=== PATIENT | female | born 1935 | race Caucasian/White ===

== ENCOUNTER 2016-04-23 10:34 | Inpatient (IN) | payer OTHER ==
[~2016-04-23] VITALS: Ht 152.4 cm; Wt 50.6 kg
[2016-04-23] VITALS (7 sets, daily range): BP systolic 101–151; BP diastolic 55–72; PULSE 98–113; RESP 18–20; TEMP 98.9–100; O2SAT 94–99
[~2016-04-23 10:34] MED LIST: ALPR.25 PO; ALPR.5 PO; AMLO5TAB2 PO; AMLO5TAB22 PO; ASPI81TA82 PO; BACT2OIN TOP; BENA40TA PO; CIPR-9 PO; FOSA70TA PO; LEVO.05 PO; LOTE40TA PO; MIRT30TA PO; PANT40TA3 PO; REGL5TAB PO; REST30CA PO; SIME125 PO; TEMA15CA PO; TEMA30CA PO; TRAM50 PO; ZOLO50TA PO
--- NOTE | 2016-04-23 11:11 | PD ---
HPI Chief Complaint: Abdominal Pain Time Seen by Provider: 11:06 Travel History International Travel<30 days: No Contact w/Intl Traveler<30days: No Traveled to known affect area: No History of Present Illness HPI Patient is an 6-year-old female brought in by her daughter for evaluation of abdominal pain, diarrhea, nausea and vomiting. Patient is mainly Cym[place]- speaking, interpreting was performed by her daughter. Formal services were offered. Patient's had 2 weeks of intermittent abdominal pain, daughter states she was going to take her to her primary last week then patient stated she felt better. The pain returned they had appointment for Thursday however the pain was more significant today which prompted the emergency department visit. Patient reports vomiting twice already today and has had multiple loose watery stools. Patient states that her abdomen feels bloated. She reports the pain as a 7 out of 10. Unknown whether or not patient's had fever him a temperature has not been assessed at home. Patient has a history of hypertension, pacemaker placement, GERD, diverticulitis. Her primary care provider is Dr. Gaona. [facility] Past Medical History Asthma: No Autoimmune Disease: No Anxiety: Yes Depression: Yes Heart Rhythm Problems: Yes Cancer: No Cardiovascular Problems: Yes (Pacemaker) High Cholesterol: No Chemotherapy: No Chest Pain: No Congestive Heart Failure: No COPD: No Coronary Artery Disease: Yes Diabetes: No Diminished Hearing: No Endocrine: No Gastrointestinal Disorders: Yes (FREQUENT NAUSEA , GASTRITIS ) GERD: Yes Genitourinary: No Hiatal Hernia: No Hypertension: Yes Immune Disorder: No Implanted Vascular Access Dvce: Yes Musculoskeletal: No Neurologic: No Psychiatric: No Reproductive: No Respiratory: No Immunizations Current: No Radiation Therapy: No Sleep Apnea: No Thyroid Disease: Yes (Takes synthroid) Ulcer: No Menopausal: Yes Past Surgical History Abdominal Surgery: Yes Appendectomy: Yes Body Medical Devices: Pacemaker Cardiac Surgery: Yes (PACEMAKER 2008) Cholecystectomy: Yes (IN 1994) Endocrine Surgery: Yes (THYROIDECTOMY) Genitourinary Surgery: Yes (BLADDER SURGERY IN 2003) Pacemaker: Yes (05/25) Other Surgery: Yes (COLECTOMY) Social History Alcohol Use: No Tobacco Use: No Substance Use: No Allergies-Medications (Allergen,Severity, Reaction): Coded Allergies: No Known Allergies (Verified , 04/23/16) Reported Meds & Prescriptions Reported Meds & Active Scripts Active Xanax (Alprazolam) 0.5 Mg Tab 0.5 Mg PO BID PRN Temazepam 30 Mg Cap 30 Mg PO HS PRN Pantoprazole (Pantoprazole Sodium) 40 Mg Tab 40 Mg PO DAILY Benazepril (Benazepril HCl) 40 Mg Tab 40 Mg PO DAILY Amlodipine (Amlodipine Besylate) 5 Mg Tab 5 Mg PO DAILY Synthroid (Levothyroxine Sodium) 50 Mcg Tab 50 Mcg PO DAILY Reglan (Metoclopramide HCl) 5 Mg Tab 5 Mg PO TIDAC Reported Zoloft (Sertraline HCl) 50 Mg Tab 50 Mg PO DAILY Phenergan (Promethazine HCl) 25 Mg Tab 25 Mg PO Q4HR PRN Aspirin Adult Low Strength (Aspirin) 81 Mg Tabdr 81 Mg PO DAILY Review of Systems Except as stated in HPI: all other systems reviewed are Neg General / Constitutional: No: Fever, Chills HENT: No: Headaches Cardiovascular: No: Chest Pain or Discomfort Respiratory: No: Shortness of Breath Gastrointestinal: Positive: Nausea, Vomiting, Diarrhea, Abdominal Pain Genitourinary: No: Dysuria Musculoskeletal: No: Myalgias Neurologic: Positive: Weakness, No: Focal Abnormalities Physical Exam Narrative GENERAL: Well-developed, well-nourished, elderly female. Resting comfortably in no acute distress. SKIN: Warm and dry. HEAD: Atraumatic. Normocephalic. EYES: Pupils equal and round. No scleral icterus. No injection or drainage. ENT: No nasal bleeding or discharge. Mucous membranes pink and moist. NECK: Trachea midline. No JVD. CARDIOVASCULAR: Mildly tachycardic. No murmur appreciated. RESPIRATORY: No accessory muscle use. Clear to auscultation. Breath sounds equal bilaterally. GASTROINTESTINAL: Abdomen soft, moderately tender to palpation left and right lower quadrant however it is worse on the left, nondistended. Hepatic and splenic margins not palpable. Positive bowel sounds, positive guarding. MUSCULOSKELETAL: No obvious deformities. No clubbing. No cyanosis. No edema. NEUROLOGICAL: Awake and alert. No obvious cranial nerve deficits. Motor grossly within normal limits. Normal speech. PSYCHIATRIC: Appropriate mood and affect; insight and judgment normal. Data Data Last Documented VS Vital Signs Date Time Temp Pulse Resp B/P Pulse Ox O2 Delivery O2 Flow Rate FiO2 04/23/16 14:26 99.0 98 18 108/58 94 Room Air Orders Complete Blood Count With Diff (04/23/16 11:04) Comprehensive Metabolic Panel (04/23/16 11:04) Lipase (04/23/16 11:04) Lactic Acid (04/23/16 11:04) Urinalysis - C+S If Indicated (04/23/16 11:04) Abdomen, Kub Only (04/23/16 11:04) Ondansetron Odt (Zofran Odt) (04/23/16 11:15) Acetaminophen Supp (Tylenol Supp) (04/23/16 11:15) Influenzae A/B Antigen (04/23/16 11:11) Blood Culture (04/23/16 11:46) Ct Abd/Pel W Iv Contrast(Rout) (04/23/16 11:46) C Diff Toxin Pcr (04/23/16 11:46) Enteric Path (Stool) (04/23/16 11:46) Sodium Chlor 0.9% 1000 Ml Inj (Ns 1000 M (04/23/16 11:46) Acetaminophen (Tylenol) (04/23/16 12:00) Ondansetron Inj (Zofran Inj) (04/23/16 12:00) Morphine Inj (Morphine Inj) (04/23/16 12:00) Potassium Chloride (Kcl) (04/23/16 12:00) Iohexol 350 Inj (Omnipaque 350 Inj) (04/23/16 13:27) Metronidazole 500 Mg Inj (Flagyl 500 Mg (04/23/16 14:15) Ciprofloxacin 400 Mg Premix (Cipro 400 M (04/23/16 14:15) Isolation (04/23/16 14:09) Sodium Chlor 0.9% 1000 Ml Inj (Ns 1000 M (04/23/16 14:09) Equip, Isolation Cart (04/23/16 14:14) Isolation (04/23/16 14:14) Admit Order (Ed Use Only) (04/23/16 14:26) Labs Laboratory Tests Test 04/23/16 04/23/16 04/23/16 11:31 12:10 13:49 White Blood Count 21.1 TH/MM3 Red Blood Count 3.42 MIL/MM3 Hemoglobin 10.5 GM/DL Hematocrit 30.7 % Mean Corpuscular Volume 89.8 FL Mean Corpuscular Hemoglobin 30.7 PG Mean Corpuscular Hemoglobin 34.2 % Concent Red Cell Distribution Width 12.6 % Platelet Count 240 TH/MM3 Mean Platelet Volume 7.5 FL Neutrophils (%) (Auto) 89.9 % Lymphocytes (%) (Auto) 2.3 % Monocytes (%) (Auto) 7.7 % Eosinophils (%) (Auto) 0.0 % Basophils (%) (Auto) 0.1 % Neutrophils # (Auto) 19.0 TH/MM3 Lymphocytes # (Auto) 0.5 TH/MM3 Monocytes # (Auto) 1.6 TH/MM3 Eosinophils # (Auto) 0.0 TH/MM3 Basophils # (Auto) 0.0 TH/MM3 CBC Comment DIFF FINAL Differential Comment Sodium Level 135 MEQ/L Potassium Level 3.2 MEQ/L Chloride Level 99 MEQ/L Carbon Dioxide Level 24.6 MEQ/L Anion Gap 11 MEQ/L Blood Urea Nitrogen 8 MG/DL Creatinine 0.59 MG/DL Estimat Glomerular Filtration 97 ML/MIN Rate Random Glucose 173 MG/DL Lactic Acid Level 1.5 mmol/L Calcium Level 8.0 MG/DL Total Bilirubin 0.9 MG/DL Aspartate Amino Transf 25 U/L (AST/SGOT) Alanine Aminotransferase 26 U/L (ALT/SGPT) Alkaline Phosphatase 61 U/L Total Protein 5.9 GM/DL Albumin 2.6 GM/DL Lipase 50 U/L Stool C. difficile Toxin (PCR) POSITIVE Stl C. difficile Toxin PRESUMPTIVE Epiderm 027 NEGATIVE Urine Color YELLOW Urine Turbidity CLEAR Urine pH 6.5 Urine Specific [place] 1.025 Urine Protein 30 mg/dL Urine Glucose (UA) NEG mg/dL Urine Ketones NEG mg/dL Urine Occult Blood SMALL Urine Nitrite NEG Urine Bilirubin NEG Urine Urobilinogen LESS THAN 2.0 MG/DL Urine Leukocyte Esterase SMALL Urine RBC 9 /hpf Urine WBC 8 /hpf Urine Squamous Epithelial <1 /hpf Cells Urine Transitional Epithelial <1 /hpf Cells Microscopic Urinalysis Comment CULT NOT INDICATED MDM Medical Decision Making Medical Screen Exam Complete: Yes Emergency Medical Condition: Yes Interpretation(s) Vital Signs Date Time Temp Pulse Resp B/P Pulse Ox O2 Delivery O2 Flow Rate FiO2 04/23/16 10:35 100.0 108 20 139/66 97 Room Air Differential Diagnosis Diverticulitis versus colitis versus perforation versus gastroenteritis versus influenza versus other Narrative Course Patient is an 81-year-old female presenting to emergency for evaluation of 2 weeks of intermittent abdominal pain that is gotten worse over the last 2 days. Patient has a history of diverticulitis per daughter's report. Patient's had poor oral intake secondary to the nausea and vomiting. Labs and imaging ordered and pending, Zofran ordered. Daughter at bedside. Daughter is interpreting, formal services have been offered. Workup has been initiated in triage, care patient will be transferred to provide her with a medical bed is available. Maria Antonia Burrows Apr 23, 2016 11:11 Maria Antonia Burrows Apr 23, 2016 11:11
[2016-04-23] MEDS ORDERED: ONDANSETRON ODT 4 MG TAB PO ONE (11:15)
[2016-04-23] MEDS ORDERED: ACETAMINOPHEN 650 MG SUPP RECTAL ONE (11:15)
[2016-04-23 11:45] LABS: BASOPHIL % 0.1 % (0.0-2.0); HEMATOCRIT 30.7 % (35.0-46.0); HEMO FLAGS DIFF FINAL; LYMPH % 2.3 % (9.0-44.0); LYMPHOCYTE # 0.5 TH/MM3 (1.0-4.8); MEAN CELL VOLUME 89.8 FL (80.0-100.0); MEAN CORPUSCULAR HEMOGLOBIN 30.7 PG (27.0-34.0); MEAN CORPUSCULAR HGB CONC 34.2 % (32.0-36.0); MONO % 7.7 % (0.0-8.0); NEUT % 89.9 % (16.0-70.0); PLATELET COUNT 240 TH/MM3 (150-450); RED BLOOD COUNT 3.42 MIL/MM3 (4.00-5.30); RED CELL DISTRIBUTION WIDTH 12.6 % (11.6-17.2); WHITE BLOOD COUNT 21.1 TH/MM3 (4.0-11.0)
[2016-04-23] MEDS ORDERED: SODIUM CHLOR 0.9% 1000 ML INJ 1,000 ML IV SCH ×2 (11:46→14:09)
--- NOTE | 2016-04-23 11:53 | PD ---
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 All interpretation was through her daughter who speaks Maltese and [place] Citizen. 81-year -old female with history of hypertension, coronary artery disease, diverticulosis, hypothyroidism, chronic back pain presents for evaluation of abdominal pain, nausea and vomiting and diarrhea. Abdominal pain, diarrhea started 2 weeks ago. Symptoms seemed to have waxed and waned since then. Over the past 2 days that is worse. She reports nausea and vomiting which started today. 3 episodes of nonbloody emesis today, 6 episodes of mucousy nonbloody watery diarrhea. She has had abdominal pain which she describes as a squeezing pain in the left and right lower quadrant the abdomen. She has been complaining of chills over the past few days as well. Denies dysuria, increased urinary frequency, flank pain, chest pain or shortness of breath, cough or congestion, sore throat. The patient was last on an antibiotic on March 11, ciprofloxacin for 7 days, for possible urinary tract infection. No history of C. difficile. No other complaints. Regular physician is Dr. Gaona. [facility] Past Medical History Asthma: No Autoimmune Disease: No Anxiety: Yes Depression: Yes Heart Rhythm Problems: Yes Cancer: No Cardiovascular Problems: Yes (Pacemaker) High Cholesterol: No Chemotherapy: No Chest Pain: No Congestive Heart Failure: No COPD: No Coronary Artery Disease: Yes Diabetes: No Diminished Hearing: No Endocrine: No Gastrointestinal Disorders: Yes (FREQUENT NAUSEA , GASTRITIS ) GERD: Yes Genitourinary: No Hiatal Hernia: No Hypertension: Yes Immune Disorder: No Implanted Vascular Access Dvce: Yes Musculoskeletal: No Neurologic: No Psychiatric: No Reproductive: No Respiratory: No Immunizations Current: No Radiation Therapy: No Sleep Apnea: No Thyroid Disease: Yes (Takes synthroid) Ulcer: No Menopausal: Yes Past Surgical History Abdominal Surgery: Yes Appendectomy: Yes Body Medical Devices: Pacemaker Cardiac Surgery: Yes (PACEMAKER 2008) Cholecystectomy: Yes (IN 1994) Endocrine Surgery: Yes (THYROIDECTOMY) Genitourinary Surgery: Yes (BLADDER SURGERY IN 2003) Pacemaker: Yes (05/25) Other Surgery: Yes (COLECTOMY) Social History Alcohol Use: No Tobacco Use: No Substance Use: No Allergies-Medications (Allergen,Severity, Reaction): Coded Allergies: No Known Allergies (Verified , 04/23/16) Reported Meds & Prescriptions Reported Meds & Active Scripts Active Xanax (Alprazolam) 0.5 Mg Tab 0.5 Mg PO BID PRN Temazepam 30 Mg Cap 30 Mg PO HS PRN Pantoprazole (Pantoprazole Sodium) 40 Mg Tab 40 Mg PO DAILY Benazepril (Benazepril HCl) 40 Mg Tab 40 Mg PO DAILY Amlodipine (Amlodipine Besylate) 5 Mg Tab 5 Mg PO DAILY Synthroid (Levothyroxine Sodium) 50 Mcg Tab 50 Mcg PO DAILY Reglan (Metoclopramide HCl) 5 Mg Tab 5 Mg PO TIDAC Reported Zoloft (Sertraline HCl) 50 Mg Tab 50 Mg PO DAILY Phenergan (Promethazine HCl) 25 Mg Tab 25 Mg PO Q4HR PRN Aspirin Adult Low Strength (Aspirin) 81 Mg Tabdr 81 Mg PO DAILY Review of Systems Except as stated in HPI: all other systems reviewed are Neg Physical Exam Narrative GENERAL: Pleasant well-developed well-nourished elderly female in no acute distress answering questions appropriately. Tachycardic with temperature 100. SKIN: Warm and dry. HEAD: Atraumatic. Normocephalic. EYES: Pupils equal and round. No scleral icterus. No injection or drainage. ENT: No nasal bleeding or discharge. Mucous membranes pink and moist. NECK: Trachea midline. No JVD. CARDIOVASCULAR: Regular rate and rhythm. No murmur appreciated. RESPIRATORY: No accessory muscle use. Clear to auscultation. Breath sounds equal bilaterally. GASTROINTESTINAL: Abdomen soft, tender to palpation in the left and right lower quadrants, left greater than right. No guarding. MUSCULOSKELETAL: No obvious deformities. No lower extremity edema. NEUROLOGICAL: Awake and alert. No obvious cranial nerve deficits. Motor grossly within normal limits. Normal speech. PSYCHIATRIC: Appropriate mood and affect; insight and judgment normal. Data Data Last Documented VS Vital Signs Date Time Temp Pulse Resp B/P Pulse Ox O2 Delivery O2 Flow Rate FiO2 04/23/16 14:26 99.0 98 18 108/58 94 Room Air Orders Complete Blood Count With Diff (04/23/16 11:04) Comprehensive Metabolic Panel (04/23/16 11:04) Lipase (04/23/16 11:04) Lactic Acid (04/23/16 11:04) Urinalysis - C+S If Indicated (04/23/16 11:04) Abdomen, Kub Only (04/23/16 11:04) Ondansetron Odt (Zofran Odt) (04/23/16 11:15) Acetaminophen Supp (Tylenol Supp) (04/23/16 11:15) Influenzae A/B Antigen (04/23/16 11:11) Blood Culture (04/23/16 11:46) Ct Abd/Pel W Iv Contrast(Rout) (04/23/16 11:46) C Diff Toxin Pcr (04/23/16 11:46) Enteric Path (Stool) (04/23/16 11:46) Sodium Chlor 0.9% 1000 Ml Inj (Ns 1000 M (04/23/16 11:46) Acetaminophen (Tylenol) (04/23/16 12:00) Ondansetron Inj (Zofran Inj) (04/23/16 12:00) Morphine Inj (Morphine Inj) (04/23/16 12:00) Potassium Chloride (Kcl) (04/23/16 12:00) Iohexol 350 Inj (Omnipaque 350 Inj) (04/23/16 13:27) Metronidazole 500 Mg Inj (Flagyl 500 Mg (04/23/16 14:15) Ciprofloxacin 400 Mg Premix (Cipro 400 M (04/23/16 14:15) Isolation (04/23/16 14:09) Sodium Chlor 0.9% 1000 Ml Inj (Ns 1000 M (04/23/16 14:09) Equip, Isolation Cart (04/23/16 14:14) Isolation (04/23/16 14:14) Admit Order (Ed Use Only) (04/23/16 14:26) Labs Laboratory Tests Test 04/23/16 04/23/16 04/23/16 11:31 12:10 13:49 White Blood Count 21.1 TH/MM3 Red Blood Count 3.42 MIL/MM3 Hemoglobin 10.5 GM/DL Hematocrit 30.7 % Mean Corpuscular Volume 89.8 FL Mean Corpuscular Hemoglobin 30.7 PG Mean Corpuscular Hemoglobin 34.2 % Concent Red Cell Distribution Width 12.6 % Platelet Count 240 TH/MM3 Mean Platelet Volume 7.5 FL Neutrophils (%) (Auto) 89.9 % Lymphocytes (%) (Auto) 2.3 % Monocytes (%) (Auto) 7.7 % Eosinophils (%) (Auto) 0.0 % Basophils (%) (Auto) 0.1 % Neutrophils # (Auto) 19.0 TH/MM3 Lymphocytes # (Auto) 0.5 TH/MM3 Monocytes # (Auto) 1.6 TH/MM3 Eosinophils # (Auto) 0.0 TH/MM3 Basophils # (Auto) 0.0 TH/MM3 CBC Comment DIFF FINAL Differential Comment Sodium Level 135 MEQ/L Potassium Level 3.2 MEQ/L Chloride Level 99 MEQ/L Carbon Dioxide Level 24.6 MEQ/L Anion Gap 11 MEQ/L Blood Urea Nitrogen 8 MG/DL Creatinine 0.59 MG/DL Estimat Glomerular Filtration 97 ML/MIN Rate Random Glucose 173 MG/DL Lactic Acid Level 1.5 mmol/L Calcium Level 8.0 MG/DL Total Bilirubin 0.9 MG/DL Aspartate Amino Transf 25 U/L (AST/SGOT) Alanine Aminotransferase 26 U/L (ALT/SGPT) Alkaline Phosphatase 61 U/L Total Protein 5.9 GM/DL Albumin 2.6 GM/DL Lipase 50 U/L Stool C. difficile Toxin (PCR) POSITIVE Stl C. difficile Toxin PRESUMPTIVE Epiderm 027 NEGATIVE Urine Color YELLOW Urine Turbidity CLEAR Urine pH 6.5 Urine Specific [place] 1.025 Urine Protein 30 mg/dL Urine Glucose (UA) NEG mg/dL Urine Ketones NEG mg/dL Urine Occult Blood SMALL Urine Nitrite NEG Urine Bilirubin NEG Urine Urobilinogen LESS THAN 2.0 MG/DL Urine Leukocyte Esterase SMALL Urine RBC 9 /hpf Urine WBC 8 /hpf Urine Squamous Epithelial <1 /hpf Cells Urine Transitional Epithelial <1 /hpf Cells Microscopic Urinalysis Comment CULT NOT INDICATED MDM Medical Decision Making Medical Screen Exam Complete: Yes Emergency Medical Condition: Yes Medical Record Reviewed: Yes Interpretation(s) CBC WBC 21.1 with 89.9% neutrophils CMP potassium 3.2, sodium 135 Lactic acid within normal limits Lipase 50 Differential Diagnosis Diverticulitis, colitis, C. difficile, colitis, gastroenteritis, sepsis, perforation, pyelonephritis Narrative Course 81-year-old female waxing and waning abdominal pain and diarrhea for 2 weeks, worsening over the past 2 days with associated chills, nausea and vomiting today. On initial examination she is tachycardic with a heart rate of 108, temperature 100. On examination she has tenderness to palpation left right lower quadrant. History of diverticulitis in the past. We will check CT abdomen and pelvis, basic lab work, urinalysis. The patient will be given IV fluid bolus, Tylenol and Zofran. CT reveals colitis, suspicious for C. difficile according to the radiologist. Special contact precautions initiated. C. difficile PCR still pending. The patient is being started on IV Flagyl and Cipro pending culture and PCR results. She is being admitted for sepsis and colitis. Discussed with the patient and her daughter who are agreeable. She feels much better after the administration of morphine and Tylenol and Zofran. Discussed with Dr. Rodríguez who is agreeable with admission to Dr. Zapata C. difficile PCR came back positive so the Cipro has been canceled and will not be administered. Flagyl is being administered. Sepsis Criteria SIRS Criteria (2 or more): Heart rate over 90, WBC > 79986, < 4000 or > 10% bands Sepsis Criteria (SIRS+source): Infect source susp/known Diagnosis Primary Impression: Sepsis Qualified Code: A41.9 - Sepsis, due to unspecified organism Additional Impressions: Colitis C. difficile colitis Admitting Information Admitting Physician Requests: Admit Jalil Gan Apr 23, 2016 11:53
[2016-04-23 11:59] LABS: ANION GAP 11 MEQ/L (5-15); AST (GOT) 25 U/L (15-37); BICARBONATE 24.6 MEQ/L (21.0-32.0); BLOOD UREA NITROGEN 8 MG/DL (7-18); CHLORIDE 99 MEQ/L (98-107); GLOMERULAR FILTRATION RATE 97 ML/MIN (>89); POTASSIUM 3.2 MEQ/L (3.5-5.1); SODIUM (NA) 135 MEQ/L (136-145)
[2016-04-23] MEDS ORDERED: POTASSIUM CHLORIDE 20 MEQ CONTROLLED RELEASE TAB PO ONE (12:00)
[2016-04-23] MEDS ORDERED: MORPHINE SULFATE 4 MG/ML INJ IV PUSH ONE (12:00)
[2016-04-23] MEDS ORDERED: ONDANSETRON HCL 4 MG/2 ML VIAL IV PUSH ONE (12:00)
[2016-04-23] MEDS ORDERED: ACETAMINOPHEN 325 MG TAB PO ONE (12:00)
[2016-04-23 12:03] LABS: ALKALINE PHOSPHATASE 61 U/L (45-117); ALT (GPT) 26 U/L (10-53); TOTAL BILIRUBIN ADULT 0.9 MG/DL (0.2-1.0)
--- NOTE | 2016-04-23 12:08 | RADRPT ---
EXAM DATE/TIME: 04/23/2016 11:29 [facility] COMPARISON: No previous studies available for comparison. INDICATIONS : Abdomen pain and diarrhea. MEDICAL HISTORY : None. SURGICAL HISTORY : None. ENCOUNTER: Initial ACUITY: 2 weeks PAIN SCORE: 8/10 LOCATION: Left Abdomen. FINDINGS: No distention seen. Thumbprinting seen of much of the colon, especially sigmoid and of concern for po ssible colitis. No free air. CONCLUSION: Suspected sigmoid colitis. Nonobstructive pattern. No free air. Ramo Armas MD on April 23, 2016 at 12:05 Board Certified Radiologist. This report was verified electronically.
[2016-04-23] MEDS ORDERED: ASPI1TAB91 PO (12:44)
[2016-04-23] MEDS ORDERED: PROM25TA5 PO (12:44)
[2016-04-23] MEDS ORDERED: ZOLO50TA PO (12:44)
[2016-04-23] MEDS ORDERED: IOHEXOL 350 MG/ML 10 ML VIAL (for RAD DIAG) IV ONE (13:27)
[2016-04-23 14:01] LABS: C. DIFF EPI 027 PRESUMPTIVE NEGATIVE (NEGATIVE)
--- NOTE | 2016-04-23 14:04 | RADRPT ---
EXAM DATE/TIME: 04/23/2016 13:15 [facility] COMPARISON: CT ABDOMEN & PELVIS W CONTRAST, November 07, 2015, 3:54. INDICATIONS : Lower abdominal pain. Nausea, vomiting and diarrhea. IV CONTRAST: 75 cc Omnipaque 350 (iohexol) IV ORAL CONTRAST: No oral contrast ingested. RADIATION DOSE: 9.96 CTDIvol (mGy) MEDICAL HISTORY : Diverticulosis. Cardiovascular disease Hypertension. SURGICAL HISTORY : Appendectomy. Cholecystectomy.Pacemaker. ENCOUNTER: Initial ACUITY: 2 weeks PAIN SCALE: 8/10 LOCATION: Bilateral lower quadrant TECHNIQUE: Volumetric scanning of the abdomen and pelvis was performed. Using automated exposure control and ad justment of the mA and/or kV according to patient size, radiation dose was kept as low as reasonably achievable to obtain optimal diagnostic quality images. FINDINGS: LOWER LUNGS: There is a small left pleural effusion and small to moderate size pericardial effusion, increased in volume since the prior examination. Pacing wires are present within the right heart. LIVER: Homogeneous density without lesion. The gallbladder is absent. Common bile duct remains enlarged moreno uring up to 8 mm distally. This appearance is stable. SPLEEN: Normal size without lesion. PANCREAS: Within normal limits. KIDNEYS: Normal in size and shape. There is no mass, stone or hydronephrosis. ADRENAL GLANDS: Within normal limits. VASCULAR: There is no aortic aneurysm. There is moderate atherosclerotic disease. BOWEL/MESENTERY: The stomach and small bowel demonstrate no acute finding. The colon nearly diffusely demonstrate circ umferential wall thickening and pericolonic inflammatory change. There has been prior small bowel margarita christy in the right abdomen. Trace free fluid is present. There is no free air. ABDOMINAL WALL: Within normal limits. RETROPERITONEUM: There is no lymphadenopathy. BLADDER: No wall thickening or mass. REPRODUCTIVE: Within normal limits. INGUINAL: There is no lymphadenopathy or hernia. MUSCULOSKELETAL: There are degenerative changes of the spine. CONCLUSION: 1. The colon nearly diffusely demonstrates wall thickening and pericolonic inflammatory change charac teristic of a colitis. The appearance and distribution is suspicious for C. difficile colitis. 2. Small left pleural effusion and mild to moderate pericardial effusion. Ramo Roca MD on April 23, 2016 at 13:53 Board Certified Radiologist. This report was verified electronically.
[2016-04-23 14:09] LABS: BLOOD, URINE SMALL (NEG); GLUCOSE,URINE NEG (NEG); KETONE, URINE NEG (NEG); NITRITE,URINE NEG (NEG); PH, URINE 6.5 (5.0-8.5); SQUAMOUS EPITHELIAL CELL URINE <1 /hpf (0-5); TRANSITIONAL EPI CELLS, URINE <1 /hpf; URINE COLOR YELLOW (YELLW/STRAW)
[2016-04-23] MEDS ORDERED: metroNIDAZOLE 500 MG INJ 100 ML IV ONE (14:15)
[2016-04-23] MEDS ORDERED: CIPROFLOXACIN 400 MG PREMIX 200 ML IV ONE (14:15)
--- NOTE | 2016-04-23 14:17 | PD ---
Physical Exam Date Seen by Provider: Apr 23, 2016 Time Seen by Provider: 13:50 Narrative A 81 year old female with two-week history of abdominal pain and diarrhea. The patient was scheduled to see her primary care doctor on Thursday however the pain is gotten so worse. Patient does have a history of diverticulitis. Patient was seen with Silke Gan PA-C. Data Data Last Documented VS Vital Signs Date Time Temp Pulse Resp B/P Pulse Ox O2 Delivery O2 Flow Rate FiO2 04/23/16 10:35 100.0 108 20 139/66 97 Room Air Orders Complete Blood Count With Diff (04/23/16 11:04) Comprehensive Metabolic Panel (04/23/16 11:04) Lipase (04/23/16 11:04) Lactic Acid (04/23/16 11:04) Urinalysis - C+S If Indicated (04/23/16 11:04) Abdomen, Kub Only (04/23/16 11:04) Ondansetron Odt (Zofran Odt) (04/23/16 11:15) Acetaminophen Supp (Tylenol Supp) (04/23/16 11:15) Influenzae A/B Antigen (04/23/16 11:11) Blood Culture (04/23/16 11:46) Ct Abd/Pel W Iv Contrast(Rout) (04/23/16 11:46) C Diff Toxin Pcr (04/23/16 11:46) Enteric Path (Stool) (04/23/16 11:46) Sodium Chlor 0.9% 1000 Ml Inj (Ns 1000 M (04/23/16 11:46) Acetaminophen (Tylenol) (04/23/16 12:00) Ondansetron Inj (Zofran Inj) (04/23/16 12:00) Morphine Inj (Morphine Inj) (04/23/16 12:00) Potassium Chloride (Kcl) (04/23/16 12:00) Iohexol 350 Inj (Omnipaque 350 Inj) (04/23/16 13:27) Metronidazole 500 Mg Inj (Flagyl 500 Mg (04/23/16 14:15) Ciprofloxacin 400 Mg Premix (Cipro 400 M (04/23/16 14:15) Isolation 08,20 (04/23/16 14:09) Sodium Chlor 0.9% 1000 Ml Inj (Ns 1000 M (04/23/16 14:09) Labs Laboratory Tests Test 04/23/16 11:31 White Blood Count 21.1 TH/MM3 Red Blood Count 3.42 MIL/MM3 Hemoglobin 10.5 GM/DL Hematocrit 30.7 % Mean Corpuscular Volume 89.8 FL Mean Corpuscular Hemoglobin 30.7 PG Mean Corpuscular Hemoglobin 34.2 % Concent Red Cell Distribution Width 12.6 % Platelet Count 240 TH/MM3 Mean Platelet Volume 7.5 FL Neutrophils (%) (Auto) 89.9 % Lymphocytes (%) (Auto) 2.3 % Monocytes (%) (Auto) 7.7 % Eosinophils (%) (Auto) 0.0 % Basophils (%) (Auto) 0.1 % Neutrophils # (Auto) 19.0 TH/MM3 Lymphocytes # (Auto) 0.5 TH/MM3 Monocytes # (Auto) 1.6 TH/MM3 Eosinophils # (Auto) 0.0 TH/MM3 Basophils # (Auto) 0.0 TH/MM3 CBC Comment DIFF FINAL Differential Comment Sodium Level 135 MEQ/L Potassium Level 3.2 MEQ/L Chloride Level 99 MEQ/L Carbon Dioxide Level 24.6 MEQ/L Anion Gap 11 MEQ/L Blood Urea Nitrogen 8 MG/DL Creatinine 0.59 MG/DL Estimat Glomerular Filtration 97 ML/MIN Rate Random Glucose 173 MG/DL Lactic Acid Level 1.5 mmol/L Calcium Level 8.0 MG/DL Total Bilirubin 0.9 MG/DL Aspartate Amino Transf 25 U/L (AST/SGOT) Alanine Aminotransferase 26 U/L (ALT/SGPT) Alkaline Phosphatase 61 U/L Total Protein 5.9 GM/DL Albumin 2.6 GM/DL Lipase 50 U/L [facility] Medical Record Reviewed: Yes Supervised Visit with REMBERTO: Yes Differential Diagnosis Colitis versus diverticulitis versus mesenteric ischemia versus C. difficile Narrative Course 81-year-old female with a history of diverticulitis, presents with complaints of 2 week history of abdominal pain. Patient has diarrhea as well. She was treated with ciprofloxacin one month ago. The patient's white blood cell count is 21,000. CT scan shows evidence of diverticulitis. She's been started on ciprofloxacin and Flagyl. She'll be admitted to the hospital service. I, Dr. House, have reviewed the advance practice practitioner's documentation and am in agreement, met with the patient face to face, made the diagnosis, and the medical decision making was done by me. *My assessment and Findings: As above. Diagnosis Primary Impression: Sepsis Qualified Code: A41.9 - Sepsis, due to unspecified organism Additional Impression: Colitis Sky House MD Apr 23, 2016 14:17
[2016-04-23 14:19] LABS: COMMENT (UR) CULT NOT INDICATED; CULTURE IF INDICATED CULT NOT INDICATED
[2016-04-23 14:30] LABS: C. DIFF TOXIN PCR POSITIVE (NEGATIVE)
--- NOTE | 2016-04-23 14:31 | HHI.HP ---
[facility] Service Family Medicine Primary Care Physician Dr. Gaona Admission Diagnosis C. diff colitis Diagnoses: International Travel<30 Days: No Contact w/Intl Traveler<30days: No Known Affected Area: No History of Present Illness 81 year old female with a history of HTN, diverticulitis, hypothyroidism, and pacemaker placement presented to the ER for evaluation of abdominal pain, diarrhea, nausea and vomiting. She endorses bloating and crampy , lower abdominal pain for the past 4-5 days. Pain is worst in the left lower quadrant and she rates it 7/10. She began having diarrhea yesterday morning and since then she has had about seven episodes of foul-smelling, liquid diarrhea with occasional bloody-mucous streaks. She reports subjective fever at home which she treated with Tylenol. Today she had nausea and two episodes of nonbloody, nonbilious vomiting. She was last seen by her PCP, Dr. Gaona, in February and was treated with a seven day course of Cipro for a UTI. Review of Systems Constitutional: COMPLAINS OF: Fever, Chills, Change in appetite Eyes: DENIES: Blurred vision, Double Vision Ears, nose, mouth, throat: DENIES: Running Nose Respiratory: DENIES: Cough, Sputum production, Shortness of breath Cardiovascular: DENIES: Chest pain, Palpitations Gastrointestinal: COMPLAINS OF: Abdominal pain, Diarrhea, Nausea, Vomiting, DENIES: Black stools, Constipation Genitourinary: DENIES: Urgency, Hematuria, Dysuria Musculoskeletal: DENIES: Joint pain Integumentary: DENIES: Rash Neurologic: DENIES: Headache Psychiatric: DENIES: Confusion Past Family Social History Past Medical History Hypertension Coronary artery disease Hypothyroidism Diverticulitis 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 Pacemaker (cardiac conduction abnormality; history of syncope secondary to bradycardia) Back pain (followed by pain management) Past Surgical History Cholecystectomy Appendectomy Laparotomy Colectomy (bowel obstruction) Biventricular pacemaker placement Partial thyroidectomy Bladder mesh Reported Medications Xanax (Alprazolam) 0.5 Mg Tab 0.5 Mg PO BID PRN Temazepam 30 Mg Cap 30 Mg PO HS PRN Pantoprazole (Pantoprazole Sodium) 40 Mg Tab 40 Mg PO DAILY Benazepril (Benazepril HCl) 40 Mg Tab 40 Mg PO DAILY Amlodipine (Amlodipine Besylate) 5 Mg Tab 5 Mg PO DAILY Synthroid (Levothyroxine Sodium) 50 Mcg Tab 50 Mcg PO DAILY Reglan (Metoclopramide HCl) 5 Mg Tab 5 Mg PO TIDAC Zoloft (Sertraline HCl) 50 Mg Tab 50 Mg PO DAILY Phenergan (Promethazine HCl) 25 Mg Tab 25 Mg PO Q4HR PRN Aspirin Adult Low Strength (Aspirin) 81 Mg Tabdr 81 Mg PO DAILY Allergies: Coded Allergies: No Known Allergies (Verified , 04/23/16) Active Ordered Medications Acetaminophen (Tylenol) 650 mg ONCE ONCE PO Last administered on 04/23/16 12:23 ; Admin Dose 650 MG; Start 04/23/16 at 12:00; Stop 04/23/16 at 12:02; Status DC Acetaminophen (Tylenol) 650 mg Q4H PRN PO; Start 04/23/16 at 15:15 Acetaminophen 650 mg 650 mg ONCE ONCE RECTAL Last administered on 04/23/16 11: 16; Admin Dose 650 MG; Start 04/23/16 at 11:15; Stop 04/23/16 at 11:16; Status DC Ciprofloxacin/ Dextrose 200 ml @ 200 mls/hr ONCE ONCE IV Last administered on 04/23/16 14:21; Admin Dose 200 MLS/HR; Start 04/23/16 at 14:15; Stop 04/23/16 at 14:34; Status DC Heparin Sodium (Porcine) (Heparin Inj) 5,000 units Q12H SQ; Start 04/23/16 at 21: 00 Iohexol 75 ml 75 ml STK-MED ONCE IV Last administered on 04/23/16 13:27; Admin Dose 75 ML; Start 04/23/16 at 13:27; Stop 04/23/16 at 13:28; Status DC IV Flush (NS Flush) 2 ml BID FLUSH; Start 04/23/16 at 21:00 IV Flush (NS Flush) 2 ml UNSCH PRN FLUSH; Start 04/23/16 at 15:15 Metronidazole 100 ml @ 100 mls/hr ONCE ONCE IV Last administered on 04/23/16 14:21; Admin Dose 100 MLS/HR; Start 04/23/16 at 14:15; Stop 04/23/16 at 15:14; Status DC Metronidazole (Flagyl 500 Mg Inj) 100 ml @ 100 mls/hr Q8H IV; Start 04/23/16 at 22:30 Morphine Sulfate (Morphine Inj) 2 mg Q4HR PRN IV PUSH; Start 04/23/16 at 16:00 Morphine Sulfate (Morphine Inj) 3 mg ONCE ONCE IV PUSH Last administered on 04/23 12:22; Admin Dose 3 MG; Start 04/23/16 at 12:00; Stop 04/23/16 at 12:03; Status DC Naloxone HCl 0.4 mg 0.4 mg UNSCH PRN IV; Start 04/23/16 at 15:15 Ondansetron HCl (Zofran Odt) 4 mg ONCE ONCE PO Last administered on 04/23/16 11:16; Admin Dose 4 MG; Start 04/23/16 at 11:15; Stop 04/23/16 at 11:16; Status DC Ondansetron HCl (Zofran Inj) 4 mg ONCE ONCE IV PUSH Last administered on 12:22; Admin Dose 4 MG; Start 04/23/16 at 12:00; Stop 04/23/16 at 12:02; Status DC Ondansetron HCl (Zofran Inj) 4 mg Q6H PRN IVP; Start 04/23/16 at 15:15 Potassium Chloride (KCl) 40 meq ONCE ONCE PO Last administered on 04/23/16 12: 23; Admin Dose 40 MEQ; Start 04/23/16 at 12:00; Stop 04/23/16 at 12:03; Status DC Sodium Chloride 1,000 ml @ 1,000 mls/hr Q1H IV Last administered on 04/23/16 14 :22; Admin Dose 1,000 MLS/HR; Start 04/23/16 at 14:09; Stop 04/23/16 at 15:08; Status DC Sodium Chloride (NS 1000 ml Inj) 1,000 ml @ 100 mls/hr Q10H IV; Start 04/23/16 at 15:07 Sodium Chloride (NS 1000 ml Inj) 1,000 ml @ 1,000 mls/hr Q1H IV Last administered on 04/23/16 12:23; Admin Dose 1,000 MLS/HR; Start 04/23/16 at 11:46 ; Stop 04/23/16 at 12:45; Status DC Family History Mother: at "old age" Father: from pulmonary disease Social History Lives with daughter EtOH: glass of wine daily Tobacco: denies Illicit drugs: denies Physical Exam Vital Signs Vital Signs Date Time Temp Pulse Resp B/P Pulse Ox O2 Delivery O2 Flow Rate FiO2 04/23/16 10:35 100.0 108 20 139/66 97 Room Air Physical Exam GENERAL: Well-nourished, well-developed elderly female, appears younger than stated age, laying comfortably in bed in no apparent distress. SKIN: Warm and dry. Few upper extremity purpura. HEENT: Atraumatic. Normocephalic. No temporal or scalp tenderness. Pupils equal round and reactive. Extraocular motions intact. Right eye twitching. No scleral icterus. No injection or drainage. Nose without bleeding, purulent drainage or septal hematoma. Throat without erythema, tonsillar hypertrophy or exudate. Uvula midline. Airway patent. NECK: Trachea midline. Thyroidectomy scar. No JVD or lymphadenopathy. Supple, nontender, no meningeal signs. CARDIOVASCULAR: Regular rate and rhythm without murmurs, gallops, or rubs. 2+ pedal pulses. RESPIRATORY: Clear to auscultation. Breath sounds equal bilaterally. No wheezes , rales, or rhonchi. GASTROINTESTINAL: Laparotomy scar. Hyperactive bowel sounds. Abdomen is soft with mild diffuse tenderness to palpation but especially tender over LLQ. No guarding or rebound. MUSCULOSKELETAL: Extremities without clubbing, cyanosis, or edema. No joint tenderness, effusion, or edema noted. No calf tenderness. NEUROLOGICAL: Awake and alert. Normal speech. Laboratory Laboratory Tests Test 04/23/16 04/23/16 11:31 13:49 White Blood Count 21.1 Red Blood Count 3.42 Hemoglobin 10.5 Hematocrit 30.7 Mean Corpuscular Volume 89.8 Mean Corpuscular Hemoglobin 30.7 Mean Corpuscular Hemoglobin 34.2 Concent Red Cell Distribution Width 12.6 Platelet Count 240 Mean Platelet Volume 7.5 Neutrophils (%) (Auto) 89.9 Lymphocytes (%) (Auto) 2.3 Monocytes (%) (Auto) 7.7 Eosinophils (%) (Auto) 0.0 Basophils (%) (Auto) 0.1 Neutrophils # (Auto) 19.0 Lymphocytes # (Auto) 0.5 Monocytes # (Auto) 1.6 Eosinophils # (Auto) 0.0 Basophils # (Auto) 0.0 CBC Comment DIFF FINAL Differential Comment Sodium Level 135 Potassium Level 3.2 Chloride Level 99 Carbon Dioxide Level 24.6 Anion Gap 11 Blood Urea Nitrogen 8 Creatinine 0.59 Estimat Glomerular Filtration 97 Rate Random Glucose 173 Lactic Acid Level 1.5 Calcium Level 8.0 Total Bilirubin 0.9 Aspartate Amino Transf 25 (AST/SGOT) Alanine Aminotransferase 26 (ALT/SGPT) Alkaline Phosphatase 61 Total Protein 5.9 Albumin 2.6 Lipase 50 Urine Color YELLOW Urine Turbidity CLEAR Urine pH 6.5 Urine Specific [place] 1.025 Urine Protein 30 Urine Glucose (UA) NEG Urine Ketones NEG Urine Occult Blood SMALL Urine Nitrite NEG Urine Bilirubin NEG Urine Urobilinogen LESS THAN 2.0 Urine Leukocyte Esterase SMALL Urine RBC 9 Urine WBC 8 Urine Squamous Epithelial <1 Cells Urine Transitional Epithelial <1 Cells Microscopic Urinalysis Comment CULT NOT INDICATED Date/Time Procedure Status Source Growth 04/23/16 12:10 Aerobic Blood Culture Received Blood Peripheral Pending 04/23/16 12:10 Anaerobic Blood Culture Received Blood Peripheral Pending 04/23/16 12:10 Received Stool Stool Pending 04/23/16 11:25 Influenza Types A,B Antigen (ANNA) - Final Complete Nasal Washing NEGATIVE FOR FLU A AND B ANTIGEN.... Result Diagram: 04/23/16 1131 04/23/16 1131 Imaging Abdomen/Pelvis CT 04/23/16 1146 Signed Impressions: Service Date/Time: Saturday, April 23, 2016 13:15 - CONCLUSION: 1. The colon nearly diffusely demonstrates wall thickening and pericolonic inflammatory change characteristic of a colitis. The appearance and distribution is suspicious for C. difficile colitis. 2. Small left pleural effusion and mild to moderate pericardial effusion. Ramo Roca MD Abdomen X-Ray 04/23/16 1104 Signed Impressions: Service Date/Time: Saturday, April 23, 2016 11:29 - CONCLUSION: Suspected sigmoid colitis. Nonobstructive pattern. No free air. Ramo Armas MD Septic Shock Reassessment Heart: Regular rate and rhythm Lungs: Clear Skin: Warm Peripheral Pulses: Bounding Right Radial Bounding Left Radial Bounding Right Dorsalis Pedis Bounding Left Dorsalis Pedis Bounding Right Posterior Tibial Bounding Left Posterior Tibial Capillary Refill: Brisk Assessment and Plan Assessment and Plan 81 year old female is admitted for sepsis secondary to C. diff colitis. She was aggressively hydrated in the ER and will be treated with IV Flagyl 500 mg Q8H. Code Status FULL Problem List: (1) C. difficile colitis Status: Acute Plan: Patient presenting with abdominal pain and diarrhea with + C. diff PCR, likely secondary to recent use of Cipro about six weeks prior. Patient with low- grade fever of 100, white count elevated to 21.1 with left shift, and tachycardia. CT abdomen shows colonic wall thickening and pericolonic inflammatory changes. - Flagyl 500 mg IV Q8H - Avoid PPIs and Imodium with acute C. diff infection - IV hydration - Diet as tolerated - Zofran PRN - Morphine 2 mg IV Q4H PRN (2) Sepsis Status: Acute Plan: Patient presenting with leukocytosis, low-grade fever, tachycardia, and source of infection (C. diff). Lactic acid normal. - Received 2L NS bolus - Treat underlying infection as above - Monitor closely for hemodynamic instability - U/A with leukocyte esterase but asymptomatic. Follow urine culture - Follow blood cultures (3) Nutrition, metabolism, and development symptoms Status: Acute Plan: - Fluids: NS at 100 ml/hr - Electrolytes: K+ slightly low at 3.2. Replete with 40 meq KCl. Continue to monitor - Nutrition: Regular diet as tolerated - DVT prophylaxis: Heparin 5000 units Q8H. Monitor closely for bleeding Chronic medical problems not being acutely managed: - Hypothyroidism: Continue Synthroid - Hypertension: Continue home amlodipine and benazepril. Hold for hypotension - Anxiety: Continue Xanax BID PRN wdw Dr. Zapata Physician Certification 2 Midnight Certification Type: Admission for Inpatient Services Order for Inpatient Services The services are ordered in accordance with Medicare regulations or non- Medicare payer requirements, as applicable. In the case of services not specified as inpatient-only, they are appropriately provided as inpatient services in accordance with the 2-midnight benchmark. Estimated LOS (days): 3 3 days is the estimated time the patient will need to remain in the hospital, assuming treatment plan goals are met and no additional complications. Post-Hospital Plan: Not yet determined Problem Qualifiers (1) Sepsis: Qualified Code: A41.9 - Sepsis, due to unspecified organism Elisa Rodríguez MD Apr 23, 2016 14:31
[2016-04-23] MEDS: SODIUM CHLOR 0.9% 1000 ML INJ 1,000 ML IV SCH (15:07)
[2016-04-23] MEDS ORDERED: ONDANSETRON HCL 4 MG/2 ML VIAL IVP PRN (15:15)
[2016-04-23] MEDS ORDERED: SODIUM CHLORIDE 0.9% FLUSH 5 ML FLUSH FLUSH PRN (15:15)
[2016-04-23] MEDS ORDERED: NALOXONE HCL 0.4 MG/ML AMP IV PRN (15:15)
[2016-04-23] MEDS ORDERED: ALPRAZolam 0.5 MG TAB PO PRN (15:30)
[2016-04-23] MEDS: SODIUM CHLORIDE 0.9% FLUSH 5 ML FLUSH FLUSH SCH (21:00)
[2016-04-23] MEDS: HEPARIN SODIUM - SQ 10,000 UNITS/ML VIAL SQ SCH (21:27)
[2016-04-23] MEDS: metroNIDAZOLE 500 MG INJ 100 ML IV SCH (23:14)
[2016-04-23] MEDS: MORPHINE SULFATE 4 MG/ML INJ IV PUSH PRN (23:17)
[2016-04-24] VITALS (8 sets, daily range): BP systolic 97–155; BP diastolic 53–67; PULSE 85–106; RESP 16–20; TEMP 98–101; O2SAT 94–98
[2016-04-24] MEDS: LEVOTHYROXINE SODIUM 50 MCG TAB PO SCH (04:18)
[2016-04-24] MEDS: ACETAMINOPHEN 325 MG TAB PO PRN ×2 (04:18→13:27)
[2016-04-24] MEDS: SODIUM CHLOR 0.9% 1000 ML INJ 1,000 ML IV SCH ×3 (04:19→21:40)
[2016-04-24] MEDS: metroNIDAZOLE 500 MG INJ 100 ML IV SCH ×3 (06:05→21:43)
[2016-04-24] MEDS: MORPHINE SULFATE 4 MG/ML INJ IV PUSH PRN ×2 (09:01→19:06)
[2016-04-24 09:07] LABS: AUTOMATED NEUTROPHIL # 26.1 TH/MM3 (1.8-7.7); BASOPHIL % 0.1 % (0.0-2.0); EOSINOPHIL % 0.1 % (0.0-4.0); HEMATOCRIT 31.5 % (35.0-46.0); HEMO FLAGS DIFF FINAL; LYMPH % 4.1 % (9.0-44.0); LYMPHOCYTE # 1.2 TH/MM3 (1.0-4.8); MEAN CELL VOLUME 91.8 FL (80.0-100.0); MEAN CORPUSCULAR HEMOGLOBIN 30.2 PG (27.0-34.0); MEAN CORPUSCULAR HGB CONC 32.9 % (32.0-36.0); MONO % 5.5 % (0.0-8.0); NEUT % 90.2 % (16.0-70.0); PLATELET COUNT 259 TH/MM3 (150-450); RED BLOOD COUNT 3.43 MIL/MM3 (4.00-5.30); RED CELL DISTRIBUTION WIDTH 13.4 % (11.6-17.2); WHITE BLOOD COUNT 28.9 TH/MM3 (4.0-11.0)
[2016-04-24 09:16] LABS: ALKALINE PHOSPHATASE 72 U/L (45-117); ALT (GPT) 25 U/L (10-53); ANION GAP 9 MEQ/L (5-15); AST (GOT) 22 U/L (15-37); BICARBONATE 22.2 MEQ/L (21.0-32.0); BLOOD UREA NITROGEN 9 MG/DL (7-18); CHLORIDE 105 MEQ/L (98-107); GLOMERULAR FILTRATION RATE 80 ML/MIN (>89); POTASSIUM 3.3 MEQ/L (3.5-5.1); SODIUM (NA) 136 MEQ/L (136-145); TOTAL BILIRUBIN ADULT 0.9 MG/DL (0.2-1.0)
[2016-04-24] MEDS: amLODIPine BESYLATE 5 MG TAB PO SCH (09:50)
[2016-04-24] MEDS: LISINOPRIL 20 MG TAB PO SCH (09:50)
[2016-04-24] MEDS: SERTRALINE HCL 50 MG TAB PO SCH (09:50)
[2016-04-24] MEDS: SODIUM CHLORIDE 0.9% FLUSH 5 ML FLUSH FLUSH SCH ×2 (09:51→21:00)
[2016-04-24] MEDS: HEPARIN SODIUM - SQ 10,000 UNITS/ML VIAL SQ SCH ×2 (09:51→21:40)
[2016-04-24] MEDS: VANCOMYCIN 500 MG VIAL (FOR ORAL USE ONLY) PO SCH ×4 (10:00→21:38)
[2016-04-24] MEDS ORDERED: PROMETHAZINE HCL 25 MG TAB PO PRN (11:30)
--- NOTE | 2016-04-24 14:52 | HHI.HP ---
[facility] Service Family Medicine Primary Care Physician Beatriz Merchant MD Admission Diagnosis C. diff colitis Diagnoses: (1) C. difficile colitis Diagnosis: Principal (2) Sepsis Diagnosis: Principal (3) Nutrition, metabolism, and development symptoms Diagnosis: Principal International Travel<30 Days: No Contact w/Intl Traveler<30days: No Known Affected Area: No History of Present Illness Ms Thomas is an 81 year old female with a history of HTN, diverticulitis , hypothyroidism, and pacemaker placement who presented to the ER for evaluation of abdominal pain, diarrhea, nausea and vomiting. She endorsed bloating and crampy, lower abdominal pain for the past 4-5 days. Pain is worst in the left lower quadrant and she rates it 7/10. She began having diarrhea the morning before admission and since then she has had about seven episodes of foul -smelling, liquid diarrhea with occasional bloody-mucous streaks. She reports subjective fever at home which she treated with Tylenol. The day of admission she had nausea and two episodes of nonbloody, nonbilious vomiting. She was last seen by her PCP, Dr. Gaona, in February and was treated with a seven day course of Cipro for a UTI. She was seen with Dr Gaona and Marcos and Dr Gaona provided translation as she speaks almost exclusively Nepali. She was started on iv flagyl as she was nauseated and not taking good po. She still has abdominal pain and cramping and diarrhea overnight and was positive for C diff. Review of Systems ROS Limitations: Language Barrier Constitutional: COMPLAINS OF: Fatigue Gastrointestinal: COMPLAINS OF: Abdominal pain, Diarrhea, Nausea Other Constitutional: COMPLAINS OF: Fever, Chills, Change in appetite Eyes: DENIES: Blurred vision, Double Vision Ears, nose, mouth, throat: DENIES: Running Nose Respiratory: DENIES: Cough, Sputum production, Shortness of breath Cardiovascular: DENIES: Chest pain, Palpitations Gastrointestinal: COMPLAINS OF: Abdominal pain, Diarrhea, Nausea, Vomiting, DENIES: Black stools, Constipation Genitourinary: DENIES: Urgency, Hematuria, Dysuria Musculoskeletal: DENIES: Joint pain Integumentary: DENIES: Rash Neurologic: DENIES: Headache Psychiatric: DENIES: Confusion Past Family Social History Past Medical History Hypertension Coronary artery disease Hypothyroidism Diverticulitis 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 Pacemaker (cardiac conduction abnormality; history of syncope secondary to bradycardia) Back pain (followed by pain management) Past Surgical History Cholecystectomy Appendectomy Laparotomy Colectomy (bowel obstruction) Biventricular pacemaker placement Partial thyroidectomy Bladder mesh Allergies: Coded Allergies: No Known Allergies (Verified , 04/23/16) Family History Mother: at "old age" Father: from pulmonary disease Social History Lives with daughter EtOH: glass of wine daily Tobacco: denies Illicit drugs: denies Physical Exam Vital Signs Vital Signs Date Time Temp Pulse Resp B/P Pulse Ox O2 Delivery O2 Flow Rate FiO2 04/24/16 12:00 100.1 100 20 155/67 97 04/24/16 08:11 95 04/24/16 08:00 98.4 85 18 132/63 97 04/24/16 04:00 101.0 106 17 142/64 94 04/24/16 00:00 98.0 95 16 114/58 96 04/23/16 22:00 99.3 102 18 114/57 96 04/23/16 21:05 106 20 132/72 97 Room Air 04/23/16 18:52 113 18 107/55 99 Room Air 04/23/16 17:55 99.7 105 18 101/57 95 Room Air 04/23/16 16:00 98.9 99 18 151/70 95 Room Air Physical Exam GENERAL: Well-nourished, well-developed elderly female, appears younger than stated age, laying comfortably in bed in no apparent distress. speaking well and fluently withb Dr Gaona SKIN: Warm and dry. Few upper extremity purpura. HEENT: Atraumatic. Normocephalic. No temporal or scalp tenderness. Pupils equal round and reactive. Extraocular motions intact. Right eye twitching chronically. No scleral icterus. No injection or drainage. Nose without bleeding, purulent drainage or septal hematoma. Throat without erythema, tonsillar hypertrophy or exudate. Uvula midline. Airway patent. NECK: Trachea midline. Thyroidectomy scar. No JVD or lymphadenopathy. Supple, nontender, no meningeal signs. CARDIOVASCULAR: Regular rate and rhythm without murmurs, gallops, or rubs. 2+ pedal pulses. RESPIRATORY: Clear to auscultation. Breath sounds equal bilaterally. No wheezes , rales, or rhonchi. GASTROINTESTINAL: Laparotomy scar. Hyperactive bowel sounds. Abdomen is soft with mild diffuse tenderness to palpation but especially tender over LLQ. No guarding or rebound. MUSCULOSKELETAL: Extremities without clubbing, cyanosis, or edema. No joint tenderness, effusion, or edema noted. No calf tenderness. NEUROLOGICAL: Awake and alert. Normal speech. Laboratory Laboratory Tests Test 04/24/16 08:42 White Blood Count 28.9 Red Blood Count 3.43 Hemoglobin 10.4 Hematocrit 31.5 Mean Corpuscular Volume 91.8 Mean Corpuscular Hemoglobin 30.2 Mean Corpuscular Hemoglobin 32.9 Concent Red Cell Distribution Width 13.4 Platelet Count 259 Mean Platelet Volume 7.8 Neutrophils (%) (Auto) 90.2 Lymphocytes (%) (Auto) 4.1 Monocytes (%) (Auto) 5.5 Eosinophils (%) (Auto) 0.1 Basophils (%) (Auto) 0.1 Neutrophils # (Auto) 26.1 Lymphocytes # (Auto) 1.2 Monocytes # (Auto) 1.6 Eosinophils # (Auto) 0.0 Basophils # (Auto) 0.0 CBC Comment DIFF FINAL Differential Comment Sodium Level 136 Potassium Level 3.3 Chloride Level 105 Carbon Dioxide Level 22.2 Anion Gap 9 Blood Urea Nitrogen 9 Creatinine 0.70 Estimat Glomerular Filtration 80 Rate Random Glucose 104 Calcium Level 7.5 Total Bilirubin 0.9 Aspartate Amino Transf 22 (AST/SGOT) Alanine Aminotransferase 25 (ALT/SGPT) Alkaline Phosphatase 72 Total Protein 5.6 Albumin 2.4 Date/Time Procedure Status Source Growth 04/23/16 13:49 Urine Culture - Preliminary Resulted Urine Clean Catch NO GROWTH IN 24 HOURS. 04/23/16 12:10 Aerobic Blood Culture - Preliminary Resulted Blood Peripheral NO GROWTH IN 1 DAY 04/23/16 12:10 Anaerobic Blood Culture - Preliminary Resulted Blood Peripheral NO GROWTH IN 1 DAY 04/23/16 12:10 - Final Complete Stool Stool NO ENTERIC PATHOGENS DETECTED BY PCR... 04/23/16 11:25 Influenza Types A,B Antigen (ANNA) - Final Complete Nasal Washing NEGATIVE FOR FLU A AND B ANTIGEN.... Result Diagram: 04/24/16 0842 04/24/16 0842 Imaging Abdomen/Pelvis CT 04/23/16 1146 Signed Impressions: Service Date/Time: Saturday, April 23, 2016 13:15 - CONCLUSION: 1. The colon nearly diffusely demonstrates wall thickening and pericolonic inflammatory change characteristic of a colitis. The appearance and distribution is suspicious for C. difficile colitis. 2. Small left pleural effusion and mild to moderate pericardial effusion. Ramo Roca MD Abdomen X-Ray 04/23/16 1104 Signed Impressions: Service Date/Time: Saturday, April 23, 2016 11:29 - CONCLUSION: Suspected sigmoid colitis. Nonobstructive pattern. No free air. Ramo Armas MD Assessment and Plan Assessment and Plan 81 year old female is admitted for sepsis secondary to C. diff colitis. She was aggressively hydrated in the ER and will be treated with IV Flagyl 500 mg Q8H. If she tolerates po, can consider po vanco Problem List: (1) C. difficile colitis Status: Acute Plan: Patient presenting with abdominal pain and diarrhea with + C. diff PCR, likely secondary to recent use of Cipro about six weeks prior vs community acquired. Patient with low-grade fever of 100, white count elevated to 21.1 with left shift, and tachycardia. CT abdomen shows colonic wall thickening and pericolonic inflammatory changes. - Flagyl 500 mg IV Q8H - Avoid PPIs and Imodium with acute C. diff infection - IV hydration - Diet as tolerated - Zofran PRN - Morphine 2 mg IV Q4H PRN (2) Sepsis Status: Acute Plan: Patient presenting with leukocytosis, low-grade fever, tachycardia, and source of infection (C. diff). Lactic acid normal. The WBC can be very high with C diff compared to other infections. - Received 2L NS bolus - Treat underlying infection as above - Monitor closely for hemodynamic instability - U/A with leukocyte esterase but asymptomatic. Follow urine culture - Follow blood cultures (3) Nutrition, metabolism, and development symptoms Status: Acute Plan: - Fluids: NS at 100 ml/hr - Electrolytes: K+ slightly low at 3.2. Replete with 40 meq KCl. Continue to monitor - Nutrition: Regular diet as tolerated - DVT prophylaxis: Heparin 5000 units Q8H. Monitor closely for bleeding as she can have some bleeding from C diff colitis Chronic medical problems not being acutely managed: - Hypothyroidism: Continue Synthroid - Hypertension: Continue home amlodipine and benazepril. Hold for hypotension - Anxiety: Continue Xanax BID PRN Physician Certification 2 Midnight Certification Type: Admission for Inpatient Services Order for Inpatient Services The services are ordered in accordance with Medicare regulations or non- Medicare payer requirements, as applicable. In the case of services not specified as inpatient-only, they are appropriately provided as inpatient services in accordance with the 2-midnight benchmark. Estimated LOS (days): 3 3 days is the estimated time the patient will need to remain in the hospital, assuming treatment plan goals are met and no additional complications. Post-Hospital Plan: Not yet determined Problem Qualifiers (1) Sepsis: Qualified Code: A41.9 - Sepsis, due to unspecified organism Judi Zapata MD Apr 24, 2016 14:52
[2016-04-25] VITALS (8 sets, daily range): BP systolic 112–141; BP diastolic 55–68; PULSE 83–98; RESP 14–20; TEMP 98.6–99.2; O2SAT 93–98
[2016-04-25] MEDS: MORPHINE SULFATE 4 MG/ML INJ IV PUSH PRN ×2 (03:17→10:38)
[2016-04-25] MEDS: metroNIDAZOLE 500 MG INJ 100 ML IV SCH (05:25)
[2016-04-25] MEDS: LEVOTHYROXINE SODIUM 50 MCG TAB PO SCH (05:25)
[2016-04-25] MEDS: SODIUM CHLOR 0.9% 1000 ML INJ 1,000 ML IV SCH ×3 (05:25→23:17)
--- NOTE | 2016-04-25 07:59 | HHI.FPPN ---
Subjective Remarks Pt seen and examined this morning. Last elevated temperate was 100.8 yesterday around 4PM and has maintained at 99 since then. Reports her pain is increasing and now is mostly over the LUQ. Rates it as 8/10. She had about four episodes of diarrhea overnight that she states were large and copious and without blood. Her nausea is increasing and she feels like she has to vomit but she is only able to gag and spit-up a little. She is drinking water and trying crackers and Jello. She reports she is feeling worse than yesterday. (Elisa Rodríguez MD) Objective Vitals Vital Signs Date Time Temp Pulse Resp B/P Pulse Ox O2 Delivery O2 Flow Rate FiO2 04/25/16 04:23 18 04/25/16 04:00 99.1 83 18 116/55 94 04/25/16 02:56 84 04/25/16 00:00 99.2 96 18 112/56 93 04/24/16 20:03 96 21 04/24/16 20:00 99.4 93 18 111/67 98 04/24/16 16:00 100.8 91 18 97/53 95 04/24/16 12:00 100.1 100 20 155/67 97 04/24/16 08:11 95 04/24/16 08:00 98.4 85 18 132/63 97 I/O 04/24/16 04/24/16 04/24/16 04/25/16 04/25/16 04/25/16 07:00 15:00 23:00 07:00 15:00 23:00 Intake Total 360 ml 480 ml 240 ml 2780 ml Output Total 300 ml Balance 360 ml 180 ml 240 ml 2780 ml Intake Oral 360 ml 480 ml 240 ml 120 ml IV Total 2660 ml Output Urine Total 300 ml # Voids 2 2 2 1 # Bowel Movements 1 3 3 2 (Elisa Rodríguez MD) Result Diagram: 04/24/1642 04/24/16 0842 Objective Remarks GENERAL: Elderly female sitting up in bed holding harding in front of her due to nausea. SKIN: Warm and dry. HEENT: Pupils equal and round. No scleral icterus. MMM. CARDIOVASCULAR: RRR no m/r/g. 2+ pedal pulses. RESPIRATORY: CTAB w/o wheezes or crackles. GASTROINTESTINAL: Laparotomy scar. Hyperactive bowel sounds. Abdomen is slightly distended and bloated with LUQ TTP. No guarding or rebound. MUSCULOSKELETAL: Extremities without clubbing, cyanosis, or edema. No calf tenderness. NEUROLOGICAL: Awake and alert. (Elisa Rodríguez MD) A/P Assessment and Plan 81 year old female is admitted for sepsis secondary to C. diff colitis. She was aggressively hydrated in the ER and started on IV Flagyl 500 mg Q8H. Vancomycin was added yesterday given persistent elevated white count and worsening pain and diarrhea. Today she is feeling worse and complains of increasing abdominal pain and nausea. Abdominal XR ordered and GI consulted. Discharge Planning Pending clinical improvement (Elisa Rodríguez MD) Attending Attestation Patient seen and examined. Case reviewed and discussed with the resident team. Agree with plan of care as discussed with me and documented in the resident note. (Judi Zapata MD) Problem List: (1) C. difficile colitis Status: Acute Plan: Patient presenting with abdominal pain and diarrhea with + C. diff PCR, likely secondary to recent use of Cipro about six weeks prior vs. community acquired. On admission, patient septic with low-grade fever of 100, white count elevated to 21.1 with left shift, and tachycardia. CT abdomen showed colonic wall thickening and pericolonic inflammatory changes. - Flagyl 500 mg IV Q8H - Vancomycin 125 mg PO QID - Avoid PPIs and Imodium with acute C. diff infection - IV hydration - Diet as tolerated - Zofran and Promethazine PRN - Morphine 2 mg IV Q4H PRN - Repeat abdominal XR today given worsening symptoms and abdominal bloating to watch for complications such as toxic megacolon - GI consulted for further evaluation (2) Sepsis Status: Resolved Plan: Patient presenting with leukocytosis, low-grade fever, tachycardia, and source of infection (C. diff). Lactic acid normal. Significant leukocytosis persists which can often be seen with C. diff infections. - Received 2L NS bolus in the ER - Treat underlying infection as above - Monitor closely for hemodynamic instability - U/A with leukocyte esterase but asymptomatic. Urine culture with mixed adry - BC NGTD (3) Nutrition, metabolism, and development symptoms Status: Acute Plan: - Fluids: NS at 125 ml/hr - Electrolytes: Monitor and replete as needed. Giving 40 meq KCl today - Nutrition: Regular diet as tolerated - DVT prophylaxis: Heparin 5000 units Q8H Chronic medical problems not being acutely managed: - Hypothyroidism: Continue Synthroid - Hypertension: Continue home amlodipine and benazepril. Hold for hypotension - Anxiety: Continue Xanax BID PRN dw Dr. Zapata (Elisa Rodríguez MD) Problem Qualifiers (1) Sepsis: Qualified Code: A41.9 - Sepsis, due to unspecified organism Elisa Rodríguez MD Apr 25, 2016 07:59 Judi Zapata MD Apr 30, 2016 14:22
[2016-04-25] MEDS: amLODIPine BESYLATE 5 MG TAB PO SCH (09:00)
[2016-04-25] MEDS: LISINOPRIL 20 MG TAB PO SCH (09:00)
[2016-04-25] MEDS ORDERED: POTASSIUM CHLORIDE 20 MEQ CONTROLLED RELEASE TAB PO ONE (09:00)
[2016-04-25] MEDS: HEPARIN SODIUM - SQ 10,000 UNITS/ML VIAL SQ SCH ×2 (09:00→20:33)
[2016-04-25] MEDS: SODIUM CHLORIDE 0.9% FLUSH 5 ML FLUSH FLUSH SCH ×2 (09:00→20:34)
[2016-04-25] MEDS: SERTRALINE HCL 50 MG TAB PO SCH (09:00)
[2016-04-25] MEDS: VANCOMYCIN 500 MG VIAL (FOR ORAL USE ONLY) PO SCH ×6 (09:00→20:33)
--- NOTE | 2016-04-25 09:27 | RADRPT ---
EXAM DATE/TIME: 04/25/2016 08:45 [facility] COMPARISON: CT ABDOMEN & PELVIS W CONTRAST, April 23, 2016, 13:15. ABDOMEN KUB ONLY, April 23, 2016, 11:29. INDICATIONS : Abdomen pain. MEDICAL HISTORY : Diverticulosis. SURGICAL HISTORY : Appendectomy. Cholecystectomy. ENCOUNTER: Initial ACUITY: 2 days PAIN SCORE: Non-responsive. LOCATION: Bilateral abdomen FINDINGS: Region of jejunum in the left midabdomen have mild mucosal fold thickening. There also appears to be some wall thickening of the sigmoid colon. I don't see anything overly distended. No free air is demo nstrated. CONCLUSION: Persistent wall thickening of the left side of the colon. Some mucosal fold thickening appears to hav e developed at the jejunum as well. Ramo Armas MD on April 25, 2016 at 9:23 Board Certified Radiologist. This report was verified electronically.
--- NOTE | 2016-04-25 11:14 | PD.CONS ---
HPI History of Present Illness This is a 81 year old speaking female patient who was brought to the ER for evaluation of abdominal pain diarrhea. HPI was obtained with help of student ministry pastor. The patient reports her symptoms began suddenly last Thursday. She reports an average of 4 loose stools daily, non bloody, prior to this, she had constipation with small balls like. The pain is constant on the left side, 6 on the scale from 0-10, made better with laying down. She also had associated nausea, but no vomiting, however, she did have one episode of emesis today. She denies any fever or chills. She denies hematemesis, hematochezia or melena. She denies previous history of C-diff. She reports abx use a month ago, not sure of the name, but no other sick contacts and no travel, or suspicious food.She was evaluated last October for similar presentation at which time she was negative for C-diff and ct showed colitis, but got better on abx and was discharged home. She last had an EGD/Colonoscopy (02/28/15) this revealed revealed mild antral gastropathy noted, normal endoscopy otherwise, retroflexed views revealed no abnormalities, the colonic mucosa appeared normal in the terminal ileum and throughout the entire examined colon, multiple biopsies were performed, retroflexed views revealed no abnormalities, revealed no abnormalities of the rectum. Mild chronic gastritis, negative for Helicobacter pylori. On this admission, Abdomen/Pelvis CT 04/23/16 1. The colon nearly diffusely demonstrates wall thickening and pericolonic inflammatory change characteristic of a colitis. The appearance and distribution is suspicious for C. difficile colitis. 2. Small left pleural effusion and mild to moderate pericardial effusion. Abdomen X-Ray 04/25/16 Persistent wall thickening of the left side of the colon. Some mucosal fold thickening appears to have developed at the jejunum as well. Stools (+) for C-diff toxins. labs significant for anemia of 10.4, WBC of 28.9, k of 3.3. 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 Pacemaker (cardiac conduction abnormality; history of syncope secondary to bradycardia) Back pain (followed by pain management) Past Surgical History Cholecystectomy Appendectomy Laparotomy Colectomy (bowel obstruction) Biventricular pacemaker placement Partial thyroidectomy Bladder mesh (Cher Duff) Coded Allergies: No Known Allergies (Verified , 04/23/16) Medications Current Medications Medications (Trade) Dose Ordered Sig/Marquise Route Start Time Stop Time Status Last Admin (NS 1000 ml Inj) 1,000 ml @ 125 mls/hr Q8H IV 04/23/16 15:07 04/25/16 05:25 (NS Flush) 2 ml UNSCH PRN FLUSH 04/23/16 15:15 (NS Flush) 2 ml BID FLUSH 04/23/16 21:00 04/25/16 09:00 (Tylenol) 650 mg Q4H PRN PO 04/23/16 15:15 04/24/16 13:27 (Zofran Inj) 4 mg Q6H PRN IVP 04/23/16 15:15 04/24/16 13:27 (Heparin Inj) 5,000 units Q12H SQ 04/23/16 21:00 04/25/16 09:00 Naloxone HCl 0.4 mg 0.4 mg UNSCH PRN IV 04/23/16 15:15 (Flagyl 500 Mg Inj) 100 ml @ 100 mls/hr Q8H IV 04/23/16 22:00 04/25/16 05:25 (Morphine Inj) 2 mg Q4HR PRN IV PUSH 04/23/16 16:00 04/25/16 10:38 (Xanax) 0.5 mg Q12H PRN PO 04/23/16 15:30 (Norvasc) 5 mg DAILY PO 04/24/16 09:00 04/25/16 09:00 (Synthroid) 50 mcg DAILY@06 PO 04/24/16 06:00 04/25/16 05:25 (Zoloft) 50 mg DAILY PO 04/24/16 09:00 04/25/16 09:00 (Restoril) 30 mg HS PRN PO 04/23/16 15:30 (Prinivil) 40 mg DAILY PO 04/24/16 09:00 04/25/16 09:00 (VANCOMYCIN for oral use only) 125 mg QID PO 04/24/16 10:00 04/25/16 09:00 (Phenergan) 12.5 mg Q6H PRN PO 04/24/16 11:30 04/25/16 10:41 Family History Non contributory Social History EtOH: glass of wine daily Tobacco: denies Illicit drugs: denies (Cher Duff) Review of Systems Constitutional: DENIES: Fever, Chills Endocrine: DENIES: Polyuria Eyes: DENIES: Double Vision Ears, nose, mouth, throat: DENIES: Hoarseness Respiratory: DENIES: Shortness of breath Cardiovascular: DENIES: Lower Extremity Edema Gastrointestinal: COMPLAINS OF: Abdominal pain, Diarrhea, Nausea, Vomiting, DENIES: Black stools, Bloody stools, Constipation, Difficulty Swallowing, Anorexia, Odynophagia, Swelling of Abdomen, Heartburn, Hematemesis Genitourinary: DENIES: Hematuria Musculoskeletal: DENIES: Neck pain Integumentary: DENIES: Jaundice Hematologic/lymphatic: DENIES: Bruising Immunologic/allergic: DENIES: Eczema Neurologic: DENIES: Abnormal gait Psychiatric: DENIES: Anxiety (Cher Duff) GI Exam Vitals I&O Vital Signs Date Time Temp Pulse Resp B/P Pulse Ox O2 Delivery O2 Flow Rate FiO2 04/25/16 08:04 94 04/25/16 08:00 98.9 94 14 118/57 94 04/25/16 04:23 18 04/25/16 04:00 99.1 83 18 116/55 94 04/25/16 02:56 84 04/25/16 00:00 99.2 96 18 112/56 93 04/24/16 20:03 96 21 04/24/16 20:00 99.4 93 18 111/67 98 04/24/16 16:00 100.8 91 18 97/53 95 04/24/16 12:00 100.1 100 20 155/67 97 I/O 04/24/16 04/24/16 04/24/16 04/25/16 04/25/16 04/25/16 07:00 15:00 23:00 07:00 15:00 23:00 Intake Total 360 ml 480 ml 240 ml 2780 ml Output Total 300 ml Balance 360 ml 180 ml 240 ml 2780 ml Intake Oral 360 ml 480 ml 240 ml 120 ml IV Total 2660 ml Output Urine Total 300 ml # Voids 2 2 2 1 # Bowel Movements 1 3 3 2 Imaging Last Impressions Abdomen X-Ray 04/25/16 0000 Signed Impressions: Service Date/Time: Monday, April 25, 2016 08:45 - CONCLUSION: Persistent wall thickening of the left side of the colon. Some mucosal fold thickening appears to have developed at the jejunum as well. Ramo Armas MD Abdomen/Pelvis CT 04/23/16 1146 Signed Impressions: Service Date/Time: Saturday, April 23, 2016 13:15 - CONCLUSION: 1. The colon nearly diffusely demonstrates wall thickening and pericolonic inflammatory change characteristic of a colitis. The appearance and distribution is suspicious for C. difficile colitis. 2. Small left pleural effusion and mild to moderate pericardial effusion. Ramo Roca MD Laboratory Date/Time Procedure Status Source Growth 04/23/16 13:49 Urine Culture - Final Complete Urine Clean Catch <10,000 CFU/ML MIXED GRAM POSITIVE FL... 04/23/16 12:10 Aerobic Blood Culture - Preliminary Resulted Blood Peripheral NO GROWTH IN 1 DAY 04/23/16 12:10 Anaerobic Blood Culture - Preliminary Resulted Blood Peripheral NO GROWTH IN 1 DAY 04/23/16 12:10 - Final Complete Stool Stool NO ENTERIC PATHOGENS DETECTED BY PCR... 04/23/16 11:25 Influenza Types A,B Antigen (ANNA) - Final Complete Nasal Washing NEGATIVE FOR FLU A AND B ANTIGEN.... Physical Examination HEENT: ; normocephalic; atraumatic; no jaundice. Throat is clear. NECK: Neck is supple, no JVD, no lymphadenopathy. CHEST: Chest is clear to auscultation and percussion. CARDIAC: Regular rate and rhythm with no murmur gallop or rubs. ABDOMEN: Soft, nondistended, Tenderness to left side of abdomen upon palpation ; no hepatosplenomegaly; bowel sounds are present in all four quadrants. EXTREMITIES: No clubbing, cyanosis, or edema. SKIN: Normal; no rash; no jaundice. ICE DELIVERY DRIVER: No focal deficits; alert and oriented times three. (Cher Duff) Assessment and Plan Plan - Acute C-diff colitis with diarrhea and abdominal pain. Abdomen/Pelvis CT 1. The colon nearly diffusely demonstrates wall thickening and pericolonic inflammatory change characteristic of a colitis. The appearance and distribution is suspicious for C. difficile colitis. 2. Small left pleural effusion and mild to moderate pericardial effusion. Abdomen X-Ray 04/25/16 Persistent wall thickening of the left side of the colon. Some mucosal fold thickening appears to have developed at the jejunum as well. Stools (+) for C-diff toxins. labs significant for anemia of 10.4, WBC of 28.9, k of 3.3. EGD/Colonoscopy (02/28/15) this revealed revealed mild antral gastropathy noted, normal endoscopy otherwise, retroflexed views revealed no abnormalities, the colonic mucosa appeared normal in the terminal ileum and throughout the entire examined colon, multiple biopsies were performed, retroflexed views revealed no abnormalities, revealed no abnormalities of the rectum. Mild chronic gastritis, negative for Helicobacter pylori. She reports abx use a month ago, not sure of the name, but no other sick contacts and no travel, or suspicious food - Leukocytosis. WBC 28.9. Vanco/FLagyl. - Anemia- no signs of bleeding, most likely secondary to colitis - HTN, pacemaker per attending PLAN: - YING - Cont. IVF - Cont. Flagyl/vanco - CBC in am - Consider colonoscopy on Thursday if no improvement - Supportive care - Further recommendations to follow based on results of above - Pt seen and examined by Dr. Vizcarra and myself and this note is written on his behalf (Cher Duff) Physician Comments Seen and examined with DARLINE, C. diff colitis. Cipro dced. Dc flagyl, add dificid 200mg 1 po bid x 10 days . Continue vancomicin. Monitor labs.Will follow. Thank you (Ayaka Vizcarra MD) Cher Duff Apr 25, 2016 11:14 Ayaka Vizcarra MD Apr 25, 2016 19:48
[2016-04-25 12:13] LABS: AUTOMATED NEUTROPHIL # 28.6 TH/MM3 (1.8-7.7); BASOPHIL # 0.1 TH/MM3 (0-0.2); BASOPHIL % 0.2 % (0.0-2.0); EOSINOPHIL # 0.1 TH/MM3 (0-0.4); EOSINOPHIL % 0.2 % (0.0-4.0); HEMO FLAGS AUTO DIFF; LYMPHOCYTE # 0.6 TH/MM3 (1.0-4.8); MEAN CELL VOLUME 88.7 FL (80.0-100.0); MEAN CORPUSCULAR HEMOGLOBIN 29.7 PG (27.0-34.0); MEAN CORPUSCULAR HGB CONC 33.5 % (32.0-36.0); MONO % 5.8 % (0.0-8.0); NEUT % 91.8 % (16.0-70.0); PLATELET COUNT 292 TH/MM3 (150-450); RED BLOOD COUNT 3.27 MIL/MM3 (4.00-5.30); RED CELL DISTRIBUTION WIDTH 13.2 % (11.6-17.2); WHITE BLOOD COUNT 31.2 TH/MM3 (4.0-11.0)
[2016-04-25 12:18] LABS: BICARBONATE 19.2 MEQ/L (21.0-32.0); POTASSIUM 3.5 MEQ/L (3.5-5.1)
[2016-04-25 12:40] LABS: BANDS 27 % (0-6); NEUTROPHIL # MANUAL DIFF 29.3 TH/MM3 (1.8-7.7); POLYS (SEG NEUTROPHILS) 67 % (16-70); WBC DIFF SAMPLE 100
[2016-04-25 12:43] LABS: PLATELET ESTIMATE SMEAR NORMAL (NORMAL); PLATELET MORPHOLOGY NORMAL (NORMAL); SCAN/DIFF FINAL DIFF MANUAL
[2016-04-25 12:46] LABS: BURR CELLS 2+ (NORMAL)
[2016-04-25] MEDS: FIDAXOMICIN 200 MG TAB PO SCH (20:33)
[2016-04-25] MEDS: TEMAZEPAM 15 MG CAP PO PRN (20:33)
[2016-04-26] VITALS (7 sets, daily range): BP systolic 120–144; BP diastolic 61–74; PULSE 82–95; RESP 18–20; TEMP 98–98.7; O2SAT 94–97
[2016-04-26] MEDS: LEVOTHYROXINE SODIUM 50 MCG TAB PO SCH (05:30)
--- NOTE | 2016-04-26 06:10 | RADRPT ---
EXAM DATE/TIME: 04/26/2016 05:02 [place] COMPARISON: ABDOMEN KUB ONLY, April 23, 2016, 11:29. INDICATIONS : Distention. MEDICAL HISTORY : Diverticulosis. Cardiovascular disease. Hypertension. SURGICAL HISTORY : Appendectomy. Cholecystectomy. Pacemaker. ENCOUNTER: Subsequent ACUITY: 2 weeks PAIN SCORE: 8/10 LOCATION: Bilateral lower quadrant FINDINGS: There is gas seen diffusely throughout loops of small and large bowel. No dilated loops of small bow el. The visualized lower lungs are clear. Moderate degenerative changes in the lower lumbar spine. CONCLUSION: No disproportionately dilated loops of small or large bowel. Osito Thomas MD on April 26, 2016 at 6:07 Board Certified Radiologist. This report was verified electronically.
[2016-04-26 07:06] LABS: AUTOMATED NEUTROPHIL # 15.1 TH/MM3 (1.8-7.7); BASOPHIL # 0.1 TH/MM3 (0-0.2); BASOPHIL % 0.5 % (0.0-2.0); EOSINOPHIL # 0.2 TH/MM3 (0-0.4); EOSINOPHIL % 1.1 % (0.0-4.0); HEMATOCRIT 28.4 % (35.0-46.0); LYMPH % 6.5 % (9.0-44.0); LYMPHOCYTE # 1.2 TH/MM3 (1.0-4.8); MEAN CELL VOLUME 91.1 FL (80.0-100.0); MEAN CORPUSCULAR HEMOGLOBIN 30.1 PG (27.0-34.0); MONO % 7.6 % (0.0-8.0); NEUT % 84.3 % (16.0-70.0); PLATELET COUNT 277 TH/MM3 (150-450); RED BLOOD COUNT 3.12 MIL/MM3 (4.00-5.30); RED CELL DISTRIBUTION WIDTH 13.7 % (11.6-17.2); WHITE BLOOD COUNT 17.9 TH/MM3 (4.0-11.0)
[2016-04-26 07:11] LABS: HEMO FLAGS AUTO DIFF
[2016-04-26] MEDS: SODIUM CHLOR 0.9% 1000 ML INJ 1,000 ML IV SCH (07:17)
[2016-04-26 07:28] LABS: BICARBONATE 19.1 MEQ/L (21.0-32.0); POTASSIUM 3.7 MEQ/L (3.5-5.1)
[2016-04-26 07:42] LABS: CALCIUM-PROTEIN CORRECTED 8.7 MG/DL (8.5-10.1)
--- NOTE | 2016-04-26 08:00 | HHI.FPPN ---
Subjective Remarks Pt seen and examined this morning. Daugther present in the room. Overall a little better than yesterday. The patient's abdominal pain is improving but she still has some bloating and tenderness in her LUQ. She continues to be very nauseous with a few episodes of nonbloody, nonbilious emesis yesterday. Had 5 episodes of diarrhea overnight. She is tolerating clear fluids. Nursing concerned because of bilateral arm swelling; thinks IV fluids may be causing it. No fevers overnight. Patient denies chest pain or shortness of breath. Complains of heart burn. Takes pantoprazole at home. Also reports she takes Reglan at home which works much better for her nausea. She is scared to take morphine and would prefer something else for pain. (Elisa Rodríguez MD) Objective Vitals Vital Signs Date Time Temp Pulse Resp B/P Pulse Ox O2 Delivery O2 Flow Rate FiO2 04/26/16 04:00 98.1 82 20 120/63 97 04/26/16 01:37 87 04/26/16 00:18 98.7 87 20 131/61 94 04/25/16 20:00 98.8 93 20 133/65 97 04/25/16 16:00 98.6 98 14 141/68 98 04/25/16 12:00 98.8 90 16 136/64 97 04/25/16 08:04 94 I/O 04/25/16 04/25/16 04/25/16 04/26/16 04/26/16 04/26/16 07:00 15:00 23:00 07:00 15:00 23:00 Intake Total 2780 ml 720 ml 240 ml Balance 2780 ml 720 ml 240 ml Intake Oral 120 ml 720 ml 240 ml IV Total 2660 ml # Voids 1 2 1 1 # Bowel Movements 2 1 (Elisa Rodríguez MD) Result Diagram: 04/26/16 0619 04/26/16 0619 Imaging Abdomen X-Ray 04/25/16 0000 Signed Impressions: Service Date/Time: Monday, April 25, 2016 08:45 - CONCLUSION: Persistent wall thickening of the left side of the colon. Some mucosal fold thickening appears to have developed at the jejunum as well. Ramo Armas MD Abdomen/Pelvis CT 04/23/16 1146 Signed Impressions: Service Date/Time: Saturday, April 23, 2016 13:15 - CONCLUSION: 1. The colon nearly diffusely demonstrates wall thickening and pericolonic inflammatory change characteristic of a colitis. The appearance and distribution is suspicious for C. difficile colitis. 2. Small left pleural effusion and mild to moderate pericardial effusion. Raom Roca MD Abdomen X-Ray 04/23/16 1104 Signed Impressions: Service Date/Time: Saturday, April 23, 2016 11:29 - CONCLUSION: Suspected sigmoid colitis. Nonobstructive pattern. No free air. Ramo Armas MD Objective Remarks GENERAL: Elderly female sitting up in bed in [place]. SKIN: Warm and dry. HEENT: Pupils equal and round. No scleral icterus. MMM. CARDIOVASCULAR: RRR no m/r/g. 2+ pedal pulses. RESPIRATORY: CTAB w/o wheezes or crackles. GASTROINTESTINAL: Laparotomy scar. Hyperactive bowel sounds. Abdomen is slightly distended with LUQ TTP. No guarding or rebound. EXTREMITIES: UE swollen bilaterally, R>L (right with IV site and IV fluids running). Some weeping clear fluid in proximal right arm. No calf tenderness. NEUROLOGICAL: Awake and alert. (Elisa Rodríguez MD) A/P Assessment and Plan 81 year old female is admitted for sepsis secondary to C. diff colitis. She was aggressively hydrated in the ER and started on IV Flagyl 500 mg Q8H. Vancomycin was added given persistent elevated white count and worsening pain and diarrhea. Yesterday she felt worse with increasing abdominal pain, nausea, and bloating. XR showed thickened bowel braun without evidence of obstruction or distended loops of bowel. GI consulted and patient was started on Dificid yesterday. She appears to have improved a little today and her white count is coming down. Discharge Planning Pending clinical improvement. (Elisa Rodríguez MD) Attending Attestation Patient seen and examined. Case reviewed and discussed with the resident team. Agree with plan of care as discussed with me and documented in the resident note. (Judi Zapata MD) Problem List: (1) C. difficile colitis Status: Acute Plan: Patient presenting with abdominal pain and diarrhea with + C. diff PCR, likely secondary to recent use of Cipro about six weeks prior vs. community acquired. On admission, patient septic with low-grade fever of 100, white count elevated to 21.1 with left shift, and tachycardia. CT abdomen showed colonic wall thickening and pericolonic inflammatory changes. - White count up to 31.2 yesterday and down to 17.9 this morning - Patient afebrile overnight - Flagyl D/C'd - Vancomycin 125 mg PO QID - Abdominal XR with no signs of obstruction or significantly dilated loops of bowel - GI consulted yesterday; patient started on Dificid. If no significant improvement considering colonoscopy - Avoid PPIs and Imodium with acute C. diff infection - Encourage PO fluids - Reglan TIDAC - Toradol 30 mg IV Q6H PRN pain (2) Sepsis Status: Resolved Plan: Patient presenting with leukocytosis, low-grade fever, tachycardia, and source of infection (C. diff). Lactic acid normal. Significant leukocytosis persists which can often be seen with C. diff infections. - Received 2L NS bolus in the ER - Treat underlying infection as above - Monitor closely for hemodynamic instability - U/A with leukocyte esterase but asymptomatic. Urine culture with mixed adry - BC NGTD (3) Hypocalcemia Status: Acute Plan: Replete with calcium carbonate BID. (4) GERD (gastroesophageal reflux disease) Status: Acute Plan: Avoid PPIs with C. diff. Start Zantac BID. (5) Nutrition, metabolism, and development symptoms Status: Acute Plan: - Fluids: Hold IVF given bilateral UE swelling. Push PO fluids - Electrolytes: Monitor and replete as needed. Giving 40 meq KCl today - Nutrition: Regular diet as tolerated - DVT prophylaxis: Heparin 5000 units Q8H Chronic medical problems not being acutely managed: - Hypothyroidism: Continue Synthroid - Hypertension: Continue home amlodipine and benazepril. Hold for hypotension - Anxiety: Continue Xanax BID PRN dw Dr. Zapata (Elisa Rodríguez MD) Problem Qualifiers (1) Sepsis: Qualified Code: A41.9 - Sepsis, due to unspecified organism Elisa Rodríguez MD Apr 26, 2016 08:00 Judi Zapata MD Apr 30, 2016 14:22
[2016-04-26] MEDS: SERTRALINE HCL 50 MG TAB PO SCH (08:58)
[2016-04-26] MEDS: METOCLOPRAMIDE HCL 10 MG TAB PO SCH ×4 (08:58→21:25)
[2016-04-26] MEDS: FIDAXOMICIN 200 MG TAB PO SCH ×2 (08:58→21:25)
[2016-04-26] MEDS: amLODIPine BESYLATE 5 MG TAB PO SCH (08:58)
[2016-04-26] MEDS: VANCOMYCIN 500 MG VIAL (FOR ORAL USE ONLY) PO SCH ×4 (08:58→21:36)
[2016-04-26] MEDS: LISINOPRIL 20 MG TAB PO SCH (08:58)
[2016-04-26] MEDS: FAMOTIDINE 20 MG TAB PO SCH ×2 (08:58→21:25)
[2016-04-26] MEDS: HEPARIN SODIUM - SQ 10,000 UNITS/ML VIAL SQ SCH ×2 (08:59→21:36)
[2016-04-26] MEDS: SODIUM CHLORIDE 0.9% FLUSH 5 ML FLUSH FLUSH SCH ×2 (08:59→21:37)
[2016-04-26] MEDS ORDERED: KETOROLAC TROMETHAMINE 60 MG/2 ML (IM) VIAL IM PRN (09:00)
[2016-04-26 10:14] LABS: ACANTHOCYTES OCC (NORMAL); BANDS 21 % (0-6); BASOPHILS 1 % (0-2); BURR CELLS 1+ (NORMAL); NEUTROPHIL # MANUAL DIFF 15.2 TH/MM3 (1.8-7.7); PLATELET ESTIMATE SMEAR NORMAL (NORMAL); PLATELET MORPHOLOGY NORMAL (NORMAL); POLYS (SEG NEUTROPHILS) 64 % (16-70); SCAN/DIFF FINAL DIFF MANUAL; WBC DIFF SAMPLE 100
[2016-04-26] MEDS ORDERED: CALCIUM CARBONATE 500 MG CHEWABLE TAB CHEW ONE (10:15)
[2016-04-26] MEDS: CALCIUM CARBONATE 500 MG CHEWABLE TAB CHEW SCH (21:37)
[2016-04-26] MEDS: TEMAZEPAM 15 MG CAP PO PRN (21:43)
[2016-04-27] VITALS (7 sets, daily range): BP systolic 109–167; BP diastolic 71–86; PULSE 86–101; RESP 16–20; TEMP 97.8–98.3; O2SAT 94–97
[2016-04-27] MEDS: LEVOTHYROXINE SODIUM 50 MCG TAB PO SCH (05:42)
[2016-04-27] MEDS: METOCLOPRAMIDE HCL 10 MG TAB PO SCH ×4 (05:42→21:32)
--- NOTE | 2016-04-27 08:09 | HHI.FPPN ---
Subjective Remarks Pt seen and examined this morning. Reports her abdominal pain and nausea have resolved but her diarrhea seemed to have worsened. She states she had 12 episodes overnight, a few with a small amount of blood streaks. She reports that the diarrhea comes on very suddenly and sometimes she has difficulty making it to the bathroom. Yesterday she states she was able to eat better and has been drinking fluids. Denies fever or chills. Reports during this hospitalization there have been a few times that she has felt like she saw something in the corner of the room that wasn't there. States this doesn't happen at home. Denies any headaches. Ambulating around the room with assistance of her walker. Denies chest pain or shortness of breath. Reports heart burn is better with the Zantac. (Elisa Rodríguez MD) Objective Vitals Vital Signs Date Time Temp Pulse Resp B/P Pulse Ox O2 Delivery O2 Flow Rate FiO2 04/27/16 04:00 97.9 86 18 115/75 94 04/27/16 00:00 98.0 86 18 109/75 94 04/26/16 20:00 98.0 86 18 127/74 97 04/26/16 12:00 98.1 95 20 130/67 94 04/26/16 10:04 96 21 I/O 04/26/16 04/26/16 04/26/16 04/27/16 04/27/16 04/27/16 07:00 15:00 23:00 07:00 15:00 23:00 Intake Total 240 ml 480 ml 120 ml Balance 240 ml 480 ml 120 ml Intake Oral 240 ml 480 ml 120 ml # Voids 1 8 1 7 # Bowel Movements 8 2 3 (Elisa Rodríguez MD) Result Diagram: 04/26/1661804/26/16618 Objective Remarks GENERAL: Elderly female sitting up in bed in [facility]. SKIN: Warm and dry. HEENT: Pupils equal and round. No scleral icterus. MMM. CARDIOVASCULAR: RRR no m/r/g. 2+ pedal pulses. RESPIRATORY: CTAB w/o wheezes or crackles. GASTROINTESTINAL: Laparotomy scar. Hyperactive bowel sounds Soft, NT, ND. No guarding or rebound. EXTREMITIES: UE swelling improved. No calf tenderness. NEUROLOGICAL: Awake and alert. (Elisa Rodríguez MD) A/P Assessment and Plan 81 year old female is admitted on 04/23 for sepsis secondary to C. diff colitis. She was aggressively hydrated in the ER and started on IV Flagyl 500 mg Q8H. Vancomycin was added on 04/24 given persistent elevated white count and worsening pain and diarrhea. She did not improve and on 04/25 she had increasing abdominal pain, nausea, and bloating. XR showed thickened bowel braun without evidence of obstruction or distended loops of bowel. GI was consulted and patient was started on Dificid and Flagyl was stopped. She is slowly improving; today her abdominal pain and nausea have resolved but continues to have copious diarrhea. Will start lactobacillus and cholestyramine. Discharge Planning If patient continues to improve, anticipate D/C in 1-2 days (Elisa Rodríguez MD) Attending Attestation Patient seen and examined. Case reviewed and discussed with the resident team. Agree with plan of care as discussed with me and documented in the resident note. (Judi Zapata MD) Problem List: (1) C. difficile colitis Status: Acute Plan: Patient presenting with abdominal pain and diarrhea with + C. diff PCR, likely secondary to recent use of Cipro about six weeks prior vs. community acquired. On admission, patient septic with low-grade fever of 100, white count elevated to 21.1 with left shift, and tachycardia. CT abdomen showed colonic wall thickening and pericolonic inflammatory changes. - White count up to 31.2 during admission and has now normalized - Patient afebrile overnight - Continue Vancomycin QID and Dificid BID - Abdominal XR with no signs of obstruction or significantly dilated loops of bowel - GI consulted; appreciate assistance - Avoid PPIs and Imodium with acute C. diff infection - Encourage PO fluids - Reglan TIDAC - Toradol 30 mg IV Q6H PRN pain - Start lactobacillus BID - Start cholestyramine to help decrease diarrhea and bind C. diff toxin; since it needs to be dosed 2-3 hours from vancomycin and other medications, will schedule to be given at 6AM and midnight (2) Sepsis Status: Resolved Plan: Patient presented with leukocytosis, low-grade fever, tachycardia, and source of infection (C. diff). Lactic acid normal. - Received 2L NS bolus in the ER - Treat underlying infection as above - U/A with leukocyte esterase but asymptomatic. Urine culture with mixed adry - BC NGTD - Leukocytosis has resolved and patient has remained afebrile without hemodynamic instability (3) Hypocalcemia Status: Acute Plan: Replete with calcium carbonate BID. (4) GERD (gastroesophageal reflux disease) Status: Acute Plan: Avoid PPIs with C. diff. Zantac BID. (5) Nutrition, metabolism, and development symptoms Status: Acute Plan: - Fluids: Encourage PO fluids. Held IV fluids secondary to UE edema - Electrolytes: Monitor and replete as needed - Nutrition: Regular diet as tolerated - DVT prophylaxis: Heparin 5000 units Q8H Chronic medical problems not being acutely managed: - Hypothyroidism: Continue Synthroid - Hypertension: Continue home amlodipine and benazepril. Hold for hypotension - Anxiety: Continue Xanax BID PRN dw Dr. Zapata (Elisa Rodríguez MD) Problem Qualifiers (1) Sepsis: Qualified Code: A41.9 - Sepsis, due to unspecified organism Elisa Rodríguez MD Apr 27, 2016 08:09 Judi Zapata MD Apr 30, 2016 14:23
[2016-04-27 08:28] LABS: BASOPHIL # 0.1 TH/MM3 (0-0.2); BASOPHIL % 1.1 % (0.0-2.0); EOSINOPHIL # 0.2 TH/MM3 (0-0.4); EOSINOPHIL % 3.3 % (0.0-4.0); HEMATOCRIT 28.6 % (35.0-46.0); LYMPH % 13.2 % (9.0-44.0); LYMPHOCYTE # 0.9 TH/MM3 (1.0-4.8); MEAN CORPUSCULAR HEMOGLOBIN 30.7 PG (27.0-34.0); MEAN CORPUSCULAR HGB CONC 34.5 % (32.0-36.0); MONO % 13.2 % (0.0-8.0); NEUT % 69.2 % (16.0-70.0); PLATELET COUNT 350 TH/MM3 (150-450); RED BLOOD COUNT 3.22 MIL/MM3 (4.00-5.30); RED CELL DISTRIBUTION WIDTH 13.4 % (11.6-17.2); WHITE BLOOD COUNT 7.2 TH/MM3 (4.0-11.0)
[2016-04-27 08:29] LABS: HEMO FLAGS AUTO DIFF
[2016-04-27 08:42] LABS: BICARBONATE 20.6 MEQ/L (21.0-32.0); POTASSIUM 3.2 MEQ/L (3.5-5.1)
[2016-04-27] MEDS: LISINOPRIL 20 MG TAB PO SCH (08:50)
[2016-04-27] MEDS: HEPARIN SODIUM - SQ 10,000 UNITS/ML VIAL SQ SCH ×2 (08:51→21:28)
[2016-04-27] MEDS: CALCIUM CARBONATE 500 MG CHEWABLE TAB CHEW SCH ×2 (08:51→21:29)
[2016-04-27] MEDS: SODIUM CHLORIDE 0.9% FLUSH 5 ML FLUSH FLUSH SCH ×2 (08:51→21:33)
[2016-04-27] MEDS: SERTRALINE HCL 50 MG TAB PO SCH (08:51)
[2016-04-27] MEDS: amLODIPine BESYLATE 5 MG TAB PO SCH (08:51)
[2016-04-27] MEDS: FIDAXOMICIN 200 MG TAB PO SCH ×2 (08:51→21:28)
[2016-04-27] MEDS: FAMOTIDINE 20 MG TAB PO SCH ×2 (08:51→21:32)
[2016-04-27] MEDS: VANCOMYCIN 500 MG VIAL (FOR ORAL USE ONLY) PO SCH ×4 (08:51→21:29)
[2016-04-27 09:40] LABS: BANDS 10 % (0-6); BASOPHILS 1 % (0-2); EOSINOPHILS 4 % (0-4); POLYS (SEG NEUTROPHILS) 60 % (16-70); WBC DIFF SAMPLE 100
[2016-04-27 09:41] LABS: BURR CELLS 1+ (NORMAL); PLATELET ESTIMATE SMEAR NORMAL (NORMAL); PLATELET MORPHOLOGY NORMAL (NORMAL); SCAN/DIFF FINAL DIFF MANUAL
[2016-04-27] MEDS: LACTOBACILLUS ACIDOPHILUS TAB PO SCH ×2 (09:57→21:28)
--- NOTE | 2016-04-27 15:13 | HHI.FPPN ---
Addendum to progress note ADDENDUM Reason for addendum: Additonal documentation Additional information Off-service note Ms. Thomas is an 81 year old female admitted on 04/23 for C. diff colitis. On admission she met septic criteria by leukocytosis, fever, and tachycardia. She was aggressively hydrated in the ER and started on IV Flagyl 500 mg Q8H given that she had some nausea and vomiting as well. Vancomycin was added on 04/24 given persistent elevated white count and worsening pain and diarrhea. She did not improve and on 04/25 she had increasing abdominal pain, nausea, and bloating. XR showed thickened bowel braun without evidence of obstruction or distended loops of bowel. GI was consulted and patient was started on Dificid and Flagyl was stopped. She is slowly improving; today her abdominal pain and nausea have resolved but she continues to have copious diarrhea therefore lactobacillus and cholestyramine were started with the cholestyramine dosing spaced out enough so as not to interact/bind with her other medications especially her antibiotics. If she continues to improve she can likely be discharged in the next day or so. Elisa Rodríguez MD Apr 27, 2016 15:13
[2016-04-27] MEDS: TEMAZEPAM 15 MG CAP PO PRN (21:34)
[2016-04-28] VITALS (8 sets, daily range): BP systolic 129–161; BP diastolic 71–85; PULSE 82–114; RESP 18–20; TEMP 97.3–98.7; O2SAT 94–97
[2016-04-28] MEDS: CHOLESTYRAMINE 4 GM PACKET PO SCH ×3 (00:14→13:08)
[2016-04-28] MEDS: LEVOTHYROXINE SODIUM 50 MCG TAB PO SCH (05:50)
[2016-04-28] MEDS: METOCLOPRAMIDE HCL 10 MG TAB PO SCH ×4 (05:50→20:01)
[2016-04-28 07:24] LABS: AUTOMATED NEUTROPHIL # 3.7 TH/MM3 (1.8-7.7); BASOPHIL % 0.8 % (0.0-2.0); EOSINOPHIL # 0.3 TH/MM3 (0-0.4); EOSINOPHIL % 4.3 % (0.0-4.0); HEMATOCRIT 25.7 % (35.0-46.0); LYMPH % 15.6 % (9.0-44.0); LYMPHOCYTE # 0.9 TH/MM3 (1.0-4.8); MEAN CELL VOLUME 88.6 FL (80.0-100.0); MEAN CORPUSCULAR HEMOGLOBIN 30.6 PG (27.0-34.0); MEAN CORPUSCULAR HGB CONC 34.5 % (32.0-36.0); MONO % 17.1 % (0.0-8.0); NEUT % 62.2 % (16.0-70.0); PLATELET COUNT 366 TH/MM3 (150-450); RED BLOOD COUNT 2.89 MIL/MM3 (4.00-5.30); RED CELL DISTRIBUTION WIDTH 13.3 % (11.6-17.2); WHITE BLOOD COUNT 5.9 TH/MM3 (4.0-11.0)
[2016-04-28 07:31] LABS: HEMO FLAGS AUTO DIFF
[2016-04-28 07:49] LABS: BICARBONATE 24.2 MEQ/L (21.0-32.0)
[2016-04-28 07:52] LABS: POTASSIUM 2.8 MEQ/L (3.5-5.1)
[2016-04-28 08:18] LABS: BANDS 17 % (0-6); BASOPHILS 1 % (0-2); BURR CELLS 1+ (NORMAL); EOSINOPHILS 3 % (0-4); METAMYELOCYTES 1 % (0-1); NEUTROPHIL # MANUAL DIFF 3.9 TH/MM3 (1.8-7.7); PLATELET ESTIMATE SMEAR NORMAL (NORMAL); PLATELET MORPHOLOGY NORMAL (NORMAL); POLYS (SEG NEUTROPHILS) 48 % (16-70); SCAN/DIFF FINAL DIFF MANUAL; WBC DIFF SAMPLE 100
[2016-04-28 08:19] LABS: OVALOCYTES 1+ (NORMAL)
[2016-04-28] MEDS ORDERED: POTASSIUM CHLORIDE 20 MEQ CONTROLLED RELEASE TAB PO ONE (09:00)
[2016-04-28] MEDS: LISINOPRIL 20 MG TAB PO SCH (10:13)
[2016-04-28] MEDS: LACTOBACILLUS ACIDOPHILUS TAB PO SCH ×2 (10:13→20:01)
[2016-04-28] MEDS: FIDAXOMICIN 200 MG TAB PO SCH ×2 (10:13→20:01)
[2016-04-28] MEDS: CALCIUM CARBONATE 500 MG CHEWABLE TAB CHEW SCH ×2 (10:14→20:01)
[2016-04-28] MEDS: VANCOMYCIN 500 MG VIAL (FOR ORAL USE ONLY) PO SCH ×3 (10:14→20:02)
[2016-04-28] MEDS: SERTRALINE HCL 50 MG TAB PO SCH (10:14)
[2016-04-28] MEDS: HEPARIN SODIUM - SQ 10,000 UNITS/ML VIAL SQ SCH ×2 (10:14→20:02)
[2016-04-28] MEDS: amLODIPine BESYLATE 5 MG TAB PO SCH (10:14)
[2016-04-28] MEDS: FAMOTIDINE 20 MG TAB PO SCH ×2 (10:14→20:01)
[2016-04-28] MEDS: POTASSIUM CHLOR 20 MEQ PREMIX 100 ML IV SCH ×2 (10:15→11:45)
[2016-04-28] MEDS: SODIUM CHLORIDE 0.9% FLUSH 5 ML FLUSH FLUSH SCH ×2 (10:15→20:02)
[2016-04-28] MEDS: LIDOCAINE HCL 5% OINT 37 GM TUBE OTHER SCH ×2 (11:07→20:10)
[2016-04-28] MEDS ORDERED: Custom Consult Pharmacy 1 EA OTHER SCH (11:15)
--- NOTE | 2016-04-28 11:24 | HHI.FPPN ---
Subjective Remarks Patient seen this morning. Apparently had some confusion overnight and reports visual hallucination this morning. Per patient, has not experienced this in the past. She states she "thought it was daytime" last night. This morning she states she "thinks it looks like it is raining in her room". Denies any anxiety or agitation. Her vitals are essentially WNL. Kyleigh reports diarrhea is improving. She does have c/o hemorrhoid causing pain over the past day. Pain medicines don't seem to help with this. No blood in stool. (Dusty Gaona MD R3 ) Objective Vitals Vital Signs Date Time Temp Pulse Resp B/P Pulse Ox O2 Delivery O2 Flow Rate FiO2 04/28/16 08:00 98.7 91 18 129/71 94 04/28/16 04:00 98.3 96 18 149/77 96 04/28/16 00:00 98.2 114 20 152/85 95 04/27/16 20:00 98.0 101 20 156/71 94 04/27/16 17:31 98.2 96 18 167/86 96 04/27/16 13:35 98.3 99 18 136/74 97 I/O 04/27/16 04/27/16 04/27/16 04/28/16 04/28/16 04/28/16 07:00 15:00 23:00 07:00 15:00 23:00 # Voids 7 # Bowel Movements 3 (Dusty Gaona MD R3) Result Diagram: 04/28/16 0652 04/28/16 0652 Objective Remarks GENERAL: Elderly female sitting up in bed in [facility]. SKIN: Warm and dry. HEENT: Pupils equal and round. No scleral icterus. MMM. CARDIOVASCULAR: RRR no m/r/g. 2+ pedal pulses. RESPIRATORY: CTAB w/o wheezes or crackles. GASTROINTESTINAL: Laparotomy scar. Hyperactive bowel sounds Soft, NT, ND. No guarding or rebound. RECTAL: mildly enlarged external hemorrhoid at ~ 7-8 o'clock position. No bleeding. Does not appear thrombosed. EXTREMITIES: UE swelling improved. No calf tenderness. NEUROLOGICAL: Awake and alert. (Dusty Gaona MD R3) A/P Assessment and Plan 81 year old female is admitted on 04/23 for sepsis secondary to C. diff colitis. She was aggressively hydrated in the ER and started on IV Flagyl 500 mg Q8H. Vancomycin was added on 04/24 given persistent elevated white count and worsening pain and diarrhea. She did not improve and on 04/25 she had increasing abdominal pain, nausea, and bloating. XR showed thickened bowel braun without evidence of obstruction or distended loops of bowel. GI was consulted and patient was started on Dificid and Flagyl was stopped. She is slowly improving; today her abdominal pain and nausea have resolved but continues to have copious diarrhea. Lactobacillus and cholestyramine have now been added. Discharge Planning If patient continues to improve, anticipate D/C in 1-2 days (Dusty Gaona MD R3 ) Attending Attestation Patient seen and examined. Case reviewed and discussed with the resident team. Agree with plan of care as discussed with me and documented in the resident note. (Judi Zapata MD) Problem List: (1) C. difficile colitis Status: Acute Plan: Patient presenting with abdominal pain and diarrhea with + C. diff PCR, likely secondary to recent use of Cipro about six weeks prior vs. community acquired. On admission, patient septic with low-grade fever of 100, white count elevated to 21.1 with left shift, and tachycardia. CT abdomen showed colonic wall thickening and pericolonic inflammatory changes. - White count up to 31.2 during admission and has now normalized - Patient afebrile overnight - Continue Vancomycin QID and Dificid BID - Abdominal XR with no signs of obstruction or significantly dilated loops of bowel - GI consulted; appreciate assistance - Avoid PPIs and Imodium with acute C. diff infection - Encourage PO fluids - Reglan TIDAC - Toradol 30 mg IV Q6H PRN pain - Lactobacillus BID - Cholestyramine to help decrease diarrhea and bind C. diff toxin; since it needs to be dosed 2-3 hours from vancomycin and other medications. Yesterday was given with 6 AM meds. Will change schedule to BID at midnight and 12PM, as she does not have scheduled medications at this time. Will discuss with pharmacy. (2) Hypokalemia Status: Acute Plan: Potassium 2.9 this AM. Likely related to diarrhea. -replace with 40 MeQ IV and 40 PO. Check repeat BMP tomorrow AM. (3) Hemorrhoid Status: Acute Plan: Likely from straining. Causing moderate pain. -treat with 5% lidocaine ointment (4) Confusion Status: Acute Plan: Suspect delirium related to hospitalization. -h/o hypothyroidism, check TSH -check Mg/Phos -cath UA if fever or if confusion persists -fall precautions -keep lights on during day, dim at night. TV off at night. Move to bed close to nursing station, if possible. -will discuss with daughter today (5) Hypocalcemia Status: Acute Plan: Low total calcium, but corrected level is WNL. Replete with calcium carbonate BID. (6) GERD (gastroesophageal reflux disease) Status: Acute Plan: Avoid PPIs with C. diff. Zantac BID. (7) Nutrition, metabolism, and development symptoms Status: Acute Plan: - Fluids: Encourage PO fluids. Held IV fluids secondary to UE edema - Electrolytes: Monitor and replete as needed - Nutrition: Regular diet as tolerated - DVT prophylaxis: Heparin 5000 units Q8H Chronic medical problems not being acutely managed: - Hypothyroidism: Continue Synthroid - Hypertension: Continue home amlodipine and benazepril. Hold for hypotension - Anxiety: Continue Xanax BID PRN (Dusty Gaona MD R3) Dusty Gaona MD R3 Apr 28, 2016 11:24 Judi Zapata MD Apr 30, 2016 14:23
[2016-04-28 12:21] LABS: MAGNESIUM 1.5 MG/DL (1.5-2.5)
--- NOTE | 2016-04-28 17:27 | HHI.GIFU ---
Subjective Remarks Feeling better, no abdominal pain, 2 stools today loose (YoelJessika) Objective Vitals I&O Vital Signs Date Time Temp Pulse Resp B/P Pulse Ox O2 Delivery O2 Flow Rate FiO2 04/28/16 16:00 97.3 99 18 149/81 97 04/28/16 14:35 94 04/28/16 12:00 97.8 87 18 161/80 95 04/28/16 08:00 98.7 91 18 129/71 94 04/28/16 04:00 98.3 96 18 149/77 96 04/28/16 00:00 98.2 114 20 152/85 95 04/27/16 20:00 98.0 101 20 156/71 94 04/27/16 17:31 98.2 96 18 167/86 96 I/O 04/27/16 04/27/16 04/27/16 04/28/16 04/28/16 04/28/16 07:00 15:00 23:00 07:00 15:00 23:00 Intake Total 720 ml Balance 720 ml Intake Oral 720 ml # Voids 7 3 # Bowel Movements 3 1 Laboratory Laboratory Tests Test 04/28/16 06:52 White Blood Count 5.9 Red Blood Count 2.89 Hemoglobin 8.9 Hematocrit 25.7 Mean Corpuscular Volume 88.6 Mean Corpuscular Hemoglobin 30.6 Mean Corpuscular Hemoglobin 34.5 Concent Red Cell Distribution Width 13.3 Platelet Count 366 Mean Platelet Volume 6.9 Neutrophils (%) (Auto) 62.2 Lymphocytes (%) (Auto) 15.6 Monocytes (%) (Auto) 17.1 Eosinophils (%) (Auto) 4.3 Basophils (%) (Auto) 0.8 Neutrophils # (Auto) 3.7 Lymphocytes # (Auto) 0.9 Monocytes # (Auto) 1.0 Eosinophils # (Auto) 0.3 Basophils # (Auto) 0.0 CBC Comment AUTO DIFF Differential Total Cells 100 Counted Neutrophils % (Manual) 48 Band Neutrophils % 17 Lymphocytes % 15 Monocytes % 15 Eosinophils % 3 Basophils % 1 Neutrophils # (Manual) 3.9 Metamyelocytes 1 Differential Comment FINAL DIFF MANUAL Platelet Estimate NORMAL Platelet Morphology Comment NORMAL Ovalocytes 1+ Lissa Cells 1+ Sodium Level 137 Potassium Level 2.8 Chloride Level 104 Carbon Dioxide Level 24.2 Anion Gap 9 Blood Urea Nitrogen 4 Creatinine 0.48 Estimat Glomerular Filtration 124 Rate Random Glucose 95 Calcium Level 7.4 Protein Corrected Calcium 9.0 Phosphorus Level 2.5 Magnesium Level 1.5 Total Protein 4.4 Free Thyroxine 1.19 Thyroid Stimulating Hormone 11.200 [facility] Imaging Last Impressions Abdomen X-Ray 04/26/16 0600 Signed Impressions: Service Date/Time: Tuesday, April 26, 2016 05:02 - CONCLUSION: No disproportionately dilated loops of small or large bowel. Osito Thomas MD Abdomen/Pelvis CT 04/23/16 1146 Signed Impressions: Service Date/Time: Saturday, April 23, 2016 13:15 - CONCLUSION: 1. The colon nearly diffusely demonstrates wall thickening and pericolonic inflammatory change characteristic of a colitis. The appearance and distribution is suspicious for C. difficile colitis. 2. Small left pleural effusion and mild to moderate pericardial effusion. Ramo Roca MD Physical Exam HEENT: Pupils round and reactive to light; normocephalic; atraumatic; no jaundice. Throat is clear. NECK: Neck is supple, no JVD, no lymphadenopathy. CHEST: Chest is clear to auscultation and percussion. CARDIAC: Regular rate and rhythm with no murmur gallop or rubs. ABDOMEN: Soft, nondistended, nontender; no hepatosplenomegaly; bowel sounds are present in all four quadrants. EXTREMITIES: No clubbing, cyanosis, or edema. SKIN: Normal; no rash; no jaundice. FUNCTIONAL ANALYST: No focal deficits; alert and oriented times three. (Jessika Diallo ASSOCIATE DIRECTOR QA) Assessment and Plan Plan - Acute C-diff colitis with diarrhea and abdominal pain. Abdomen/Pelvis CT 1. The colon nearly diffusely demonstrates wall thickening and pericolonic inflammatory change characteristic of a colitis. The appearance and distribution is suspicious for C. difficile colitis. 2. Small left pleural effusion and mild to moderate pericardial effusion. Abdomen X-Ray 04/25/16 Persistent wall thickening of the left side of the colon. Some mucosal fold thickening appears to have developed at the jejunum as well. Stools (+) for C-diff toxins. labs significant for anemia of 10.4, WBC of 28.9, k of 3.3. EGD/Colonoscopy (02/28/15) this revealed revealed mild antral gastropathy noted, normal endoscopy otherwise, retroflexed views revealed no abnormalities, the colonic mucosa appeared normal in the terminal ileum and throughout the entire examined colon, multiple biopsies were performed, retroflexed views revealed no abnormalities, revealed no abnormalities of the rectum. Mild chronic gastritis, negative for Helicobacter pylori. She reports abx use a month ago, not sure of the name, but no other sick contacts and no travel, or suspicious food - Leukocytosis. WBC 5.9. Vanco/FLagyl. - Anemia- no signs of bleeding, most likely secondary to colitis - HTN, pacemaker per attending PLAN: - YING - Cont. IVF - Cont. Flagyl/vanco - CBC in am - Supportive care - Further recommendations to follow based on results of above - Pt seen and examined by Dr. Vizcarra and myself and this note is written on his behalf (Jessika Diallo) Physician Comments Seen and examined with DARLINE, feeling better over all. On treatmnet for C. Diff. Will sign off, reconsult as needed. GI fu upon dc. Thank you (Ayaka Vizcarra MD ) Jessika Diallo Apr 28, 2016 17:27 Ayaka Vizcarra MD Apr 28, 2016 18:57
[2016-04-28] MEDS: TEMAZEPAM 15 MG CAP PO PRN (20:01)
[2016-04-29] VITALS (8 sets, daily range): BP systolic 132–156; BP diastolic 74–85; PULSE 76–103; RESP 16–18; TEMP 97.9–99.3; O2SAT 95–99
[2016-04-29] MEDS: CHOLESTYRAMINE 4 GM PACKET PO SCH ×2 (00:27→11:18)
[2016-04-29] MEDS: VANCOMYCIN 500 MG VIAL (FOR ORAL USE ONLY) PO SCH ×4 (03:39→21:12)
[2016-04-29] MEDS: LEVOTHYROXINE SODIUM 75 MCG TAB PO SCH (05:16)
[2016-04-29] MEDS: METOCLOPRAMIDE HCL 10 MG TAB PO SCH ×4 (05:20→21:12)
[2016-04-29 08:04] LABS: AUTOMATED NEUTROPHIL # 3.9 TH/MM3 (1.8-7.7); BASOPHIL % 0.7 % (0.0-2.0); EOSINOPHIL # 0.2 TH/MM3 (0-0.4); EOSINOPHIL % 3.8 % (0.0-4.0); HEMATOCRIT 28.7 % (35.0-46.0); HEMO FLAGS DIFF FINAL; LYMPH % 15.8 % (9.0-44.0); MEAN CELL VOLUME 88.7 FL (80.0-100.0); MEAN CORPUSCULAR HEMOGLOBIN 30.8 PG (27.0-34.0); MEAN CORPUSCULAR HGB CONC 34.8 % (32.0-36.0); MONO % 15.4 % (0.0-8.0); NEUT % 64.3 % (16.0-70.0); PLATELET COUNT 426 TH/MM3 (150-450); RED BLOOD COUNT 3.24 MIL/MM3 (4.00-5.30); RED CELL DISTRIBUTION WIDTH 13.6 % (11.6-17.2); WHITE BLOOD COUNT 6.1 TH/MM3 (4.0-11.0)
[2016-04-29 08:21] LABS: BICARBONATE 23.9 MEQ/L (21.0-32.0); POTASSIUM 3.2 MEQ/L (3.5-5.1)
[2016-04-29] MEDS: LACTOBACILLUS ACIDOPHILUS TAB PO SCH ×2 (08:27→21:12)
[2016-04-29] MEDS: FIDAXOMICIN 200 MG TAB PO SCH ×2 (08:27→21:12)
[2016-04-29] MEDS: amLODIPine BESYLATE 5 MG TAB PO SCH (08:27)
[2016-04-29] MEDS: SERTRALINE HCL 50 MG TAB PO SCH (08:27)
[2016-04-29] MEDS: FAMOTIDINE 20 MG TAB PO SCH ×2 (08:27→21:12)
[2016-04-29] MEDS: HEPARIN SODIUM - SQ 10,000 UNITS/ML VIAL SQ SCH ×2 (08:28→21:12)
[2016-04-29] MEDS: CALCIUM CARBONATE 500 MG CHEWABLE TAB CHEW SCH ×2 (08:28→21:12)
[2016-04-29] MEDS: LIDOCAINE HCL 5% OINT 37 GM TUBE OTHER SCH ×2 (08:28→21:18)
[2016-04-29] MEDS: LISINOPRIL 20 MG TAB PO SCH (08:28)
[2016-04-29] MEDS: SODIUM CHLORIDE 0.9% FLUSH 5 ML FLUSH FLUSH SCH ×2 (08:28→21:13)
--- NOTE | 2016-04-29 09:41 | HHI.FPPN ---
Subjective Remarks Patient seen this morning. No acute events overnight. SBP up to the 150s this morning. Other vitals WNL. She c/o small amount of bright red blood with stools. Hemorrhoid is painful, but improved with lidocaine. Has small amount of abdominal cramping, which is well controlled with toradol. Her appetite is poor. Tolerates PO fluids. No other complaints. Per nursing, diarrhea mildly improved. 4 BMs overnight. Stool still liquid. Patient denies F/C or N/V. ( Dusty Gaona MD R3) Objective Vitals Vital Signs Date Time Temp Pulse Resp B/P Pulse Ox O2 Delivery O2 Flow Rate FiO2 04/29/16 08:00 98.1 92 18 156/78 96 04/29/16 04:00 98.3 80 18 146/76 96 04/29/16 00:29 16 04/29/16 00:00 98.2 76 18 132/74 96 04/28/16 20:00 98.7 82 18 134/76 95 04/28/16 18:04 97 21 04/28/16 16:00 97.3 99 18 149/81 97 04/28/16 14:35 94 04/28/16 12:00 97.8 87 18 161/80 95 I/O 04/28/16 04/28/16 04/28/16 04/29/16 04/29/16 04/29/16 07:00 15:00 23:00 07:00 15:00 23:00 Intake Total 720 ml 240 ml 240 ml Balance 720 ml 240 ml 240 ml Intake Oral 720 ml 240 ml 240 ml # Voids 3 1 2 # Bowel Movements 1 1 1 (Dusty Gaona MD R3) Result Diagram: 04/29/1641 04/29/1641 Objective Remarks GENERAL: Elderly female sitting up in bed in [facility]. SKIN: Warm and dry. HEENT: Pupils equal and round. No scleral icterus. MMM. CARDIOVASCULAR: RRR no m/r/g. 2+ pedal pulses. RESPIRATORY: CTAB w/o wheezes or crackles. GASTROINTESTINAL: Laparotomy scar. Hyperactive bowel sounds Soft, NT, ND. No guarding or rebound. RECTAL: mildly enlarged external hemorrhoid at ~ 7-8 o'clock position. Small amount of bright, red blood present. Does not appear thrombosed. EXTREMITIES: UE swelling improved. No calf tenderness. NEUROLOGICAL: Awake and alert. (Dusty Gaona MD R3) A/P Assessment and Plan 81 year old female is admitted on 04/23 for sepsis secondary to C. diff colitis. She was aggressively hydrated in the ER and started on IV Flagyl 500 mg Q8H. Vancomycin was added on 04/24 given persistent elevated white count and worsening pain and diarrhea. She did not improve and on 04/25 she had increasing abdominal pain, nausea, and bloating. XR showed thickened bowel braun without evidence of obstruction or distended loops of bowel. GI was consulted and patient was started on Dificid and Flagyl was stopped. Cholestyramine has been added and diarrhea is slowly improving. Discharge Planning Plan for DC to SNF in next 1-2 days. Appreciate assistance from CM. Will discuss with Dr. Zapata (Dusty Gaona MD R3) Attending Attestation Patient seen and examined. Case reviewed and discussed with the resident team. Agree with plan of care as discussed with me and documented in the resident note. (Judi Zapata MD) Problem List: (1) C. difficile colitis Status: Acute Plan: Patient presenting with abdominal pain and diarrhea with + C. diff PCR, likely secondary to recent use of Cipro about six weeks prior vs. community acquired. On admission, patient septic with low-grade fever of 100, white count elevated to 21.1 with left shift, and tachycardia. CT abdomen showed colonic wall thickening and pericolonic inflammatory changes. - White count up to 31.2 during admission and has now normalized - Patient afebrile overnight - Continue Vancomycin QID and Dificid BID - Abdominal XR with no signs of obstruction or significantly dilated loops of bowel - GI has now signed off. Appreciate their assistance. - Avoid PPIs and Imodium with acute C. diff infection - Encourage PO fluids - Reglan TIDAC - Toradol 30 mg IV Q6H PRN pain - Lactobacillus BID - Cholestyramine changed to BID 00, 12 by pharmacy. Appreciate their assistance. (2) Hypokalemia Status: Acute Plan: Improving. Up to 3.2 today compared to 2.8 yesterday. -40 MeQ PO KCL today. Re-check level in the morning. (3) Hemorrhoid Status: Acute Plan: Likely from straining. Now with small amount of bleeding -cont 5% lidocaine ointment -add preparation H (4) Confusion Status: Acute Plan: Resolved. Suspect delirium related to hospitalization. -TSH elevated to 11. Levothyroxine increase, as below. -Mg/Phos WNL -cath UA if fever or if confusion persists -fall precautions -keep lights on during day, dim at night. TV off at night. Move to bed close to nursing station, if possible. -will discuss with daughter today (5) Hypocalcemia Status: Acute Plan: Low total calcium, but corrected level is WNL. Replete with calcium carbonate BID. (6) GERD (gastroesophageal reflux disease) Status: Acute Plan: Avoid PPIs with C. diff. Zantac BID. (7) Hypothyroidism Status: Chronic Plan: TSH elevated to 11 with normal t4. -increase levothyroxine from 50 mcg to 75 mcg daily (8) Nutrition, metabolism, and development symptoms Status: Acute Plan: - Fluids: Encourage PO fluids. Held IV fluids secondary to UE edema - Electrolytes: Monitor and replete as needed - Nutrition: Regular diet as tolerated - DVT prophylaxis: Heparin 5000 units Q8H Chronic medical problems not being acutely managed: - Hypothyroidism: Continue Synthroid - Hypertension: Continue home amlodipine and benazepril. Hold for hypotension - Anxiety: Continue Xanax BID PRN (Dusty Gaona MD R3) Dusty Gaona MD R3 Apr 29, 2016 09:41 Judi Zapata MD Apr 30, 2016 14:23
[2016-04-29] MEDS ORDERED: POTASSIUM CHLORIDE 20 MEQ CONTROLLED RELEASE TAB PO ONE (10:00)
[2016-04-29] MEDS: PETROLEUM/SHARK LIVER OIL 60 GM TUBE TOPICAL SCH ×2 (11:18→21:12)
[2016-04-29] MEDS: TEMAZEPAM 15 MG CAP PO PRN (21:11)
[2016-04-30] MEDS: CHOLESTYRAMINE 4 GM PACKET PO SCH ×2 (00:33→11:49)
[2016-04-30] MEDS: VANCOMYCIN 500 MG VIAL (FOR ORAL USE ONLY) PO SCH ×3 (03:23→15:06)
[2016-04-30 05:13] VITALS: BP 151/78; PULSE 90; RESP 16; TEMP 99; O2SAT 92
[2016-04-30] MEDS: LEVOTHYROXINE SODIUM 75 MCG TAB PO SCH (05:22)
[2016-04-30] MEDS: METOCLOPRAMIDE HCL 10 MG TAB PO SCH ×3 (05:22→15:06)
[2016-04-30 07:06] LABS: AUTOMATED NEUTROPHIL # 5.6 TH/MM3 (1.8-7.7); BASOPHIL # 0.1 TH/MM3 (0-0.2); BASOPHIL % 0.8 % (0.0-2.0); EOSINOPHIL # 0.2 TH/MM3 (0-0.4); EOSINOPHIL % 2.7 % (0.0-4.0); HEMATOCRIT 28.9 % (35.0-46.0); HEMO FLAGS DIFF FINAL; LYMPH % 12.7 % (9.0-44.0); MEAN CELL VOLUME 89.8 FL (80.0-100.0); MEAN CORPUSCULAR HEMOGLOBIN 30.9 PG (27.0-34.0); MEAN CORPUSCULAR HGB CONC 34.4 % (32.0-36.0); MONO % 12.6 % (0.0-8.0); NEUT % 71.2 % (16.0-70.0); PLATELET COUNT 396 TH/MM3 (150-450); RED BLOOD COUNT 3.22 MIL/MM3 (4.00-5.30); RED CELL DISTRIBUTION WIDTH 13.4 % (11.6-17.2); WHITE BLOOD COUNT 7.8 TH/MM3 (4.0-11.0)
[2016-04-30 07:39] LABS: POTASSIUM 3.5 MEQ/L (3.5-5.1)
[2016-04-30 08:00] VITALS: BP 126/93; PULSE 98; RESP 20; TEMP 98.9; O2SAT 94
[2016-04-30] MEDS: CALCIUM CARBONATE 500 MG CHEWABLE TAB CHEW SCH (08:35)
[2016-04-30] MEDS: FAMOTIDINE 20 MG TAB PO SCH (08:35)
[2016-04-30] MEDS: amLODIPine BESYLATE 5 MG TAB PO SCH (08:35)
[2016-04-30] MEDS: LISINOPRIL 20 MG TAB PO SCH (08:35)
[2016-04-30] MEDS: LACTOBACILLUS ACIDOPHILUS TAB PO SCH (08:35)
[2016-04-30] MEDS: FIDAXOMICIN 200 MG TAB PO SCH (08:35)
[2016-04-30] MEDS: SERTRALINE HCL 50 MG TAB PO SCH (08:35)
[2016-04-30] MEDS: HEPARIN SODIUM - SQ 10,000 UNITS/ML VIAL SQ SCH (08:36)
[2016-04-30] MEDS: SODIUM CHLORIDE 0.9% FLUSH 5 ML FLUSH FLUSH SCH (08:36)
[2016-04-30] MEDS: LIDOCAINE HCL 5% OINT 37 GM TUBE OTHER SCH (08:36)
[2016-04-30] MEDS: PETROLEUM/SHARK LIVER OIL 60 GM TUBE TOPICAL SCH (08:36)
--- NOTE | 2016-04-30 10:20 | HHI.FPPN ---
Subjective Remarks Patient seen this morning. No acute events overnight. Vitals essentially WNL. Patient reports stool has more form now. Does have some blood in stool. No pain from hemorrhoid. Confusion resolved. She feels ready to return home. (Dusty Gaona MD R3) Objective Vitals Vital Signs Date Time Temp Pulse Resp B/P Pulse Ox O2 Delivery O2 Flow Rate FiO2 04/30/16 05:13 99.0 90 16 151/78 92 04/29/16 23:54 98.6 91 16 137/74 95 04/29/16 21:05 99.3 103 16 149/85 95 04/29/16 18:21 99 21 04/29/16 16:00 98.1 98 16 150/76 99 04/29/16 12:00 97.9 95 18 147/76 96 I/O 04/29/16 04/29/16 04/29/16 04/30/16 04/30/16 04/30/16 07:00 15:00 23:00 07:00 15:00 23:00 Intake Total 240 ml 240 ml 240 ml 0 ml Balance 240 ml 240 ml 240 ml 0 ml Intake Oral 240 ml 240 ml 240 ml 0 ml # Voids 2 6 4 2 # Bowel Movements 1 6 4 2 (Dusty Gaona MD R3) Result Diagram: 04/30/16 0600 04/30/16 0600 Objective Remarks GENERAL: Elderly female sitting up in bed in [facility]. SKIN: Warm and dry. HEENT: Pupils equal and round. No scleral icterus. MMM. CARDIOVASCULAR: RRR no m/r/g. 2+ pedal pulses. RESPIRATORY: CTAB w/o wheezes or crackles. GASTROINTESTINAL: Laparotomy scar. Hyperactive bowel sounds Soft, NT, ND. No guarding or rebound. RECTAL: mildly enlarged external hemorrhoid at ~ 7-8 o'clock position. Small amount of bright, red blood present. Does not appear thrombosed. EXTREMITIES: UE swelling improved. No calf tenderness. NEUROLOGICAL: Awake and alert. (Dusty Gaona MD R3) A/P Assessment and Plan 81 year old female is admitted on 04/23 for sepsis secondary to C. diff colitis. She was aggressively hydrated in the ER and started on IV Flagyl 500 mg Q8H. Vancomycin was added on 04/24 given persistent elevated white count and worsening pain and diarrhea. She did not improve and on 04/25 she had increasing abdominal pain, nausea, and bloating. XR showed thickened bowel braun without evidence of obstruction or distended loops of bowel. GI was consulted and patient was started on Dificid and Flagyl was stopped. Cholestyramine has been added and diarrhea is slowly improving. Discharge Planning Plan for DC home today. Seen and discussed with Dr. Zapata. (Dusty Gaona MD R3) Attending Attestation Patient seen and examined. Case reviewed and discussed with the resident team. Agree with plan of care as discussed with me and documented in the resident note. agree with she can have some blood in stool from colitis. Her H/H has not dropped. She wants to go home and not undergo procedures now like colonoscopy. ( Judi Zapata MD) Problem List: (1) C. difficile colitis Status: Acute Plan: Patient presenting with abdominal pain and diarrhea with + C. diff PCR, likely secondary to recent use of Cipro about six weeks prior vs. community acquired. On admission, patient septic with low-grade fever of 100, white count elevated to 21.1 with left shift, and tachycardia. CT abdomen showed colonic wall thickening and pericolonic inflammatory changes. - White count up to 31.2 during admission and has now normalized - Patient afebrile overnight - Continue Vancomycin QID (04/24-) and Dificid (04/25-) BID. Plan to DC on PO Vancomycin QID x8 days (14 day course). Will speak with pharmacy regarding script for PO IV solution at discharge given cost concerns with vancomycin pills. - Abdominal XR with no signs of obstruction or significantly dilated loops of bowel - GI has now signed off. Appreciate their assistance. - Avoid PPIs and Imodium with acute C. diff infection - Encourage PO fluids - Reglan TIDAC - Toradol 30 mg IV Q6H PRN pain - Lactobacillus BID - Cholestyramine changed to BID 00, 12 by pharmacy. Appreciate their assistance. (2) Hypokalemia Status: Acute Plan: Resolved. Likely related to diarrhea. (3) Hemorrhoid Status: Acute Plan: Likely from straining. Now with small amount of bleeding -cont 5% lidocaine ointment and preparation H (4) Confusion Status: Acute Plan: Resolved. Suspect delirium related to hospitalization. -TSH elevated to 11. Levothyroxine increase, as below. -Mg/Phos WNL -cath UA if fever or if confusion persists -fall precautions -keep lights on during day, dim at night. TV off at night. Move to bed close to nursing station, if possible. -will discuss with daughter today (5) Hypocalcemia Status: Acute Plan: Low total calcium, but corrected level is WNL. Replete with calcium carbonate BID. (6) GERD (gastroesophageal reflux disease) Status: Acute Plan: Avoid PPIs with C. diff. Zantac BID. (7) Hypothyroidism Status: Chronic Plan: TSH elevated to 11 with normal t4. -increase levothyroxine from 50 mcg to 75 mcg daily (8) Nutrition, metabolism, and development symptoms Status: Acute Plan: - Fluids: Encourage PO fluids. Held IV fluids secondary to UE edema - Electrolytes: Monitor and replete as needed - Nutrition: Regular diet as tolerated - DVT prophylaxis: DC heparin as patient ambulatory Chronic medical problems not being acutely managed: - Hypothyroidism: Continue Synthroid - Hypertension: Continue home amlodipine and benazepril. Hold for hypotension - Anxiety: Continue Xanax BID PRN (Dusty Gaona MD R3) Dusty Gaona MD R3 Apr 30, 2016 10:20 Judi Zapata MD Apr 30, 2016 14:25
[2016-04-30] MEDS ORDERED: VANC500I3 PO (10:22)
[2016-04-30] MEDS ORDERED: LACT PO (10:22)
[2016-04-30] MEDS ORDERED: PREPOIN TOPICAL (10:22)
[2016-04-30] MEDS ORDERED: CALC500C16 CHEW (10:22)
[2016-04-30] MEDS ORDERED: LIDO5%T OTHER (10:23)
[2016-04-30] MEDS ORDERED: CHOL4POW4 PO (10:23)
--- NOTE | 2016-04-30 10:23 | HHI.DCPOC ---
Discharge Care Plan Diagnosis: (1) C. difficile colitis Goals to Promote Your Health * To prevent worsening of your condition and complications * To maintain your health at the optimal level Directions to Meet Your Goals Take your medications as prescribed Follow your dietary instruction Follow activity as directed Keep your appointments as scheduled Take your immunizations and boosters as scheduled If your symptoms worsen call your PCP, if no PCP go to Urgent Care Center or Emergency Room Smoking is Dangerous to Your Health. Avoid second hand smoke Call the 24-hour hour crisis hotline for domestic abuse at Dusty Gaona MD R3 Apr 30, 2016 10:23
--- NOTE | 2016-04-30 10:26 | HHI.FF ---
Face to Face Verification Diagnosis: (1) C. difficile colitis (2) Weakness generalized Physical Therapy Order: Evaluate and Treat, Improve ambulation, Strength and gait training Home Health Nursing Order: Medical education Signs/symptoms of disease process Nursing assessment with vital signs I have seen patient Kyleigh Thomas on 04/30/16. My clinical findings support the need for the requested home health care services because: Ltd mobility - disease progression Limited ability to care for self High risk of falls I certify that my clinical findings support that this patient is homebound because: Impaired cognitive ability/safety Unsteady gait/balance Dusty Gaona MD R3 Apr 30, 2016 10:26
[2016-04-30] MEDS ORDERED: Custom Consult Pharmacy 1 EA OTHER SCH (11:45)
[2016-04-30 12:00] VITALS: BP 127/75; PULSE 99; RESP 20; TEMP 98.2; O2SAT 95
[2016-04-30] MEDS ORDERED: VANC125C3 PO (13:00)
--- NOTE | 2016-04-30 14:00 | HHI.FF ---
Face to Face Verification Diagnosis: (1) C. difficile colitis (2) Weakness generalized Home Health Nursing Order: Medical education Signs/symptoms of disease process Nursing assessment with vital signs I have seen patient Kyleigh Thomas on 04/30/16. My clinical findings support the need for the requested home health care services because: Ltd mobility - disease progression Deconditioned w/ increased weakness Limited ability to care for self High risk of falls I certify that my clinical findings support that this patient is homebound because: Impaired cognitive ability/safety Unsteady gait/balance Please encourage ambulation, provide gait training Dusty Gaona MD R3 Apr 30, 2016 14:00
[2016-04-30 14:10] VITALS: O2SAT 95
[2016-04-30 16:00] VITALS: BP 161/84; PULSE 98; RESP 20; TEMP 98.3; O2SAT 95
[2016-05-02] MEDS ORDERED: LEVO.075 PO (08:55)
[2016-05-07] MEDS ORDERED: REGL5TAB PO (15:00)
[2016-05-09] MEDS ORDERED: VANC125C3 PO (14:41)
[2016-05-09] MEDS ORDERED: ZANTTAB9 PO (14:43)
[2016-05-11] MEDS ORDERED: PROM25TA5 PO (13:14)
[2016-05-20] MEDS ORDERED: TEMA30CA PO (13:36)
--- NOTE | 2016-05-21 11:28 | HHI.DS ---
Discharge Summary Admission Date Apr 23, 2016 at 14:27 Admitting Diagnosis C. diff colitis (1) C. difficile colitis Diagnosis: Principal Plan: Patient presenting with abdominal pain and diarrhea with + C. diff PCR, likely secondary to recent use of Cipro about six weeks prior vs. community acquired. On admission, patient septic with low-grade fever of 100, white count elevated to 21.1 with left shift, and tachycardia. CT abdomen showed colonic wall thickening and pericolonic inflammatory changes. - White count up to 31.2 during admission and has now normalized - Patient afebrile overnight - Continue Vancomycin QID (04/24-) and Dificid (04/25-) BID. Plan to DC on PO Vancomycin QID x8 days (14 day course). Will speak with pharmacy regarding script for PO IV solution at discharge given cost concerns with vancomycin pills. - Abdominal XR with no signs of obstruction or significantly dilated loops of bowel - GI has now signed off. Appreciate their assistance. - Avoid PPIs and Imodium with acute C. diff infection - Encourage PO fluids - Reglan TIDAC - Toradol 30 mg IV Q6H PRN pain - Lactobacillus BID - Cholestyramine changed to BID 00, 12 by pharmacy. Appreciate their assistance. (2) Hypokalemia Diagnosis: Secondary Plan: Resolved. Likely related to diarrhea. (3) Hemorrhoid Diagnosis: Secondary Plan: Likely from straining. Now with small amount of bleeding -cont 5% lidocaine ointment and preparation H (4) Confusion Diagnosis: Secondary Plan: Resolved. Suspect delirium related to hospitalization. -TSH elevated to 11. Levothyroxine increase, as below. -Mg/Phos WNL -cath UA if fever or if confusion persists -fall precautions -keep lights on during day, dim at night. TV off at night. Move to bed close to nursing station, if possible. -will discuss with daughter today (5) Hypocalcemia Diagnosis: Secondary Plan: Low total calcium, but corrected level is WNL. Replete with calcium carbonate BID. (6) GERD (gastroesophageal reflux disease) Diagnosis: Secondary Plan: Avoid PPIs with C. diff. Zantac BID. (7) Hypothyroidism Diagnosis: Secondary Plan: TSH elevated to 11 with normal t4. -increase levothyroxine from 50 mcg to 75 mcg daily (8) Nutrition, metabolism, and development symptoms Diagnosis: Secondary Plan: - Fluids: Encourage PO fluids. Held IV fluids secondary to UE edema - Electrolytes: Monitor and replete as needed - Nutrition: Regular diet as tolerated - DVT prophylaxis: DC heparin as patient ambulatory Chronic medical problems not being acutely managed: - Hypothyroidism: Continue Synthroid - Hypertension: Continue home amlodipine and benazepril. Hold for hypotension - Anxiety: Continue Xanax BID PRN [facility] (Dr. Quinonez) Brief History Ms Thomas is an 81 year old female with a history of HTN, diverticulitis , hypothyroidism, and pacemaker placement who presented to the ER for evaluation of abdominal pain, diarrhea, nausea and vomiting. She endorsed bloating and crampy, lower abdominal pain for the past 4-5 days. Pain is worst in the left lower quadrant and she rates it 7/10. She began having diarrhea the morning before admission and since then she has had about seven episodes of foul -smelling, liquid diarrhea with occasional bloody-mucous streaks. She reports subjective fever at home which she treated with Tylenol. The day of admission she had nausea and two episodes of nonbloody, nonbilious vomiting. She was last seen by her PCP, Dr. Gaona, in February and was treated with a seven day course of Cipro for a UTI. She was seen with Dr Gaona and Marcos and Dr Gaona provided translation as she speaks almost exclusively Serbian. She was started on iv flagyl as she was nauseated and not taking good po. She still has abdominal pain and cramping and diarrhea overnight and was positive for C diff. PE at Discharge GENERAL: Elderly female sitting up in bed in [facility]. SKIN: Warm and dry. HEENT: Pupils equal and round. No scleral icterus. MMM. CARDIOVASCULAR: RRR no m/r/g. 2+ pedal pulses. RESPIRATORY: CTAB w/o wheezes or crackles. GASTROINTESTINAL: Laparotomy scar. Hyperactive bowel sounds Soft, NT, ND. No guarding or rebound. RECTAL: mildly enlarged external hemorrhoid at ~ 7-8 o'clock position. Small amount of bright, red blood present. Does not appear thrombosed. EXTREMITIES: UE swelling improved. No calf tenderness. NEUROLOGICAL: Awake and alert. Hospital Course 81-year-old female admitted on 04/23/2016 with complaint of confusion. Tested positive for C. difficile on PCR and met sepsis criteria based on leukocytosis, low-grade fever, and tachycardia with suspected source of infection (C. difficile). She was started on IV metronidazole and given IV fluid hydration. Abdominal x-ray on admission showed no evidence of megacolon or free air. She continued to have significant diarrhea on IV metronidazole and by mouth vancomycin was added. Gastroenterology was consulted. They added Dificid to her regimen and stopped metronidazole. Despite above therapy, patient continued to have significant diarrhea. She was started on Questran. Diarrhea improved with this therapy. Patient's strength and altered mental status improved throughout her course. She was able to be discharged home on 04/30 with 7 days of vancomycin (2 week course). Unable to get authorization from insurance for Dificid. She will need to follow up with gastroenterology in the next week. Pt Condition on Discharge: Good Discharge Disposition: Disch w/ Home Health Serv Discharge Instructions DIET: Follow Instructions for: As Tolerated, No Restrictions Activities you can perform: Weight Bearing as Natalie Dusty Gaona MD R3 May 21, 2016 11:28
[2016-06-16] MEDS ORDERED: MIRT30TA PO (13:30)
[2016-07-10] MEDS ORDERED: ESTR0.62 VAGINAL (09:59)
[2016-07-10] MEDS ORDERED: RANI150C PO (10:03)
[2016-07-10] MEDS ORDERED: ALPR.5 PO (10:04)
[2016-08-12] MEDS ORDERED: ZOLO50TA PO (13:19)
[2016-08-12] MEDS ORDERED: TEMA30CA PO (15:07)
[2016-08-13] MEDS ORDERED: PROM25TA10 PO (14:10)
[2016-08-15] MEDS ORDERED: RANI150C PO (09:09)
== END 2016-04-30 18:41 | disposition home health service (06) | DRG 872 ==
LOC: NETRI 10:34 → NEDA 14:27 → NEDH 19:28 → N04B 21:45
PROVIDERS: ADMIT Family Medicine; ATTEND Family Medicine
DX: A41.4 Sepsis due to anaerobes (principal); J90 Pleural effusion, not elsewhere classified; A04.7 Enterocolitis due to Clostridium difficile; F05 Delirium due to known physiological condition; I31.3 Pericardial effusion (noninflammatory); E83.51 Hypocalcemia; E03.9 Hypothyroidism, unspecified; I10 Essential (primary) hypertension; I25.10 Atherosclerotic heart disease of native coronary artery without angina pectoris; K21.9 Gastro-esophageal reflux disease without esophagitis; D64.9 Anemia, unspecified; E87.6 Hypokalemia; K64.9 Unspecified hemorrhoids; R60.0 Localized edema; F32.9 Major depressive disorder, single episode, unspecified; F41.9 Anxiety disorder, unspecified; Z90.49 Acquired absence of other specified parts of digestive tract; Z95.0 Presence of cardiac pacemaker
CPT/HCPCS: 74000; 74020; 74177; 76937; 80048; 80053; 81001; 83605; 83690; 83735; 84100; 84155; 84439; 84443; 85007; 85025; 85027; 87040; 87086; 87493; 87506; 87804; 96374; 96375; J0744; J1644; J1885; J2270; J2405; J3480; J7030; Q0169; Q9967

== ENCOUNTER 2016-05-30 14:36 | Inpatient (IN) | payer OTHER ==
[~2016-05-30] VITALS: Ht 154.9 cm; Wt 54.8 kg
[~2016-05-30 14:36] MED LIST changes: -ALPR.25 PO; -AMLO5TAB22 PO; +ASPI1TAB91 PO; -ASPI81TA82 PO; -BACT2OIN TOP; +CALC500C16 CHEW; +CHOL4POW4 PO; -CIPR-9 PO; -FOSA70TA PO; +IOHEXOL 350 MG/ML 10 ML VIAL (for RAD DIAG) IV ONE; +LACT PO; -LEVO.05 PO; +LEVO.075 PO; +LIDO5%T OTHER; -LOTE40TA PO; -MIRT30TA PO; +PREPOIN TOPICAL; +PROM25TA5 PO; -REST30CA PO; -SIME125 PO; -TEMA15CA PO; -TRAM50 PO; +VANC125C3 PO; +ZANTTAB9 PO
[2016-05-30] MEDS ORDERED: SODIUM CHLOR 0.9% 1000 ML INJ 1,000 ML IV ONE ×2 (17:08→20:15)
[2016-05-30] MEDS ORDERED: ACETAMINOPHEN 325 MG TAB PO ONE (17:15)
[2016-05-30] MEDS ORDERED: SODIUM CHLORIDE 0.9% FLUSH 10 ML FLUSH IVF PRN (17:15)
[2016-05-30] MEDS ORDERED: ONDANSETRON HCL 4 MG/2 ML VIAL IVP ONE (17:15)
[2016-05-30] MEDS ORDERED: metroNIDAZOLE 500 MG INJ 100 ML IV ONE (17:15)
--- NOTE | 2016-05-30 17:42 | PD ---
HPI Chief Complaint: abdominal pain Time Seen by Provider: 16:59 Travel History International Travel<30 days: No Contact w/Intl Traveler<30days: No Traveled to known affect area: No History of Present Illness HPI The patient is a 81-year-old female who presents to the emergency department via EMS for abdominal pain. The patient notes a 2-3 day history of left lower quadrant abdominal pain associated with diarrhea. The patient does have a history of enteritis approximately one month prior with admission. The patient states abdominal pain is located left lower quadrant, associated with discomfort , crampy abdominal pain, and foul-smelling diarrhea. She denies any current nausea, vomiting, chest pain, or shortness of breath. She is unsure if she has been running a fever. The patient is a somewhat limited historian, but follows commands without difficulty. PFSH Past Medical History Asthma: No Autoimmune Disease: No Anxiety: Yes Depression: Yes Heart Rhythm Problems: Yes Cancer: No Cardiovascular Problems: Yes (Pacemaker) High Cholesterol: No Chemotherapy: No Chest Pain: No Congestive Heart Failure: No COPD: No Coronary Artery Disease: Yes Diabetes: No Diminished Hearing: No Endocrine: No Gastrointestinal Disorders: Yes (FREQUENT NAUSEA , GASTRITIS ) GERD: Yes Genitourinary: No Hiatal Hernia: No Hypertension: Yes Immune Disorder: No Implanted Vascular Access Dvce: Yes Musculoskeletal: No Neurologic: No Psychiatric: No Reproductive: No Respiratory: No Immunizations Current: No Radiation Therapy: No Sleep Apnea: No Thyroid Disease: Yes (Takes synthroid) Ulcer: No Menopausal: Yes Past Surgical History Abdominal Surgery: Yes Appendectomy: Yes Body Medical Devices: Pacemaker Cardiac Surgery: Yes (PACEMAKER 2008) Cholecystectomy: Yes (IN 1994) Endocrine Surgery: Yes (THYROIDECTOMY) Genitourinary Surgery: Yes (BLADDER SURGERY IN 2003) Pacemaker: Yes (05/25) Other Surgery: Yes (COLECTOMY) Social History Alcohol Use: No Tobacco Use: No Substance Use: No Allergies-Medications (Allergen,Severity, Reaction): Coded Allergies: No Known Allergies (Verified , 05/30/16) Reported Meds & Prescriptions Reported Meds & Active Scripts Active Temazepam 30 Mg Cap 30 Mg PO HS PRN Phenergan (Promethazine HCl) 25 Mg Tab 25 Mg PO Q4HR PRN Zantac 75 (Ranitidine HCl) 75 Mg Tab 75 Mg PO DAILY PRN Take 30 to 60 minutes before eating food or drinking beverages that cause heartburn. Vancomycin (Vancomycin HCl) 125 Mg Cap 125 Mg PO QID Reglan (Metoclopramide HCl) 5 Mg Tab 5 Mg PO TIDAC Synthroid (Levothyroxine Sodium) 75 Mcg Tab 75 Mcg PO DAILY Vancomycin (Vancomycin HCl) 125 Mg Cap 125 Mg PO QID Lidocaine Topical (Lidocaine HCl) 5 % Oint 1 Applic OTHER BID Cholestyramine 4 Gm/Pkt Powd 4 Gm PO BID@00,12 7 Days Preparation H Topical (Phenylephrine-Mineral Oil-Petrolatum Topical) 0.25-3-14- 71.9 % Oint 1 Applic TOPICAL BID Acidophilus/l-Sporogenes (Lactobacillus Acidophilus) 1 Tab Tab 1 Tab PO Q12HR Calcium Carbonate (Antacid) 500 Mg Chew 500 Mg CHEW Q12HR Xanax (Alprazolam) 0.5 Mg Tab 0.5 Mg PO BID PRN Pantoprazole (Pantoprazole Sodium) 40 Mg Tab 40 Mg PO DAILY Benazepril (Benazepril HCl) 40 Mg Tab 40 Mg PO DAILY Amlodipine (Amlodipine Besylate) 5 Mg Tab 5 Mg PO DAILY Reported Zoloft (Sertraline HCl) 50 Mg Tab 50 Mg PO DAILY Aspirin Adult Low Strength (Aspirin) 81 Mg Tabdr 81 Mg PO DAILY Review of Systems Except as stated in HPI: all other systems reviewed are Neg General / Constitutional: No: Fever HENT: No: Lightheadedness Cardiovascular: No: Chest Pain or Discomfort Respiratory: No: Shortness of Breath Gastrointestinal: Positive: Diarrhea, Abdominal Pain, No: Nausea, Vomiting Genitourinary: No: Dysuria Musculoskeletal: Positive: Weakness Neurologic: No: Dizziness Physical Exam Narrative GENERAL: Awake, alert, pleasant 81-year-old female who appears her stated age and is in no acute respiratory distress. SKIN: Focused skin assessment warm/dry. HEAD: Atraumatic. Normocephalic. EYES: No injection or drainage. ENT: No nasal bleeding or discharge. Mucous membranes pink and moist. NECK: Trachea midline. No JVD. CARDIOVASCULAR: Regular rate and rhythm. No murmur appreciated. RESPIRATORY: No accessory muscle use. Clear to auscultation. Breath sounds equal bilaterally. GASTROINTESTINAL: Abdomen soft, tender palpation left lower quadrant. Foul- smelling mucus type diarrhea noted within the abdominal brief. MUSCULOSKELETAL: No obvious deformities. No clubbing. No cyanosis. No edema. NEUROLOGICAL: Awake and alert. No obvious cranial nerve deficits. Motor grossly within normal limits. Normal speech. PSYCHIATRIC: Appropriate mood and affect; insight and judgment normal. Data Data Last Documented VS Vital Signs Date Time Temp Pulse Resp B/P Pulse Ox O2 Delivery O2 Flow Rate FiO2 05/30/16 17:45 102.4 103 18 163/86 98 Room Air Orders Complete Blood Count With Diff (05/30/16 17:08) Comprehensive Metabolic Panel (05/30/16 17:08) Urinalysis - C+S If Indicated (05/30/16 17:08) Lipase (05/30/16 17:08) Ct Abd/Pel W/O Iv Contrast (05/30/16 ) Iv Access Insert/Monitor (05/30/16 17:08) Ecg Monitoring (05/30/16 17:08) Oximetry (05/30/16 17:08) Ondansetron Inj (Zofran Inj) (05/30/16 17:15) Metronidazole 500 Mg Inj (Flagyl 500 Mg (05/30/16 17:15) Sodium Chlor 0.9% 1000 Ml Inj (Ns 1000 M (05/30/16 17:08) Sodium Chloride 0.9% Flush (Ns Flush) (05/30/16 17:15) Blood Culture (05/30/16 17:08) C Diff Toxin Pcr (05/30/16 17:08) Chest, Single Ap (05/30/16 17:08) Lactic Acid (05/30/16 17:08) Acetaminophen (Tylenol) (05/30/16 17:15) Electrocardiogram (05/30/16 ) Potassium Chlor 20 Meq Premix (Kcl 20 Me (05/30/16 18:30) Potassium Chloride (Kcl) (05/30/16 18:30) Labs Laboratory Tests Test 05/30/16 17:35 White Blood Count 19.2 TH/MM3 Red Blood Count 3.90 MIL/MM3 Hemoglobin 12.0 GM/DL Hematocrit 34.9 % Mean Corpuscular Volume 89.4 FL Mean Corpuscular Hemoglobin 30.9 PG Mean Corpuscular Hemoglobin 34.5 % Concent Red Cell Distribution Width 14.2 % Platelet Count 199 TH/MM3 Mean Platelet Volume 8.1 FL Neutrophils (%) (Auto) 80.8 % Lymphocytes (%) (Auto) 7.3 % Monocytes (%) (Auto) 11.7 % Eosinophils (%) (Auto) 0.0 % Basophils (%) (Auto) 0.2 % Neutrophils # (Auto) 15.6 TH/MM3 Lymphocytes # (Auto) 1.4 TH/MM3 Monocytes # (Auto) 2.2 TH/MM3 Eosinophils # (Auto) 0.0 TH/MM3 Basophils # (Auto) 0.0 TH/MM3 CBC Comment AUTO DIFF Differential Total Cells 100 Counted Neutrophils % (Manual) 80 % Band Neutrophils % 6 % Lymphocytes % 4 % Monocytes % 10 % Neutrophils # (Manual) 16.5 TH/MM3 Differential Comment AUTO DIFF CONFIRMED Platelet Estimate NORMAL Platelet Morphology Comment NORMAL Red Cell Morphology Comment NORMAL Sodium Level 136 MEQ/L Potassium Level 2.7 MEQ/L Chloride Level 107 MEQ/L Carbon Dioxide Level 17.5 MEQ/L Anion Gap 12 MEQ/L Blood Urea Nitrogen 6 MG/DL Creatinine 0.38 MG/DL Estimat Glomerular Filtration 162 ML/MIN Rate Random Glucose 98 MG/DL Lactic Acid Level 1.2 mmol/L Calcium Level 6.3 MG/DL Protein Corrected Calcium 7.5 MG/DL Total Bilirubin 1.1 MG/DL Aspartate Amino Transf 18 U/L (AST/SGOT) Alanine Aminotransferase 18 U/L (ALT/SGPT) Alkaline Phosphatase 56 U/L Total Protein 4.6 GM/DL Albumin 2.1 GM/DL Lipase 32 U/L [facility] Medical Decision Making Medical Screen Exam Complete: Yes Emergency Medical Condition: Yes Medical Record Reviewed: Yes Interpretation(s) EKG reveals sinus tachycardia with a heart rate of 108. Right ventricular hypertrophy. Nonspecific ST changes. Laboratory Tests Test 05/30/16 17:35 White Blood Count 19.2 TH/MM3 Red Blood Count 3.90 MIL/MM3 Hemoglobin 12.0 GM/DL Hematocrit 34.9 % Mean Corpuscular Volume 89.4 FL Mean Corpuscular Hemoglobin 30.9 PG Mean Corpuscular Hemoglobin 34.5 % Concent Red Cell Distribution Width 14.2 % Platelet Count 199 TH/MM3 Mean Platelet Volume 8.1 FL Neutrophils (%) (Auto) 80.8 % Lymphocytes (%) (Auto) 7.3 % Monocytes (%) (Auto) 11.7 % Eosinophils (%) (Auto) 0.0 % Basophils (%) (Auto) 0.2 % Neutrophils # (Auto) 15.6 TH/MM3 Lymphocytes # (Auto) 1.4 TH/MM3 Monocytes # (Auto) 2.2 TH/MM3 Eosinophils # (Auto) 0.0 TH/MM3 Basophils # (Auto) 0.0 TH/MM3 CBC Comment AUTO DIFF Differential Total Cells 100 Counted Neutrophils % (Manual) 80 % Band Neutrophils % 6 % Lymphocytes % 4 % Monocytes % 10 % Neutrophils # (Manual) 16.5 TH/MM3 Differential Comment AUTO DIFF CONFIRMED Platelet Estimate NORMAL Platelet Morphology Comment NORMAL Red Cell Morphology Comment NORMAL Sodium Level 136 MEQ/L Potassium Level 2.7 MEQ/L Chloride Level 107 MEQ/L Carbon Dioxide Level 17.5 MEQ/L Anion Gap 12 MEQ/L Blood Urea Nitrogen 6 MG/DL Creatinine 0.38 MG/DL Estimat Glomerular Filtration 162 ML/MIN Rate Random Glucose 98 MG/DL Lactic Acid Level 1.2 mmol/L Calcium Level 6.3 MG/DL Protein Corrected Calcium 7.5 MG/DL Total Bilirubin 1.1 MG/DL Aspartate Amino Transf 18 U/L (AST/SGOT) Alanine Aminotransferase 18 U/L (ALT/SGPT) Alkaline Phosphatase 56 U/L Total Protein 4.6 GM/DL Albumin 2.1 GM/DL Lipase 32 U/L CT the abdomen and pelvis reveals a small pericardial effusion. Distal colitis. There appears to be mild to moderate concentric wall thickening involving much of the distal colon from about the splenic flexure down into the rectosigmoid area. There is slight paracolic induration present. The appearance of the most consistent with colitis. Differential Diagnosis Differential diagnosis includes colitis, enteritis, diverticulitis, diverticular abscess, clostridium difficile, infectious diarrhea, dehydration, sepsis, UTI, pyelonephritis. Narrative Course IV was established, labs are drawn and sent, and the patient was placed on cardiac telemetry monitoring and continuous pulse oximetry monitoring. EKG was ordered and interpreted. Lactic acid blood culture were sent to lab. C. difficile was ordered from diarrhea that was obtained from the patient's adult briefs. CT of the abdomen and pelvis was ordered to evaluate for colitis. The patient's white count was elevated at 19.2, patient has a recent history of C. difficile, therefore, the patient was administered Flagyl 500 mg intravenously. Patient's potassium was low at 2.7, was replaced intravenously and oral. The patient most likely has colitis secondary to C. difficile once again, will require admission for IV hydration and electrolyte replacement. Patient will also need treatment with Flagyl and/or oral vancomycin. The patient's primary physician is Dr. Gaona through the resident program, therefore, the residents were paged for admission at 6:[address] is positive for colitis, presumed C. difficile as patient recently had C. difficile and stool has foul smell. Patient will be admitted. Sepsis Criteria SIRS Criteria (2 or more): Heart rate over 90, WBC > 48729, < 4000 or > 10% bands Sepsis Criteria (SIRS+source): Infect source susp/known Criteria Outcome: Meets sepsis criteria Physician Communication Physician Communication The residents were paged for admission. I discussed the patient with Dr. Bourne who agrees with admission to Dr. Zacarias. Diagnosis Primary Impression: C. difficile colitis Admitting Information Admitting Physician Requests: Admit Condition: Stable Cale Quintana MD May 30, 2016 17:42
[2016-05-30 17:45] VITALS: BP 163/86; PULSE 103; RESP 18; TEMP 102.4; O2SAT 98
[2016-05-30 17:45] LABS: AUTOMATED NEUTROPHIL # 15.6 TH/MM3 (1.8-7.7); BASOPHIL % 0.2 % (0.0-2.0); HEMATOCRIT 34.9 % (35.0-46.0); LYMPH % 7.3 % (9.0-44.0); LYMPHOCYTE # 1.4 TH/MM3 (1.0-4.8); MEAN CELL VOLUME 89.4 FL (80.0-100.0); MEAN CORPUSCULAR HEMOGLOBIN 30.9 PG (27.0-34.0); MEAN CORPUSCULAR HGB CONC 34.5 % (32.0-36.0); MONO % 11.7 % (0.0-8.0); NEUT % 80.8 % (16.0-70.0); PLATELET COUNT 199 TH/MM3 (150-450); RED CELL DISTRIBUTION WIDTH 14.2 % (11.6-17.2); WHITE BLOOD COUNT 19.2 TH/MM3 (4.0-11.0)
[2016-05-30 17:51] LABS: HEMO FLAGS AUTO DIFF
[2016-05-30 18:20] LABS: BICARBONATE 17.5 MEQ/L (21.0-32.0); CALCIUM-PROTEIN CORRECTED 7.5 MG/DL (8.5-10.1); TOTAL BILIRUBIN ADULT 1.1 MG/DL (0.2-1.0)
[2016-05-30 18:23] LABS: POTASSIUM 2.7 MEQ/L (3.5-5.1)
[2016-05-30 18:24] LABS: BANDS 6 % (0-6); NEUTROPHIL # MANUAL DIFF 16.5 TH/MM3 (1.8-7.7); POLYS (SEG NEUTROPHILS) 80 % (16-70); WBC DIFF SAMPLE 100
[2016-05-30 18:25] LABS: PLATELET ESTIMATE SMEAR NORMAL (NORMAL); PLATELET MORPHOLOGY NORMAL (NORMAL); SCAN/DIFF AUTO DIFF CONFIRMED
[2016-05-30] MEDS ORDERED: POTASSIUM CHLORIDE 20 MEQ CONTROLLED RELEASE TAB PO ONE (18:30)
--- NOTE | 2016-05-30 18:45 | RADRPT ---
EXAM DATE/TIME: 05/30/2016 17:40 [facility] COMPARISON: No previous studies available for comparison. INDICATIONS : Abdominal pain. ORAL CONTRAST: No oral contrast ingested. RADIATION DOSE: 9.96 CTDIvol (mGy) MEDICAL HISTORY : Hypertension. Diverticulitis. SURGICAL HISTORY : Appendectomy. Cholecystectomy.Bladder sx, pacemaker. ENCOUNTER: Initial ACUITY: 1 day PAIN SCALE: 5/10 LOCATION: Bilateral lower quadrant TECHNIQUE: Volumetric scanning of the abdomen and pelvis was performed. Using automated exposure control and ad justment of the mA and/or kV according to patient size, radiation dose was kept as low as reasonably achievable to obtain optimal diagnostic quality images. FINDINGS: LOWER LUNGS: The visualized lower lungs are clear. Small pericardial effusion is present LIVER: Homogeneous density without lesion. There is no dilation of the biliary tree. No calcified gallston es. SPLEEN: Normal size without lesion. PANCREAS: Within normal limits. KIDNEYS: Normal in size and shape. There is no mass, stone, or hydronephrosis. ADRENAL GLANDS: Within normal limits. VASCULAR: There is no aortic aneurysm. BOWEL/MESENTERY: There appears to be mild-moderate concentric wall thickening involving much of the distal colon from about the splenic flexure down into the rectosigmoid. There is slight paracolic induration present. T he appearance would be most consistent with colitis. There is no evidence of small bowel dilatation. The proximal colon is relatively more normal in appearance. ABDOMINAL WALL: Within normal limits. RETROPERITONEUM: There is no lymphadenopathy. BLADDER: No wall thickening or mass. REPRODUCTIVE: Within normal limits. INGUINAL: There is no lymphadenopathy or hernia. MUSCULOSKELETAL: Within normal limits for patient age. CONCLUSION: Pericardial effusion Distal colitis. Ramo Zhang MD on May 30, 2016 at 18:39 Board Certified Radiologist. This report was verified electronically.
[2016-05-30] MEDS: POTASSIUM CHLOR 20 MEQ PREMIX 100 ML IV SCH ×2 (18:52→23:10)
[2016-05-30 18:55] LABS: C. DIFF EPI 027 PRESUMPTIVE NEGATIVE (NEGATIVE)
[2016-05-30 19:16] LABS: C. DIFF TOXIN PCR POSITIVE (NEGATIVE)
--- NOTE | 2016-05-30 19:16 | RADRPT ---
EXAM DATE/TIME: 05/30/2016 18:04 [facility] COMPARISON: CHEST SINGLE AP, February 27, 2015, 9:08. INDICATIONS : Fever. MEDICAL HISTORY : Hypertension. Gastroesophageal reflux disease. SURGICAL HISTORY : Pacemaker. ENCOUNTER: Initial ACUITY: 1 day PAIN SCORE: 0/10 LOCATION: Bilateral chest FINDINGS: Pacemaker device is noted with control pack over the left chest. There is slight parenchymal opacity at the left lung base which may be scarring or atelectasis. No significant effusion. Cardiac contours are grossly stable with mild cardiac enlargement. CONCLUSION: Mild left base parenchymal opacity Ramo Zhang MD on May 30, 2016 at 19:14 Board Certified Radiologist. This report was verified electronically.
[2016-05-30] MEDS ORDERED: KETOROLAC TROMETHAMINE 60 MG/2 ML (IM) VIAL IM PRN (19:30)
[2016-05-30] MEDS ORDERED: SODIUM CHLORIDE 0.9% FLUSH 10 ML FLUSH IV FLUSH PRN (19:30)
[2016-05-30] MEDS ORDERED: NALOXONE HCL 0.4 MG/ML AMP IV PRN (19:30)
[2016-05-30] MEDS ORDERED: METOCLOPRAMIDE HCL 10 MG/2 ML VIAL IV PUSH PRN (19:30)
[2016-05-30] MEDS ORDERED: PROMETHAZINE HCL 25 MG TAB PO PRN (19:45)
[2016-05-30] MEDS ORDERED: RANITIDINE 75 MG PO PRN (19:45)
--- NOTE | 2016-05-30 19:59 | HHI.HP ---
HPI Service Family Medicine Primary Care Physician Dusty Gaona MD Admission Diagnosis C. difficile colitis, sepsis, hypokalemia Diagnoses: International Travel<30 Days: No Contact w/Intl Traveler<30days: No Known Affected Area: No History of Present Illness 81 year old female with PMH of HTN, CAD, cardiac conduction abnormality with pacemaker, hypothyroidism, and diverticulitis presenting with a 2 day history of diarrhea associated with LLQ abdominal pain and subjective fever. She has a history of C. diff colitis in the past Review of Systems Constitutional: COMPLAINS OF: Fatigue, Fever Endocrine: DENIES: Polyuria Eyes: DENIES: Eye pain, Vision loss Respiratory: COMPLAINS OF: Shortness of breath (Intermittent), DENIES: Cough, Wheezing Cardiovascular: DENIES: Chest pain, Dyspnea on Exertion Gastrointestinal: COMPLAINS OF: Abdominal pain, Diarrhea, DENIES: Black stools , Bloody stools, Constipation, Nausea, Vomiting Genitourinary: DENIES: Abnormal vaginal bleeding, Dysuria, Vaginal discharge Musculoskeletal: COMPLAINS OF: Muscle aches Integumentary: DENIES: Rash Hematologic/lymphatic: DENIES: Bruising Immunologic/allergic: DENIES: Eczema Neurologic: COMPLAINS OF: Headache Psychiatric: DENIES: Confusion, Depression Past Family Social History Past Medical History 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 Bahena pain management in [place] Past Surgical History ?Appendectomy? - Patient does not recall having it removed Cholecystectomy Biventricular pacemaker placement 2009 Partial thyroidectomy? 2013 Bladder mesh 2003 Colon resection 2010 for obstruction. Mass removed noncancerous. Reported Medications Reported Meds & Active Scripts Active Temazepam 30 Mg Cap 30 Mg PO HS PRN Phenergan (Promethazine HCl) 25 Mg Tab 25 Mg PO Q4HR PRN Zantac 75 (Ranitidine HCl) 75 Mg Tab 75 Mg PO DAILY PRN Take 30 to 60 minutes before eating food or drinking beverages that cause heartburn. Vancomycin (Vancomycin HCl) 125 Mg Cap 125 Mg PO QID Reglan (Metoclopramide HCl) 5 Mg Tab 5 Mg PO TIDAC Synthroid (Levothyroxine Sodium) 75 Mcg Tab 75 Mcg PO DAILY Vancomycin (Vancomycin HCl) 125 Mg Cap 125 Mg PO QID Lidocaine Topical (Lidocaine HCl) 5 % Oint 1 Applic OTHER BID Cholestyramine 4 Gm/Pkt Powd 4 Gm PO BID@00,12 7 Days Preparation H Topical (Phenylephrine-Mineral Oil-Petrolatum Topical) 0.25-3-14- 71.9 % Oint 1 Applic TOPICAL BID Acidophilus/l-Sporogenes (Lactobacillus Acidophilus) 1 Tab Tab 1 Tab PO Q12HR Calcium Carbonate (Antacid) 500 Mg Chew 500 Mg CHEW Q12HR Xanax (Alprazolam) 0.5 Mg Tab 0.5 Mg PO BID PRN Pantoprazole (Pantoprazole Sodium) 40 Mg Tab 40 Mg PO DAILY Benazepril (Benazepril HCl) 40 Mg Tab 40 Mg PO DAILY Amlodipine (Amlodipine Besylate) 5 Mg Tab 5 Mg PO DAILY Reported Zoloft (Sertraline HCl) 50 Mg Tab 50 Mg PO DAILY Aspirin Adult Low Strength (Aspirin) 81 Mg Tabdr 81 Mg PO DAILY Allergies: Coded Allergies: No Known Allergies (Verified , 05/30/16) Family History Father: of pulmonary disease Mother: of old age at 92 Brother healthy and living Social History Patient denies any tobacco or illicit drugs Alcohol: One glass of wine 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 HEAD: NC/AT EYES: PERRL. EOMI. No scleral icterus. No conjunctival injection/drainage. Facial twitching around right eyelid (patient's baseline). ENT: MMM. OP without erythema or exudate NECK: No JVD or lymphadenopathy. Thyroid not enlarged, no palpable nodules. CARDIOVASCULAR: NRRR, normal S1/S2, soft blowing I/ systolic ejection murmur heard best RUSB. Does not radiate to carotids. 2+ DP pulses bilaterally. RESPIRATORY: CTAB. No crackles or wheezes. GASTROINTESTINAL: Abdomen soft, nondistended. Tender to palpation of LLQ. No hepato-splenomegaly, or palpable masses. No guarding or rebound. MUSCULOSKELETAL: Extremities without clubbing, cyanosis, or edema. No calf tenderness. NEUROLOGICAL: Awake and alert. Cranial nerves II through XII intact. Motor and sensory grossly within normal limits. Normal speech. Laboratory Laboratory Tests Test 05/30/16 05/30/16 17:25 17:35 Stool C. difficile Toxin (PCR) POSITIVE Stl C. difficile Toxin PRESUMPTIVE Epiderm 027 NEGATIVE White Blood Count 19.2 Red Blood Count 3.90 Hemoglobin 12.0 Hematocrit 34.9 Mean Corpuscular Volume 89.4 Mean Corpuscular Hemoglobin 30.9 Mean Corpuscular Hemoglobin 34.5 Concent Red Cell Distribution Width 14.2 Platelet Count 199 Mean Platelet Volume 8.1 Neutrophils (%) (Auto) 80.8 Lymphocytes (%) (Auto) 7.3 Monocytes (%) (Auto) 11.7 Eosinophils (%) (Auto) 0.0 Basophils (%) (Auto) 0.2 Neutrophils # (Auto) 15.6 Lymphocytes # (Auto) 1.4 Monocytes # (Auto) 2.2 Eosinophils # (Auto) 0.0 Basophils # (Auto) 0.0 CBC Comment AUTO DIFF Differential Total Cells 100 Counted Neutrophils % (Manual) 80 Band Neutrophils % 6 Lymphocytes % 4 Monocytes % 10 Neutrophils # (Manual) 16.5 Differential Comment AUTO DIFF CONFIRMED Platelet Estimate NORMAL Platelet Morphology Comment NORMAL Red Cell Morphology Comment NORMAL Sodium Level 136 Potassium Level 2.7 Chloride Level 107 Carbon Dioxide Level 17.5 Anion Gap 12 Blood Urea Nitrogen 6 Creatinine 0.38 Estimat Glomerular Filtration 162 Rate Random Glucose 98 Lactic Acid Level 1.2 Calcium Level 6.3 Protein Corrected Calcium 7.5 Total Bilirubin 1.1 Aspartate Amino Transf 18 (AST/SGOT) Alanine Aminotransferase 18 (ALT/SGPT) Alkaline Phosphatase 56 Total Protein 4.6 Albumin 2.1 Lipase 32 Date/Time Procedure Status Source Growth 05/30/16 17:35 Aerobic Blood Culture Received Blood Peripheral Pending 05/30/16 17:35 Anaerobic Blood Culture Received Blood Peripheral Pending Result Diagram: 05/30/16 1735 05/30/16 1735 Imaging Last Impressions Chest X-Ray 05/30/16 1708 Signed Impressions: Service Date/Time: Monday, May 30, 2016 18:04 - CONCLUSION: Mild left base parenchymal opacity Ramo Zhang MD Abdomen/Pelvis CT 05/30/16 0000 Signed Impressions: Service Date/Time: Andrea, May 30, 2016 17:40 - CONCLUSION: Pericardial effusion Distal colitis. Ramo Zhang MD Septic Shock Reassessment Heart: Regular rate and rhythm, Murmur Lungs: Clear Skin: Warm Peripheral Pulses: Bounding Right Dorsalis Pedis Bounding Left Dorsalis Pedis Capillary Refill: Brisk Assessment and Plan Assessment and Plan 81 year old female with PMH of HTN, CAD, cardiac conduction abnormality with pacemaker, hypothyroidism, and diverticulitis presenting with: Problem List: (1) Sepsis Status: Acute Plan: Fever 102, leukocytosis to 19.2, tachycardia to 102 with GI source from C diff. meeting criteria for sepsis. Lactic acid normal Renal and liver function normal CT abdomen/pelvis showing distal colitis and pericardial effusion CXR showing questionable left parenchymal opacity - Admit to inpatient - Treat C diff as below - Urine and blood Cx, expand antibiotic coverage based on results - S/p 1 L bolus in ED; give additional 1 L NS bolus (no history of CHF or renal disease) - NS @ 90 cc/hr - VS q4h - Telemetry (medical illness w/ cardiac history) (2) C. difficile colitis Status: Acute Plan: Abdominal pain + diarrhea + fever. Stool positive for C diff. Patient previously treated with vancomycin. CT abdomen/pelvis showing distal colitis and pericardial effusion - Given repeat infection, will consult ID for recommendations - Start treatment with vancomycin 125 mg PO q6h - Continue metronidazole 500 mg IV Q8H - Fluids as above - Continue home Reglan schedule, Phenergan PRN for N/V - Lactobacillus probiotic daily - Toradol 30 mg IV Q6H PRN pain (3) Generalized weakness Status: Acute Plan: Likely due to diarrhea, no focal deficits appreciated by history or exam. - Consult PT eval & treat - Continue to follow clinically - Treat infection, electrolyte abnormalities as documented (4) Hypokalemia Status: Acute Plan: Potassium on admission 2.7. No EKG changes appreciated. - Check Mg level - S/p IV and PO potassium given in ER (total 60 mEq) - Repeat potassium level in AM (5) Pericardial effusion Status: Acute Plan: Found incidentally on CT abdomen/pelvis. No evidence of tamponade. Likely inflammatory in nature. Patient not having chest pain. - Limited echocardiogram for further evaluation of hemodynamic significance (6) Hypothyroidism Status: Chronic Plan: Stable symptoms - Continue home Synthroid - Check TSH in AM (7) Hypertension Status: Chronic Plan: BP slightly elevated to 163/86 on admission - Substitute home FRANCISCA for lisinopril (on hospital formulary) dosed equivalently - Continue home Norvasc (8) Coronary artery disease Status: Chronic Plan: Symptoms stable - Continue daily aspirin (9) History of permanent cardiac pacemaker placement Status: Chronic Plan: Telemetry as above, can discontinue if stable > 24 h (10) Anxiety Status: Chronic Plan: Stable symptoms, somewhat anxious at the moment due to illness - continue home Xanax PRN - Restoril PRN sleep (11) FEN/PPX Status: Acute Plan: Fluids: NS @ 90 cc/hr Elecs: See above Nutrition: Regular basic + Ensure DVT: Lovenox 40 mg SQ daily Pain: See above N/V: See above dw Dr. Green Physician Certification 2 Midnight Certification Type: Admission for Inpatient Services Order for Inpatient Services The services are ordered in accordance with Medicare regulations or non- Medicare payer requirements, as applicable. In the case of services not specified as inpatient-only, they are appropriately provided as inpatient services in accordance with the 2-midnight benchmark. Estimated LOS (days): 2 days is the estimated time the patient will need to remain in the hospital, assuming treatment plan goals are met and no additional complications. Post-Hospital Plan: Home Problem Qualifiers (1) Hypothyroidism: Qualified Code: E03.9 - Hypothyroidism, unspecified type (2) Hypertension: Qualified Code: I10 - Essential hypertension (3) Coronary artery disease: Qualified Code: I25.10 - Coronary artery disease involving [place] coronary artery of [place] heart without angina pectoris Mitch Bourne MD R1 May 30, 2016 7:59 pm
[2016-05-30] MEDS ORDERED: FAMOTIDINE 20 MG TAB PO PRN (20:00)
[2016-05-30 20:08] VITALS: O2SAT 97
[2016-05-30] MEDS: SODIUM CHLOR 0.9% 1000 ML INJ 1,000 ML IV SCH (20:46)
[2016-05-30 20:50] VITALS: BP 119/57; PULSE 98; RESP 19; O2SAT 98
[2016-05-30] MEDS: PETROLEUM/SHARK LIVER OIL 60 GM TUBE TOPICAL SCH (21:00)
[2016-05-30] MEDS ORDERED: MINERAL OIL TOPICAL SCH (21:00)
[2016-05-30] MEDS ORDERED: PHENYLEPHRINE TOPICAL SCH (21:00)
[2016-05-30] MEDS ORDERED: PETROLATUM TOPICAL SCH (21:00)
[2016-05-30] MEDS ORDERED: [UNRECOGNIZED DRUG - OTHER] TOPICAL SCH (21:00)
[2016-05-30] MEDS: LIDOCAINE HCL 5% OINT 37 GM TUBE OTHER SCH (21:00)
[2016-05-30 21:40] VITALS: BP 110/55; PULSE 95; RESP 20; TEMP 98.7; O2SAT 98
[2016-05-30 21:41] LABS: BLOOD, URINE MOD (NEG); COMMENT (UR) CULTURE INDICATED; CULTURE IF INDICATED CULTURE INDICATED; GLUCOSE,URINE NEG (NEG); HYALINE CAST, URINE 1 /lpf (RARE); KETONE, URINE 10 mg/dL (NEG); MUCUS URINE FEW /lpf (OCC); NITRITE,URINE NEG (NEG); SQUAMOUS EPITHELIAL CELL URINE <1 /hpf (0-5); URINE COLOR YELLOW (YELLW/STRAW)
[2016-05-30] MEDS: ENOXAPARIN SODIUM 40 MG/0.4 ML SYRINGE SQ SCH (23:10)
[2016-05-30] MEDS: CALCIUM CARBONATE 500 MG CHEWABLE TAB CHEW SCH (23:12)
[2016-05-30] MEDS: SODIUM CHLORIDE 0.9% FLUSH 10 ML FLUSH IV FLUSH SCH (23:12)
[2016-05-30] MEDS: LACTOBACILLUS ACIDOPHILUS TAB PO SCH (23:13)
[2016-05-30] MEDS: MAGNESIUM SULFATE 1 GM PREMIX 100 ML IV SCH ×2 (23:13→23:49)
[2016-05-30] MEDS: VANCOMYCIN 500 MG VIAL (FOR ORAL USE ONLY) PO SCH (23:14)
[2016-05-30] MEDS: CHOLESTYRAMINE 4 GM PACKET PO SCH (23:50)
[2016-05-30 23:57] LABS: BICARBONATE 17.5 MEQ/L (21.0-32.0); POTASSIUM 4.1 MEQ/L (3.5-5.1)
[2016-05-31] VITALS (7 sets, daily range): BP systolic 102–121; BP diastolic 57–61; PULSE 93–115; RESP 16–22; TEMP 97.5–99.6; O2SAT 96–98
[2016-05-31 00:30] LABS: CALCIUM-PROTEIN CORRECTED 8.2 MG/DL (8.5-10.1)
[2016-05-31] MEDS: metroNIDAZOLE 500 MG INJ 100 ML IV SCH ×3 (02:34→17:54)
[2016-05-31] MEDS: LEVOTHYROXINE SODIUM 75 MCG TAB PO SCH (05:59)
[2016-05-31] MEDS: SODIUM CHLOR 0.9% 1000 ML INJ 1,000 ML IV SCH ×2 (06:00→17:39)
--- NOTE | 2016-05-31 06:24 | HHI.FPPN ---
Subjective Remarks Kyleigh Thomas is an 81yo lady with medical history significant for diverticulitis and C diff colitis as recently as 04/23/16 for which was admitted for similar presentation is admitted to the hospital after a 2 day history of diarrhea. + LLQ abdominal pain, weakness, and subjective fever. No bloody stools, no black stools. For further details, please see resident H&P. Overnight, she has had two bowel movements. This morning, she reports nausea. Abdominal pain is a little worse than yesterday. No vomiting. Diarrhea is developing more consistency. ROS: + nausea, + abd pain, + decreased appetite. No vomiting. No SOB, no Chest pain, no palpitations. All other systems reviewed are negative. PMH/PSxH/SocHx/FamHx: Per resident H&P. Significant for: C Diff colitis 04/23/16, HTN, CAD, hypothyroidism, diverticulitis. Biventricular Pacemaker placement for cardiac conduction abnormality, cholecystectomy, colon resection, partial thyroidectomy, bladder mesh. Possible appendectomy. Fam hx of lung disease. No tobacco or recreational drugs. One glass of wine daily. Objective Vitals Vital Signs Date Time Temp Pulse Resp B/P Pulse Ox O2 Delivery O2 Flow Rate FiO2 05/31/16 04:00 97.5 101 20 102/59 98 05/31/16 02:15 18 05/31/16 00:00 98.7 99 22 119/58 96 05/30/16 23:00 Room Air 05/30/16 21:40 98.7 95 20 110/55 98 05/30/16 20:50 98 19 119/57 98 Room Air 05/30/16 20:19 19 05/30/16 20:08 97 21 05/30/16 17:45 102.4 103 18 163/86 98 Room Air I/O 05/30/16 05/30/16 05/30/16 05/31/16 05/31/16 05/31/16 07:00 15:00 23:00 07:00 15:00 23:00 Intake Total 120 ml Balance 120 ml Intake Oral 120 ml # Voids 0 # Bowel Movements 2 Result Diagram: 05/30/16 6432 05/30/16 2932 Objective Remarks GENERAL: in NAD, no resp distress, nontoxic. Lying comfortably in bed. HEENT: NCAT, EOMI, no scleral icterus, no conjunctival injection. MMM. NECK: Supple, no meningeal signs CV: RRR, S1 S2. No murmur. No friction rub. CHEST/PULM: CTAB, no crackles, no wheezes ABD/GI: +BS, soft, nondistended. Mild tenderness throughout. No rebound but tender to percussion. + abd pain with movement/rotation of legs (although no obvious psoas sign) EXT: 2+ DP pulses. no calf tenderness. No significant edema NEURO: Awake, alert. Normal muscle tone. Grossly nonfocal SKIN: No rashes, no jaundice. PSYCH: Mood and affect are appropriate. Speech fluent. Does not appear to respond to internal stimuli. A/P Assessment and Plan 81 year old female with PMH of HTN, CAD, cardiac conduction abnormality with pacemaker, hypothyroidism, and diverticulitis presenting with: Attending Attestation Patient seen, examined, and discussed with resident team. I agree with assessment and management as documented, discussed with, and reviewed by me. The patient has been seen and examined. The chart and all resident notes have been reviewed. I agree that inpatient care is appropriate and that a two midnight stay is expected for the reasons documented in the resident history and physical. I have discussed this with the resident and certify the resident s order for inpatient admission. Problem List: (1) Sepsis Status: Acute Plan: On Presentation: Fever 102, leukocytosis to 19.2, tachycardia to 102 with GI source from C diff. meeting criteria for sepsis. Lactic acid normal Renal and liver function normal CT abdomen/pelvis 05/30/16: distal colitis and pericardial effusion CXR: questionable left base parenchymal opacity; although this was not seen on CT abd/pelvis - Treat C diff as below - Urine and blood Cx, expand antibiotic coverage based on results - S/p 2 L bolus (no history of CHF or renal disease) in ER - NS @ 90 cc/hr after bolus (2) C. difficile colitis Status: Acute Plan: Abdominal pain + diarrhea + fever. Stool positive for C diff. Patient previously treated with vancomycin. CT abdomen/pelvis showing distal colitis and pericardial effusion - Given repeat infection, will consult ID for recommendations - Continue treatment with vancomycin 125 mg PO q6h - Continue metronidazole 500 mg IV Q8H - Fluids as above - Continue home Phenergan PRN for N/V. Stop Reglan due to potential for worsening diarrhea. - Lactobacillus probiotic daily - Toradol 30 mg IV Q6H PRN pain (3) Generalized weakness Status: Acute Plan: Likely due to diarrhea, no focal deficits appreciated by history or exam. - Consult PT eval & treat - Continue to follow clinically - Treat infection and electrolyte abnormalities as documented (4) Hypokalemia Status: Resolved Plan: Potassium on admission 2.7. No EKG changes appreciated. Secondary to diarrhea. - Magnesium level is low (see hypomagnesemia) - S/p IV and PO potassium given in ER (total 60 mEq) (5) Pericardial effusion Status: Acute Plan: Found incidentally on CT abdomen/pelvis. No evidence of tamponade. Likely inflammatory in nature. Patient not having chest pain/is asymptomatic. - Limited echocardiogram for further evaluation of hemodynamic significance (6) Hypothyroidism Status: Chronic Plan: Stable symptoms; asymptomatic. - Continue home Synthroid - Check TSH in AM. (7) Hypertension Status: Chronic Plan: BP slightly elevated to 163/86 on admission Now under better control. Continue to monitor. - Substitute home FRANCISCA for lisinopril (on hospital formulary) dosed equivalently - Continue home Norvasc (8) Coronary artery disease Status: Chronic Plan: Symptoms stable / asymptomatic - Continue daily aspirin (9) History of permanent cardiac pacemaker placement Status: Chronic Plan: Telemetry ordered as above, can discontinue if stable > 24 h. (10) Anxiety Status: Chronic Plan: Stable symptoms; appears calm this morning - continue home Xanax PRN - Restoril PRN sleep (11) Hyponatremia Status: Acute Plan: Secondary to dehydration/diarrhea most likely. Currently receiving NS at 90mL/hr. BMP pending this AM - will follow (12) Hypomagnesemia Status: Acute Plan: 1.2 this AM. IV replacement ordered. Check Mg in AM (13) Hypocalcemia Status: Acute Plan: Likely secondary to diarrhea. Monitor. Problem Qualifiers (1) Hypothyroidism: Qualified Code: E03.9 - Hypothyroidism, unspecified type (2) Hypertension: Qualified Code: I10 - Essential hypertension (3) Coronary artery disease: Qualified Code: I25.10 - Coronary artery disease involving [place] coronary artery of [place] heart without angina pectoris Laura Zacarias MD May 31, 2016 06:24 (6) Hypothyroidism Status: Chronic Plan: Stable symptoms - Continue home Synthroid - Check TSH in AM (7) Hypertension Status: Chronic Plan: BP slightly elevated to 163/86 on admission - Substitute home FRANCISCA for lisinopril (on hospital formulary) dosed equivalently - Continue home Norvasc (8) Coronary artery disease Status: Chronic Plan: Symptoms stable - Continue daily aspirin (9) History of permanent cardiac pacemaker placement Status: Chronic Plan: Telemetry as above, can discontinue if stable > 24 h (10) Anxiety Status: Chronic Plan: Stable symptoms, somewhat anxious at the moment due to illness - continue home Xanax PRN - Restoril PRN sleep (11) FEN/PPX Status: Acute Plan: Fluids: NS @ 90 cc/hr Elecs: See above Nutrition: Regular basic + Ensure DVT: Lovenox 40 mg SQ daily Pain: See above N/V: See above dw Dr. Green Problem Qualifiers (1) Hypothyroidism: Qualified Code: E03.9 - Hypothyroidism, unspecified type (2) Hypertension: Qualified Code: I10 - Essential hypertension (3) Coronary artery disease: Qualified Code: I25.10 - Coronary artery disease involving [place] coronary artery of [place] heart without angina pectoris Laura Zacarias MD May 31, 2016 06:24
[2016-05-31] MEDS: SODIUM CHLORIDE 0.9% FLUSH 10 ML FLUSH IV FLUSH SCH ×2 (09:00→21:19)
[2016-05-31] MEDS ORDERED: NON-FORMULARY DRUG (Benazepril 40 MG) PO SCH (09:00)
[2016-05-31] MEDS: PETROLEUM/SHARK LIVER OIL 60 GM TUBE TOPICAL SCH ×2 (09:00→21:00)
[2016-05-31] MEDS: ASPIRIN EC 81 MG TABEC PO SCH (10:01)
[2016-05-31] MEDS: amLODIPine BESYLATE 5 MG TAB PO SCH (10:01)
[2016-05-31] MEDS: CALCIUM CARBONATE 500 MG CHEWABLE TAB CHEW SCH ×2 (10:01→21:18)
[2016-05-31] MEDS: LISINOPRIL 20 MG TAB PO SCH (10:01)
[2016-05-31] MEDS: LACTOBACILLUS ACIDOPHILUS TAB PO SCH ×2 (10:01→21:18)
[2016-05-31] MEDS: VANCOMYCIN 500 MG VIAL (FOR ORAL USE ONLY) PO SCH ×4 (10:02→21:19)
[2016-05-31] MEDS: SERTRALINE HCL 50 MG TAB PO SCH (10:02)
--- NOTE | 2016-05-31 10:41 | ECHLIM ---
Study Study Date:05/31/2016 STUDY CONCLUSIONS SUMMARY - Left ventricle: The cavity size was normal. Wall thickness was normal. Systolic function was normal. The estimated ejection fraction was in the range of 55% to 60%. Wall motion was normal; there were no regional wall motion abnormalities. Doppler parameters are consistent with abnormal left ventricular relaxation (grade 1 diastolic dysfunction). - Aortic valve: Valve area: 2.28cm^2(VTI). Valve area: 2.07cm^2 (Vmax). - Right ventricle: The cavity size was mildly dilated. Wall thickness was normal. - Tricuspid valve: Mild regurgitation. - Pericardium, extracardiac: A moderate, partially loculated pericardial effusion was identified circumferential to the heart. The fluid exhibited a fibrinous appearance. There was no evidence of hemodynamic compromise. If LV function is below 40, please consider prescribing an ACEI or ARB or document rationale for non-use. PROCEDURE DATA STUDY STATUS: Elective. Procedure: Transthoracic echocardiography. Image quality was good. Scanning was performed from the parasternal, apical, and subcostal acoustic windows. Study completion: The patient tolerated the procedure well. Transthoracic echocardiography. M-mode, complete 2D, complete spectral Doppler, and color Doppler. Weight: Weight: 109.8lb. Patient status: Inpatient. CARDIAC ANATOMY LEFT VENTRICLE: The cavity size was normal. Wall thickness was normal. Systolic function was normal. The estimated ejection fraction was in the range of 55% to 60%. Wall motion was normal; there were no regional wall motion abnormalities. Doppler parameters are consistent with abnormal left ventricular relaxation (grade 1 diastolic dysfunction). AORTIC VALVE: Trileaflet; normal thickness leaflets. Doppler: Transvalvular velocity was within the normal range. There was no stenosis. No regurgitation. Valve area: 2.28cm^2(VTI). Valve area: 2.07cm^2 (Vmax). Mean gradient: 3mm Hg (S). AORTA: Aortic root: The aortic root was normal in size. MITRAL VALVE: Structurally normal valve. Doppler: Transvalvular velocity was within the normal range. There was no evidence for stenosis. Trace to mild regurgitation. LEFT ATRIUM: The atrium was normal in size. RIGHT VENTRICLE: The cavity size was mildly dilated. Wall thickness was normal. PULMONIC VALVE: Doppler: Transvalvular velocity was within the normal range. There was no evidence for stenosis. No regurgitation. TRICUSPID VALVE: Structurally normal valve. Doppler: Transvalvular velocity was within the normal range. Mild regurgitation. PULMONARY ARTERY: The main pulmonary artery was normal-sized. Systolic pressure was within the normal range. RIGHT ATRIUM: The atrium was normal in size. PERICARDIUM: A moderate, partially loculated pericardial effusion was identified circumferential to the heart. The fluid exhibited a fibrinous appearance. There was no evidence of hemodynamic compromise. SYSTEMIC VEINS: Inferior vena cava: The vessel was normal in size. Patient weight: 109.8lb _Ejection fraction:_ 65-75% _Fractional shortening:_ 32% up to 5Kg 5-11.5Kg 11.6-22.9Kg 23-45Kg 45-57Kg Aortic Root 7-13 <17 13-22 17-27 17-27 LA diam 6-13 <23 24-38 33-47 37-40 RVID 10-17 7-15 7-15 7-18 8-17 LVIDd 12-22 <32 24-38 33-47 37-40 LVPW 2-4 3-6 5-7 6-8 7-8 IVS 2-4 3-6 5-7 6-8 7-8 BASIC MEASUREMENTS ADULT NORMAL Left ventricle LV internal dimension, ED, chordal level, 44.3 mm 43-52 PLAX LV internal dimension, ES, chordal level, 32.4 mm 23-38 PLAX Fractional shortening, chordal level, PLAX *27 % >29 LV posterior wall thickness, ED 8.8 mm IVS/LVPW ratio, ED 1 <1.3 Ventricular septum Septal thickness, ED 8.83 mm Aortic valve Leaflet separation 20 mm 15-26 Aorta Root diameter, ED 28 mm Left atrium Anterior-posterior dimension 21 mm BASIC MEASUREMENTS ADULT NORMAL Aortic valve Leaflet separation 20 mm 15-26 DOPPLER MEASUREMENTS ADULT NORMAL Main pulmonary artery Pressure, S 21 mm Hg =30 Aortic valve Peak velocity, S 130 cm/s Mean velocity, S 83.3 cm/s VTI, S 20.2 cm Mean gradient, S 3 mm Hg Valve area, VTI 2.28 cm^2 Valve area, Vmax 2.07 cm^2 Mitral valve Peak E-wave velocity 62.5 cm/s Peak A-wave velocity 98.2 cm/s Deceleration time *120 ms 150-230 Peak E/A ratio 0.6 Tricuspid valve Regurgitant peak velocity 213 cm/s Peak RV-RA gradient, S 18 mm Hg Maximal regurgitant velocity 213 cm/s Systemic veins Estimated CVP 5 mm Hg Right ventricle RV pressure, S 23 mm Hg <30 Pulmonic valve Peak velocity, S 71.8 cm/s LEGEND: Mean values are shown as u=mean value. Asterisk (*) montague values outside specified normal range. Prepared and signed by Janes Santos [id number]
[2016-05-31 11:00] LABS: BASOPHIL % 0.1 % (0.0-2.0); MEAN CELL VOLUME 90.9 FL (80.0-100.0); MEAN CORPUSCULAR HEMOGLOBIN 30.7 PG (27.0-34.0); MEAN CORPUSCULAR HGB CONC 33.8 % (32.0-36.0); MONO % 10.9 % (0.0-8.0); PLATELET COUNT 193 TH/MM3 (150-450); RED BLOOD COUNT 3.52 MIL/MM3 (4.00-5.30); RED CELL DISTRIBUTION WIDTH 14.2 % (11.6-17.2); WHITE BLOOD COUNT 20.2 TH/MM3 (4.0-11.0)
[2016-05-31 11:02] LABS: HEMO FLAGS AUTO DIFF
--- NOTE | 2016-05-31 11:14 | RADRPT ---
EXAM DATE/TIME: 05/31/2016 10:47 [facility] COMPARISON: ABDOMEN KUB ONLY, April 26, 2016, 5:02. INDICATIONS : Abdominal pain. MEDICAL HISTORY : Diverticulosis. SURGICAL HISTORY : Appendectomy. Cholecystectomy. ENCOUNTER: Subsequent ACUITY: 3 weeks PAIN SCORE: 4/10 LOCATION: Abdomen FINDINGS: The bowel gas is nonspecific. There are no signs of obstruction or free air for technique. No defini te calcified stones are identified for technique. There is lumbar scoliosis convexity towards the rig ht with superimposed degenerative change involving the lower lumbosacral spine. CONCLUSION: Nonspecific abdomen. Jose Rowe MD on May 31, 2016 at 11:10 Board Certified Radiologist. This report was verified electronically.
[2016-05-31 11:39] LABS: ALKALINE PHOSPHATASE 67 U/L (45-117); ALT (GPT) 22 U/L (10-53); ANION GAP 12 MEQ/L (5-15); AST (GOT) 16 U/L (15-37); BICARBONATE 17.9 MEQ/L (21.0-32.0); BLOOD UREA NITROGEN 10 MG/DL (7-18); CHLORIDE 102 MEQ/L (98-107); GLOMERULAR FILTRATION RATE 83 ML/MIN (>89); POTASSIUM 3.6 MEQ/L (3.5-5.1); SODIUM (NA) 132 MEQ/L (136-145); TOTAL BILIRUBIN ADULT 1.5 MG/DL (0.2-1.0)
[2016-05-31 11:47] LABS: BANDS 23 % (0-6); NEUTROPHIL # MANUAL DIFF 17.6 TH/MM3 (1.8-7.7); POLYS (SEG NEUTROPHILS) 64 % (16-70); WBC DIFF SAMPLE 100
[2016-05-31 11:48] LABS: CRENATED RBCS 1+ (NORMAL); PLATELET ESTIMATE SMEAR NORMAL (NORMAL); PLATELET MORPHOLOGY ENLARGED (NORMAL); SCAN/DIFF FINAL DIFF MANUAL
[2016-05-31] MEDS: CHOLESTYRAMINE 4 GM PACKET PO SCH (14:34)
[2016-05-31] MEDS ORDERED: ACETAMINOPHEN/HYDROcodone 325 MG/5 MG TAB PO PRN (15:45)
[2016-05-31] MEDS ORDERED: ACETAMINOPHEN 325 MG TAB PO PRN (15:45)
--- NOTE | 2016-05-31 16:04 | EKG ---
Date Performed: 05/30/2016 Time Performed: 18:36:09 PTAGE: 81 years EKG: SINUS TACHYCARDIA LEFT AXIS DEVIATION THERE ARE INTERMITTENT ELECTRICAL SPIKES THAT ARE IN THE QRS. THIS COULD BE A PACEMAKER FIRING AT THE SAME TIME THE NORMAL QRS, CAUSING THESE SPIKES. T HERE IS CERTAINLY NO PACER CONDUCTION HERE. CLINICAL CORRELATION RECOMMENDED. Compared to previous tr acing, these spikes are new, otherwise no significant change. ABNORMAL ECG PREVIOUS TRACING : 03/06/2015 11.22 DOCTOR: Dallas Rankin Interpretating Date/Time 05/31/2016 16:03:29
--- NOTE | 2016-05-31 16:04 | MB ---
cc: ANCA MEYER MD DATE OF CONSULTATION 05/31/[address] Bourne REASON FOR CONSULTATION Recurrent C-difficile colitis. HISTORY OF PRESENT ILLNESS This is an 81-year-old female who presented to the emergency department for evaluation of abdominal pain. The patient was taken to the emergency department because of a history of 2-3 days of left lower quadrant abdominal pain associated with diarrhea. She is reported to have been treated with antibiotics for urinary tract infection recently. She was evaluated in the emergency department and white count was elevated at 19.2 and she also had elevated temperature of 102.4 and pulse of 103. CT scan of the abdomen was performed and it showed [id number] concentric wall thickening involving much of the distal colon from around the splenic flexure down to the rectosigmoid. This appearance was felt to be most consistent with colitis. The patient has a history of C-difficile colitis in the past. She is awake but I am unable to get any information from her and she does not speak Mongolian. Her family members are not available at this time. She indicates that she has pain in her abdomen. Information is obtained from the medical record. Blood cultures have no growth in 1 day. The patient ate a little bit of toast today but is not really eating much. She is having frequent bouts of loose stools per her nurse. She has no cough, shortness of breath, nausea, vomiting or dysuria. PAST MEDICAL HISTORY Hypertension, coronary artery disease, hypothyroidism, diverticulitis, pacemaker placement for cardiac conduction abnormality, back pain, facial nerve spasms, cholecystectomy, partial thyroidectomy, bladder mesh 2003, colon resection 2010 for obstruction. ALLERGIES NO KNOWN DRUG ALLERGIES. MEDICATIONS 1. Metronidazole IV. 2. Vancomycin 125 milligrams p.o. q.i.d. 3. Synthroid. 4. Prinivil. 5. Zoloft. 6. Ecotrin. 7. Norvasc. 8. Toradol. 9. Restoril. 10. Xanax. 11. Calcium carbonate. 12. Lactinex. SOCIAL HISTORY The patient lives with her and family. No tobacco or alcohol or illicit drugs. FAMILY HISTORY Noncontributory. REVIEW OF SYSTEMS Review of systems unable to obtain because of language barrier. PHYSICAL EXAMINATION GENERAL: This is a slender female who is in no acute distress. She is awake and alert. VITAL SIGNS: Temperature 99 degrees, BP 115/57, respirations 18, heart rate 109. HEENT: Head is atraumatic. Extraocular movements grossly intact, no icterus. Oropharynx moist mucosa without lesions. NECK: Supple. No adenopathy. LUNGS: Clear breath sounds. HEART: Regular rate and rhythm. ABDOMEN: Bowel sounds present, soft, tenderness on palpation at the left lower quadrant. RECTAL: Not performed. EXTREMITIES: No clubbing or cyanosis or edema. SKIN: No rash. NEURO: Unable to fully assess site. PSYCH: The patient is calm and cooperative. LABORATORY DATA WBC 20.2, platelets 193, hemoglobin 18.8, differential 23% bands, 64% neutrophils, creatinine 0.68, BUN 10, sodium 132. LFTs normal. Stool C-difficile toxin positive. IMPRESSION 1. C-difficile colitis. 2. Sepsis on admission. 3. Leukocytosis secondary to C-difficile and sepsis. 4. Left base infiltrate noted on chest x-ray but the patient is without evidence suggesting pneumonia. RECOMMENDATIONS 1. Continue intravenous Flagyl. 2. Continue oral vancomycin. 3. Monitor response to treatment. 4. Monitor the stool output and white blood cell count. Thank you for this consultation. Further recommendations will be given on followup. Anca Meyer MD FD/EULOGIO /3:26 PM /3:41 PM MTDD
--- NOTE | 2016-05-31 18:03 | MB ---
cc: LILA SAMUELS M.D. DATE OF CONSULTATION: 05/31/2016. REASON FOR CONSULTATION: C. difficile colitis. HISTORY OF PRESENT ILLNESS: The patient is an 81-year-old female who presented on 05/30 to the emergency room with a two to three day history of left lower quadrant pain associated with diarrhea. The patient has a history of enteritis one month prior to admission. PAST MEDICAL HISTORY: Past medical history significant for: 1. Coronary artery disease. 2. Hypertension. 3. Hypothyroidism. 4. Pacemaker placement with conduction defect. 5. Coronary artery disease. PAST SURGICAL HISTORY: 1. Abdominal surgery with a question of either colon or small bowel removed. I had previously seen the patient back in October of last year and asked that the family get her operative notes from her previous surgeries so that we could tell whether small bowel or colon was removed. They are not sure, but think it is colon. 2. She has had an appendectomy in the past apparently. 3. Pacemaker placement in 2008. 4. Cholecystectomy in 1994. 5. Thyroidectomy in the past. 6. Bladder surgery in 2003. 7. The question of colon surgery. SOCIAL HISTORY: She does not use alcohol, tobacco or other substances. ALLERGIES: SHE HAS NO KNOWN ALLERGIES. MEDICATIONS: The medication list is extensive and includes: 1. Temazepam 30 milligrams p.o. at bedtime PRN. 2. Phenergan as needed. 3. Zantac 75 milligrams p.o. daily as needed. 4. Vancomycin 125 milligram capsule four times a day. 5. Reglan 5 milligrams p.o. three times a day after meals. 6. Synthroid 75 micrograms p.o. daily. 7. Cholestyramine 4 gram packet p.o. twice a day. 8. Preparation H as needed. 9. Acidophilus sporogenes. 10.Lactobacillus one tablet q.12 h. 11. Calcium carbonate 500 milligrams two q. 12 hours. 12. Xanax 0.5 milligrams p.o. twice a day PRN. 13. Pantoprazole 40 milligrams p.o. daily. 14. Amlodipine 5 milligrams p.o. daily. 15. Benazepril 40 milligrams p.o. daily. 16. Zoloft 50 milligrams p.o. daily. 17. Aspirin 81 milligrams p.o. daily. REVIEW OF SYSTEMS: All other reviewed systems are negative. Specifically, no history of fever, no lightheadedness. CARDIOVASCULAR: No chest pain or discomfort. RESPIRATORY: No shortness of breath. GI: Positive for diarrhea and abdominal pain. No nausea or vomiting. : No dysuria. MUSCULOSKELETAL: Positive for weakness. NEUROLOGIC: Negative for dizziness or diplopia. PHYSICAL EXAMINATION: GENERAL: The physical exam reveals a slightly obese female who is lying quietly in bed. VITAL SIGNS: Blood pressure 115/57, pulse 109, respirations 18, temperature 99.0, 98% saturation on room air. HEAD, EYES, EARS, NOSE, THROAT: The sclerae are nonicteric. CHEST: Clear to auscultation. CARDIAC: Mild tachycardia without murmurs. ABDOMEN: Soft with mild tenderness to palpation in the left lower quadrant without guarding or rebound. There is a well-healed supraumbilical scar without hernia. This extends down to the umbilicus. Pulses are present. NEUROLOGIC: Exam is nonfocal. The patient states that she has " ". LABORATORY DATA: Laboratory values demonstrate WBCs of 20.2 up from 19.2 yesterday. She does have a significant left shift with 23 bands versus 6 yesterday, 64 segs versus 80 yesterday. IMAGING STUDIES: CT scan was obtained yesterday and demonstrates mild to moderate concentric wall thickening involving much of the distal colon from the splenic flexure down to the rectosigmoid. There is no bowel dilatation. Proximal colon is normal in appearance. There is an incidental pericardial effusion as well. I have spoken with the referring doctor, Dr. Clay Bourne, and this is not felt to be an acute issue and is not causing any tamponade. Dr. Mariscal has seen the patient as well and recommends continuation of IV Flagyl and oral Vancomycin and monitor her response to treatment. As discussed with the resident, I feel that the patient still has most or all of her colon in and we still need to determine if she has had a partial colectomy. Completion colectomy would be difficult for her to manage at best. Would also consider vancomycin irrigation as this may help some. We will follow with you. There is no indication for surgery at this time. Once again, I am going to get family to get the operative note from her previous abdominal surgery as this would be helpful to determine what was previously removed. Thank you for this consult. MD ANJEL Mahan/DARRIAN /5:34 PM /5:44 PM
[2016-05-31] MEDS: ALPRAZolam 0.5 MG TAB PO PRN (19:46)
[2016-05-31] MEDS: ENOXAPARIN SODIUM 40 MG/0.4 ML SYRINGE SQ SCH (21:19)
[2016-06-01] VITALS: BP 113/56; PULSE 94; RESP 16; TEMP 98.2; O2SAT 98
[2016-06-01] MEDS: metroNIDAZOLE 500 MG INJ 100 ML IV SCH ×3 (01:31→16:52)
[2016-06-01 04:00] VITALS: BP 111/56; PULSE 85; RESP 16; TEMP 98.4; O2SAT 97
[2016-06-01] MEDS: SODIUM CHLOR 0.9% 1000 ML INJ 1,000 ML IV SCH ×2 (04:46→15:53)
[2016-06-01] MEDS: LEVOTHYROXINE SODIUM 75 MCG TAB PO SCH (05:23)
[2016-06-01 07:10] LABS: AUTOMATED NEUTROPHIL # 10.2 TH/MM3 (1.8-7.7); BASOPHIL % 0.4 % (0.0-2.0); EOSINOPHIL % 0.2 % (0.0-4.0); HEMATOCRIT 27.4 % (35.0-46.0); LYMPH % 7.9 % (9.0-44.0); MEAN CELL VOLUME 90.1 FL (80.0-100.0); MEAN CORPUSCULAR HEMOGLOBIN 31.2 PG (27.0-34.0); MEAN CORPUSCULAR HGB CONC 34.6 % (32.0-36.0); NEUT % 81.5 % (16.0-70.0); PLATELET COUNT 193 TH/MM3 (150-450); RED BLOOD COUNT 3.04 MIL/MM3 (4.00-5.30); RED CELL DISTRIBUTION WIDTH 14.8 % (11.6-17.2); WHITE BLOOD COUNT 12.5 TH/MM3 (4.0-11.0)
[2016-06-01 07:17] LABS: HEMO FLAGS AUTO DIFF
[2016-06-01 07:28] LABS: MAGNESIUM 2.3 MG/DL (1.5-2.5); POTASSIUM 4.1 MEQ/L (3.5-5.1)
[2016-06-01 08:01] VITALS: BP 112/56; PULSE 83; RESP 18; TEMP 98.7; O2SAT 98
[2016-06-01] MEDS: PETROLEUM/SHARK LIVER OIL 60 GM TUBE TOPICAL SCH ×2 (09:00→20:26)
[2016-06-01] MEDS ORDERED: POTASSIUM PHOSPHATE MONOBASIC 500 MG TAB PO SCH (09:00)
[2016-06-01] MEDS: SODIUM CHLORIDE 0.9% FLUSH 10 ML FLUSH IV FLUSH SCH ×2 (09:00→20:26)
[2016-06-01 09:42] LABS: BANDS 47 % (0-6); METAMYELOCYTES 1 % (0-1); NEUTROPHIL # MANUAL DIFF 10.6 TH/MM3 (1.8-7.7); POLYS (SEG NEUTROPHILS) 37 % (16-70); WBC DIFF SAMPLE 100
[2016-06-01 09:43] LABS: BURR CELLS 1+ (NORMAL); PLATELET ESTIMATE SMEAR NORMAL (NORMAL); PLATELET MORPHOLOGY NORMAL (NORMAL); SCAN/DIFF FINAL DIFF MANUAL
[2016-06-01 09:44] LABS: ACANTHOCYTES OCC (NORMAL)
[2016-06-01] MEDS: ONDANSETRON HCL 4 MG/2 ML VIAL IV PUSH PRN ×2 (10:30→19:00)
--- NOTE | 2016-06-01 10:36 | HHI.FPPN ---
Subjective Remarks Used [employer] interpreting software for Maori speaking patient. Per the nurse, the patient had 9 bowel movements since yesterday. Per the patient, she's had 3 bowel movements. She continues to have 7/10 diffuse crampy abdominal pain. Stools are still liquidy and have a foul odor. She feels very weak and is not able to stand up. At home she uses a walker to get around. Weakness has been present for the past 3 days. She had one episode of vomiting yesterday. No chest pain or shortness of breath. No calf tenderness. Overall, she feels only slightly better than at admission. Objective Vitals Vital Signs Date Time Temp Pulse Resp B/P Pulse Ox O2 Delivery O2 Flow Rate FiO2 06/01/16 08:01 98.7 83 18 112/56 98 06/01/16 04:00 98.4 85 16 111/56 97 06/01/16 00:00 98.2 94 16 113/56 98 05/31/16 20:00 Room Air 05/31/16 20:00 98.3 93 18 104/58 98 05/31/16 17:40 99.6 115 18 121/57 96 05/31/16 12:00 99.0 109 18 115/57 98 I/O 05/31/16 05/31/16 05/31/16 06/01/16 06/01/16 06/01/16 07:00 15:00 23:00 07:00 15:00 23:00 Intake Total 120 ml 300 ml 2498 ml Output Total 5 ml Balance 120 ml 300 ml 2493 ml Intake Oral 120 ml 300 ml 60 ml IV Total 2438 ml Output Stool Total 5 ml # Voids 0 2 1 2 # Bowel Movements 2 5 1 3 Result Diagram: 06/01/16 0615 06/01/16 0615 Imaging Last 72 hours Impressions Abdomen X-Ray 05/31/16 0000 Signed Impressions: Service Date/Time: Tuesday, May 31, 2016 10:47 - CONCLUSION: Nonspecific abdomen. Jose Rowe MD Chest X-Ray 05/30/16 1708 Signed Impressions: Service Date/Time: Monday, May 30, 2016 18:04 - CONCLUSION: Mild left base parenchymal opacity Ramo Zhang MD Abdomen/Pelvis CT 05/30/16 0000 Signed Impressions: Service Date/Time: Monday, May 30, 2016 17:40 - CONCLUSION: Pericardial effusion Distal colitis. Ramo Zhang MD Objective Remarks GENERAL: in NAD, no resp distress, nontoxic. Sitting up in bed. Skin: Redness in the sacral area without any skin breakdown, stool present. HEENT: NCAT, EOMI, no scleral icterus, no conjunctival injection. MMM. NECK: Supple, no meningeal signs CV: RRR, S1 S2. No murmur. No friction rub. CHEST/PULM: CTAB, no crackles, no wheezes ABD/GI: Bowel sounds present, diffuse tenderness to palpation, no guarding or rebound tenderness. EXT: 2+ DP pulses. no calf tenderness. No significant edema NEURO: Awake, alert. Normal muscle tone. Grossly nonfocal SKIN: No rashes, no jaundice. PSYCH: Mood and affect are appropriate. Speech fluent. Does not appear to respond to internal stimuli. A/P Assessment and Plan 81 year old female with PMH of HTN, CAD, cardiac conduction abnormality with pacemaker, hypothyroidism, and diverticulitis presenting with c.diff colitis, severe diarrhea, dehydration, and general weakness. Discharge Planning Pending electrolyte stability, fluid resuscitation, reasonable resolution of diarrheal symptoms Problem List: (1) C. difficile colitis Status: Acute Plan: Abdominal pain + diarrhea + fever. Stool positive for C diff. Patient previously treated with vancomycin and Fidoxomicin. CT abdomen/pelvis showing distal colitis and pericardial effusion - Given repeat infection, will consult ID for recommendations - Continue treatment with vancomycin 125 mg PO q6h - Continue metronidazole 500 mg IV Q8H - Continue IV fluids for dehydration, replace electrolytes PRN - Continue home Phenergan PRN for N/V. - Lactobacillus probiotic daily - Toradol 30 mg IV Q6H PRN pain (2) Generalized weakness Status: Acute Plan: Likely due to dehydration and significant hypophosphatemia. - Consult PT eval & treat - Replace phosphate (3) Pericardial effusion Status: Acute Plan: Found incidentally on CT abdomen/pelvis. No evidence of tamponade. Likely inflammatory in nature. Patient not having chest pain/is asymptomatic. Per ECHO fluid is circumferential to the heart, partially loculated, and fibrinous. - Monitor, follow up outpatient. (4) Hypothyroidism Status: Chronic Plan: Stable symptoms; asymptomatic. TSH normal - Continue home Synthroid (5) Hypertension Status: Chronic Plan: BP slightly elevated to 163/86 on admission Now under better control. Continue to monitor. - Substitute home FRANCISCA for lisinopril (on hospital formulary) dosed equivalently - Continue home Norvasc (6) Coronary artery disease Status: Chronic Plan: Symptoms stable / asymptomatic - Continue daily aspirin (7) History of permanent cardiac pacemaker placement Status: Chronic Plan: Telemetry ordered as above, can discontinue if stable > 24 h. (8) Anxiety Status: Chronic Plan: Stable symptoms; appears calm this morning - continue home Xanax PRN - Restoril PRN sleep (9) No contraindication to deep vein thrombosis (DVT) prophylaxis Status: Acute Plan: Lovenox 40 qday SCD's (10) Nutrition, metabolism, and development symptoms Status: Acute Plan: - NS at 90 mls/hr - Hypophosphatemic, will replace - Regular diet Problem Qualifiers (1) Hypothyroidism: Qualified Code: E03.9 - Hypothyroidism, unspecified type (2) Hypertension: Qualified Code: I10 - Essential hypertension (3) Coronary artery disease: Qualified Code: I25.10 - Coronary artery disease involving [place] coronary artery of [place] heart without angina pectoris Jarocho Green MD R2 Jun 01, 2016 10:36 Plan: Likely secondary to diarrhea. Monitor. Problem Qualifiers (1) Hypothyroidism: Qualified Code: E03.9 - Hypothyroidism, unspecified type (2) Hypertension: Qualified Code: I10 - Essential hypertension (3) Coronary artery disease: Qualified Code: I25.10 - Coronary artery disease involving [place] coronary artery of [place] heart without angina pectoris Jarocho Green MD R2 Jun 01, 2016 10:36
[2016-06-01] MEDS: amLODIPine BESYLATE 5 MG TAB PO SCH (11:00)
[2016-06-01] MEDS: LISINOPRIL 20 MG TAB PO SCH (11:00)
[2016-06-01] MEDS: SERTRALINE HCL 50 MG TAB PO SCH (11:01)
[2016-06-01] MEDS: ASPIRIN EC 81 MG TABEC PO SCH (11:01)
[2016-06-01] MEDS: CALCIUM CARBONATE 500 MG CHEWABLE TAB CHEW SCH ×2 (11:02→20:25)
[2016-06-01] MEDS: LACTOBACILLUS ACIDOPHILUS TAB PO SCH ×2 (11:02→20:25)
[2016-06-01] MEDS: VANCOMYCIN 500 MG VIAL (FOR ORAL USE ONLY) PO SCH ×4 (11:03→20:26)
[2016-06-01 12:00] VITALS: BP 102/56; PULSE 78; RESP 18; TEMP 98; O2SAT 97
[2016-06-01] MEDS: CHOLESTYRAMINE 4 GM PACKET PO SCH ×3 (12:00→23:45)
[2016-06-01] MEDS ORDERED: SODIUM PHOSPHATE INJ 15 MMOL in SODIUM CHLORIDE 0.9% INJ 150 ML IV ONE (13:00)
--- NOTE | 2016-06-01 14:13 | HHI.PR ---
Subjective Subjective Notes DAILY PROGRESS NOTE FOR SURGICAL ATTENDING, DR. COLT COYLE Patient speaks Cymra[place] and some broken [place] Major complaint is medication making her nauseous . I believe it is Flagyl Her pain is much improved Objective Vitals/I&O Vital Signs Date Time Temp Pulse Resp B/P Pulse Ox O2 Delivery O2 Flow Rate FiO2 06/01/16 08:01 98.7 83 18 112/56 98 05/31/16 20:00 Room Air 05/30/16 20:08 21 Labs Laboratory Tests Test 06/01/16 06:15 White Blood Count 12.5 Red Blood Count 3.04 Hemoglobin 9.5 Hematocrit 27.4 Mean Corpuscular Volume 90.1 Mean Corpuscular Hemoglobin 31.2 Mean Corpuscular Hemoglobin 34.6 Concent Red Cell Distribution Width 14.8 Platelet Count 193 Mean Platelet Volume 8.6 Neutrophils (%) (Auto) 81.5 Lymphocytes (%) (Auto) 7.9 Monocytes (%) (Auto) 10.0 Eosinophils (%) (Auto) 0.2 Basophils (%) (Auto) 0.4 Neutrophils # (Auto) 10.2 Lymphocytes # (Auto) 1.0 Monocytes # (Auto) 1.2 Eosinophils # (Auto) 0.0 Basophils # (Auto) 0.0 CBC Comment AUTO DIFF Differential Total Cells 100 Counted Neutrophils % (Manual) 37 Band Neutrophils % 47 Lymphocytes % 9 Monocytes % 6 Neutrophils # (Manual) 10.6 Metamyelocytes 1 Differential Comment FINAL DIFF MANUAL Platelet Estimate NORMAL Platelet Morphology Comment NORMAL [place] Cells 1+ Acanthocytes OCC Sodium Level 132 Potassium Level 4.1 Chloride Level 104 Carbon Dioxide Level 21.0 Anion Gap 7 Blood Urea Nitrogen 12 Creatinine 0.59 Estimat Glomerular Filtration 97 Rate Random Glucose 105 Calcium Level 7.8 Phosphorus Level 1.4 Magnesium Level 2.3 Date/Time Procedure Status Source Growth 05/30/16 20:45 Urine Culture - Final Complete Urine Clean Catch NO GROWTH IN 48 HOURS. 05/30/16 17:35 Aerobic Blood Culture - Preliminary Resulted Blood Peripheral NO GROWTH IN 2 DAYS 05/30/16 17:35 Anaerobic Blood Culture - Preliminary Resulted Blood Peripheral NO GROWTH IN 2 DAYS Radiology Last Impressions Abdomen X-Ray 05/31/16 0000 Signed Impressions: Service Date/Time: Tuesday, May 31, 2016 10:47 - CONCLUSION: Nonspecific abdomen. Jose Rowe MD Chest X-Ray 05/30/16 1708 Signed Impressions: Service Date/Time: Monday, May 30, 2016 18:04 - CONCLUSION: Mild left base parenchymal opacity Ramo Zhang MD Abdomen/Pelvis CT 05/30/16 0000 Signed Impressions: Service Date/Time: Monday, May 30, 2016 17:40 - CONCLUSION: Pericardial effusion Distal colitis. Ramo Zhang MD Abdomen: Other (mild soreness left lower quadrant), BS normal A/P Problem List: (1) Diarrhea (2) Colitis, acute (3) Colitis (4) Colitis (5) C. difficile colitis (6) History of permanent cardiac pacemaker placement Assessment and Plan 81-year-old female with long-standing colitis Improved on antibiotic therapy Continue maximal medical therapy Dr. Livingston to return tomorrow Attending Statement NOTE FOR SURGICAL ATTENDING, DR. COLT COYLE I agree with above assessment and plan. I attest that I had a [id number] encounter with the patient on the same day, and personally performed and documented my assessment and findings in the medical record. The following services were provided during this hospital visit: Chart data review, vital sign assessments/reviewing monitor data Review of consultations notes if present. Medication orders/review and/or management Ordering and/or reviewing lab tests Ordering and/or interpreting/reviewing x-rays and/or diagnostic studies Care of the patient and discussion of the patient with the care team Documentation time To help prompt me to consider important information that might be impacting today's encounter and assessment, information from prior notes written by myself or my colleagues may have been "brought forward/copy and pasted" into today's note. Colt Coyle MD Jun 01, 2016 14:13
--- NOTE | 2016-06-01 14:56 | PD.CONS ---
HPI History of Present Illness This is a 81 year old speaking female patient with past medical history of C-diff, diverticulitis s/p partial colectomy who was presented to the ER for evaluation of abdominal pain diarrhea nausea, vomiting. HPI was obtained with help of interpretations services. Patient has hx of similar episodes in April of this year and was (+) for C-diff at that time, she was given Flagyl and Vanco. She said she has been on vanco since she left the hospital and her bowels have been soft. Prior to first episode of C-dff, she suffered from chronic constipation. She is bad historian, not sure when the stools became liquid again, but the pain was worse and that prompted the patient to seek medical attention. The pain is constant on the left side, 6 on the scale from 0-10, made better with laying down. The diarrhea is severe, constant, if she moves, it comes out. She also had associated nausea, and vomiting, but better after given Zofran. She reports fever, denies chills. She denies hematemesis, hematochezia or melena. She denies sick contacts and no travel, or suspicious food. She last had an EGD/Colonoscopy (02/28/15) this revealed revealed mild antral gastropathy noted, normal endoscopy otherwise, retroflexed views revealed no abnormalities, the colonic mucosa appeared normal in the terminal ileum and throughout the entire examined colon, multiple biopsies were performed, retroflexed views revealed no abnormalities, revealed no abnormalities of the rectum. Mild chronic gastritis, negative for Helicobacter pylori. On this admission, Abdomen/Pelvis CT (05/30/16)---> Pericardial effusion Distal colitis. Stools (+) for C-diff toxins. labs significant WBC of 19.2, k of 2.7 on arrival. GS, ID on the case, currently on Vanco and Flagyl. 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 Pacemaker (cardiac conduction abnormality; history of syncope secondary to bradycardia) Back pain (followed by pain management) Past Surgical History Cholecystectomy Appendectomy Laparotomy Colectomy (bowel obstruction) Biventricular pacemaker placement Partial thyroidectomy Bladder mesh Coded Allergies: No Known Allergies (Verified , 05/30/16) Medications Current Medications Medications (Trade) Dose Ordered Sig/Marquise Route Start Time Stop Time Status Last Admin Vancomycin HCl 125 mg 125 mg QID PO 4/14/17 21:00 06/13/16 23:00 06/01/16 11:03 (NS 1000 ml Inj) 1,000 ml @ 90 mls/hr Q11H7M IV 05/30/16 19:25 06/01/16 04:46 (NS Flush) 2 ml UNSCH PRN IV FLUSH 05/30/16 19:30 (NS Flush) 2 ml BID IV FLUSH 05/30/16 21:00 06/01/16 09:00 (Lovenox Inj) 40 mg Q24H SQ 05/30/16 20:00 05/31/16 21:19 (Narcan Inj) 0.4 mg UNSCH PRN IV 05/30/16 19:30 (Lactinex) 1 tab Q12HR PO 05/30/16 21:00 06/01/16 11:02 (Tums Chew) 500 mg Q12HR CHEW 05/30/16 21:00 06/01/16 11:02 (Xanax) 0.5 mg BID PRN PO 05/30/16 19:45 05/31/16 19:46 (Norvasc) 5 mg DAILY PO 05/31/16 09:00 06/01/16 11:00 (Ecotrin Ec) 81 mg DAILY PO 05/31/16 09:00 06/01/16 11:01 (Questran 4 Gm Pkt) 4 gm BID@00,12 PO 05/31/16 00:00 06/01/16 00:00 (Synthroid) 75 mcg DAILY@06 PO 05/31/16 06:00 06/01/16 05:23 (Xylocaine 5% Oint) 1 applic BID OTHER 05/30/16 21:00 (Phenergan) 25 mg Q4HR PRN PO 05/30/16 19:45 05/31/16 19:46 (Zoloft) 50 mg DAILY PO 05/31/16 09:00 06/01/16 11:01 (Restoril) 30 mg HS PRN PO 05/30/16 19:45 (Preparation H Oint) 1 applic BID TOPICAL 05/30/16 21:00 05/31/16 21:00 (Pepcid) 10 mg DAILY PRN PO 05/30/16 20:00 Lisinopril 40 mg 40 mg DAILY PO 05/31/16 09:00 06/01/16 11:00 (Flagyl 500 Mg Inj) 100 ml @ 100 mls/hr Q8H IV 05/31/16 02:30 06/01/16 10:30 (Dwight 5-325 Mg) 1 tab Q6H PRN PO 05/31/16 15:45 (Tylenol) 650 mg Q4H PRN PO 05/31/16 15:45 (Zofran Inj) 4 mg Q6HR PRN IV PUSH 05/31/16 19:30 06/01/16 10:30 Potassium Phosphate 500 mg 500 mg Q12HR PO 06/01/16 09:00 06/01/16 09:00 (Sodium Phosphate Inj/NS Inj) 155 ml @ 38.75 mls/ hr ONCE ONCE IV 06/01/16 13:00 06/01/16 16:59 Family History Non contributory Social History EtOH: glass of wine daily Tobacco: denies Illicit drugs: denies Review of Systems Constitutional: COMPLAINS OF: Fatigue, Fever, DENIES: Chills Endocrine: DENIES: Polyuria Eyes: DENIES: Double Vision Ears, nose, mouth, throat: DENIES: Hoarseness Respiratory: DENIES: Shortness of breath Cardiovascular: DENIES: Lower Extremity Edema Gastrointestinal: COMPLAINS OF: Abdominal pain, Diarrhea, Nausea, Vomiting, DENIES: Black stools, Bloody stools, Constipation, Difficulty Swallowing, Anorexia, Odynophagia, Swelling of Abdomen, Heartburn, Hematemesis Genitourinary: DENIES: Hematuria Musculoskeletal: COMPLAINS OF: Back pain Integumentary: DENIES: Jaundice Hematologic/lymphatic: DENIES: Bruising Immunologic/allergic: DENIES: Eczema Neurologic: DENIES: Abnormal gait Psychiatric: DENIES: Anxiety GI Exam Vitals I&O Vital Signs Date Time Temp Pulse Resp B/P Pulse Ox O2 Delivery O2 Flow Rate FiO2 06/01/16 12:00 98.0 78 18 102/56 97 06/01/16 08:01 98.7 83 18 112/56 98 06/01/16 04:00 98.4 85 16 111/56 97 06/01/16 00:00 98.2 94 16 113/56 98 05/31/16 20:00 Room Air 05/31/16 20:00 98.3 93 18 104/58 98 4/15/17 17:40 99.6 115 18 121/57 96 I/O 05/31/16 05/31/16 05/31/16 06/01/16 06/01/16 06/01/16 07:00 15:00 23:00 07:00 15:00 23:00 Intake Total 120 ml 300 ml 2498 ml Output Total 5 ml Balance 120 ml 300 ml 2493 ml Intake Oral 120 ml 300 ml 60 ml IV Total 2438 ml Output Stool Total 5 ml # Voids 0 2 1 2 # Bowel Movements 2 5 1 3 Imaging Last Impressions Abdomen X-Ray 05/31/16 0000 Signed Impressions: Service Date/Time: Tuesday, May 31, 2016 10:47 - CONCLUSION: Nonspecific abdomen. Jose Rowe MD Chest X-Ray 05/30/16 1708 Signed Impressions: Service Date/Time: Monday, May 30, 2016 18:04 - CONCLUSION: Mild left base parenchymal opacity Ramo Zhang MD Abdomen/Pelvis CT 05/30/16 0000 Signed Impressions: Service Date/Time: Monday, May 30, 2016 17:40 - CONCLUSION: Pericardial effusion Distal colitis. Ramo Zhang MD Laboratory Test 06/01/16 06:15 White Blood Count 12.5 TH/MM3 Red Blood Count 3.04 MIL/MM3 Hemoglobin 9.5 GM/DL Hematocrit 27.4 % Mean Corpuscular Volume 90.1 FL Mean Corpuscular Hemoglobin 31.2 PG Mean Corpuscular Hemoglobin 34.6 % Concent Red Cell Distribution Width 14.8 % Platelet Count 193 TH/MM3 Mean Platelet Volume 8.6 FL Neutrophils (%) (Auto) 81.5 % Lymphocytes (%) (Auto) 7.9 % Monocytes (%) (Auto) 10.0 % Eosinophils (%) (Auto) 0.2 % Basophils (%) (Auto) 0.4 % Neutrophils # (Auto) 10.2 TH/MM3 Lymphocytes # (Auto) 1.0 TH/MM3 Monocytes # (Auto) 1.2 TH/MM3 Eosinophils # (Auto) 0.0 TH/MM3 Basophils # (Auto) 0.0 TH/MM3 CBC Comment AUTO DIFF Differential Total Cells 100 Counted Neutrophils % (Manual) 37 % Band Neutrophils % 47 % Lymphocytes % 9 % Monocytes % 6 % Neutrophils # (Manual) 10.6 TH/MM3 Metamyelocytes 1 % Differential Comment FINAL DIFF MANUAL Platelet Estimate NORMAL Platelet Morphology Comment NORMAL Lissa Cells 1+ Acanthocytes OCC Sodium Level 132 MEQ/L Potassium Level 4.1 MEQ/L Chloride Level 104 MEQ/L Carbon Dioxide Level 21.0 MEQ/L Anion Gap 7 MEQ/L Blood Urea Nitrogen 12 MG/DL Creatinine 0.59 MG/DL Estimat Glomerular Filtration 97 ML/MIN Rate Random Glucose 105 MG/DL Calcium Level 7.8 MG/DL Phosphorus Level 1.4 MG/DL Magnesium Level 2.3 MG/DL Date/Time Procedure Status Source Growth 05/30/16 20:45 Urine Culture - Final Complete Urine Clean Catch NO GROWTH IN 48 HOURS. 05/30/16 17:35 Aerobic Blood Culture - Preliminary Resulted Blood Peripheral NO GROWTH IN 2 DAYS 05/30/16 17:35 Anaerobic Blood Culture - Preliminary Resulted Blood Peripheral NO GROWTH IN 2 DAYS Physical Examination HEENT: Pupils round and reactive to light; normocephalic; atraumatic; no jaundice. Throat is clear. NECK: Neck is supple, no JVD, no lymphadenopathy. CHEST: Chest is clear to auscultation and percussion. CARDIAC: Regular rate and rhythm with no murmur gallop or rubs. ABDOMEN: Soft, nondistended, nontender; no hepatosplenomegaly; bowel sounds are present in all four quadrants. EXTREMITIES: No clubbing, cyanosis, or edema. SKIN: Normal; no rash; no jaundice. 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 Assessment and Plan Plan - Recurrent/refractory to tx, this is second episode of C-diff colitis with diarrhea and abdominal pain, N/V- This is a 81 year old speaking female patient with past medical history of C-diff, diverticulitis s/p partial colectomy who was presented to the ER for evaluation of abdominal pain diarrhea nausea, vomiting. HPI was obtained with help of interpretations services. Patient has hx of similar episodes in April of this year and was (+) for C-diff at that time, she was given Flagyl and Vanco. She said she has been on vano since she left the hospital and her bowels have been soft. Prior to first episode of C-dff, she suffered from chronic constipation. She is bad historian, not sure when the stools became liquid again, but the pain was worse. The pain is constant on the left side, 6 on the scale from 0-10, made better with laying down. The diarrhea is severe, constant, if she moves, it comes out. She also had associated nausea, and vomiting, but better after given Zofran. She reports fever, denies chills. She denies hematemesis, hematochezia or melena. She denies sick contacts and no travel, or suspicious food. She last had an EGD/Colonoscopy (02/28/15) this revealed revealed mild antral gastropathy noted, normal endoscopy otherwise, retroflexed views revealed no abnormalities, the colonic mucosa appeared normal in the terminal ileum and throughout the entire examined colon, multiple biopsies were performed , retroflexed views revealed no abnormalities, revealed no abnormalities of the rectum. Mild chronic gastritis, negative for Helicobacter pylori. On this admission, Abdomen/Pelvis CT (05/30/16)---> Pericardial effusion Distal colitis. Stools (+) for C-diff toxins. labs significant WBC of 19.2, k of 2.7 on arrival. GS, ID on the case, currently on Vanco and Flagyl. - Leukocytosis. Improving. Vanco/FLagyl. - Anemia- no signs of bleeding, most likely secondary to colitis - HTN, pacemaker per attending PLAN: - YING - Cont. IVF - Cont. Flagyl/vanco - CBC in am - Consider fecal transplant, vanco enema - Consider flex/sig or colonoscopy - ID, GS on the case - Supportive care - Further recommendations to follow based on results of above - Pt seen and examined by Dr. Acosta and myself and this note is written on his behalf Cher Duff Jun 01, 2016 14:56
[2016-06-01 16:00] VITALS: BP 119/65; PULSE 81; RESP 18; TEMP 98; O2SAT 96
[2016-06-01] MEDS: ALPRAZolam 0.5 MG TAB PO PRN (19:00)
[2016-06-01 20:00] VITALS: BP 111/58; PULSE 78; RESP 16; TEMP 97.5; O2SAT 98
[2016-06-01] MEDS: ENOXAPARIN SODIUM 40 MG/0.4 ML SYRINGE SQ SCH (20:25)
[2016-06-01] MEDS: LIDOCAINE HCL 5% OINT 37 GM TUBE OTHER SCH (20:27)
[2016-06-01] MEDS: TEMAZEPAM 15 MG CAP PO PRN (23:50)
[2016-06-02] VITALS (8 sets, daily range): BP systolic 104–154; BP diastolic 57–74; PULSE 70–88; RESP 16–20; TEMP 97.9–98.3; O2SAT 93–97
[2016-06-02] MEDS: metroNIDAZOLE 500 MG INJ 100 ML IV SCH ×3 (03:02→18:01)
[2016-06-02] MEDS: SODIUM CHLOR 0.9% 1000 ML INJ 1,000 ML IV SCH ×2 (03:05→14:33)
[2016-06-02] MEDS: LEVOTHYROXINE SODIUM 75 MCG TAB PO SCH (06:03)
[2016-06-02 07:28] LABS: HEMATOCRIT 28.6 % (35.0-46.0); MEAN CELL VOLUME 91.2 FL (80.0-100.0); MEAN CORPUSCULAR HEMOGLOBIN 31.2 PG (27.0-34.0); MEAN CORPUSCULAR HGB CONC 34.2 % (32.0-36.0); PLATELET COUNT 253 TH/MM3 (150-450); RED BLOOD COUNT 3.13 MIL/MM3 (4.00-5.30); RED CELL DISTRIBUTION WIDTH 14.8 % (11.6-17.2); REVIEW FLAG FINAL; WHITE BLOOD COUNT 9.1 TH/MM3 (4.0-11.0)
[2016-06-02 08:00] LABS: BICARBONATE 14.5 MEQ/L (21.0-32.0); POTASSIUM 4.4 MEQ/L (3.5-5.1)
[2016-06-02 08:18] LABS: CALCIUM-PROTEIN CORRECTED 8.7 MG/DL (8.5-10.1)
[2016-06-02] MEDS: SODIUM CHLORIDE 0.9% FLUSH 10 ML FLUSH IV FLUSH SCH ×2 (09:00→20:39)
[2016-06-02] MEDS: LISINOPRIL 20 MG TAB PO SCH (09:06)
[2016-06-02] MEDS: CALCIUM CARBONATE 500 MG CHEWABLE TAB CHEW SCH ×2 (09:06→20:38)
[2016-06-02] MEDS: amLODIPine BESYLATE 5 MG TAB PO SCH (09:06)
[2016-06-02] MEDS: LACTOBACILLUS ACIDOPHILUS TAB PO SCH ×2 (09:06→20:37)
[2016-06-02] MEDS: SERTRALINE HCL 50 MG TAB PO SCH (09:06)
[2016-06-02] MEDS: ASPIRIN EC 81 MG TABEC PO SCH (09:06)
[2016-06-02] MEDS: VANCOMYCIN 500 MG VIAL (FOR ORAL USE ONLY) PO SCH ×4 (09:06→20:38)
[2016-06-02] MEDS: LIDOCAINE HCL 5% OINT 37 GM TUBE OTHER SCH ×2 (09:07→20:38)
[2016-06-02] MEDS: PETROLEUM/SHARK LIVER OIL 60 GM TUBE TOPICAL SCH ×2 (09:08→20:39)
[2016-06-02] MEDS: CHOLESTYRAMINE 4 GM PACKET PO SCH ×2 (11:04→23:05)
[2016-06-02] MEDS: ONDANSETRON HCL 4 MG/2 ML VIAL IV PUSH PRN ×3 (11:05→23:05)
--- NOTE | 2016-06-02 11:30 | HHI.FPPN ---
Subjective Remarks No acute events overnight. Feels overall better, abdominal pain decreased (none at rest, with eating it's present LLQ). Slight nausea with eating as well. No other concerns. No CP/SOB. Diarrhea improved (more formed, 2 BM in last 24 hours , decresed from 9 per day). (Mitch Bourne MD R1) Objective Vitals Vital Signs Date Time Temp Pulse Resp B/P Pulse Ox O2 Delivery O2 Flow Rate FiO2 06/02/16 08:30 Room Air 06/02/16 08:00 70 06/02/16 08:00 98.0 73 16 115/58 97 06/02/16 04:31 77 06/02/16 04:00 98.3 79 16 127/62 95 06/02/16 00:00 98.1 77 20 104/57 96 06/01/16 20:25 Room Air 06/01/16 20:00 97.5 78 16 111/58 98 06/01/16 16:00 98.0 81 18 119/65 96 06/01/16 12:00 98.0 78 18 102/56 97 I/O 06/01/16 06/01/16 06/01/16 06/02/16 06/02/16 06/02/16 07:00 15:00 23:00 07:00 15:00 23:00 Intake Total 960 ml 1121 ml Balance 960 ml 1121 ml Intake Oral 240 ml 1121 ml IV Total 720 ml # Voids 2 1 1 # Bowel Movements 3 1 1 (Mitch Bourne MD R1) Result Diagram: 06/02/16 0533 06/02/16 0533 Objective Remarks GENERAL: in NAD, no resp distress, nontoxic. Sitting up in bed. Skin: Redness in the sacral area without any skin breakdown, stool present. CV: RRR, S1 S2. No murmur. No friction rub. CHEST/PULM: CTAB, no crackles, no wheezes ABD/GI: Bowel sounds present, mild tenderness to palpation LLQ, no guarding or rebound tenderness. EXT: 2+ DP pulses. no calf tenderness. No significant edema NEURO: Awake, alert. Normal muscle tone. Grossly nonfocal (Mitch Bourne MD R1) A/P Assessment and Plan 81 year old female with PMH of HTN, CAD, cardiac conduction abnormality with pacemaker, hypothyroidism, and diverticulitis presenting with c.diff colitis, severe diarrhea, dehydration, and general weakness. Discharge Planning Pending electrolyte stability, fluid resuscitation, reasonable resolution of diarrheal symptoms (Mitch Bourne MD R1) Attending Attestation Patient seen and examined, discussed with Dr Bourne. I agree with assessment and management as documented and discussed with me. Pt reports that diarrhea is becoming more firm / increased consistency. No abdominal pain. +nausea today but no vomiting. Communication is done by me in Sen[place]e. Appreciate ID, GI (Laura Zacarias MD) Problem List: (1) C. difficile colitis Status: Acute Plan: Abdominal pain + diarrhea + fever. Stool positive for C diff. Patient previously treated with vancomycin and Fidoxomicin. CT abdomen/pelvis showing distal colitis and pericardial effusion WBC decreasing with antibiotic treatment - ID consulted, appreciate recommendations - Continue treatment with vancomycin 125 mg PO q6h - Continue metronidazole 500 mg IV Q8H - Final recs regarding course of treatment to follow - Surgery consulted, appreciate input - Non-surgical management at this point, avoid NSAIDS (lower risk of GIB) - GI consulted, appreciate input - Continue current management of infection per ID - Continue IV fluids for dehydration, replace electrolytes PRN - Continue home Phenergan PRN for N/V - Lactobacillus probiotic daily - Pain control with Tylenol, [place] 5-325 as needed (2) Generalized weakness Status: Acute Plan: Likely due to dehydration and significant hypophosphatemia. - PT recs pending (3) Pericardial effusion Status: Acute Plan: Found incidentally on CT abdomen/pelvis. No evidence of tamponade. Likely inflammatory in nature. Patient not having chest pain/is asymptomatic. Echo showing moderate partially loculated effusion circumferentially around heart, no evidence of hemodynamic compromise - Monitor, follow up outpatient - Repeat Echo if symptoms develop (4) Hypothyroidism Status: Chronic Plan: Stable symptoms; asymptomatic. TSH normal - Continue home Synthroid (5) Hypertension Status: Chronic Plan: BP slightly elevated to 163/86 on admission Now under better control. Continue to monitor. - Substitute home FRANCISCA for lisinopril (on hospital formulary) dosed equivalently - Continue home Norvasc (6) Coronary artery disease Status: Chronic Plan: Symptoms stable / asymptomatic - Continue daily aspirin (7) History of permanent cardiac pacemaker placement Status: Chronic Plan: Telemetry ordered as above, can discontinue if stable > 24 h. (8) Anxiety Status: Chronic Plan: Stable symptoms; appears calm this morning - continue home Xanax PRN - Restoril PRN sleep (9) No contraindication to deep vein thrombosis (DVT) prophylaxis Status: Acute Plan: Lovenox 40 qday SCD's (10) Nutrition, metabolism, and development symptoms Status: Acute Plan: - NS at 90 mls/hr - Hypophosphatemic, will replace - Diet heart healthy, 20 gm fat restrict, BRAT precautions to ease GI symptoms dw Dr. Zacarias (Mitch Bourne MD R1) Problem Qualifiers (1) Hypothyroidism: Qualified Code: E03.9 - Hypothyroidism, unspecified type (2) Hypertension: Qualified Code: I10 - Essential hypertension (3) Coronary artery disease: Qualified Code: I25.10 - Coronary artery disease involving mcgrath coronary artery of mcgrath heart without angina pectoris Mitch Bourne MD R1 Jun 02, 2016 11:30 Laura Zacarias MD Jun 02, 2016 14:28
[2016-06-02] MEDS ORDERED: POTASSIUM PHOSPHATE MONOBASIC 500 MG TAB PO ONE (11:45)
--- NOTE | 2016-06-02 13:39 | HHI.GIFU ---
Subjective Remarks Resting in bed in no distress. Croatian speaking. Tolerating diet. Denies pain. Diarrhea improving. Objective Vitals I&O Vital Signs Date Time Temp Pulse Resp B/P Pulse Ox O2 Delivery O2 Flow Rate FiO2 06/02/16 12:00 97.9 83 16 104/66 94 06/02/16 08:30 Room Air 06/02/16 08:00 70 06/02/16 08:00 98.0 73 16 115/58 97 06/02/16 04:31 77 06/02/16 04:00 98.3 79 16 127/62 95 06/02/16 00:00 98.1 77 20 104/57 96 06/01/16 20:25 Room Air 06/01/16 20:00 97.5 78 16 111/58 98 06/01/16 16:00 98.0 81 18 119/65 96 I/O 06/01/16 06/01/16 06/01/16 06/02/16 06/02/16 06/02/16 07:00 15:00 23:00 07:00 15:00 23:00 Intake Total 960 ml 1121 ml Balance 960 ml 1121 ml Intake Oral 240 ml 1121 ml IV Total 720 ml # Voids 2 1 1 # Bowel Movements 3 1 1 Laboratory Laboratory Tests Test 06/01/16 06/02/16 16:05 05:33 Potassium Level 4.3 4.4 Phosphorus Level 2.5 1.3 White Blood Count 9.1 Red Blood Count 3.13 Hemoglobin 9.8 Hematocrit 28.6 Mean Corpuscular Volume 91.2 Mean Corpuscular Hemoglobin 31.2 Mean Corpuscular Hemoglobin 34.2 Concent Red Cell Distribution Width 14.8 Platelet Count 253 Mean Platelet Volume 9.2 Sodium Level 129 Chloride Level 107 Carbon Dioxide Level 14.5 Anion Gap 8 Blood Urea Nitrogen 11 Creatinine 0.44 Estimat Glomerular Filtration 137 Rate Random Glucose 73 Calcium Level 7.3 Protein Corrected Calcium 8.7 Magnesium Level 2.0 Total Protein 4.6 Date/Time Procedure Status Source Growth 05/30/16 20:45 Urine Culture - Final Complete Urine Clean Catch NO GROWTH IN 48 HOURS. 05/30/16 17:35 Aerobic Blood Culture - Preliminary Resulted Blood Peripheral NO GROWTH IN 3 DAYS 05/30/16 17:35 Anaerobic Blood Culture - Preliminary Resulted Blood Peripheral NO GROWTH IN 3 DAYS Imaging Last Impressions Abdomen X-Ray 05/31/16 0000 Signed Impressions: Service Date/Time: Tuesday, May 31, 2016 10:47 - CONCLUSION: Nonspecific abdomen. K. Ty Rowe MD Chest X-Ray 05/30/16 1708 Signed Impressions: Service Date/Time: Monday, May 30, 2016 18:04 - CONCLUSION: Mild left base parenchymal opacity Ramo Zhang MD Abdomen/Pelvis CT 05/30/16 0000 Signed Impressions: Service Date/Time: Monday, May 30, 2016 17:40 - CONCLUSION: Pericardial effusion Distal colitis. Ramo Zhang MD Physical Exam HEENT: Normocephalic; atraumatic; no jaundice. Throat is clear. NECK: Neck is supple, no JVD, no lymphadenopathy. CHEST: CTA. CARDIAC: RRR. ABDOMEN: Soft, nondistended, nontender; no hepatosplenomegaly; bowel sounds are present in all four quadrants. EXTREMITIES: No clubbing, cyanosis, or edema. SKIN: Normal; no rash; no jaundice. 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 Hospitalized in April of this year and was (+) for C-diff at that time, she was given Flagyl and Vanco. She said she has been on vanco since she left the hospital and her bowels have been soft. Prior to first episode of C- dff, she suffered from chronic constipation. She is bad historian, not sure when the stools became liquid again, but the pain was worse. Abdomen/Pelvis CT (05/30/16)---> Pericardial effusion Distal colitis. She last had an EGD/Colonoscopy (02/28/15) this revealed revealed mild antral gastropathy noted, normal endoscopy otherwise, retroflexed views revealed no abnormalities, the colonic mucosa appeared normal in the terminal ileum and throughout the entire examined colon, multiple biopsies were performed, retroflexed views revealed no abnormalities, revealed no abnormalities of the rectum. Mild chronic gastritis, negative for Helicobacter pylori. On Vanco/Flagyl, Cholestyramine, Lactinex. ID/GS following. According to EMR, 2 Bowel movements today- unable to get the consistency from the patient. - Leukocytosis, secondary to above. Improving, 9.1. Vanco/FLagyl. ID following. - Anemia. Stable, no active bleeding, 9.8/28.6. - HTN, per attending PLAN: - YING - Cont. Flagyl/vanco per ID recommendations - Cholestyramine - Lactinex - ID, GS on the case - Supportive care - Further recommendations to follow based on results of above - Pt seen and examined by Dr. Espinal and myself and this note is written on her behalf Judie Curtis Jun 02, 2016 13:39
--- NOTE | 2016-06-02 15:11 | HHI.IDPN ---
Note Infectious Disease Note Patient had 4 BM this am. Noted to be having pain in the abdomen after she eats. Denies pain currently. Afebrile. Looks comfortable. Presented to the emergency department for evaluation of abdominal pain. PAST MEDICAL HISTORY Hypertension, coronary artery disease, hypothyroidism, diverticulitis, pacemaker placement for cardiac conduction abnormality, back pain, facial nerve spasms, cholecystectomy, partial thyroidectomy, bladder mesh 2003, colon resection 2010 for obstruction. ALLERGIES NO KNOWN DRUG ALLERGIES. MEDICATIONS 1. Metronidazole IV. 2. Vancomycin 125 milligrams p.o. q.i.d. Lactinex. SOCIAL HISTORY The patient lives with her and family. No tobacco or alcohol or illicit drugs. OBJECTIVE: Vital Signs Date Time Temp Pulse Resp B/P Pulse Ox O2 Delivery O2 Flow Rate FiO2 06/02/16 12:00 97.9 83 16 104/66 94 06/02/16 08:30 Room Air 06/02/16 08:00 70 06/02/16 08:00 98.0 73 16 115/58 97 06/02/16 04:31 77 06/02/16 04:00 98.3 79 16 127/62 95 06/02/16 00:00 98.1 77 20 104/57 96 06/01/16 20:25 Room Air 06/01/16 20:00 97.5 78 16 111/58 98 06/01/16 16:00 98.0 81 18 119/65 96 06/01/16 06/01/16 06/02/16 15:00 23:00 07:00 Intake Total 960 ml 1121 ml Balance 960 ml 1121 ml Intake Oral 240 ml 1121 ml IV Total 720 ml # Voids 1 1 # Bowel Movements 1 1 Laboratory Tests Test 06/01/16 06/02/16 06:15 05:33 White Blood Count 12.5 TH/MM3 9.1 TH/MM3 Red Blood Count 3.04 MIL/MM3 3.13 MIL/MM3 Hemoglobin 9.5 GM/DL 9.8 GM/DL Hematocrit 27.4 % 28.6 % Mean Corpuscular Volume 90.1 FL 91.2 FL Mean Corpuscular Hemoglobin 31.2 PG 31.2 PG Mean Corpuscular Hemoglobin 34.6 % 34.2 % Concent Red Cell Distribution Width 14.8 % 14.8 % Platelet Count 193 TH/MM3 253 TH/MM3 Mean Platelet Volume 8.6 FL 9.2 FL Neutrophils (%) (Auto) 81.5 % Lymphocytes (%) (Auto) 7.9 % Monocytes (%) (Auto) 10.0 % Eosinophils (%) (Auto) 0.2 % Basophils (%) (Auto) 0.4 % Neutrophils # (Auto) 10.2 TH/MM3 Lymphocytes # (Auto) 1.0 TH/MM3 Monocytes # (Auto) 1.2 TH/MM3 Eosinophils # (Auto) 0.0 TH/MM3 Basophils # (Auto) 0.0 TH/MM3 CBC Comment AUTO DIFF Differential Total Cells 100 Counted Neutrophils % (Manual) 37 % Band Neutrophils % 47 % Lymphocytes % 9 % Monocytes % 6 % Neutrophils # (Manual) 10.6 TH/MM3 Metamyelocytes 1 % Differential Comment FINAL DIFF MANUAL Platelet Estimate NORMAL Platelet Morphology Comment NORMAL [place] Cells 1+ Acanthocytes OCC Laboratory Tests Test 06/01/16 06/01/16 06/02/16 06:15 16:05 05:33 Sodium Level 132 MEQ/L 129 MEQ/L Potassium Level 4.1 MEQ/L 4.3 MEQ/L 4.4 MEQ/L Chloride Level 104 MEQ/L 107 MEQ/L Carbon Dioxide Level 21.0 MEQ/L 14.5 MEQ/L Anion Gap 7 MEQ/L 8 MEQ/L Blood Urea Nitrogen 12 MG/DL 11 MG/DL Creatinine 0.59 MG/DL 0.44 MG/DL Estimat Glomerular Filtration 97 ML/MIN 137 ML/MIN Rate Random Glucose 105 MG/DL 73 MG/DL Calcium Level 7.8 MG/DL 7.3 MG/DL Phosphorus Level 1.4 MG/DL 2.5 MG/DL 1.3 MG/DL Magnesium Level 2.3 MG/DL 2.0 MG/DL Protein Corrected Calcium 8.7 MG/DL Total Protein 4.6 GM/DL Microbiology Date/Time Procedure Status Source Growth 05/30/16 17:25 Aerobic Blood Culture - Preliminary Resulted Blood Peripheral NO GROWTH IN 3 DAYS 05/30/16 17:25 Anaerobic Blood Culture - Preliminary Resulted Blood Peripheral NO GROWTH IN 3 DAYS 05/30/16 17:35 Aerobic Blood Culture - Preliminary Resulted Blood Peripheral NO GROWTH IN 3 DAYS 05/30/16 17:35 Anaerobic Blood Culture - Preliminary Resulted Blood Peripheral NO GROWTH IN 3 DAYS 05/30/16 20:45 Urine Culture - Final Complete Urine Clean Catch NO GROWTH IN 48 HOURS. PHYSICAL EXAMINATION GENERAL: No acute distress. She is awake and alert. HEENT: No icterus. Oropharynx moist mucosa without lesions. NECK: Supple. No adenopathy. LUNGS: Clear breath sounds. HEART: Regular rate and rhythm. ABDOMEN: Bowel sounds present, soft. No tenderness appreciated. EXTREMITIES: No clubbing or cyanosis or edema. SKIN: No rash. NEURO: Unable to fully assess site. PSYCH: The patient is calm and cooperative. IMPRESSION 1. C-difficile colitis. 2. Sepsis on admission. 3. Leukocytosis secondary to C-difficile and sepsis. 4. Left base infiltrate noted on chest x-ray but the patient is without evidence suggesting pneumonia. RECOMMENDATIONS 1. Continue intravenous Flagyl. 2. Continue oral vancomycin. 3. Monitor response to treatment. 4. Monitor the stool output. Once stool is formed and frequency is decreased the IV Flagyl can be stopped and continue PO vancomycin x 2 weeks more. Joo Mariscal MD Jun 02, 2016 15:11
--- NOTE | 2016-06-02 16:02 | HHI.PR ---
Subjective Subjective Notes Resting in bed Primarily [place] speaking but does report no pain Objective Vitals/I&O Vital Signs Date Time Temp Pulse Resp B/P Pulse Ox O2 Delivery O2 Flow Rate FiO2 06/02/16 12:00 97.9 83 16 104/66 94 06/02/16 08:30 Room Air 05/30/16 20:08 21 Labs Laboratory Tests Test 06/01/16 06/02/16 16:05 05:33 Potassium Level 4.3 4.4 Phosphorus Level 2.5 1.3 White Blood Count 9.1 Red Blood Count 3.13 Hemoglobin 9.8 Hematocrit 28.6 Mean Corpuscular Volume 91.2 Mean Corpuscular Hemoglobin 31.2 Mean Corpuscular Hemoglobin 34.2 Concent Red Cell Distribution Width 14.8 Platelet Count 253 Mean Platelet Volume 9.2 Sodium Level 129 Chloride Level 107 Carbon Dioxide Level 14.5 Anion Gap 8 Blood Urea Nitrogen 11 Creatinine 0.44 Estimat Glomerular Filtration 137 Rate Random Glucose 73 Calcium Level 7.3 Protein Corrected Calcium 8.7 Magnesium Level 2.0 Total Protein 4.6 Date/Time Procedure Status Source Growth 05/30/16 20:45 Urine Culture - Final Complete Urine Clean Catch NO GROWTH IN 48 HOURS. 05/30/16 17:35 Aerobic Blood Culture - Preliminary Resulted Blood Peripheral NO GROWTH IN 3 DAYS 05/30/16 17:35 Anaerobic Blood Culture - Preliminary Resulted Blood Peripheral NO GROWTH IN 3 DAYS Radiology Last Impressions Abdomen X-Ray 05/31/16 0000 Signed Impressions: Service Date/Time: Tuesday, May 31, 2016 10:47 - CONCLUSION: Nonspecific abdomen. KWanda Rowe MD Chest X-Ray 05/30/16 1708 Signed Impressions: Service Date/Time: Monday, May 30, 2016 18:04 - CONCLUSION: Mild left base parenchymal opacity Ramo Zhang MD Abdomen/Pelvis CT 05/30/16 0000 Signed Impressions: Service Date/Time: Monday, May 30, 2016 17:40 - CONCLUSION: Pericardial effusion Distal colitis. Ramo Zhang MD Cardiovascular: Regular Lungs: Clear Abdomen: Non-distended, Other (midly tender in LLQ with palpation ) Extremities: No edema A/P Problem List: (1) Diarrhea (2) Colitis, acute (3) Colitis (4) Colitis (5) C. difficile colitis (6) History of permanent cardiac pacemaker placement Assessment and Plan 81 year old female with recurrent severe colitis -Continue Vanco/Flagyl -Diet as tolerated -Continue to monitor WBC; today 9.1 -OOB and mobilize -Obtain operative reports from daughter -Continue non operative treatment at this time Attending Note - Dr. Livingston States minimal pain Abdomen benign The exam, history, and the medical decision-making described in the above note were completed with the assistance of the mid-level provider. I reviewed and agree with the findings presented. I attest that I had a [id number] encounter with the patient on the same day, and personally performed and documented my assessment and findings in the medical record. Joanne Donnelly Jun 02, 2016 16:02 Jarocho Livingston MD Jun 11, 2016 11:57
[2016-06-02] MEDS: VANCOMYCIN INJ 500 MG in SODIUM CHLORIDE 0.9% IRR BTL 250 ML IRRIGATION SCH ×2 (18:32→23:05)
[2016-06-02] MEDS: ENOXAPARIN SODIUM 40 MG/0.4 ML SYRINGE SQ SCH (20:37)
[2016-06-02] MEDS: ALPRAZolam 0.5 MG TAB PO PRN (20:37)
[2016-06-02] MEDS: TEMAZEPAM 15 MG CAP PO PRN (23:05)
[2016-06-03] VITALS (8 sets, daily range): BP systolic 120–147; BP diastolic 71–84; PULSE 64–88; RESP 18; TEMP 97.5–98.4; O2SAT 94–97
[2016-06-03] MEDS: SODIUM CHLOR 0.9% 1000 ML INJ 1,000 ML IV SCH ×3 (03:46→23:20)
[2016-06-03] MEDS: metroNIDAZOLE 500 MG INJ 100 ML IV SCH ×3 (03:47→18:26)
[2016-06-03] MEDS: VANCOMYCIN INJ 500 MG in SODIUM CHLORIDE 0.9% IRR BTL 250 ML IRRIGATION SCH ×4 (06:03→23:20)
[2016-06-03] MEDS: LEVOTHYROXINE SODIUM 75 MCG TAB PO SCH (06:03)
[2016-06-03 08:24] LABS: HEMATOCRIT 32.9 % (35.0-46.0); MEAN CELL VOLUME 90.1 FL (80.0-100.0); MEAN CORPUSCULAR HEMOGLOBIN 29.9 PG (27.0-34.0); MEAN CORPUSCULAR HGB CONC 33.2 % (32.0-36.0); PLATELET COUNT 273 TH/MM3 (150-450); RED BLOOD COUNT 3.66 MIL/MM3 (4.00-5.30); RED CELL DISTRIBUTION WIDTH 14.9 % (11.6-17.2); REVIEW FLAG FINAL; WHITE BLOOD COUNT 6.9 TH/MM3 (4.0-11.0)
[2016-06-03 08:55] LABS: BICARBONATE 19.5 MEQ/L (21.0-32.0); MAGNESIUM 1.7 MG/DL (1.5-2.5); POTASSIUM 3.2 MEQ/L (3.5-5.1)
[2016-06-03 09:12] LABS: CALCIUM-PROTEIN CORRECTED 8.8 MG/DL (8.5-10.1)
[2016-06-03] MEDS: CALCIUM CARBONATE 500 MG CHEWABLE TAB CHEW SCH ×2 (09:15→19:58)
[2016-06-03] MEDS: VANCOMYCIN 500 MG VIAL (FOR ORAL USE ONLY) PO SCH ×4 (09:16→19:58)
[2016-06-03] MEDS: amLODIPine BESYLATE 5 MG TAB PO SCH (09:16)
[2016-06-03] MEDS: SODIUM CHLORIDE 0.9% FLUSH 10 ML FLUSH IV FLUSH SCH ×2 (09:17→20:06)
[2016-06-03] MEDS: LACTOBACILLUS ACIDOPHILUS TAB PO SCH ×2 (09:17→19:58)
[2016-06-03] MEDS: SERTRALINE HCL 50 MG TAB PO SCH (09:17)
[2016-06-03] MEDS: LISINOPRIL 20 MG TAB PO SCH (09:17)
[2016-06-03] MEDS: ASPIRIN EC 81 MG TABEC PO SCH (09:17)
[2016-06-03] MEDS: LIDOCAINE HCL 5% OINT 37 GM TUBE OTHER SCH ×2 (09:18→20:03)
[2016-06-03] MEDS: PETROLEUM/SHARK LIVER OIL 60 GM TUBE TOPICAL SCH ×2 (09:19→20:03)
[2016-06-03] MEDS ORDERED: POTASSIUM CHLORIDE 20 MEQ CONTROLLED RELEASE TAB PO ONE (10:00)
[2016-06-03] MEDS ORDERED: POTASSIUM PHOSPHATE MONOBASIC 500 MG TAB PO ONE (10:00)
--- NOTE | 2016-06-03 10:49 | HHI.PR ---
Subjective Subjective Notes Resting in bed Able to drink small amount of Ensure and some portions of meals Objective Vitals/I&O Vital Signs Date Time Temp Pulse Resp B/P Pulse Ox O2 Delivery O2 Flow Rate FiO2 06/03/16 10:14 97 21 06/03/16 08:00 97.8 79 18 125/83 06/02/16 20:38 Room Air Labs Laboratory Tests Test 06/03/16 06:40 White Blood Count 6.9 Red Blood Count 3.66 Hemoglobin 10.9 Hematocrit 32.9 Mean Corpuscular Volume 90.1 Mean Corpuscular Hemoglobin 29.9 Mean Corpuscular Hemoglobin 33.2 Concent Red Cell Distribution Width 14.9 Platelet Count 273 Mean Platelet Volume 7.9 Sodium Level 135 Potassium Level 3.2 Chloride Level 105 Carbon Dioxide Level 19.5 Anion Gap 11 Blood Urea Nitrogen 4 Creatinine 0.36 Estimat Glomerular Filtration 172 Rate Random Glucose 89 Calcium Level 7.4 Protein Corrected Calcium 8.8 Phosphorus Level 1.5 Magnesium Level 1.7 Total Protein 4.6 Date/Time Procedure Status Source Growth 05/30/16 20:45 Urine Culture - Final Complete Urine Clean Catch NO GROWTH IN 48 HOURS. 05/30/16 17:35 Aerobic Blood Culture - Preliminary Resulted Blood Peripheral NO GROWTH IN 3 DAYS 05/30/16 17:35 Anaerobic Blood Culture - Preliminary Resulted Blood Peripheral NO GROWTH IN 3 DAYS Radiology Last Impressions Abdomen X-Ray 05/31/16 0000 Signed Impressions: Service Date/Time: Tuesday, May 31, 2016 10:47 - CONCLUSION: Nonspecific abdomen. K. Ty Rowe MD Chest X-Ray 05/30/16 1708 Signed Impressions: Service Date/Time: Monday, May 30, 2016 18:04 - CONCLUSION: Mild left base parenchymal opacity Ramo Zhang MD Abdomen/Pelvis CT 05/30/16 0000 Signed Impressions: Service Date/Time: Monday, May 30, 2016 17:40 - CONCLUSION: Pericardial effusion Distal colitis. Ramo Zhang MD Cardiovascular: Regular Lungs: Clear Abdomen: Non-distended, Other (slight LLQ pain with palpation ---imrpoved from yesterdays exam ) Extremities: No edema A/P Problem List: (1) Diarrhea (2) Colitis, acute (3) Colitis (4) Colitis (5) C. difficile colitis (6) History of permanent cardiac pacemaker placement Assessment and Plan 81 year old female with recurrent severe colitis -Continue Vanco/Flagyl---add SC Vanco enemas -Diet as tolerated + Ensure -Continue to monitor WBC; today 6.9 -OOB and mobilize -Obtain operative reports from daughter -Continue non operative treatment at this time Attending Note - Dr. Livingston Abdomen is benign Stable The exam, history, and the medical decision-making described in the above note were completed with the assistance of the mid-level provider. I reviewed and agree with the findings presented. I attest that I had a [id number] encounter with the patient on the same day, and personally performed and documented my assessment and findings in the medical record. Joanne Donnelly Jun 03, 2016 10:49 Jarocho Livingston MD Jun 11, 2016 11:58
[2016-06-03] MEDS: CHOLESTYRAMINE 4 GM PACKET PO SCH ×2 (11:46→23:21)
--- NOTE | 2016-06-03 14:56 | HHI.FPPN ---
Subjective Remarks Four bowel movements over last day, more solid than before. Abdominal pain improved, only painful when she eats. Nausea after eating, no vomiting. No fevers, no chills. Overall feeling improved. (Jarocho Green MD R2) Objective Vitals Vital Signs Date Time Temp Pulse Resp B/P Pulse Ox O2 Delivery O2 Flow Rate FiO2 06/03/16 12:00 98.0 70 18 120/81 97 06/03/16 10:14 97 21 06/03/16 08:00 97.8 79 18 125/83 97 06/03/16 04:00 97.5 85 18 141/81 96 06/03/16 00:00 98.4 84 18 147/71 94 06/02/16 21:14 21 06/02/16 20:38 Room Air 06/02/16 20:28 78 06/02/16 20:00 98.2 88 18 154/74 93 06/02/16 16:00 98.2 85 16 128/73 96 I/O 06/02/16 06/02/16 06/02/16 06/03/16 06/03/16 06/03/16 07:00 15:00 23:00 07:00 15:00 23:00 Intake Total 1121 ml 766 ml 1440 ml 820 ml Output Total 600 ml Balance 1121 ml 766 ml 1440 ml 220 ml Intake Oral 1121 ml 720 ml 200 ml IV Total 766 ml 720 ml 620 ml Output Urine Total 600 ml # Voids 1 1 # Bowel Movements 1 3 0 1 (Jarocho Green MD R2) Result Diagram: 06/03/16 0640 06/03/16 0640 Objective Remarks GENERAL: in NAD, no resp distress. Sitting up in bed. Skin: Redness in the sacral area without any skin breakdown CV: RRR, S1 S2. No murmur. No friction rub. CHEST/PULM: CTAB, no crackles, no wheezes ABD/GI: Bowel sounds present, mildly tender to palpation, improved from prior EXT: 2+ DP pulses. no calf tenderness. No significant edema NEURO: Awake, alert. Normal muscle tone. Grossly nonfocal (Jarocho Green MD R2 ) A/P Assessment and Plan 81 year old female with PMH of HTN, CAD, cardiac conduction abnormality with pacemaker, hypothyroidism, and diverticulitis presenting with c.diff colitis, severe diarrhea, dehydration, and general weakness. Discharge Planning Pending electrolyte stability, fluid resuscitation, reasonable resolution of diarrheal symptoms, will requite rehab with PT at discharge. (Jarocho Green MD R2) Attending Attestation Patient seen and examined. Case reviewed and discussed with the resident team. Agree with plan of care as discussed with me and documented in the resident note. (Judi Zapata MD) Problem List: (1) C. difficile colitis Status: Acute Plan: Abdominal pain + diarrhea + fever. Stool positive for C diff. Patient previously treated with vancomycin and Fidoxomicin. CT abdomen/pelvis showing distal colitis and pericardial effusion WBC decreasing with antibiotic treatment, now normal. No fevers since admission. - ID consulted, appreciate recommendations - Continue treatment with vancomycin 125 mg PO q6h - Continue metronidazole 500 mg IV Q8H, can stop when stools more formed and less frequent - Surgery consulted, appreciate input - Non-surgical management at this point, avoid NSAIDS (lower risk of GIB) - GI consulted, appreciate input - Continue current management of infection per ID - Continue IV fluids for dehydration, replace electrolytes PRN - Continue home Phenergan PRN for N/V - Lactobacillus probiotic daily - Pain control with Tylenol, [place] 5-325 as needed (2) Generalized weakness Status: Acute Plan: Likely due to dehydration and significant hypophosphatemia. - PT recs: PT at rehab - Replace electrolytes as needed (3) Pericardial effusion Status: Acute Plan: Found incidentally on CT abdomen/pelvis. No evidence of tamponade. Likely inflammatory in nature. Patient not having chest pain/is asymptomatic. Echo showing moderate partially loculated effusion circumferentially around heart, no evidence of hemodynamic compromise - Monitor, follow up outpatient - Repeat Echo if symptoms develop (4) Hypothyroidism Status: Chronic Plan: Stable symptoms; asymptomatic. TSH normal - Continue home Synthroid (5) Hypertension Status: Chronic Plan: BP slightly elevated to 163/86 on admission Now under better control. Continue to monitor. - Substitute home FRANCISCA for lisinopril (on hospital formulary) dosed equivalently - Continue home Norvasc (6) Coronary artery disease Status: Chronic Plan: Symptoms stable / asymptomatic - Continue daily aspirin (7) Anxiety Status: Chronic Plan: Stable symptoms; appears calm this morning - continue home Xanax PRN - Restoril PRN sleep (8) No contraindication to deep vein thrombosis (DVT) prophylaxis Status: Acute Plan: Lovenox 40 qday SCD's (9) Nutrition, metabolism, and development symptoms Status: Acute Plan: - NS at 90 mls/hr - Hypophosphatemic, will replace - Hyponatremic, hypokalemic, replace - Diet heart healthy, 20 gm fat restrict, BRAT precautions to ease GI symptoms dw Dr. Zapata (Jarocho Green MD R2) Problem Qualifiers (1) Hypothyroidism: Qualified Code: E03.9 - Hypothyroidism, unspecified type (2) Hypertension: Qualified Code: I10 - Essential hypertension (3) Coronary artery disease: Qualified Code: I25.10 - Coronary artery disease involving [place] coronary artery of [place] heart without angina pectoris Jarocho Green MD R2 Jun 03, 2016 14:56 Judi Zapata MD Jun 06, 2016 12:51
[2016-06-03] MEDS: ONDANSETRON HCL 4 MG/2 ML VIAL IV PUSH PRN (18:27)
[2016-06-03] MEDS: ENOXAPARIN SODIUM 40 MG/0.4 ML SYRINGE SQ SCH (19:59)
[2016-06-03] MEDS: TEMAZEPAM 15 MG CAP PO PRN (23:31)
[2016-06-04] VITALS (10 sets, daily range): BP systolic 119–165; BP diastolic 65–89; PULSE 78–102; RESP 16–20; TEMP 97.7–98; O2SAT 94–97
[2016-06-04] MEDS: metroNIDAZOLE 500 MG INJ 100 ML IV SCH ×3 (02:41→18:30)
[2016-06-04] MEDS: LEVOTHYROXINE SODIUM 75 MCG TAB PO SCH (06:06)
[2016-06-04] MEDS: VANCOMYCIN INJ 500 MG in SODIUM CHLORIDE 0.9% IRR BTL 250 ML IRRIGATION SCH ×2 (06:07→11:47)
[2016-06-04 07:41] LABS: BICARBONATE 18.3 MEQ/L (21.0-32.0); MAGNESIUM 1.6 MG/DL (1.5-2.5); POTASSIUM 4.3 MEQ/L (3.5-5.1)
[2016-06-04 08:03] LABS: CALCIUM-PROTEIN CORRECTED 8.7 MG/DL (8.5-10.1)
[2016-06-04] MEDS: LIDOCAINE HCL 5% OINT 37 GM TUBE OTHER SCH ×2 (09:00→21:00)
[2016-06-04] MEDS: SODIUM CHLORIDE 0.9% FLUSH 10 ML FLUSH IV FLUSH SCH ×2 (09:00→21:00)
[2016-06-04 09:06] LABS: HEMATOCRIT 34.9 % (35.0-46.0); MEAN CELL VOLUME 89.6 FL (80.0-100.0); MEAN CORPUSCULAR HEMOGLOBIN 30.4 PG (27.0-34.0); MEAN CORPUSCULAR HGB CONC 33.9 % (32.0-36.0); PLATELET COUNT 351 TH/MM3 (150-450); REVIEW FLAG FINAL; WHITE BLOOD COUNT 8.1 TH/MM3 (4.0-11.0)
[2016-06-04] MEDS: amLODIPine BESYLATE 5 MG TAB PO SCH (09:09)
[2016-06-04] MEDS: ASPIRIN EC 81 MG TABEC PO SCH (09:09)
[2016-06-04] MEDS: VANCOMYCIN 500 MG VIAL (FOR ORAL USE ONLY) PO SCH ×4 (09:09→21:47)
[2016-06-04] MEDS: LACTOBACILLUS ACIDOPHILUS TAB PO SCH ×2 (09:09→21:48)
[2016-06-04] MEDS: SERTRALINE HCL 50 MG TAB PO SCH (09:09)
[2016-06-04] MEDS: CALCIUM CARBONATE 500 MG CHEWABLE TAB CHEW SCH ×2 (09:09→21:48)
[2016-06-04] MEDS: LISINOPRIL 20 MG TAB PO SCH (09:09)
[2016-06-04] MEDS: PETROLEUM/SHARK LIVER OIL 60 GM TUBE TOPICAL SCH ×2 (09:10→21:00)
[2016-06-04] MEDS: SODIUM CHLOR 0.9% 1000 ML INJ 1,000 ML IV SCH ×2 (09:11→21:42)
[2016-06-04] MEDS: CHOLESTYRAMINE 4 GM PACKET PO SCH ×2 (13:39→23:46)
--- NOTE | 2016-06-04 13:50 | HHI.FPPN ---
Subjective Remarks No acute events. Had 4 to 5 bowel movements in last 24 hours per patient report. Bowel movements becoming somewhat more formed. Does not have a big appetite but is craving soup and mashed potatoes. Did not eat her breakfast this morning which was part of a BRAT diet. Changed her diet to regular to give her more options. Working with PT for strength conditioning. (Jarocho Green MD R2) Objective Vitals Vital Signs Date Time Temp Pulse Resp B/P Pulse Ox O2 Delivery O2 Flow Rate FiO2 06/04/16 10:24 96 Nasal Cannula 21 06/04/16 09:00 78 06/04/16 08:00 97.8 86 18 143/80 96 06/04/16 05:00 97.9 87 18 165/89 97 06/04/16 02:19 90 06/04/16 01:00 98.0 80 16 148/76 96 06/03/16 21:32 21 06/03/16 21:00 97.9 85 18 146/84 96 06/03/16 20:00 Room Air 06/03/16 16:00 98.0 88 18 141/75 97 I/O 06/03/16 06/03/16 06/03/16 06/04/16 06/04/16 06/04/16 07:00 15:00 23:00 07:00 15:00 23:00 Intake Total 820 ml 360 ml 240 ml Output Total 600 ml Balance 220 ml 360 ml 240 ml Intake Oral 200 ml 360 ml 240 ml IV Total 620 ml Output Urine Total 600 ml # Voids 2 # Bowel Movements 1 1 1 (Jarocho Green MD R2) Result Diagram: 06/04/16 0827 06/04/16 0500 Objective Remarks GENERAL: in NAD. Sitting up in bed. Skin: Redness in the sacral area without any skin breakdown CV: RRR, S1 S2. No murmur. No friction rub. CHEST/PULM: CTAB, no crackles, no wheezes ABD/GI: Bowel sounds present, mildly tender to palpation EXT: 2+ DP pulses. no calf tenderness. No significant edema NEURO: Awake, alert. Normal muscle tone. Grossly nonfocal (Jarocho Green MD R2 ) A/P Assessment and Plan 81 year old female with PMH of HTN, CAD, cardiac conduction abnormality with pacemaker, hypothyroidism, and diverticulitis presenting with c.diff colitis, severe diarrhea, dehydration, and general weakness. Discharge Planning Pending electrolyte stability, fluid resuscitation, reasonable resolution of diarrheal symptoms, will require rehab with PT at discharge. (Jarocho Green MD R2) Attending Attestation Patient seen and examined. Case reviewed and discussed with the resident team. Agree with plan of care as discussed with me and documented in the resident note. (Judi Zapata MD) Problem List: (1) C. difficile colitis Status: Acute Plan: Abdominal pain + diarrhea + fever. Stool positive for C diff. At least second time she has had c.diff colitis. CT abdomen/pelvis showing distal colitis and pericardial effusion WBC returned to normal, currently afebrile - ID consulted, appreciate recommendations - Continue treatment with vancomycin 125 mg PO q6h - Continue metronidazole 500 mg IV Q8H, can stop when stools more formed and less frequent - Received a few treatments of vancomycin per rectum, discontinued today as she is doing better, stools becoming more formed. - Surgery consulted, appreciate input - Non-surgical management at this point, avoid NSAIDS (lower risk of GIB) - GI consulted, appreciate input - Continue current management of infection per ID - Continue IV fluids for dehydration, replace electrolytes PRN - Continue home Phenergan PRN for N/V - Lactobacillus probiotic daily - Pain control with Tylenol, [place] 5-325 as needed (2) Generalized weakness Status: Acute Plan: Likely due to dehydration and significant hypophosphatemia. - PT recs: PT at rehab - Replace electrolytes as needed (3) Pericardial effusion Status: Acute Plan: Found incidentally on CT abdomen/pelvis. No evidence of tamponade. Likely inflammatory in nature. Patient not having chest pain/is asymptomatic. Echo showing moderate partially loculated effusion circumferentially around heart, no evidence of hemodynamic compromise - Monitor, follow up outpatient - Repeat Echo if symptoms develop (4) Hypothyroidism Status: Chronic Plan: Stable symptoms; asymptomatic. TSH normal - Continue home Synthroid (5) Hypertension Status: Chronic Plan: - Substitute home FRANCISCA for lisinopril (on hospital formulary) dosed equivalently - Continue home Norvasc (6) Coronary artery disease Status: Chronic Plan: Symptoms stable / asymptomatic - Continue daily aspirin (7) Anxiety Status: Chronic Plan: Stable symptoms; appears calm this morning - continue home Xanax PRN - Restoril PRN sleep (8) No contraindication to deep vein thrombosis (DVT) prophylaxis Status: Acute Plan: Lovenox 40 qday SCD's (9) Nutrition, metabolism, and development symptoms Status: Acute Plan: - NS at 90 mls/hr - Hypophosphatemic, will replace - Hypomagnesemia, will replace - Hyponatremic, getting saline in fluids - Switched to regular diet dw Dr. Zapata (Jarocho Green MD R2) Problem Qualifiers (1) Hypothyroidism: Qualified Code: E03.9 - Hypothyroidism, unspecified type (2) Hypertension: Qualified Code: I10 - Essential hypertension (3) Coronary artery disease: Qualified Code: I25.10 - Coronary artery disease involving [place] coronary artery of [place] heart without angina pectoris Jarocho Green MD R2 Jun 04, 2016 13:50 Judi Zapata MD Jun 06, 2016 12:51
[2016-06-04] MEDS ORDERED: MAGNESIUM SULFATE 1 GM PREMIX 100 ML IV ONE (14:00)
[2016-06-04] MEDS ORDERED: SODIUM PHOSPHATE INJ 15 MMOL in SODIUM CHLORIDE 0.9% INJ 150 ML IV ONE (15:00)
[2016-06-04] MEDS ORDERED: CHOL4POW4 PO (15:38)
[2016-06-04] MEDS ORDERED: VANC125C3 PO (15:41)
--- NOTE | 2016-06-04 15:42 | HHI.DCPOC ---
Discharge Care Plan Diagnosis: (1) C. difficile colitis (2) History of permanent cardiac pacemaker placement (3) Hypothyroidism (4) Weakness generalized Goals to Promote Your Health * To prevent worsening of your condition and complications * To maintain your health at the optimal level Directions to Meet Your Goals Take your medications as prescribed Follow your dietary instruction Follow activity as directed Keep your appointments as scheduled Take your immunizations and boosters as scheduled If your symptoms worsen call your PCP, if no PCP go to Urgent Care Center or Emergency Room Smoking is Dangerous to Your Health. Avoid second hand smoke Call the 24-hour hour crisis hotline for domestic abuse at Mitch Bourne MD R1 Jun 04, 2016 15:42
[2016-06-04] MEDS: ONDANSETRON HCL 4 MG/2 ML VIAL IV PUSH PRN (17:58)
[2016-06-04] MEDS: ENOXAPARIN SODIUM 40 MG/0.4 ML SYRINGE SQ SCH (21:48)
--- NOTE | 2016-06-04 22:46 | HHI.PR ---
Subjective Subjective Notes States no more abdominal pain; now just "nausea" Objective Vitals/I&O Vital Signs Date Time Temp Pulse Resp B/P Pulse Ox O2 Delivery O2 Flow Rate FiO2 06/04/16 20:00 98.0 92 20 144/71 95 06/04/16 17:41 21 06/04/16 10:24 Nasal Cannula Labs Laboratory Tests Test 06/04/16 06/04/16 05:00 08:27 Sodium Level 135 Potassium Level 4.3 Chloride Level 107 Carbon Dioxide Level 18.3 Anion Gap 10 Blood Urea Nitrogen 1 Creatinine 0.24 Estimat Glomerular Filtration 275 Rate Random Glucose 83 Calcium Level 7.1 Protein Corrected Calcium 8.7 Phosphorus Level 1.7 Magnesium Level 1.6 Total Protein 4.2 White Blood Count 8.1 Red Blood Count 3.90 Hemoglobin 11.8 Hematocrit 34.9 Mean Corpuscular Volume 89.6 Mean Corpuscular Hemoglobin 30.4 Mean Corpuscular Hemoglobin 33.9 Concent Red Cell Distribution Width 15.0 Platelet Count 351 Mean Platelet Volume 7.4 Radiology Last Impressions Abdomen X-Ray 05/31/16 0000 Signed Impressions: Service Date/Time: Tuesday, May 31, 2016 10:47 - CONCLUSION: Nonspecific abdomen. Jose Rowe MD Chest X-Ray 05/30/16 1708 Signed Impressions: Service Date/Time: Monday, May 30, 2016 18:04 - CONCLUSION: Mild left base parenchymal opacity Ramo Zhang MD Abdomen/Pelvis CT 05/30/16 0000 Signed Impressions: Service Date/Time: Monday, May 30, 2016 17:40 - CONCLUSION: Pericardial effusion Distal colitis. Ramo Zhang MD Lungs: Clear Abdomen: Non-distended, Non-tender A/P Problem List: (1) Diarrhea (2) Colitis, acute (3) Colitis (4) Colitis (5) C. difficile colitis (6) History of permanent cardiac pacemaker placement Assessment and Plan Problem List: (1) Diarrhea (2) Colitis, acute (3) Colitis (4) Colitis (5) C. difficile colitis (6) History of permanent cardiac pacemaker placement Assessment and Plan 81 year old female with recurrent severe colitis, improving -Continue Vanco/Flagyl -Diet as tolerated + Ensure -OOB and mobilize -Obtain operative reports from daughter -Continue non operative treatment at this time -Will sign off; no surgery needed. Jarocho Livingston MD Jun 04, 2016 22:46
[2016-06-04] MEDS: TEMAZEPAM 15 MG CAP PO PRN (23:46)
[2016-06-05] VITALS (9 sets, daily range): BP systolic 122–153; BP diastolic 69–88; PULSE 83–100; RESP 16–20; TEMP 98–98.3; O2SAT 94–97
[2016-06-05] MEDS: metroNIDAZOLE 500 MG INJ 100 ML IV SCH ×3 (02:44→17:43)
[2016-06-05] MEDS: LEVOTHYROXINE SODIUM 75 MCG TAB PO SCH (04:58)
[2016-06-05] MEDS: ONDANSETRON HCL 4 MG/2 ML VIAL IV PUSH PRN (07:45)
[2016-06-05 08:02] LABS: HEMATOCRIT 35.7 % (35.0-46.0); MEAN CELL VOLUME 89.2 FL (80.0-100.0); MEAN CORPUSCULAR HEMOGLOBIN 30.2 PG (27.0-34.0); MEAN CORPUSCULAR HGB CONC 33.8 % (32.0-36.0); PLATELET COUNT 392 TH/MM3 (150-450); RED CELL DISTRIBUTION WIDTH 14.8 % (11.6-17.2); REVIEW FLAG FINAL; WHITE BLOOD COUNT 9.9 TH/MM3 (4.0-11.0)
[2016-06-05 08:31] LABS: BICARBONATE 22.7 MEQ/L (21.0-32.0); MAGNESIUM 1.8 MG/DL (1.5-2.5); POTASSIUM 3.1 MEQ/L (3.5-5.1)
[2016-06-05] MEDS: LISINOPRIL 20 MG TAB PO SCH (08:44)
[2016-06-05] MEDS: SERTRALINE HCL 50 MG TAB PO SCH (08:44)
[2016-06-05] MEDS: amLODIPine BESYLATE 5 MG TAB PO SCH (08:44)
[2016-06-05] MEDS: CALCIUM CARBONATE 500 MG CHEWABLE TAB CHEW SCH ×2 (08:44→21:04)
[2016-06-05] MEDS: ASPIRIN EC 81 MG TABEC PO SCH (08:45)
[2016-06-05] MEDS: LACTOBACILLUS ACIDOPHILUS TAB PO SCH ×2 (08:45→21:04)
[2016-06-05] MEDS: VANCOMYCIN 500 MG VIAL (FOR ORAL USE ONLY) PO SCH ×4 (08:46→21:02)
[2016-06-05] MEDS: SODIUM CHLORIDE 0.9% FLUSH 10 ML FLUSH IV FLUSH SCH ×2 (09:00→21:00)
[2016-06-05] MEDS: PETROLEUM/SHARK LIVER OIL 60 GM TUBE TOPICAL SCH ×2 (09:58→21:00)
[2016-06-05] MEDS: LIDOCAINE HCL 5% OINT 37 GM TUBE OTHER SCH ×2 (09:58→21:00)
[2016-06-05] MEDS: CHOLESTYRAMINE 4 GM PACKET PO SCH ×2 (11:50→23:47)
--- NOTE | 2016-06-05 12:57 | HHI.GIFU ---
Subjective Remarks Pt sitting in bed eating lunch. She said she had one BM this morning and it was diarrhea. She says she is nauseous and vomited once this morning. No blood in stool or vomit. Per CORPORATE AUDITOR she did have 1 BM today and 3 last night. ( Nell Subramanian) Objective Vitals I&O Vital Signs Date Time Temp Pulse Resp B/P Pulse Ox O2 Delivery O2 Flow Rate FiO2 06/05/16 12:09 98.3 96 18 151/84 97 06/05/16 08:19 98.0 89 18 147/84 96 06/05/16 08:00 100 06/05/16 08:00 Room Air 06/05/16 06:35 95 06/05/16 04:00 98.0 96 20 153/88 95 06/05/16 00:00 98.1 83 16 122/69 94 06/04/16 21:45 Room Air 06/04/16 20:00 98.0 92 20 144/71 95 06/04/16 17:41 96 21 06/04/16 16:00 97.7 102 18 149/78 97 I/O 06/04/16 06/04/16 06/04/16 06/05/16 06/05/16 06/05/16 07:00 15:00 23:00 07:00 15:00 23:00 Intake Total 600 ml 0 ml 100 ml Balance 600 ml 0 ml 100 ml Intake Oral 600 ml 0 ml 100 ml # Voids 2 0 2 # Bowel Movements 1 2 1 2 Laboratory Laboratory Tests Test 06/05/16 07:18 White Blood Count 9.9 Red Blood Count 4.00 Hemoglobin 12.1 Hematocrit 35.7 Mean Corpuscular Volume 89.2 Mean Corpuscular Hemoglobin 30.2 Mean Corpuscular Hemoglobin 33.8 Concent Red Cell Distribution Width 14.8 Platelet Count 392 Mean Platelet Volume 7.2 Sodium Level 133 Potassium Level 3.1 Chloride Level 102 Carbon Dioxide Level 22.7 Anion Gap 8 Blood Urea Nitrogen 1 Creatinine 0.33 Estimat Glomerular Filtration 190 Rate Random Glucose 111 Calcium Level 7.5 Phosphorus Level 1.9 Magnesium Level 1.8 Imaging Last Impressions Abdomen X-Ray 05/31/16 0000 Signed Impressions: Service Date/Time: Tuesday, May 31, 2016 10:47 - CONCLUSION: Nonspecific abdomen. KWanda Rowe MD Chest X-Ray 05/30/16 1708 Signed Impressions: Service Date/Time: Monday, May 30, 2016 18:04 - CONCLUSION: Mild left base parenchymal opacity Ramo Zhang MD Abdomen/Pelvis CT 05/30/16 0000 Signed Impressions: Service Date/Time: Monday, May 30, 2016 17:40 - CONCLUSION: Pericardial effusion Distal colitis. Ramo Zhang MD Physical Exam HEENT: Normocephalic; atraumatic; no jaundice. NECK: Neck is supple, no JVD, no lymphadenopathy. CHEST: CTA. CARDIAC: RRR. ABDOMEN: Soft, nondistended, nontender; no hepatosplenomegaly; bowel sounds are present in all four quadrants. EXTREMITIES: No clubbing, cyanosis, or edema. SKIN: Normal; no rash; no jaundice. FURNACE INSTALLER: No focal deficits; alert and oriented times three. 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 Hospitalized in April of this year and was (+) for C-diff at that time, she was given Flagyl and Vanco. She said she has been on vanco since she left the hospital and her bowels have been soft. Prior to first episode of C- dff, she suffered from chronic constipation. She is bad historian, not sure when the stools became liquid again, but the pain was worse. Abdomen/Pelvis CT (05/30/16)---> Pericardial effusion Distal colitis. She last had an EGD/Colonoscopy (02/28/15) this revealed revealed mild antral gastropathy noted, normal endoscopy otherwise, retroflexed views revealed no abnormalities, the colonic mucosa appeared normal in the terminal ileum and throughout the entire examined colon, multiple biopsies were performed, retroflexed views revealed no abnormalities, revealed no abnormalities of the rectum. Mild chronic gastritis, negative for Helicobacter pylori. On Vanco/Flagyl, Cholestyramine, Lactinex. ID/GS following. According to EMR, 2 Bowel movements today- unable to get the consistency from the patient. - Leukocytosis, secondary to above. Improving, 9.9. Vanco/FLagyl. ID following. - Anemia. improving. no active bleeding, 12.1/35.7. - HTN, per attending PLAN: - YING - Cont. Flagyl/vanco per ID recommendations - Cholestyramine - Lactinex - ID, GS on the case - Supportive care - Further recommendations to follow based on results of above - Pt seen and examined by Dr. Espinal and myself and this note is written on her behalf (Nell Subramanian) Physician Comments seen, examined agree with above nausea-we will try Reglan 5 mg iv q 8 hrs abdominal x-ray in am if not better (Tram Espinal MD) Nell Subramanian Jun 05, 2016 12:57 Tram Espinal MD Jun 05, 2016 17:32
[2016-06-05] MEDS: ONDANSETRON HCL 4 MG/2 ML VIAL IV PUSH SCH ×2 (13:05→21:03)
[2016-06-05] MEDS ORDERED: ONDANSETRON HCL 4 MG/2 ML VIAL IV PUSH SCH (14:00)
--- NOTE | 2016-06-05 14:36 | HHI.FPPN ---
Subjective Remarks No acute events. Patient had two episodes of vomiting overnight, and currently feels nauseous. She reports stools are much more formed and less frequent. Abdominal pain is virtually gone. No chest pain or shortness of breath. Overall she feels better. She wants to get out of bed and into a chair and work with PT more to gain her strength. (Jarocho Green MD R2) Objective Vitals Vital Signs Date Time Temp Pulse Resp B/P Pulse Ox O2 Delivery O2 Flow Rate FiO2 06/05/16 12:09 98.3 96 18 151/84 97 06/05/16 08:19 98.0 89 18 147/84 96 06/05/16 08:00 100 06/05/16 08:00 Room Air 06/05/16 06:35 95 06/05/16 04:00 98.0 96 20 153/88 95 06/05/16 00:00 98.1 83 16 122/69 94 06/04/16 21:45 Room Air 06/04/16 20:00 98.0 92 20 144/71 95 06/04/16 17:41 96 21 06/04/16 16:00 97.7 102 18 149/78 97 I/O 06/04/16 06/04/16 06/04/16 06/05/16 06/05/16 06/05/16 07:00 15:00 23:00 07:00 15:00 23:00 Intake Total 600 ml 0 ml 100 ml Balance 600 ml 0 ml 100 ml Intake Oral 600 ml 0 ml 100 ml # Voids 2 0 2 # Bowel Movements 1 2 1 2 (Jarocho Green MD R2) Result Diagram: 06/05/1618 06/05/1618 Objective Remarks GENERAL: in NAD. Sitting up in bed. Skin: Redness in the sacral area without any skin breakdown CV: RRR, S1 S2. No murmur. No friction rub. CHEST/PULM: CTAB, no crackles, no wheezes ABD/GI: Bowel sounds present, nontender to palpation EXT: 2+ DP pulses. no calf tenderness. No significant edema NEURO: Awake, alert. Normal muscle tone. Grossly nonfocal (Jarocho Green MD R2 ) A/P Assessment and Plan 81 year old female with PMH of HTN, CAD, cardiac conduction abnormality with pacemaker, hypothyroidism, and diverticulitis presenting with c.diff colitis, severe diarrhea, dehydration, and general weakness. Discharge Planning Pending electrolyte stability, fluid resuscitation, reasonable resolution of diarrheal symptoms, will require rehab with PT at discharge. (Jarocho Green MD R2) Attending Attestation Patient seen and examined. Case reviewed and discussed with the resident team. Agree with plan of care as discussed with me and documented in the resident note. (Judi Zapata MD) Problem List: (1) C. difficile colitis Status: Acute Plan: Abdominal pain + diarrhea + fever. Stool positive for C diff. At least second time she has had c.diff colitis. CT abdomen/pelvis showing distal colitis and pericardial effusion WBC returned to normal, currently afebrile - ID consulted, appreciate recommendations - Continue treatment with vancomycin 125 mg PO q6h - Continue metronidazole 500 mg IV Q8H - Received a few treatments of vancomycin per rectum, discontinued as she is doing better, stools becoming more formed. - Will benefit from a tapering vancomycin dose. - Surgery consulted, appreciate input - Non-surgical management at this point, avoid NSAIDS (lower risk of GIB) - GI consulted, appreciate input - Continue current management of infection per ID - Continue IV fluids for dehydration, replace electrolytes PRN - Lactobacillus probiotic daily - Pain control with Tylenol, [place] 5-325 as needed (2) Generalized weakness Status: Acute Plan: Likely due to dehydration and significant hypophosphatemia. - PT recs: PT at rehab - OOB and into chair today - Replace electrolytes as needed (3) Pericardial effusion Status: Acute Plan: Found incidentally on CT abdomen/pelvis. No evidence of tamponade. Likely inflammatory in nature. Patient not having chest pain/is asymptomatic. Echo showing moderate partially loculated effusion circumferentially around heart, no evidence of hemodynamic compromise - Monitor, follow up outpatient - Repeat Echo if symptoms develop (4) Hypothyroidism Status: Chronic Plan: Stable symptoms; asymptomatic. TSH normal - Continue home Synthroid (5) Hypertension Status: Chronic Plan: - Substitute home FRANCISCA for lisinopril (on hospital formulary) dosed equivalently - Continue home Norvasc (6) Coronary artery disease Status: Chronic Plan: Symptoms stable / asymptomatic - Continue daily aspirin (7) Anxiety Status: Chronic Plan: Stable symptoms; appears calm this morning - continue home Xanax PRN - Restoril PRN sleep (8) No contraindication to deep vein thrombosis (DVT) prophylaxis Status: Acute Plan: Lovenox 40 qday SCD's (9) Nutrition, metabolism, and development symptoms Status: Acute Plan: - NS at 90 mls/hr - Hypophosphatemic, will replace - Hyponatremic, getting saline in fluids - Switched to regular diet dw Dr. Zapata (Jarocho Green MD R2) Problem Qualifiers (1) Hypothyroidism: Qualified Code: E03.9 - Hypothyroidism, unspecified type (2) Hypertension: Qualified Code: I10 - Essential hypertension (3) Coronary artery disease: Qualified Code: I25.10 - Coronary artery disease involving [place] coronary artery of [place] heart without angina pectoris Jarocho Green MD R2 Jun 05, 2016 14:36 Judi Zapata MD Jun 06, 2016 12:52
[2016-06-05] MEDS ORDERED: POTASSIUM PHOSPHATE INJ 15 MMOL in SODIUM CHLORIDE 0.9% INJ 150 ML IV ONE (14:45)
[2016-06-05] MEDS ORDERED: POTASSIUM CHLORIDE 10 MEQ CAP PO ONE (15:15)
[2016-06-05] MEDS ORDERED: SODIUM PHOSPHATE INJ 15 MMOL in SODIUM CHLORIDE 0.9% INJ 150 ML IV ONE (16:00)
[2016-06-05] MEDS: TEMAZEPAM 15 MG CAP PO PRN (21:03)
[2016-06-05] MEDS: ENOXAPARIN SODIUM 40 MG/0.4 ML SYRINGE SQ SCH (21:03)
[2016-06-05] MEDS: METOCLOPRAMIDE HCL 10 MG/2 ML VIAL IM SCH (21:03)
[2016-06-06] VITALS (8 sets, daily range): BP systolic 116–143; BP diastolic 69–83; PULSE 81–102; RESP 16; TEMP 97.9–98.2; O2SAT 93–98
[2016-06-06] MEDS: metroNIDAZOLE 500 MG INJ 100 ML IV SCH ×3 (02:49→18:30)
[2016-06-06] MEDS: METOCLOPRAMIDE HCL 10 MG/2 ML VIAL IM SCH (05:36)
[2016-06-06] MEDS: ONDANSETRON HCL 4 MG/2 ML VIAL IV PUSH SCH ×3 (05:36→22:55)
[2016-06-06] MEDS: LEVOTHYROXINE SODIUM 75 MCG TAB PO SCH (05:36)
[2016-06-06] MEDS ORDERED: POTASSIUM PHOSPHATE MONOBASIC 500 MG TAB PO ONE (07:00)
[2016-06-06] MEDS ORDERED: POTASSIUM CHLORIDE 20 MEQ CONTROLLED RELEASE TAB PO ONE (07:00)
[2016-06-06 07:20] LABS: HEMATOCRIT 31.6 % (35.0-46.0); MEAN CELL VOLUME 88.7 FL (80.0-100.0); MEAN CORPUSCULAR HEMOGLOBIN 29.6 PG (27.0-34.0); MEAN CORPUSCULAR HGB CONC 33.4 % (32.0-36.0); PLATELET COUNT 405 TH/MM3 (150-450); RED BLOOD COUNT 3.56 MIL/MM3 (4.00-5.30); RED CELL DISTRIBUTION WIDTH 14.9 % (11.6-17.2); REVIEW FLAG FINAL; WHITE BLOOD COUNT 7.4 TH/MM3 (4.0-11.0)
[2016-06-06 07:48] LABS: ALT (GPT) 14 U/L (10-53); ANION GAP 6 MEQ/L (5-15); AST (GOT) 16 U/L (15-37); BICARBONATE 24.9 MEQ/L (21.0-32.0); BLOOD UREA NITROGEN 2 MG/DL (7-18); CHLORIDE 104 MEQ/L (98-107); GLOMERULAR FILTRATION RATE 178 ML/MIN (>89); MAGNESIUM 1.7 MG/DL (1.5-2.5); POTASSIUM 3.4 MEQ/L (3.5-5.1); SODIUM (NA) 135 MEQ/L (136-145)
[2016-06-06 07:50] LABS: ALKALINE PHOSPHATASE 53 U/L (45-117); TOTAL BILIRUBIN ADULT 0.3 MG/DL (0.2-1.0)
[2016-06-06] MEDS: SERTRALINE HCL 50 MG TAB PO SCH (08:00)
[2016-06-06] MEDS: LACTOBACILLUS ACIDOPHILUS TAB PO SCH ×2 (08:01→22:56)
[2016-06-06] MEDS: amLODIPine BESYLATE 5 MG TAB PO SCH (08:01)
[2016-06-06] MEDS: ASPIRIN EC 81 MG TABEC PO SCH (08:01)
[2016-06-06] MEDS: CALCIUM CARBONATE 500 MG CHEWABLE TAB CHEW SCH ×2 (08:02→22:54)
[2016-06-06] MEDS: LISINOPRIL 20 MG TAB PO SCH (08:02)
[2016-06-06] MEDS: SODIUM CHLORIDE 0.9% FLUSH 10 ML FLUSH IV FLUSH SCH ×2 (08:02→22:54)
[2016-06-06] MEDS: VANCOMYCIN 500 MG VIAL (FOR ORAL USE ONLY) PO SCH ×4 (08:02→22:53)
[2016-06-06] MEDS: PETROLEUM/SHARK LIVER OIL 60 GM TUBE TOPICAL SCH ×2 (08:18→22:55)
[2016-06-06] MEDS: LIDOCAINE HCL 5% OINT 37 GM TUBE OTHER SCH ×2 (09:00→21:00)
--- NOTE | 2016-06-06 12:02 | HHI.FPPN ---
Subjective Remarks Ms Thomas is still nauseated to the point where she cannot eat or drink. Her diarrhea is nearly gone and she has formed stools but she still needs iv fluids and is now on zofran and reglan. She denies abdominal pain and stated she was up with PT and walked around her room but was very weak overall. She will be scheduled for rehab once she can tolerate po. She reports being depressed about her long and continued illness. Objective Vitals Vital Signs Date Time Temp Pulse Resp B/P Pulse Ox O2 Delivery O2 Flow Rate FiO2 06/06/16 08:39 95 06/06/16 04:00 98.2 84 16 136/70 93 06/06/16 01:44 81 06/06/16 00:00 98.0 92 16 143/69 95 06/05/16 21:43 97 21 06/05/16 21:15 Room Air 06/05/16 20:00 98.3 96 18 143/69 97 06/05/16 16:02 98.0 97 18 133/85 97 06/05/16 12:09 98.3 96 18 151/84 97 I/O 06/05/16 06/05/16 06/05/16 06/06/16 06/06/16 06/06/16 07:00 15:00 23:00 07:00 15:00 23:00 Intake Total 100 ml 720 ml 120 ml 120 ml Balance 100 ml 720 ml 120 ml 120 ml Intake Oral 100 ml 720 ml 120 ml 120 ml # Voids 2 2 3 3 # Bowel Movements 2 3 3 3 Result Diagram: 06/06/16 0650 06/06/16 0650 Objective Remarks GENERAL: in NAD. Sitting up in bed. Skin: Redness in the sacral area without any skin breakdown seen yesterday CV: RRR, S1 S2. No murmur. No friction rub. CHEST/PULM: CTAB, no crackles, no wheezes ABD/GI: Bowel sounds present, nontender to palpation EXT: 2+ DP pulses. no calf tenderness. No significant edema NEURO: Awake, alert. Normal muscle tone. Grossly nonfocal Vascular Central Line Catheter: No A/P Assessment and Plan 81 year old female with PMH of HTN, CAD, cardiac conduction abnormality with pacemaker, hypothyroidism, and diverticulitis presenting with c.diff colitis, severe diarrhea, dehydration, and general weakness. Discharge Planning Pending electrolyte stability, fluid resuscitation, reasonable resolution of diarrheal symptoms, will require rehab with PT at discharge. She is still here now because of the nausea and inability to take po. Problem List: (1) C. difficile colitis Status: Acute Plan: Abdominal pain + diarrhea + fever. Stool positive for C diff. At least second time she has had c.diff colitis. CT abdomen/pelvis showing distal colitis and pericardial effusion WBC returned to normal, currently afebrile - ID consulted, appreciate recommendations - Continue treatment with vancomycin 125 mg PO q6h - Continue metronidazole 500 mg IV Q8H - Received a few treatments of vancomycin per rectum, discontinued as she is doing better, stools becoming more formed. - Will benefit from a tapering vancomycin dose. - Surgery consulted, appreciate input - Non-surgical management at this point, avoid NSAIDS (lower risk of GIB) - GI consulted, appreciate input - Continue current management of infection per ID - Continue IV fluids for dehydration, replace electrolytes PRN - Lactobacillus probiotic daily - Pain control with Tylenol, [place] 5-325 as needed (2) Generalized weakness Status: Acute Plan: Likely due to dehydration and significant hypophosphatemia as well as her lying in bed too long- will have her up to chair and walk with PT - PT recs: PT at rehab - OOB and into chair today - Replace electrolytes as needed (3) Pericardial effusion Status: Acute Plan: Found incidentally on CT abdomen/pelvis. No evidence of tamponade. Likely inflammatory in nature. Patient not having chest pain/is asymptomatic. Echo showing moderate partially loculated effusion circumferentially around heart, no evidence of hemodynamic compromise - Monitor, follow up outpatient - Repeat Echo if symptoms develop (4) Hypothyroidism Status: Chronic Plan: Stable symptoms; asymptomatic. TSH normal - Continue home Synthroid (5) Hypertension Status: Chronic Plan: - Substitute home FRANCISCA for lisinopril (on hospital formulary) dosed equivalently - Continue home Norvasc (6) Coronary artery disease Status: Chronic Plan: Symptoms stable / asymptomatic - Continue daily aspirin (7) Anxiety Status: Chronic Plan: Stable symptoms; appears calm this morning. she is depressed because of long and continuing illness can consider starting other meds - continue home Xanax PRN - Restoril PRN sleep (8) No contraindication to deep vein thrombosis (DVT) prophylaxis Status: Acute Plan: Lovenox 40 qday SCD's (9) Nutrition, metabolism, and development symptoms Status: Acute Plan: - NS at 90 mls/hr - Hypophosphatemic, will replace - Hyponatremic, getting saline in fluids - Switched to regular diet Problem Qualifiers (1) Hypothyroidism: Qualified Code: E03.9 - Hypothyroidism, unspecified type (2) Hypertension: Qualified Code: I10 - Essential hypertension (3) Coronary artery disease: Qualified Code: I25.10 - Coronary artery disease involving [place] coronary artery of [place] heart without angina pectoris Judi Zapata MD Jun 06, 2016 12:02
[2016-06-06] MEDS ORDERED: REGL5TAB PO (12:25)
[2016-06-06] MEDS: METOCLOPRAMIDE HCL 10 MG/2 ML VIAL IV SCH ×2 (13:24→22:55)
--- NOTE | 2016-06-06 15:37 | HHI.GIFU ---
Subjective Remarks Resting in bed. Still with nausea- has emesis bag at bedside, empty. Taking some shakes. Mild abdominal tenderness. + BM. (Judie Curtis) Objective Vitals I&O Vital Signs Date Time Temp Pulse Resp B/P Pulse Ox O2 Delivery O2 Flow Rate FiO2 06/06/16 12:00 Room Air 06/06/16 12:00 97.9 88 16 116/70 96 06/06/16 08:39 95 06/06/16 08:00 Room Air 06/06/16 04:00 98.2 84 16 136/70 93 06/06/16 01:44 81 06/06/16 00:00 98.0 92 16 143/69 95 06/05/16 21:43 97 21 06/05/16 21:15 Room Air 06/05/16 20:00 98.3 96 18 143/69 97 06/05/16 16:02 98.0 97 18 133/85 97 I/O 06/05/16 06/05/16 06/05/16 06/06/16 06/06/16 06/06/16 07:00 15:00 23:00 07:00 15:00 23:00 Intake Total 100 ml 720 ml 120 ml 120 ml Balance 100 ml 720 ml 120 ml 120 ml Intake Oral 100 ml 720 ml 120 ml 120 ml # Voids 2 2 3 3 # Bowel Movements 2 3 3 3 Laboratory Laboratory Tests Test 06/06/16 06:50 White Blood Count 7.4 Red Blood Count 3.56 Hemoglobin 10.5 Hematocrit 31.6 Mean Corpuscular Volume 88.7 Mean Corpuscular Hemoglobin 29.6 Mean Corpuscular Hemoglobin 33.4 Concent Red Cell Distribution Width 14.9 Platelet Count 405 Mean Platelet Volume 6.6 Sodium Level 135 Potassium Level 3.4 Chloride Level 104 Carbon Dioxide Level 24.9 Anion Gap 6 Blood Urea Nitrogen 2 Creatinine 0.35 Estimat Glomerular Filtration 178 Rate Random Glucose 99 Calcium Level 7.7 Phosphorus Level 1.9 Magnesium Level 1.7 Total Bilirubin 0.3 Aspartate Amino Transf 16 (AST/SGOT) Alanine Aminotransferase 14 (ALT/SGPT) Alkaline Phosphatase 53 Total Protein 4.4 Albumin 2.0 Imaging Last Impressions Abdomen X-Ray 05/31/16 0000 Signed Impressions: Service Date/Time: Tuesday, May 31, 2016 10:47 - CONCLUSION: Nonspecific abdomen. K. Ty Rowe MD Chest X-Ray 05/30/16 1708 Signed Impressions: Service Date/Time: Monday, May 30, 2016 18:04 - CONCLUSION: Mild left base parenchymal opacity Ramo Zhang MD Abdomen/Pelvis CT 05/30/16 0000 Signed Impressions: Service Date/Time: Monday, May 30, 2016 17:40 - CONCLUSION: Pericardial effusion Distal colitis. Ramo Zhang MD Physical Exam HEENT: Normocephalic; atraumatic CHEST: CTA. CARDIAC: RRR. ABDOMEN: Soft, nondistended, mild tenderness; no hepatosplenomegaly; bowel sounds are present in all four quadrants. EXTREMITIES: No clubbing, cyanosis, or edema. SKIN: Normal; no rash; no jaundice. TEXTILE BAG SEWER: No focal deficits; alert and oriented times three. 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 Hospitalized in April of this year and was (+) for C-diff at that time, she was given Flagyl and Vanco. She said she has been on vanco since she left the hospital and her bowels have been soft. Prior to first episode of C-dff, she suffered from chronic constipation. She is bad historian, not sure when the stools became liquid again, but the pain was worse. Abdomen/Pelvis CT (05/30/16)---> Pericardial effusion Distal colitis. She last had an EGD/Colonoscopy (02/28/15) this revealed revealed mild antral gastropathy noted, normal endoscopy otherwise, retroflexed views revealed no abnormalities, the colonic mucosa appeared normal in the terminal ileum and throughout the entire examined colon, multiple biopsies were performed, retroflexed views revealed no abnormalities, revealed no abnormalities of the rectum. Mild chronic gastritis, negative for Helicobacter pylori. On Oral Vanco/, Cholestyramine, Lactinex. ID/GS following. 3 BMs per shift. - Nausea. No improvement with Reglan. Will d/c cholestyramine in case this is contributing. Change pepcid to protonix. - Leukocytosis, secondary to above. Improving, 7.4. Oral vanco. ID following. - Anemia. improving. no active bleeding, 10.5/31.6 - HTN, per attending PLAN: - YING - Cont. Reglan - Change pepcid to protonix - Cont. oral vanco per ID recommendations - D/C Cholestyramine - Lactinex - Send stool for rpt. CDiff - ID on the case - S/P GS evaluation, now signed off - Supportive care - Further recommendations to follow based on results of above - Pt seen and examined by Dr. Espinal and myself and this note is written on her behalf (Judie Curtis) Physician Comments seen, examined agree with above (Tram Espinal MD) Judie Curtis Jun 06, 2016 15:37 Tram Espinal MD Jun 06, 2016 16:58
[2016-06-06] MEDS: PANTOPRAZOLE SODIUM 40 MG VIAL IV PUSH SCH (16:00)
[2016-06-06] MEDS ORDERED: ALPRAZolam 0.5 MG TAB PO PRN (17:00)
[2016-06-06] MEDS: TEMAZEPAM 15 MG CAP PO PRN (22:53)
[2016-06-06] MEDS: ENOXAPARIN SODIUM 40 MG/0.4 ML SYRINGE SQ SCH (22:53)
[2016-06-07] VITALS: BP 105/58; PULSE 83; RESP 16; TEMP 97.9; O2SAT 96
[2016-06-07] MEDS: metroNIDAZOLE 500 MG INJ 100 ML IV SCH ×2 (03:12→12:05)
[2016-06-07] MEDS: PANTOPRAZOLE SODIUM 40 MG VIAL IV PUSH SCH (03:13)
[2016-06-07 04:00] VITALS: BP 139/77; PULSE 16; RESP 16; TEMP 98.2; O2SAT 95
[2016-06-07] MEDS: LEVOTHYROXINE SODIUM 75 MCG TAB PO SCH (05:32)
[2016-06-07] MEDS: ONDANSETRON HCL 4 MG/2 ML VIAL IV PUSH SCH ×2 (05:32→13:54)
[2016-06-07] MEDS: METOCLOPRAMIDE HCL 10 MG/2 ML VIAL IV SCH ×2 (05:32→13:55)
[2016-06-07 07:27] LABS: HEMATOCRIT 34.2 % (35.0-46.0); REVIEW FLAG FINAL
[2016-06-07 08:00] VITALS: BP 135/81; PULSE 98; RESP 20; TEMP 98.1; O2SAT 96
[2016-06-07 08:05] LABS: C. DIFF EPI 027 PRESUMPTIVE NEGATIVE (NEGATIVE); C. DIFF TOXIN PCR NEGATIVE (NEGATIVE)
[2016-06-07 08:10] LABS: BICARBONATE 23.9 MEQ/L (21.0-32.0); MAGNESIUM 1.7 MG/DL (1.5-2.5); POTASSIUM 3.6 MEQ/L (3.5-5.1)
[2016-06-07] MEDS: LIDOCAINE HCL 5% OINT 37 GM TUBE OTHER SCH (09:00)
[2016-06-07] MEDS: PETROLEUM/SHARK LIVER OIL 60 GM TUBE TOPICAL SCH (09:00)
[2016-06-07] MEDS ORDERED: ONDA4TAB7 SL (09:14)
--- NOTE | 2016-06-07 09:27 | HHI.FPPN ---
Subjective Remarks Yesterday PM had difficulty voiding urine with bladder scan showing 1600 mL, but before straight cath was placed she had large urine output. Has not peed yet today but feels the urge to do so. 11 recorded BM last 24 h, per patient she 's had only 3. Patient and RN all note BMs more formed and solid. Her appetite and nausea have improved today and she has started eating small amounts of solid foods without issue but still not completely resolved. No vomiting. No abdominal pain, no fevers. No CP/SOB. Still feels globally weak. (Mitch Bourne MD R1) Objective Vitals Vital Signs Date Time Temp Pulse Resp B/P Pulse Ox O2 Delivery O2 Flow Rate FiO2 06/07/16 04:00 98.2 16 16 139/77 95 06/07/16 00:43 Room Air 06/07/16 00:00 97.9 83 16 105/58 96 06/06/16 20:00 97.9 91 16 136/69 94 06/06/16 16:00 97.9 102 16 139/83 98 06/06/16 12:00 Room Air 06/06/16 12:00 97.9 88 16 116/70 96 I/O 06/06/16 06/06/16 06/06/16 06/07/16 06/07/16 06/07/16 07:00 15:00 23:00 07:00 15:00 23:00 Intake Total 120 ml 240 ml 0 ml 0 ml Output Total 300 ml Balance 120 ml 240 ml 0 ml -300 ml Intake Oral 120 ml 240 ml 0 ml 0 ml Output Urine Total 300 ml # Voids 3 6 1 # Bowel Movements 3 8 2 1 (Mitch Bourne MD R1) Result Diagram: 06/07/16 0649 06/07/16 0649 Imaging Last Impressions Abdomen X-Ray 05/31/16 0000 Signed Impressions: Service Date/Time: Tuesday, May 31, 2016 10:47 - CONCLUSION: Nonspecific abdomen. KWanda Rowe MD Chest X-Ray 05/30/16 1708 Signed Impressions: Service Date/Time: Monday, May 30, 2016 18:04 - CONCLUSION: Mild left base parenchymal opacity Ramo Zhang MD Abdomen/Pelvis CT 05/30/16 0000 Signed Impressions: Service Date/Time: Monday, May 30, 2016 17:40 - CONCLUSION: Pericardial effusion Distal colitis. Ramo hZang MD Objective Remarks GENERAL: in NAD. Sitting up in bed. Skin: Redness in the sacral area without any skin breakdown CV: NRRR, S1 S2. No murmur. No friction rub. CHEST/PULM: CTAB, no crackles, no wheezes ABD/GI: Bowel sounds present, nontender to palpation EXT: 2+ DP pulses. no calf tenderness. No significant edema NEURO: Awake, alert. Normal muscle tone. Grossly nonfocal (Mitch Bourne MD R1) A/P Assessment and Plan 81 year old female with PMH of HTN, CAD, cardiac conduction abnormality with pacemaker, hypothyroidism, and diverticulitis presenting with c.diff colitis, severe diarrhea, dehydration, and general weakness. Discharge Planning Pending electrolyte stability, fluid resuscitation, reasonable resolution of diarrheal symptoms, will require rehab with PT at discharge. She is still here now because of the nausea and inability to take po. (Mitch Bourne MD R1) Attending Attestation Patient seen and examined. Case reviewed and discussed with the resident team. Agree with plan of care as discussed with me and documented in the resident note. per her daughter who was present in the room, Ms Thomas had surgery on her bladder many years ago. This was done in [facility] so no records are available. No obvious bladder prolapse seen at [facility]. Advised her daughter that Ms Thomas should see a Urologist or Urogyn Dr as she has a complex history and now has urinary retention which may be anatomical in part with her past history ( Judi Zapata MD) Problem List: (1) C. difficile colitis Status: Acute Plan: Abdominal pain + diarrhea + fever. Stool positive for C diff. At least second time she has had c.diff colitis. CT abdomen/pelvis showing distal colitis and pericardial effusion WBC returned to normal, currently afebrile - ID consulted, appreciate recommendations - Continue treatment with vancomycin 125 mg PO q6h - Metronidazole to be discontinued once stools more formed (i.e., today) - Received a few treatments of vancomycin per rectum, discontinued as she is doing better, stools becoming more formed. - Vancomycin PO dosed as above x 2 weeks on discharge - Surgery consulted, appreciate input - Non-surgical management at this point, avoid NSAIDS (lower risk of GIB) - GI consulted, appreciate input - Continue current management of infection per ID - Repeat stool for C diff negative 06/06 - Discontinued cholestyramine, which may have been contributing to her nausea - Lactobacillus probiotic daily - Pain control with Tylenol, [place] 5-325 as needed (2) Generalized weakness Status: Acute Plan: Likely due to dehydration and significant hypophosphatemia as well as her lying in bed too long- will have her up to chair and walk with PT - PT recs: PT at rehab - OOB and into chair today - Replace electrolytes as needed (3) Pericardial effusion Status: Acute Plan: Found incidentally on CT abdomen/pelvis. No evidence of tamponade. Likely inflammatory in nature. Patient not having chest pain/is asymptomatic. Echo showing moderate partially loculated effusion circumferentially around heart, no evidence of hemodynamic compromise - Monitor, follow up outpatient (4) Hypothyroidism Status: Chronic Plan: Stable symptoms; asymptomatic. TSH normal - Continue home Synthroid (5) Hypertension Status: Chronic Plan: - Substitute home FRANCISCA for lisinopril (on hospital formulary) dosed equivalently - Continue home Norvasc (6) Coronary artery disease Status: Chronic Plan: Symptoms stable / asymptomatic - Continue daily aspirin (7) Anxiety Status: Chronic Plan: Stable symptoms; appears calm this morning. she is depressed because of long and continuing illness can consider starting other meds - continue home Xanax PRN - Restoril PRN sleep (8) No contraindication to deep vein thrombosis (DVT) prophylaxis Status: Acute Plan: Lovenox 40 qday SCD's (9) Nutrition, metabolism, and development symptoms Status: Acute Plan: - Oral hydration - Mild hypophosphatemia - Mild hyponatremia, stable off IVF - Regular diet (Mitch Bourne MD R1) Problem Qualifiers (1) Hypothyroidism: Qualified Code: E03.9 - Hypothyroidism, unspecified type (2) Hypertension: Qualified Code: I10 - Essential hypertension (3) Coronary artery disease: Qualified Code: I25.10 - Coronary artery disease involving [place] coronary artery of [place] heart without angina pectoris Mitch Bourne MD R1 Jun 07, 2016 09:27 Judi Zapata MD Jun 10, 2016 11:23
[2016-06-07] MEDS: LACTOBACILLUS ACIDOPHILUS TAB PO SCH (10:15)
[2016-06-07] MEDS: SERTRALINE HCL 50 MG TAB PO SCH (10:15)
[2016-06-07] MEDS: VANCOMYCIN 500 MG VIAL (FOR ORAL USE ONLY) PO SCH ×2 (10:15→13:52)
[2016-06-07] MEDS: SODIUM CHLORIDE 0.9% FLUSH 10 ML FLUSH IV FLUSH SCH (10:15)
[2016-06-07] MEDS: amLODIPine BESYLATE 5 MG TAB PO SCH (10:15)
[2016-06-07] MEDS: CALCIUM CARBONATE 500 MG CHEWABLE TAB CHEW SCH (10:15)
[2016-06-07] MEDS: ASPIRIN EC 81 MG TABEC PO SCH (10:15)
[2016-06-07] MEDS: LISINOPRIL 20 MG TAB PO SCH (10:15)
--- NOTE | 2016-06-07 11:54 | HHI.GIFU ---
Subjective Remarks Stratus librarian helper used. Pt states she is feeling much better. There are 11 BM 's documented in the EMR, but she states that she only had 3 solid bm's yesterday and 2 solid bm's today. She reports that her nausea is much improved and that she was able to eat yesterday. She is hoping that she can be discharged to the rehab center today because she feels that she is getting weaker and would like more aggressive physical therapy. Objective Vitals I&O Vital Signs Date Time Temp Pulse Resp B/P Pulse Ox O2 Delivery O2 Flow Rate FiO2 06/07/16 08:00 98.1 98 20 135/81 96 06/07/16 04:00 98.2 16 16 139/77 95 06/07/16 00:43 Room Air 06/07/16 00:00 97.9 83 16 105/58 96 06/06/16 20:00 97.9 91 16 136/69 94 06/06/16 16:00 97.9 102 16 139/83 98 06/06/16 12:00 Room Air 06/06/16 12:00 97.9 88 16 116/70 96 I/O 06/06/16 06/06/16 06/06/16 06/07/16 06/07/16 06/07/16 07:00 15:00 23:00 07:00 15:00 23:00 Intake Total 120 ml 240 ml 0 ml 0 ml Output Total 300 ml Balance 120 ml 240 ml 0 ml -300 ml Intake Oral 120 ml 240 ml 0 ml 0 ml Output Urine Total 300 ml # Voids 3 6 1 # Bowel Movements 3 8 2 1 Laboratory Laboratory Tests Test 06/07/16 06/07/16 05:30 06:49 Stool C. difficile Toxin (PCR) NEGATIVE Stl C. difficile Toxin PRESUMPTIVE Epiderm 027 NEGATIVE Hemoglobin 11.4 Hematocrit 34.2 Sodium Level 133 Potassium Level 3.6 Chloride Level 101 Carbon Dioxide Level 23.9 Anion Gap 8 Blood Urea Nitrogen 3 Creatinine 0.32 Estimat Glomerular Filtration 197 Rate Random Glucose 112 Calcium Level 7.5 Phosphorus Level 1.9 Magnesium Level 1.7 Imaging Last Impressions Abdomen X-Ray 05/31/16 0000 Signed Impressions: Service Date/Time: Tuesday, May 31, 2016 10:47 - CONCLUSION: Nonspecific abdomen. K. Ty Rowe MD Chest X-Ray 05/30/16 1708 Signed Impressions: Service Date/Time: Monday, May 30, 2016 18:04 - CONCLUSION: Mild left base parenchymal opacity Ramo Zhang MD Abdomen/Pelvis CT 05/30/16 0000 Signed Impressions: Service Date/Time: Monday, May 30, 2016 17:40 - CONCLUSION: Pericardial effusion Distal colitis. Ramo Zhang MD Physical Exam HEENT: Normocephalic; atraumatic CHEST: CTA. CARDIAC: RRR. ABDOMEN: Soft, nondistended, mild tenderness; no hepatosplenomegaly; bowel sounds are present in all four quadrants. EXTREMITIES: No clubbing, cyanosis, or edema. SKIN: Normal; no rash; no jaundice. THEATRE DIRECTOR: No focal deficits; alert and oriented times three. 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 Hospitalized in April of this year and was (+) for C-diff at that time, she was given Flagyl and Vanco. She said she has been on vanco since she left the hospital and her bowels have been soft. Prior to first episode of C-dff, she suffered from chronic constipation. She is bad historian, not sure when the stools became liquid again, but the pain was worse. Abdomen/Pelvis CT (05/30/16)---> Pericardial effusion Distal colitis. She last had an EGD/Colonoscopy (02/28/15) this revealed revealed mild antral gastropathy noted, normal endoscopy otherwise, retroflexed views revealed no abnormalities, the colonic mucosa appeared normal in the terminal ileum and throughout the entire examined colon, multiple biopsies were performed, retroflexed views revealed no abnormalities, revealed no abnormalities of the rectum. Mild chronic gastritis, negative for Helicobacter pylori. On Oral Vanco, Lactinex. 3 formed bowel movements yesterday, 2 formed bowel movements per patient and nurse today. No pain. Would like to go to rehab today. Rpt. CDiff negative. - Nausea. IMPROVED. Able to tolerate diet. - Leukocytosis, secondary to above. Improving, 7.4. Oral vanco. ID following. - Anemia. improving. no active bleeding - HTN, per attending PLAN: - YING - Cont. Oral vanco per ID recommendations - Cont. PPI - Okay to d/c to rehab from GI standpoint - FU ANASTASIYA in 2 weeks - Change pepcid to protonix - Pt seen and examined by Dr. Espinal and myself and this note is written on her behalf Judie Curtis Jun 07, 2016 11:54
[2016-06-07 12:00] VITALS: BP 131/70; PULSE 101; RESP 20; TEMP 98.2; O2SAT 96
[2016-06-07 16:00] VITALS: BP 133/68; PULSE 96; RESP 20; TEMP 98.2; O2SAT 98
--- NOTE | 2016-06-07 19:16 | HHI.DS ---
Discharge Summary Admission Date May 30, 2016 at 18:53 Discharge Date: Jun 07, 2016 Admitting Diagnosis C. difficile colitis, sepsis, hypokalemia (1) C. difficile colitis Diagnosis: Principal Plan: Abdominal pain + diarrhea + fever. Stool positive for C diff. At least second time she has had c.diff colitis. CT abdomen/pelvis showing distal colitis and pericardial effusion WBC returned to normal, currently afebrile - ID consulted, appreciate recommendations - Continue treatment with vancomycin 125 mg PO q6h - Metronidazole to be discontinued once stools more formed (i.e., today) - Received a few treatments of vancomycin per rectum, discontinued as she is doing better, stools becoming more formed. - Vancomycin PO dosed as above x 2 weeks on discharge - Surgery consulted, appreciate input - Non-surgical management at this point, avoid NSAIDS (lower risk of GIB) - GI consulted, appreciate input - Continue current management of infection per ID - Repeat stool for C diff negative 06/06 - Discontinued cholestyramine, which may have been contributing to her nausea - Lactobacillus probiotic daily - Pain control with Tylenol, [place] 5-325 as needed (2) Generalized weakness Diagnosis: Principal Plan: Likely due to dehydration and significant hypophosphatemia as well as her lying in bed too long- will have her up to chair and walk with PT - PT recs: PT at rehab - OOB and into chair today - Replace electrolytes as needed (3) Pericardial effusion Diagnosis: Principal Plan: Found incidentally on CT abdomen/pelvis. No evidence of tamponade. Likely inflammatory in nature. Patient not having chest pain/is asymptomatic. Echo showing moderate partially loculated effusion circumferentially around heart, no evidence of hemodynamic compromise - Monitor, follow up outpatient (4) Hypothyroidism Diagnosis: Secondary Plan: Stable symptoms; asymptomatic. TSH normal - Continue home Synthroid (5) Hypertension Diagnosis: Secondary Plan: - Substitute home FRANCISCA for lisinopril (on hospital formulary) dosed equivalently - Continue home Norvasc (6) Coronary artery disease Diagnosis: Secondary Plan: Symptoms stable / asymptomatic - Continue daily aspirin (7) Anxiety Diagnosis: Secondary Plan: Stable symptoms; appears calm this morning. she is depressed because of long and continuing illness can consider starting other meds - continue home Xanax PRN - Restoril PRN sleep (8) No contraindication to deep vein thrombosis (DVT) prophylaxis Diagnosis: Secondary Plan: Lovenox 40 qday SCD's (9) Nutrition, metabolism, and development symptoms Diagnosis: Secondary Plan: - Oral hydration - Mild hypophosphatemia - Mild hyponatremia, stable off IVF - Regular diet Brief History 81 year old female with PMH of HTN, CAD, cardiac conduction abnormality with pacemaker, hypothyroidism, and diverticulitis presenting with a 2 day history of diarrhea associated with LLQ abdominal pain and subjective fever. She has a history of C. diff colitis in the past CBC/BMP: 06/07/16 0649 06/07/16 0649 Significant Findings Laboratory Tests Test 06/05/16 06/06/16 06/07/16 07:18 06:50 06:49 Sodium Level 133 MEQ/L 135 MEQ/L 133 MEQ/L (136-145) (136-145) (136-145) Potassium Level 3.1 MEQ/L 3.4 MEQ/L (3.5-5.1) (3.5-5.1) Blood Urea Nitrogen 1 MG/DL (7-18) 2 MG/DL (7-18) 3 MG/DL (7-18) Creatinine 0.33 MG/DL 0.35 MG/DL 0.32 MG/DL (0.50-1.00) (0.50-1.00) (0.50-1.00) Random Glucose 111 MG/DL 112 MG/DL (74-106) (74-106) Calcium Level 7.5 MG/DL 7.7 MG/DL 7.5 MG/DL (8.5-10.1) (8.5-10.1) (8.5-10.1) Phosphorus Level 1.9 MG/DL 1.9 MG/DL 1.9 MG/DL (2.5-4.9) (2.5-4.9) (2.5-4.9) Red Blood Count 3.56 MIL/MM3 (4.00-5.30) Hemoglobin 10.5 GM/DL 11.4 GM/DL (11.6-15.3) (11.6-15.3) Hematocrit 31.6 % 34.2 % (35.0-46.0) (35.0-46.0) Mean Platelet Volume 6.6 FL (7.0-11.0) Total Protein 4.4 GM/DL (6.4-8.2) Albumin 2.0 GM/DL (3.4-5.0) PE at Discharge GENERAL: in NAD. Sitting up in bed. Skin: Redness in the sacral area without any skin breakdown CV: NRRR, S1 S2. No murmur. No friction rub. CHEST/PULM: CTAB, no crackles, no wheezes ABD/GI: Bowel sounds present, nontender to palpation EXT: 2+ DP pulses. no calf tenderness. No significant edema NEURO: Awake, alert. Normal muscle tone. Grossly nonfocal Hospital Course 81 year old female reported to the ED with a first recurrence of c. difficile colitis. She had LLQ pain and significant amounts of foul smelling diarrhea. CT scan of the abdomen was negative for an acute abdomen. Surgery was consulted and recommended conservative management. Gastroenterology was consulted. She was treated with oral vancomycin and IV metronidazole. She was also given a few doses of per rectum vancomycin. She was given probiotics and cholestyramine. She had significant improvement in diarrheal symptoms. Repeat c.diff toxin test was negative. Dehydration resolved with IV fluids. She had nausea and vomiting the last few days of admission. Cholestyramine was held at that time with improvement in symptoms. By the time of discharge she is tolerating a diet, staying well hydrated, and has more formed and less frequent stools. She is discharged with a two week course of oral vancomycin and will follow with her PCP and gastroenterology. She will be discharged to a SNF for deconditioning and generalized weakness. Pt Condition on Discharge: Stable Discharge Disposition: Discharge to SNF Discharge Instructions DIET: Follow Instructions for: As Tolerated, No Restrictions Activities you can perform: Regular-No Restrictions Follow up Referrals: Gastroenterology - 2 Weeks with Tram Espinal MD PCP Follow-up - 2 Weeks with Dusty Gaona MD R3 New Medications: Ondansetron Odt (Ondansetron Odt) 4 Mg Tab 4 MG SL Q8HR PRN Nausea/Vomiting #21 Ref 0 TAB Vancomycin (Vancomycin) 125 Mg Cap 125 MG PO QID Infection #56 Ref 0 CAP Continued Medications: Alprazolam (Xanax) 0.5 Mg Tab 0.5 MG PO BID PRN ANXIETY #60 Ref 0 TAB Amlodipine (Amlodipine) 5 Mg Tab 5 MG PO DAILY Blood Pressure Management #30 Ref [address] (Aspirin Adult Low Strength) 81 Mg Tabdr 81 MG PO DAILY TAB Benazepril (Benazepril) 40 Mg Tab 40 MG PO DAILY Blood Pressure Management #30 Ref 5 TAB Calcium Carbonate (Antacid) (Calcium Carbonate (Antacid)) 500 Mg Chew 500 MG CHEW Q12HR #60 EA Lactobacillus Acidophilus (Acidophilus/l-Sporogenes) 1 Tab Tab 1 TAB PO Q12HR #60 TAB Levothyroxine (Synthroid) 75 Mcg Tab 75 MCG PO DAILY Thyroid #30 Ref 5 TAB Lidocaine Topical (Lidocaine Topical) 5 % Oint 1 APPLIC OTHER BID #1 TUBE Metoclopramide (Reglan) 5 Mg Tab 5 MG PO TIDAC #90 Ref 0 TAB Pantoprazole (Pantoprazole) 40 Mg Tab 40 MG PO DAILY Reflux #30 Ref 3 TAB Phenylephrine-Mineral Oil-Petrolatum Topical (Preparation H Topical) 0.25-3-14- 71.9 % Oint 1 APPLIC TOPICAL BID #1 TUBE Promethazine (Phenergan) 25 Mg Tab 25 MG PO Q4HR PRN NAUSEA OR VOMITING #30 Ref 0 TAB Ranitidine (Zantac 75) 75 Mg Tab 75 MG PO DAILY Take 30 to 60 minutes before eating food or drinking beverages that cause heartburn. PRN HEARTBURN #30 Ref 0 TAB Sertraline (Zoloft) 50 Mg Tab 50 MG PO DAILY #30 Ref 0 TAB Temazepam (Temazepam) 30 Mg Cap 30 MG PO HS PRN INSOMNIA #30 Ref 0 CAP Discontinued Medications: Cholestyramine (Cholestyramine) 4 Gm/Pkt Powd 4 GM PO BID@00,12 Days 7 Vancomycin (Vancomycin) 125 Mg Cap 125 MG PO QID Infection #32 Ref 0 CAP Vancomycin (Vancomycin) 125 Mg Cap 125 MG PO QID Infection #21 Ref 0 CAP Jarocho Green MD R2 Jun 07, 2016 19:16
[2016-06-16] MEDS ORDERED: MIRT30TA PO (13:30)
[2016-07-10] MEDS ORDERED: ESTR0.62 VAGINAL (09:59)
[2016-07-10] MEDS ORDERED: RANI150C PO (10:03)
[2016-07-10] MEDS ORDERED: ALPR.5 PO (10:04)
[2016-08-12] MEDS ORDERED: ZOLO50TA PO (13:19)
[2016-08-12] MEDS ORDERED: TEMA30CA PO (15:07)
[2016-08-13] MEDS ORDERED: PROM25TA10 PO (14:10)
[2016-08-15] MEDS ORDERED: RANI150C PO (09:09)
== END 2016-06-07 18:00 | DRG 872 ==
LOC: NEPE 14:36 → NEDA 18:53 → N04B 21:30
PROVIDERS: ADMIT Family Medicine; ATTEND Family Medicine
DX: A41.9 Sepsis, unspecified organism (principal); A04.7 Enterocolitis due to Clostridium difficile; I31.3 Pericardial effusion (noninflammatory); E87.1 Hypo-osmolality and hyponatremia; E83.42 Hypomagnesemia; E86.0 Dehydration; E83.39 Other disorders of phosphorus metabolism; E83.51 Hypocalcemia; E87.6 Hypokalemia; I10 Essential (primary) hypertension; I25.10 Atherosclerotic heart disease of native coronary artery without angina pectoris; F41.9 Anxiety disorder, unspecified; K21.9 Gastro-esophageal reflux disease without esophagitis; F32.9 Major depressive disorder, single episode, unspecified; E89.0 Postprocedural hypothyroidism; I45.9 Conduction disorder, unspecified; M54.9 Dorsalgia, unspecified; R91.8 Other nonspecific abnormal finding of lung field; D64.9 Anemia, unspecified; Z90.49 Acquired absence of other specified parts of digestive tract; Z95.0 Presence of cardiac pacemaker; Z86.19 Personal history of other infectious and parasitic diseases
CPT/HCPCS: 71010; 74020; 74176; 76937; 80048; 80053; 81001; 83605; 83690; 83735; 84100; 84132; 84155; 84443; 85007; 85014; 85018; 85025; 85027; 87040; 87086; 87493; 93005; 93308; 96365; 96375; C9113; J1650; J1885; J2405; J2765; J3370; J3475; J3480; J7030; Q0169; Q9967

== ENCOUNTER 2017-03-29 23:29 | Inpatient (IN) | payer OTHER ==
[~2017-03-29] VITALS: Ht 152.4 cm; Wt 50.0 kg
[~2017-03-29 23:29] MED LIST changes: -ALPR.5 PO; +ALPR1TAB3 PO; -ASPI1TAB91 PO; +ASPI81TA16 PO; -CHOL4POW4 PO; +ESTR0.62 VAGINAL; -IOHEXOL 350 MG/ML 10 ML VIAL (for RAD DIAG) IV ONE; -PANT40TA3 PO; +PROM25TA10 PO; -PROM25TA5 PO; +RANI150C PO; -VANC125C3 PO; -ZANTTAB9 PO
[2017-03-29 23:30] VITALS: BP 153/83; PULSE 83; RESP 18; TEMP 98.8; O2SAT 93
[2017-03-30] VITALS (7 sets, daily range): BP systolic 130–189; BP diastolic 70–91; PULSE 71–91; RESP 17–18; TEMP 97.8–99.5; O2SAT 92–95
--- NOTE | 2017-03-30 00:09 | PD ---
HPI Chief Complaint: Fall Time Seen by Provider: 00:08 Travel History International Travel<30 days: No Contact w/Intl Traveler<30days: No Traveled to known affect area: No History of Present Illness HPI 82-year-old female came to the emergency room brought by EMS after a fall and left hip pain. Patient was unable to get up and ambulate. She was given 10 mg of morphine en route by EMS. Patient is awake and alert. She does not speak any Egyptian and speaks Dominican only. History was obtained via interpretation. Vital signs are stable. Patient points to her left hip and left groin area when asked for the pain. She is unable to move her left leg. PFSH Past Medical History Narrative Medical List of her past medical, surgical, social and family history is reviewed from the nursing note. Asthma: No Autoimmune Disease: No Anxiety: Yes Depression: Yes Heart Rhythm Problems: Yes Cancer: No Cardiovascular Problems: Yes (Pacemaker) High Cholesterol: No Chemotherapy: No Chest Pain: No Congestive Heart Failure: No COPD: No Coronary Artery Disease: Yes Diabetes: No Diminished Hearing: Yes (BILATERAL) Endocrine: No Gastrointestinal Disorders: Yes (Colon, diverticulitis) GERD: Yes Genitourinary: No Hiatal Hernia: Yes Hypertension: Yes Immune Disorder: No Implanted Vascular Access Dvce: Yes Musculoskeletal: No Neurologic: No Psychiatric: No Reproductive: No Respiratory: No Immunizations Current: No Radiation Therapy: No Sleep Apnea: No Thyroid Disease: Yes (Takes synthroid) Ulcer: No Tetanus Vaccination: > 5 Years Influenza Vaccination: No Menopausal: Yes Past Surgical History Abdominal Surgery: Yes Appendectomy: Yes Body Medical Devices: Pacemaker Cardiac Surgery: Yes (PACEMAKER 2008) Cholecystectomy: Yes (IN 1994) Endocrine Surgery: Yes (THYROIDECTOMY) Genitourinary Surgery: Yes (BLADDER SURGERY IN 2003) Pacemaker: Yes (05/25) Other Surgery: Yes (Colon, Gallblader, Apenx, ) Social History Alcohol Use: No Tobacco Use: No Substance Use: No Allergies-Medications (Allergen,Severity, Reaction): Coded Allergies: No Known Allergies (Verified Allergy, Unknown, 03/30/17) Comments No known drug allergies. Reported Meds & Prescriptions Reported Meds & Active Scripts Active Temazepam 30 Mg Cap 30 Mg PO HS PRN Amlodipine (Amlodipine Besylate) 5 Mg Tab 5 Mg PO DAILY Zoloft (Sertraline HCl) 50 Mg Tab 50 Mg PO DAILY Synthroid (Levothyroxine Sodium) 75 Mcg Tab 75 Mcg PO DAILY Alprazolam 1 Mg Tab 1 Mg PO BID PRN Reglan (Metoclopramide HCl) 5 Mg Tab 5 Mg PO TIDAC PRN Benazepril (Benazepril HCl) 40 Mg Tab 40 Mg PO DAILY Premarin Vaginal (Estrogens, Conjugated Vaginal) 0.625 Mg/Gm Cream 1 Gm VAGINAL WEEKLY Ranitidine (Ranitidine HCl) 150 Mg Cap 150 Mg PO DAILY Phenergan (Promethazine HCl) 25 Mg Tablet 25 Mg PO Q6H PRN Lidocaine Topical (Lidocaine HCl) 5 % Oint 1 Applic OTHER BID Preparation H Topical (Phenylephrine-Mineral Oil-Petrolatum Topical) 0.25-3-14- 71.9 % Oint 1 Applic TOPICAL BID Acidophilus/l-Sporogenes (Lactobacillus Acidophilus) 1 Tab Tab 1 Tab PO Q12HR Calcium Carbonate (Antacid) 500 Mg Chew 500 Mg CHEW Q12HR Reported Aspirin Adult Low Strength (Aspirin) 81 Mg Tabdr 81 Mg PO DAILY Narrative Medication List of her home medications reviewed from the nursing note. Review of Systems Except as stated in HPI: all other systems reviewed are Neg Musculoskeletal: Positive: Pain Physical Exam Narrative GENERAL: Awake, alert, moderate distress, elderly SKIN: Focused skin assessment warm/dry. HEAD: Atraumatic. Normocephalic. EYES: Pupils equal and round. No scleral icterus. No injection or drainage. ENT: No nasal bleeding or discharge. Mucous membranes pink and moist. NECK: Trachea midline. No JVD. CARDIOVASCULAR: Regular rate and rhythm. No murmur appreciated. RESPIRATORY: No accessory muscle use. Clear to auscultation. Breath sounds equal bilaterally. GASTROINTESTINAL: Abdomen soft, non-tender, nondistended. Hepatic and splenic margins not palpable. MUSCULOSKELETAL: No obvious deformities. No clubbing. No cyanosis. No edema. NEUROLOGICAL: Awake and alert. No obvious cranial nerve deficits. Motor grossly within normal limits. Normal speech. PSYCHIATRIC: Appropriate mood and affect; insight and judgment normal. Data Data Last Documented VS Vital Signs Date Time Temp Pulse Resp B/P (MAP) Pulse Ox O2 Delivery O2 Flow Rate FiO2 03/29/17 23:30 98.8 83 18 153/83 (106) 93 Orders Orders Complete Blood Count With Diff (03/30/17 00:14) Basic Metabolic Panel (Bmp) (03/30/17 00:14) Prothrombin Time / Inr (Pt) (03/30/17 00:14) Electrocardiogram (03/30/17 ) Hip, Uni(4+Vws) W Ap Pelvis (03/30/17 ) Elbow, Complete (4 Vws) (03/30/17 ) Shoulder, Complete (>2vws) (03/30/17 ) Ct Hip W/O Contrast (03/30/17 ) Acetamin-Hydrocod 325-5 Mg (Peetz 5-325 (03/30/17 01:30) Vital Signs (Adult) Q4H (03/30/17 02:30) Activity Oob With Assistance (03/30/17 02:30) Diet Regular Basic (03/30/17 Breakfast) Sodium Chloride 0.9% Flush (Ns Flush) (03/30/17 02:30) Sodium Chloride 0.9% Flush (Ns Flush) (03/30/17 09:00) Ondansetron Inj (Zofran Inj) (03/30/17 02:30) Comprehensive Metabolic Panel (03/31/17 06:00) Complete Blood Count With Diff (03/31/17 06:00) Pt Request For Service (03/30/17 02:30) Case Management Consult (03/30/17 02:30) Acetaminophen (Tylenol) (03/30/17 02:30) Acetamin-Hydrocod 325-5 Mg (Peetz 5-325 (03/30/17 02:30) Morphine Inj (Morphine Inj) (03/30/17 02:30) Docusate Sodium-Senna (Gi-Colace) (03/30/17 09:00) Magnesium Hydroxide Liq (Milk Of Magnesi (03/30/17 02:30) Sennosides (Senokot) (03/30/17 02:30) Bisacodyl Supp (Dulcolax Supp) (03/30/17 02:30) Lactulose Liq (Lactulose Liq) (03/30/17 02:30) Enoxaparin Inj (Lovenox Inj) (03/30/17 09:00) Alprazolam (Xanax) (03/30/17 02:30) Aspirin Ec (Ecotrin Ec) (03/30/17 09:00) Sertraline (Zoloft) (03/30/17 09:00) Temazepam (Restoril) (03/30/17 02:30) Admit Order (Ed Use Only) (03/30/17 02:33) Labs Laboratory Tests Test 03/30/17 00:49 White Blood Count 10.9 TH/MM3 Red Blood Count 3.98 MIL/MM3 Hemoglobin 13.3 GM/DL Hematocrit 37.4 % Mean Corpuscular Volume 94.0 FL Mean Corpuscular Hemoglobin 33.5 PG Mean Corpuscular Hemoglobin Concent 35.6 % Red Cell Distribution Width 12.2 % Platelet Count 173 TH/MM3 Mean Platelet Volume 8.1 FL Neutrophils (%) (Auto) 82.4 % Lymphocytes (%) (Auto) 9.5 % Monocytes (%) (Auto) 7.4 % Eosinophils (%) (Auto) 0.5 % Basophils (%) (Auto) 0.2 % Neutrophils # (Auto) 9.0 TH/MM3 Lymphocytes # (Auto) 1.0 TH/MM3 Monocytes # (Auto) 0.8 TH/MM3 Eosinophils # (Auto) 0.1 TH/MM3 Basophils # (Auto) 0.0 TH/MM3 CBC Comment DIFF FINAL Differential Comment Prothrombin Time 10.8 SEC Prothromb Time International Ratio 1.1 RATIO Blood Urea Nitrogen 15 MG/DL Creatinine 0.52 MG/DL Random Glucose 109 MG/DL Calcium Level 8.4 MG/DL Sodium Level 138 MEQ/L Potassium Level 3.4 MEQ/L Chloride Level 102 MEQ/L Carbon Dioxide Level 28.8 MEQ/L Anion Gap 7 MEQ/L Estimat Glomerular Filtration Rate 112 ML/MIN [facility] Medical Decision Making Medical Screen Exam Complete: Yes Emergency Medical Condition: Yes Medical Record Reviewed: Yes Interpretation(s) Twelve-lead EKG was reviewed by me. Normal sinus rhythm, left axis deviation, questionable old inferior AL, poor R-wave progression, nonspecific ST-T wave changes. Heart rate of 81 bpm. Differential Diagnosis Hip fracture, pelvic fracture Narrative Course 2:42 AM x-ray of the hip and pelvis was negative. But given her pain I ordered a CT scan of her pelvis and hip and the CT scan of the pelvis shows superior pubic rami fracture. Patient will be admitted for pain control. Procedures EKG Prior to Arrival: No Diagnosis Primary Impression: Fall Qualified Codes: W19.XXXA - Unspecified fall, initial encounter Additional Impression: Pubic ramus fracture Qualified Codes: S32.592A - Other specified fracture of left pubis, initial encounter for closed fracture Admitting Information Admitting Physician Requests: Observation Scripts Hydrocodone/Acetaminophen (Hydrocodone-Acetamin 5-325 mg) 5 Mg-325 Mg Tablet 1 TAB PO Q4H Y for PAIN SCALE 3 TO 5, #10 TAB Prov: Ruy Valdez MD 04/01/17 Temazepam (Restoril) 15 Mg Cap 30 MG PO HS Y for INSOMNIA, #10 CAP Prov: Ruy Valdez MD 04/01/17 Alprazolam (Xanax) 1 Mg Tab 1 MG PO BID Y for ANXIETY, #10 TAB Prov: Ruy Valdez MD 04/01/17 Walker with Front Wheels (Walker with Front Wheels) 1 Mis Mis EA .XX DIRECTED for amb-pelvic fx, #1 0 Refills 50% weightbearing left LE Prov: Ashley Chambers MD 03/31/17 Kathy Gutierres MD Mar 30, 2017 00:09
--- NOTE | 2017-03-30 00:54 | RADRPT ---
EXAM DATE/TIME: 03/30/2017 00:26 [facility] COMPARISON: No previous studies available for comparison. INDICATIONS : Left shoulder pain from a fall. MEDICAL HISTORY : Diverticulosis. SURGICAL HISTORY : Appendectomy. Cholecystectomy. ENCOUNTER: Initial ACUITY: 1 day PAIN SCORE: 0/10 LOCATION: Left shoulder FINDINGS: Multiple view examination of the left shoulder demonstrates no evidence of fracture or dislocation. The glenohumeral and acromioclavicular joints are maintained. There is normal range of motion betwee n internal and external rotation. Bony mineralization is normal. CONCLUSION: No acute disease. Jose Francisco Oakes MD on March 30, 2017 at 0:51 Board Certified Radiologist. This report was verified electronically.
--- NOTE | 2017-03-30 00:54 | RADRPT ---
EXAM DATE/TIME: 03/30/2017 00:30 [facility] COMPARISON: No previous studies available for comparison. INDICATIONS : Left hip pain from a fall. MEDICAL HISTORY : Diverticulosis. SURGICAL HISTORY : Appendectomy. Cholecystectomy. ENCOUNTER: Initial ACUITY: 1 day PAIN SCORE: 8/10 LOCATION: Left hip FINDINGS: Examination of the left hip was performed with AP pelvis. The primary and secondary trabecular patte rn of the femoral neck is intact. The hip joint is of normal width without significant sclerosis or bony hypertrophy. The acetabulum is grossly intact. CONCLUSION: No acute disease. Jose Francisco Oakes MD on March 30, 2017 at 0:52 Board Certified Radiologist. This report was verified electronically.
--- NOTE | 2017-03-30 00:54 | RADRPT ---
EXAM DATE/TIME: 03/30/2017 00:30 [facility] COMPARISON: No previous studies available for comparison. INDICATIONS : Left elbow pain from a fall. MEDICAL HISTORY : Diverticulosis. SURGICAL HISTORY : Appendectomy. Cholecystectomy. ENCOUNTER: Initial ACUITY: 1 day PAIN SCORE: 0/10 LOCATION: Left elbow FINDINGS: Multiple view examination of the left elbow demonstrates no soft tissue swelling, joint effusion, or fracture. The osseous structures are in normal alignment. Bony mineralization is normal. CONCLUSION: No acute disease. Jose Francisco Oakes MD on March 30, 2017 at 0:52 Board Certified Radiologist. This report was verified electronically.
[2017-03-30 01:26] LABS: BASOPHIL % 0.2 % (0.0-2.0); EOSINOPHIL # 0.1 TH/MM3 (0-0.4); EOSINOPHIL % 0.5 % (0.0-4.0); HEMATOCRIT 37.4 % (35.0-46.0); HEMOGLOBIN 13.3 GM/DL (11.6-15.3); LYMPH % 9.5 % (9.0-44.0); MEAN CORPUSCULAR HEMOGLOBIN 33.5 PG (27.0-34.0); MEAN CORPUSCULAR HGB CONC 35.6 % (32.0-36.0); MEAN PLATELET VOLUME 8.1 FL (7.0-11.0); MONO % 7.4 % (0.0-8.0); MONOCYTE # 0.8 TH/MM3 (0-0.9); NEUT % 82.4 % (16.0-70.0); PLATELET COUNT 173 TH/MM3 (150-450); RED BLOOD COUNT 3.98 MIL/MM3 (4.00-5.30); RED CELL DISTRIBUTION WIDTH 12.2 % (11.6-17.2); WHITE BLOOD COUNT 10.9 TH/MM3 (4.0-11.0)
[2017-03-30] MEDS ORDERED: ACETAMINOPHEN/HYDROcodone 325 MG/5 MG TAB PO ONE (01:30)
[2017-03-30 01:35] LABS: BICARBONATE 28.8 MEQ/L (21.0-32.0); CALCIUM 8.4 MG/DL (8.5-10.1); CREATININE 0.52 MG/DL (0.50-1.00)
[2017-03-30 01:37] LABS: INTERNATIONAL NORMALIZED RATIO 1.1 RATIO; PROTHROMBIN TIME - PATIENT 10.8 SEC (9.8-11.6)
--- NOTE | 2017-03-30 01:51 | RADRPT ---
EXAM DATE/TIME: 03/30/2017 01:36 [facility] COMPARISON: HIP LEFT (MIN 4VWS) W AP PELVIS, March 30, 2017, 0:30. INDICATIONS : Trauma, fall. Left hip pain. RADIATION DOSE: 10.44 CTDIvol (mGy) MEDICAL HISTORY : None SURGICAL HISTORY : None. ENCOUNTER: Initial ACUITY: 1 day PAIN SCALE: 6/10 LOCATION: Left pelvis TECHNIQUE: Volumetric scanning of the hip was performed. Using automated exposure control and adjustment of the mA and/or kV according to patient size, radiation dose was kept as low as reasonably achievable to o btain optimal diagnostic quality images. DICOM format image data is available electronically for rev iew and comparison. FINDINGS: BONES: There is a slightly displaced fracture of the left inferior pubic ramus. JOINTS: No evidence of joint narrowing or effusion. SOFT TISSUES: Muscles, tendons and neurovascular structures are grossly unremarkable. No evidence of mass, organize d fluid collection, or foreign body. CONCLUSION: Left inferior pubic ramus fracture. Jose Francisco Oakes MD on March 30, 2017 at 1:48 Board Certified Radiologist. This report was verified electronically.
[2017-03-30] MEDS ORDERED: LACTULOSE SYRUP 20 GM/30 ML CUP PO PRN (02:30)
[2017-03-30] MEDS ORDERED: MORPHINE SULFATE 2 MG/ML INJ IV PUSH PRN (02:30)
[2017-03-30] MEDS ORDERED: MAGNESIUM HYDROXIDE SUSP 30 ML CUP PO PRN (02:30)
[2017-03-30] MEDS ORDERED: ACETAMINOPHEN 325 MG TAB PO PRN (02:30)
[2017-03-30] MEDS ORDERED: SODIUM CHLORIDE 0.9% FLUSH 10 ML FLUSH IV FLUSH PRN (02:30)
[2017-03-30] MEDS ORDERED: BISACODYL 10 MG SUPP RECTAL PRN (02:30)
[2017-03-30] MEDS ORDERED: ALPRAZolam 1 MG TAB PO PRN (02:30)
[2017-03-30] MEDS ORDERED: SENNOSIDES 8.6 MG TAB PO PRN (02:30)
[2017-03-30] MEDS ORDERED: ONDANSETRON HCL 4 MG/2 ML VIAL IVP PRN (02:30)
--- NOTE | 2017-03-30 04:18 | HHI.HP ---
[facility] No Primary Care Physician Admission Diagnosis pelvic fracture, fall, pain Diagnoses: (1) Fall Diagnosis: Principal (2) Pelvic fracture Diagnosis: Principal (3) Intractable pain Diagnosis: Principal Travel History International Travel<30 Days: No Contact w/Intl Traveler <30 Da: No Traveled to Known Affected Are: No History of Present Illness This is an 82-year-old female with a PMH of Anxiety, Depression, HTN and CAD was brought to the ER by EMS secondary to complaints of hip pain after fall. Patient was apparently putting on a pair of shorts when she got tangled and fell onto her left hip. c/o immediate pain, sharp, constant, severe, 10/10, worse w/ movement. On arrival, BP 153/83, HR 83, O2 sat 93% on RA, Afebrile. Recent unremarkable. Chemistry essentially unremarkable. INR 1.1. Elbow x- ray negative. Hip X-ray negative. CT LE left inferior pubic ramus fracture. Shoulder X-ray negative. Pt unable to ambulate at this time due to injury. Review of Systems Except as stated in HPI: all other systems reviewed are Neg ROS: 14 point review of systems otherwise negative. Past Family Social History Past Medical History PMH: Anxiety, Depression, HTN and CAD Past Surgical History PAST SURGICAL HISTORY: Appendectomy, Pacemaker, Cholecystectomy, Thyroidectomy , Bladder Surgery Allergies: Coded Allergies: No Known Allergies (Verified Allergy, Unknown, 03/30/17) Family History PAST FAMILY HISTORY: Reviewed. No h/o DM or CAD Social History PAST SOCIAL HISTORY: Negative for alcohol, tobacco or drugs. Physical Exam Vital Signs Vital Signs Date Time Temp Pulse Resp B/P (MAP) Pulse Ox O2 Delivery O2 Flow Rate FiO2 03/30/17 03:58 89 18 130/87 (101) 93 03/30/17 03:58 18 100 03/29/17 23:30 98.8 83 18 153/83 (106) 93 Physical Exam PE: GENERAL: Very pleasant elderly female in no acute distress. HEENT: PERRLA, EOMI. No scleral icterus or conjunctival pallor. No lid lag or facial droop. CARDIOVASCULAR: Regular rate and rhythm. No obvious murmurs to auscultation. No chest tenderness to palpation. RESPIRATORY: No obvious rhonchi or wheezing. Clear to auscultation. Breath sounds equal bilaterally. GASTROINTESTINAL: Abdomen soft, non-tender, nondistended. BS normal. MUSCULOSKELETAL: Extremities without clubbing, cyanosis, or edema. No obvious deformities. Decreased ROM of LLE due to pain. Pulses intact. NEUROLOGICAL: Awake, alert and oriented x4. No focal neurologic deficits. Moving both upper and lower extremities spontaneously. Laboratory Laboratory Tests Test 03/30/17 00:49 White Blood Count 10.9 Red Blood Count 3.98 Hemoglobin 13.3 Hematocrit 37.4 Mean Corpuscular Volume 94.0 Mean Corpuscular Hemoglobin 33.5 Mean Corpuscular Hemoglobin Concent 35.6 Red Cell Distribution Width 12.2 Platelet Count 173 Mean Platelet Volume 8.1 Neutrophils (%) (Auto) 82.4 Lymphocytes (%) (Auto) 9.5 Monocytes (%) (Auto) 7.4 Eosinophils (%) (Auto) 0.5 Basophils (%) (Auto) 0.2 Neutrophils # (Auto) 9.0 Lymphocytes # (Auto) 1.0 Monocytes # (Auto) 0.8 Eosinophils # (Auto) 0.1 Basophils # (Auto) 0.0 CBC Comment DIFF FINAL Differential Comment Prothrombin Time 10.8 Prothromb Time International Ratio 1.1 Blood Urea Nitrogen 15 Creatinine 0.52 Random Glucose 109 Calcium Level 8.4 Sodium Level 138 Potassium Level 3.4 Chloride Level 102 Carbon Dioxide Level 28.8 Anion Gap 7 Estimat Glomerular Filtration Rate 112 Result Diagram: 03/30/174803/30/179 Caprini VTE Risk Assessment Caprini VTE Risk Assessment: Mod/High Risk (score >= 2) Caprini Risk Assessment Model Point Value = 1 Point Value = 2 Point Value = 3 Point Value = 5 Age 41-60 Minor surgery BMI > 25 kg/m2 Swollen legs Varicose veins or History of unexplained or recurrent spontaneous Oral contraceptives or hormone replacement Sepsis (< 1 month) Serious lung disease, including pneumonia (< 1 month) Abnormal pulmonary function Acute myocardial infarction Congestive heart failure (< 1 month) History of inflammatory bowel disease Medical patient at bed rest Age 61-74 Arthroscopic surgery Major open surgery (> 45 min) Laparoscopic surgery (> 45 min) Malignancy Confined to bed (> 72 hours) Immobilizing plaster cast Central venous access Age >= 75 History of VTE Family history of VTE Factor V Leiden Prothrombin [id number] Lupus anticoagulant Anticardiolipin antibodies Elevated serum homocysteine Heparin-induced thrombocytopenia Other congenital or acquired thrombophilia Stroke (< 1 month) Elective arthroplasty Hip, pelvis, or leg fracture Acute spinal cord injury (< 1 month) Prophylaxis Regimen Total Risk Factor Score Risk Level Prophylaxis Regimen 0-1 Low Early ambulation 2 Moderate Order ONE of the following: *Sequential Compression Device (SCD) *Heparin 5000 units SQ BID 3-4 Higher Order ONE of the following medications: *Heparin 5000 units SQ TID *Enoxaparin/Lovenox 40 mg SQ daily (WT < 150 kg, CrCl > 30 mL/min) *Enoxaparin/Lovenox 30 mg SQ daily (WT < 150 kg, CrCl > 10-29 mL/min) *Enoxaparin/Lovenox 30 mg SQ BID (WT < 150 kg, CrCl > 30 mL/min) AND/OR *Sequential Compression Device (SCD) 5 or more Highest Order ONE of the following medications: *Heparin 5000 units SQ TID (Preferred with Epidurals) *Enoxaparin/Lovenox 40 mg SQ daily (WT < 150 kg, CrCl > 30 mL/min) *Enoxaparin/Lovenox 30 mg SQ daily (WT < 150 kg, CrCl > 10-29 mL/min) *Enoxaparin/Lovenox 30 mg SQ BID (WT < 150 kg, CrCl > 30 mL/min) AND *Sequential Compression Device (SCD) Assessment and Plan Problem List: (1) Fall ICD Code: W19.XXXA - Unspecified fall, initial encounter Status: Resolved (2) Pelvic fracture ICD Code: S32.9XXA - Fracture of unspecified parts of lumbosacral spine and pelvis, initial encounter for closed fracture (3) Intractable pain ICD Code: R52 - Pain, unspecified Assessment and Plan A/P: 1. Fall: s/p mechanical fall, no head trauma or LOC reported. Elbow X-ray negative, Shoulder X-ray negative, Hip/Pelvis w/ no acute fracture, images reviewed by me. 2. Pelvic Fx: CT LE w/ left inferior pubic ramus fracture, images reviewed by me, likely nonsurgical. Patient currently unable to ambulate due to significant pain. Consult Ortho for further recommendations. PT for eval/tx. 3. Intractable Pain: secondary to above. Analgesics/antiemetics as needed. 4. DVT Prophylaxis: Lovenox 5. Social work for DC planning as needed. 6. Case discussed at length with ER physician, labs/records/imaging were reviewed by me. Physician Certification 2 Midnight Certification Type: Admission for Inpatient Services Order for Inpatient Services The services are ordered in accordance with Medicare regulations or non- Medicare payer requirements, as applicable. In the case of services not specified as inpatient-only, they are appropriately provided as inpatient services in accordance with the 2-midnight benchmark. Estimated LOS (days): 2 days is the estimated time the patient will need to remain in the hospital, assuming treatment plan goals are met and no additional complications. Post-Hospital Plan: Not yet determined Problem Qualifiers (1) Fall: Qualified Codes: W19.XXXA - Unspecified fall, initial encounter Sangita Hodge MD Mar 30, 2017 04:18
--- NOTE | 2017-03-30 08:06 | PD.CONS ---
HPI Service Orthopedic Surgeons Consult Requested By Reason for Consult Pelvis fracture Primary Care Physician No Primary Care Physician Admission Diagnosis pelvic fracture, fall, pain Diagnoses: (1) Fall Diagnosis: Secondary (2) Pelvic fracture Diagnosis: Principal (3) Intractable pain Diagnosis: Secondary Chief Complaint: pelvis pain History of Present Illness This is an 82-year-old female with a PMH of Anxiety, Depression, HTN and CAD was brought to the ER by EMS secondary to complaints of hip pain after fall. Patient was apparently putting on a pair of shorts when she got tangled and fell onto her left hip. c/o immediate pain, sharp, constant, severe, 10/10, worse w/ movement. Pt unable to ambulate at this time due to injury. Currently, patient states she has minimal discomfort. Most of her pain is in her left groin when it does occur. Review of Systems Constitutional: DENIES: Fever Endocrine: DENIES: Polyuria Eyes: DENIES: Blurred vision Ears, nose, mouth, throat: DENIES: Throat pain Respiratory: DENIES: Cough Cardiovascular: DENIES: Chest pain Gastrointestinal: DENIES: Abdominal pain Genitourinary: DENIES: Urinary incontinence Musculoskeletal: COMPLAINS OF: Joint pain Integumentary: DENIES: Rash Hematologic/lymphatic: DENIES: Bruising Immunologic/allergic: DENIES: Eczema Neurologic: DENIES: Abnormal gait Psychiatric: DENIES: Anxiety Past Family Social History Past Medical History PMH: Anxiety, Depression, HTN and CAD Past Surgical History PAST SURGICAL HISTORY: Appendectomy, Pacemaker, Cholecystectomy, Thyroidectomy , Bladder Surgery Allergies: Coded Allergies: No Known Allergies (Verified Allergy, Unknown, 03/30/17) Active Ordered Medications Current Medications Medications (Trade) Dose Ordered Sig/Marquise Route Start Time Stop Time Status Last Admin (NS Flush) 2 ml UNSCH PRN IV FLUSH 03/30/17 02:30 (NS Flush) 2 ml BID IV FLUSH 03/30/17 09:00 (Zofran Inj) 4 mg Q6H PRN IVP 03/30/17 02:30 (Tylenol) 650 mg Q6H PRN PO 03/30/17 02:30 ([place] 5-325 Mg) 1 tab Q4H PRN PO 03/30/17 02:30 (Morphine Inj) 2 mg Q3H PRN IV PUSH 03/30/17 02:30 (Gi-Colace) 1 tab BID PO 03/30/17 09:00 (Milk Of Magnesia Liq) 30 ml Q12H PRN PO 03/30/17 02:30 (Senokot) 17.2 mg Q12H PRN PO 03/30/17 02:30 (Dulcolax Supp) 10 mg DAILY PRN RECTAL 03/30/17 02:30 (Lactulose Liq) 30 ml DAILY PRN PO 03/30/17 02:30 (Lovenox Inj) 40 mg Q24H SQ 03/30/17 09:00 (Xanax) 1 mg BID PRN PO 03/30/17 02:30 (Ecotrin Ec) 81 mg DAILY PO 03/30/17 09:00 (Zoloft) 50 mg DAILY PO 03/30/17 09:00 (Restoril) 30 mg HS PRN PO 03/30/17 02:30 (Flu (Quadrivalent) Vaccine Inj) 0.5 ml ONCE ONCE IM 03/31/17 10:00 03/31/17 10:01 Reported Meds & Active Scripts Active Temazepam 30 Mg Cap 30 Mg PO HS PRN Amlodipine (Amlodipine Besylate) 5 Mg Tab 5 Mg PO DAILY Zoloft (Sertraline HCl) 50 Mg Tab 50 Mg PO DAILY Synthroid (Levothyroxine Sodium) 75 Mcg Tab 75 Mcg PO DAILY Alprazolam 1 Mg Tab 1 Mg PO BID PRN Reglan (Metoclopramide HCl) 5 Mg Tab 5 Mg PO TIDAC PRN Benazepril (Benazepril HCl) 40 Mg Tab 40 Mg PO DAILY Premarin Vaginal (Estrogens, Conjugated Vaginal) 0.625 Mg/Gm Cream 1 Gm VAGINAL WEEKLY Ranitidine (Ranitidine HCl) 150 Mg Cap 150 Mg PO DAILY Phenergan (Promethazine HCl) 25 Mg Tablet 25 Mg PO Q6H PRN Lidocaine Topical (Lidocaine HCl) 5 % Oint 1 Applic OTHER BID Preparation H Topical (Phenylephrine-Mineral Oil-Petrolatum Topical) 0.25-3-14- 71.9 % Oint 1 Applic TOPICAL BID Acidophilus/l-Sporogenes (Lactobacillus Acidophilus) 1 Tab Tab 1 Tab PO Q12HR Calcium Carbonate (Antacid) 500 Mg Chew 500 Mg CHEW Q12HR Reported Aspirin Adult Low Strength (Aspirin) 81 Mg Tabdr 81 Mg PO DAILY Family History PAST FAMILY HISTORY: Reviewed. No h/o DM or CAD Social History PAST SOCIAL HISTORY: Negative for alcohol, tobacco or drugs. Physical Exam Vital Signs Vital Signs Date Time Temp Pulse Resp B/P (MAP) Pulse Ox O2 Delivery O2 Flow Rate FiO2 03/30/17 07:26 98.1 71 18 158/72 (100) 95 03/30/17 07:26 Room Air 03/30/17 05:07 97.8 81 17 186/81 (116) 94 03/30/17 03:58 89 18 130/87 (101) 93 03/30/17 03:58 18 100 03/29/17 23:30 98.8 83 18 153/83 (106) 93 Physical Exam Awake, alert, in no acute distress Normocephalic Pupils equal No JVD Moist mucous membranes Nonlabored respirations Regular rate Soft nontender abdomen Mild tenderness palpation about the anterior pubis Left lower extremity: Positive logroll and pain with range of motion. Patient is neurovascularly intact distally with positive EHL, FHL, plantar flexion and dorsiflexion. Sensation intact. Brisk cap refill. Left upper extremity: Mild tenderness palpation about shoulder level. No pain with passive range of motion. No visible deformities. No palpable crepitus. Patient is neurovascular intact distally. sensation intact. Brisk cap refill. Right upper and right lower extremities: No tenderness palpation no visible deformities. Full active range of motion is strength throughout. Sensation intact. Brisk cap refill. No rash Normal affect Laboratory Laboratory Tests Test 03/30/17 00:49 White Blood Count 10.9 Red Blood Count 3.98 Hemoglobin 13.3 Hematocrit 37.4 Mean Corpuscular Volume 94.0 Mean Corpuscular Hemoglobin 33.5 Mean Corpuscular Hemoglobin Concent 35.6 Red Cell Distribution Width 12.2 Platelet Count 173 Mean Platelet Volume 8.1 Neutrophils (%) (Auto) 82.4 Lymphocytes (%) (Auto) 9.5 Monocytes (%) (Auto) 7.4 Eosinophils (%) (Auto) 0.5 Basophils (%) (Auto) 0.2 Neutrophils # (Auto) 9.0 Lymphocytes # (Auto) 1.0 Monocytes # (Auto) 0.8 Eosinophils # (Auto) 0.1 Basophils # (Auto) 0.0 CBC Comment DIFF FINAL Differential Comment Prothrombin Time 10.8 Prothromb Time International Ratio 1.1 Blood Urea Nitrogen 15 Creatinine 0.52 Random Glucose 109 Calcium Level 8.4 Sodium Level 138 Potassium Level 3.4 Chloride Level 102 Carbon Dioxide Level 28.8 Anion Gap 7 Estimat Glomerular Filtration Rate 112 Result Diagram: 03/30/17 0049 03/30/17 0049 Imaging Last 48 hours Impressions Shoulder X-Ray 03/30/17 0000 Signed Impressions: Service Date/Time: Thursday, March 30, 2017 00:26 - CONCLUSION: No acute disease. Jose Francisco Oakes MD Lower Extremity CT 03/30/17 0000 Signed Impressions: Service Date/Time: Thursday, March 30, 2017 01:36 - CONCLUSION: Left inferior pubic ramus fracture. Jose Francisco Okaes MD Hip and Pelvis X-Ray 03/30/17 0000 Signed Impressions: Service Date/Time: Thursday, March 30, 2017 00:30 - CONCLUSION: No acute disease. Jose Francisoc Oakes MD Elbow X-Ray 03/30/17 0000 Signed Impressions: Service Date/Time: Thursday, March 30, 2017 00:30 - CONCLUSION: No acute disease. Jose Francisco Oakes MD Assessment & Plan Assessment and Plan Patient is an 82-year-old female who presents after trip and fall with left pubic rami fractures and suspected left sacral fracture Options management were discussed with the patient to the use of a electronic device monitor. At this time I recommend nonoperative management in the form of partial weightbearing 50% to the left lower extremity. Physical therapy for mobilization. I discussed with the patient that most often these take several weeks to even a couple of months to fully heal. However, she didn't should noticed a slow decrease in her pain over time. No plan for surgical intervention from an orthopedic standpoint. Stable for discharge. Hillary Hartmann MD Mar 30, 2017 08:06
[2017-03-30] MEDS: SERTRALINE HCL 50 MG TAB PO SCH (09:54)
[2017-03-30] MEDS: ASPIRIN EC 81 MG TABEC PO SCH (09:54)
[2017-03-30] MEDS: SODIUM CHLORIDE 0.9% FLUSH 10 ML FLUSH IV FLUSH SCH ×2 (09:54→20:45)
[2017-03-30] MEDS: ENOXAPARIN SODIUM 40 MG/0.4 ML SYRINGE SQ SCH (09:54)
[2017-03-30] MEDS: DOCUSATE SODIUM 50 MG/SENNA 8.6 MG TAB PO SCH ×2 (09:54→20:45)
--- NOTE | 2017-03-30 11:05 | EKG ---
Date Performed: 03/29/2017 Time Performed: 23:40:16 PTAGE: 82 years EKG: Sinus rhythm PATTERN CONSISTENT WITH PULMONARY DISEASE LEFT ANTERIOR FASCICULAR BLOCK NONSPECIFIC T-WAVE ABNORMAL ITY ABNORMAL ECG Since the prior tracing, there has been no significant change PREVIOUS TRACING DOCTOR: Valentin Pressley Interpretating Date/Time 03/30/2017 11:01:51
[2017-03-30] MEDS ORDERED: POTASSIUM CHLORIDE 20 MEQ CONTROLLED RELEASE TAB PO ONE (16:15)
[2017-03-30] MEDS: LISINOPRIL 20 MG TAB PO SCH (16:36)
[2017-03-30] MEDS: amLODIPine BESYLATE 5 MG TAB PO SCH (16:36)
[2017-03-30] MEDS: METOCLOPRAMIDE HCL 10 MG TAB PO PRN ×2 (16:36→21:51)
[2017-03-30] MEDS: CALCIUM CARBONATE 500 MG CHEWABLE TAB CHEW SCH (20:43)
[2017-03-30] MEDS: LACTOBACILLUS ACIDOPHILUS TAB PO SCH (20:45)
[2017-03-30] MEDS: LIDOCAINE HCL 5% OINT 37 GM TUBE OTHER SCH (21:00)
[2017-03-30] MEDS: TEMAZEPAM 15 MG CAP PO PRN (21:51)
[2017-03-31 00:55] VITALS: BP 168/84; PULSE 85; RESP 17; TEMP 99.2; O2SAT 95
[2017-03-31 05:19] VITALS: BP 187/88
[2017-03-31] MEDS: LEVOTHYROXINE SODIUM 75 MCG TAB PO SCH (05:46)
[2017-03-31 08:00] VITALS: BP 195/85; PULSE 85; RESP 18; TEMP 98.6; O2SAT 98
--- NOTE | 2017-03-31 08:06 | HHI.PR ---
Subjective Remarks patient is 82 years old female, divehi speaking prior to fall independent now states some pain "more" 5 out of 10 - points to left hip area states she has been voiding with no difficulty no nausea or vomiting, no abdominal pain Objective Vitals Vital Signs Date Time Temp Pulse Resp B/P (MAP) Pulse Ox O2 Delivery O2 Flow Rate FiO2 03/31/17 07:07 Room Air 03/31/17 05:19 187/88 (121) 03/31/17 00:55 99.2 85 17 168/84 (112) 95 03/30/17 22:08 85 157/81 (106) 03/30/17 21:20 99.5 91 17 189/91 (123) 92 03/30/17 20:00 92 Room Air 03/30/17 16:00 98.2 76 18 187/70 (109) 95 03/30/17 12:00 97.8 76 18 187/85 (119) 95 I/O 03/30/17 03/30/17 03/30/17 03/31/17 03/31/17 03/31/17 07:00 15:00 23:00 07:00 15:00 23:00 Intake Total 120 ml 600 ml 360 ml 360 ml Balance 120 ml 600 ml 360 ml 360 ml Intake Oral 120 ml 600 ml 360 ml 360 ml # Voids 1 3 3 3 # Bowel Movements 0 0 0 0 Result Diagram: 03/30/17 0049 03/30/17 0049 Imaging Last Impressions Shoulder X-Ray 03/30/17 0000 Signed Impressions: Service Date/Time: Thursday, March 30, 2017 00:26 - CONCLUSION: No acute disease. Jose Francisco Oakes MD Lower Extremity CT 03/30/17 0000 Signed Impressions: Service Date/Time: Thursday, March 30, 2017 01:36 - CONCLUSION: Left inferior pubic ramus fracture. Jose Francisco Oakes MD Hip and Pelvis X-Ray 03/30/17 0000 Signed Impressions: Service Date/Time: Thursday, March 30, 2017 00:30 - CONCLUSION: No acute disease. Jose Francisco Oakes MD Elbow X-Ray 03/30/17 0000 Signed Impressions: Service Date/Time: Thursday, March 30, 2017 00:30 - CONCLUSION: No acute disease. Jose Francisco Oakes MD Objective Remarks awake and alert, oriented x 3- divehi speaking, very interactive, appears comfortable anicteric no nuchal rigidity lungs- n rales, no wheezes regular rhythm abdomen soft, nontender extremities- no calf swelling, left LE movement/flexion limited by pain, moves both feet, good epripheral pulses, sensory intact A/P Problem List: (1) Fall ICD Code: W19.XXXA - Unspecified fall, initial encounter Status: Resolved (2) Pelvic fracture ICD Code: S32.9XXA - Fracture of unspecified parts of lumbosacral spine and pelvis, initial encounter for closed fracture (3) Intractable pain ICD Code: R52 - Pain, unspecified Assessment and Plan 82 years old female previously independent with all ADLs S/p mechanical fall, Left Pelvic Fx: CT LE w/ left inferior pubic ramus fracture, seen by Orthopedic- non surgical PT/eval daily. prn pain meds PT daily- 50% weightbearing LLE Pain secondary to above- prn pain - patient appears comfortable- instructed her to ask for pain meds HYpertension- continue on home meds and adjust. some elevated readings due to pain HYpothyroidism- on synthroid DVT Prophylaxis: Lovenox Incentive spirometry hourly CM consult- inpat rehab vs SNF vs home PT patient lives with her daughter Problem Qualifiers (1) Fall: Qualified Codes: W19.XXXA - Unspecified fall, initial encounter Ashley Chambers MD Mar 31, 2017 08:06
[2017-03-31] MEDS ORDERED: WALKER WHEELS/F1 MIS (08:16)
[2017-03-31 08:22] LABS: AUTOMATED NEUTROPHIL # 4.9 TH/MM3 (1.8-7.7); BASOPHIL % 0.5 % (0.0-2.0); EOSINOPHIL # 0.1 TH/MM3 (0-0.4); EOSINOPHIL % 1.2 % (0.0-4.0); HEMATOCRIT 36.7 % (35.0-46.0); HEMOGLOBIN 12.9 GM/DL (11.6-15.3); LYMPH % 20.1 % (9.0-44.0); LYMPHOCYTE # 1.4 TH/MM3 (1.0-4.8); MEAN CELL VOLUME 94.1 FL (80.0-100.0); MEAN CORPUSCULAR HEMOGLOBIN 33.2 PG (27.0-34.0); MEAN CORPUSCULAR HGB CONC 35.2 % (32.0-36.0); MEAN PLATELET VOLUME 8.4 FL (7.0-11.0); MONOCYTE # 0.7 TH/MM3 (0-0.9); NEUT % 68.2 % (16.0-70.0); PLATELET COUNT 168 TH/MM3 (150-450); RED CELL DISTRIBUTION WIDTH 12.3 % (11.6-17.2); WHITE BLOOD COUNT 7.1 TH/MM3 (4.0-11.0)
[2017-03-31] MEDS: LACTOBACILLUS ACIDOPHILUS TAB PO SCH ×2 (09:00→21:21)
[2017-03-31 09:12] LABS: ALBUMIN 3.4 GM/DL (3.4-5.0); ALKALINE PHOSPHATASE 59 U/L (45-117); ALT (GPT) 92 U/L (10-53); AST (GOT) 78 U/L (15-37); BICARBONATE 27.4 MEQ/L (21.0-32.0); BLOOD UREA NITROGEN 8 MG/DL (7-18); CALCIUM 8.4 MG/DL (8.5-10.1); CHLORIDE 102 MEQ/L (98-107); CREATININE 0.44 MG/DL (0.50-1.00); GLOMERULAR FILTRATION RATE 136 ML/MIN (>89); GLUCOSE,RANDOM 82 MG/DL (74-106); SODIUM (NA) 136 MEQ/L (136-145); TOTAL BILIRUBIN ADULT 0.9 MG/DL (0.2-1.0); TOTAL PROTEIN 6.9 GM/DL (6.4-8.2)
[2017-03-31] MEDS: ASPIRIN EC 81 MG TABEC PO SCH (09:25)
[2017-03-31] MEDS: DOCUSATE SODIUM 50 MG/SENNA 8.6 MG TAB PO SCH ×2 (09:25→21:21)
[2017-03-31] MEDS: amLODIPine BESYLATE 5 MG TAB PO SCH (09:25)
[2017-03-31] MEDS: SERTRALINE HCL 50 MG TAB PO SCH (09:25)
[2017-03-31] MEDS: LISINOPRIL 20 MG TAB PO SCH (09:25)
[2017-03-31] MEDS: ENOXAPARIN SODIUM 40 MG/0.4 ML SYRINGE SQ SCH (09:25)
[2017-03-31] MEDS: FAMOTIDINE 20 MG TAB PO SCH (09:25)
[2017-03-31] MEDS: CALCIUM CARBONATE 500 MG CHEWABLE TAB CHEW SCH ×2 (09:25→21:20)
[2017-03-31] MEDS: LIDOCAINE HCL 5% OINT 37 GM TUBE OTHER SCH ×2 (09:31→21:22)
[2017-03-31] MEDS: ACETAMINOPHEN/HYDROcodone 325 MG/5 MG TAB PO PRN (09:31)
[2017-03-31] MEDS: SODIUM CHLORIDE 0.9% FLUSH 10 ML FLUSH IV FLUSH SCH ×2 (09:33→21:21)
[2017-03-31] MEDS ORDERED: INFLUENZA VIRUS VACCINE (QUADRIVALENT) 0.5 ML SYR IM ONE (10:00)
[2017-03-31 12:00] VITALS: BP 124/66; PULSE 73; RESP 18; TEMP 98.2; O2SAT 95
[2017-03-31 16:00] VITALS: BP 158/76; PULSE 78; RESP 18; TEMP 97.6; O2SAT 97
[2017-03-31] MEDS: METOCLOPRAMIDE HCL 10 MG TAB PO PRN ×2 (16:39→21:20)
[2017-03-31 20:00] VITALS: BP 159/79; PULSE 87; RESP 14; TEMP 98.8; O2SAT 97
[2017-03-31] MEDS: TEMAZEPAM 15 MG CAP PO PRN (21:21)
[2017-04-01] VITALS: BP 184/81; PULSE 75; RESP 14; TEMP 98.4; O2SAT 97
[2017-04-01] MEDS: LEVOTHYROXINE SODIUM 75 MCG TAB PO SCH (06:10)
[2017-04-01 08:00] VITALS: BP 168/90; PULSE 91; RESP 16; TEMP 97; O2SAT 97
[2017-04-01] MEDS: LACTOBACILLUS ACIDOPHILUS TAB PO SCH ×2 (09:45→22:08)
[2017-04-01] MEDS: amLODIPine BESYLATE 5 MG TAB PO SCH (09:45)
[2017-04-01] MEDS: FAMOTIDINE 20 MG TAB PO SCH (09:45)
[2017-04-01] MEDS: CALCIUM CARBONATE 500 MG CHEWABLE TAB CHEW SCH ×2 (09:45→22:08)
[2017-04-01] MEDS: LISINOPRIL 20 MG TAB PO SCH (09:45)
[2017-04-01] MEDS: SERTRALINE HCL 50 MG TAB PO SCH (09:45)
[2017-04-01] MEDS: DOCUSATE SODIUM 50 MG/SENNA 8.6 MG TAB PO SCH ×2 (09:45→22:08)
[2017-04-01] MEDS: SODIUM CHLORIDE 0.9% FLUSH 10 ML FLUSH IV FLUSH SCH ×2 (09:46→22:09)
[2017-04-01] MEDS: ENOXAPARIN SODIUM 40 MG/0.4 ML SYRINGE SQ SCH (09:46)
[2017-04-01] MEDS: ASPIRIN EC 81 MG TABEC PO SCH (09:51)
[2017-04-01] MEDS: ACETAMINOPHEN/HYDROcodone 325 MG/5 MG TAB PO PRN ×3 (09:52→22:10)
[2017-04-01] MEDS: LIDOCAINE HCL 5% OINT 37 GM TUBE OTHER SCH ×2 (09:57→22:09)
[2017-04-01 12:00] VITALS: BP 141/79; PULSE 75; RESP 16; TEMP 97.3; O2SAT 95
[2017-04-01] MEDS: METOCLOPRAMIDE HCL 10 MG TAB PO PRN ×2 (13:26→17:29)
--- NOTE | 2017-04-01 15:16 | HHI.PR ---
Subjective Remarks Follow-up Mechanical fall/pelvic fracture 04/01/17-patient seen and examined, still complains of right sided pain. Denies any chest pain or shortness of breath. Vitals stable. Objective Vitals Vital Signs Date Time Temp Pulse Resp B/P (MAP) Pulse Ox O2 Delivery O2 Flow Rate FiO2 04/01/17 12:21 18 04/01/17 08:00 97.0 91 16 168/90 (116) 97 04/01/17 00:00 98.4 75 14 184/81 (115) 97 03/31/17 20:00 97 Room Air 03/31/17 20:00 98.8 87 14 159/79 (105) 97 03/31/17 16:00 97.6 78 18 158/76 (103) 97 I/O 03/31/17 03/31/17 03/31/17 04/01/17 04/01/17 04/01/17 07:00 15:00 23:00 07:00 15:00 23:00 Intake Total 360 ml 600 ml 400 ml 200 ml Balance 360 ml 600 ml 400 ml 200 ml Intake Oral 360 ml 600 ml 400 ml 200 ml # Voids 3 3 1 1 # Bowel Movements 0 0 Result Diagram: 03/31/17 0604 03/31/17 0604 Imaging Last Impressions Shoulder X-Ray 03/30/17 0000 Signed Impressions: Service Date/Time: Thursday, March 30, 2017 00:26 - CONCLUSION: No acute disease. Jose Francisco Oakes MD Lower Extremity CT 03/30/17 0000 Signed Impressions: Service Date/Time: Thursday, March 30, 2017 01:36 - CONCLUSION: Left inferior pubic ramus fracture. Jose Francisco Oakes MD Hip and Pelvis X-Ray 03/30/17 0000 Signed Impressions: Service Date/Time: Thursday, March 30, 2017 00:30 - CONCLUSION: No acute disease. Jose Francisco Oakes MD Elbow X-Ray 03/30/17 0000 Signed Impressions: Service Date/Time: Thursday, March 30, 2017 00:30 - CONCLUSION: No acute disease. Jose Francisco Oakes MD Objective Remarks GENERAL: NAD SKIN: Warm and dry. HEAD: Normocephalic. EYES: No scleral icterus. No injection or drainage. NECK: Supple, trachea midline. No JVD or lymphadenopathy. CARDIOVASCULAR: Regular rate and rhythm without murmurs, gallops, or rubs. RESPIRATORY: Breath sounds equal bilaterally. No accessory muscle use. GASTROINTESTINAL: Abdomen soft, non-tender, nondistended. MUSCULOSKELETAL: No cyanosis, or edema. BACK: Nontender without obvious deformity. No CVA tenderness. Procedures none A/P Problem List: (1) Fall ICD Code: W19.XXXA - Unspecified fall, initial encounter Status: Resolved (2) Pelvic fracture ICD Code: S32.9XXA - Fracture of unspecified parts of lumbosacral spine and pelvis, initial encounter for closed fracture (3) Intractable pain ICD Code: R52 - Pain, unspecified Assessment and Plan 82 years old female previously independent with all ADLs S/p mechanical fall, Left Pelvic Fx: CT LE w/ left inferior pubic ramus fracture, seen by Orthopedic- non surgical PT/eval daily. prn pain meds PT daily- 50% weightbearing LLE Pain secondary to above- prn pain - patient appears comfortable- instructed her to ask for pain meds Hypertension- continue on home meds and adjust. some elevated readings due to pain Hypothyroidism- on Synthroid DVT Prophylaxis: Lovenox Incentive spirometry hourly Problem Qualifiers (1) Fall: Qualified Codes: W19.XXXA - Unspecified fall, initial encounter Ruy Valdez MD Apr 01, 2017 15:16
--- NOTE | 2017-04-01 15:34 | HHI.DS ---
Discharge Summary Admission Date Mar 30, 2017 at 03:40 Discharge Date: Apr 01, 2017 Admitting Diagnosis pelvic fracture, fall, pain (1) Fall ICD Code: W19.XXXA - Unspecified fall, initial encounter Diagnosis: Secondary Status: Resolved (2) Pelvic fracture ICD Code: S32.9XXA - Fracture of unspecified parts of lumbosacral spine and pelvis, initial encounter for closed fracture Diagnosis: Principal (3) Intractable pain ICD Code: R52 - Pain, unspecified Diagnosis: Secondary Procedures none Brief History - From Admission This is an 82-year-old female with a PMH of Anxiety, Depression, HTN and CAD was brought to the ER by EMS secondary to complaints of hip pain after fall. Patient was apparently putting on a pair of shorts when she got tangled and fell onto her left hip. c/o immediate pain, sharp, constant, severe, 10/10, worse w/ movement. On arrival, BP 153/83, HR 83, O2 sat 93% on RA, Afebrile. Recent unremarkable. Chemistry essentially unremarkable. INR 1.1. Elbow x- ray negative. Hip X-ray negative. CT LE left inferior pubic ramus fracture. Shoulder X-ray negative. Pt unable to ambulate at this time due to injury. CBC/BMP: 03/31/17 0604 03/31/17 0604 Significant Findings Laboratory Tests Test 03/30/17 00:49 03/31/17 06:04 Red Blood Count 3.98 MIL/MM3 (4.00-5.30) 3.90 MIL/MM3 (4.00-5.30) Neutrophils (%) (Auto) 82.4 % (16.0-70.0) Neutrophils # (Auto) 9.0 TH/MM3 (1.8-7.7) Random Glucose 109 MG/DL (74-106) Calcium Level 8.4 MG/DL (8.5-10.1) 8.4 MG/DL (8.5-10.1) Potassium Level 3.4 MEQ/L (3.5-5.1) Monocytes (%) (Auto) 10.0 % (0.0-8.0) Creatinine 0.44 MG/DL (0.50-1.00) Aspartate Amino Transf (AST/SGOT) 78 U/L (15-37) Alanine Aminotransferase (ALT/SGPT) 92 U/L (10-53) Imaging Last Impressions Shoulder X-Ray 03/30/17 0000 Signed Impressions: Service Date/Time: Thursday, March 30, 2017 00:26 - CONCLUSION: No acute disease. Jose Francisco Oakes MD Lower Extremity CT 03/30/17 0000 Signed Impressions: Service Date/Time: Thursday, March 30, 2017 01:36 - CONCLUSION: Left inferior pubic ramus fracture. Jose Francisco Oakes MD Hip and Pelvis X-Ray 03/30/17 0000 Signed Impressions: Service Date/Time: Thursday, March 30, 2017 00:30 - CONCLUSION: No acute disease. Jose Francisco Oakes MD Elbow X-Ray 03/30/17 0000 Signed Impressions: Service Date/Time: Thursday, March 30, 2017 00:30 - CONCLUSION: No acute disease. Jose Francisco Oakes MD PE at Discharge GENERAL: NAD SKIN: Warm and dry. HEAD: Normocephalic. EYES: No scleral icterus. No injection or drainage. NECK: Supple, trachea midline. No JVD or lymphadenopathy. CARDIOVASCULAR: Regular rate and rhythm without murmurs, gallops, or rubs. RESPIRATORY: Breath sounds equal bilaterally. No accessory muscle use. GASTROINTESTINAL: Abdomen soft, non-tender, nondistended. MUSCULOSKELETAL: No cyanosis, or edema. BACK: Nontender without obvious deformity. No CVA tenderness. Hospital Course While In hospital, patient was treated for S/p mechanical fall, Left Pelvic Fx: CT LE w/ left inferior pubic ramus fracture, seen by Orthopedic- non surgical PT/eval daily. prn pain meds PT daily- 50% weightbearing LLE Pain secondary to above- prn pain - patient appears comfortable- Hypertension- treated with home meds and adjust. Hypothyroidism- Treated with Synthroid DVT Prophylaxis: With Lovenox Pt Condition on Discharge: Stable Discharge Disposition: Discharge to SNF Discharge Time: > 30 minutes Discharge Instructions DIET: Follow Instructions for: As Tolerated, No Restrictions Activities you can perform: Weight Bearing as Natalie Follow up Referrals: Orthopedics - 2 Weeks with Hillary Hartmann MD PCP Follow-up - 2-3 Days New Medications: Walker with Front Wheels (Walker with Front Wheels) 1 Mis Mis EA .XX DIRECTED for amb-pelvic fx, #1 0 Refills 50% weightbearing left LE Alprazolam (Xanax) 1 Mg Tab 1 MG PO BID PRN for ANXIETY, #10 TAB Hydrocodone/Acetaminophen (Hydrocodone-Acetamin 5-325 mg) 5 Mg-325 Mg Tablet 1 TAB PO Q4H PRN for PAIN SCALE 3 TO 5, #10 TAB Temazepam (Restoril) 15 Mg Cap 30 MG PO HS PRN for INSOMNIA, #10 CAP Continued Medications: Amlodipine (Amlodipine) 5 Mg Tab 5 MG PO DAILY for Blood Pressure Management, #90 TAB [address] (Aspirin Adult Low Strength) 81 Mg Tabdr 81 MG PO DAILY, TAB Benazepril (Benazepril) 40 Mg Tab 40 MG PO DAILY for Blood Pressure Management, #90 TAB 1 Refill Calcium Carbonate (Antacid) (Calcium Carbonate (Antacid)) 500 Mg Chew 500 MG CHEW Q12HR, #60 EA Estrogens, Conjugated Vaginal (Premarin Vaginal) 0.625 Mg/Gm Cream 1 GM VAGINAL WEEKLY for Estrogen Supplements, #1 TUBE 5 Refills Lactobacillus Acidophilus (Acidophilus/l-Sporogenes) 1 Tab Tab 1 TAB PO Q12HR, #60 TAB Levothyroxine (Synthroid) 75 Mcg Tab 75 MCG PO DAILY for Thyroid, #90 TAB 1 Refill Lidocaine Topical (Lidocaine Topical) 5 % Oint 1 APPLIC OTHER BID, #1 TUBE Metoclopramide (Reglan) 5 Mg Tab 5 MG PO TIDAC PRN for NAUSEA OR VOMITING, #90 TAB 2 Refills Phenylephrine-Mineral Oil-Petrolatum Topical (Preparation H Topical) 0.25-3-14- 71.9 % Oint 1 APPLIC TOPICAL BID, #1 TUBE Ranitidine (Ranitidine) 150 Mg Cap 150 MG PO DAILY, #30 CAP 5 Refills Sertraline (Zoloft) 50 Mg Tab 50 MG PO DAILY, #90 TAB 0 Refills Discontinued Medications: Alprazolam (Alprazolam) 1 Mg Tab 1 MG PO BID PRN for ANXIETY, #60 TAB 0 Refills Promethazine (Phenergan) 25 Mg Tablet 25 MG PO Q6H PRN for NAUSEA OR VOMITING, #90 TAB 2 Refills Temazepam (Temazepam) 30 Mg Cap 30 MG PO HS PRN for INSOMNIA, #30 CAP 2 Refills Ruy Valdez MD Apr 01, 2017 15:34
[2017-04-01] MEDS ORDERED: XANA1TAB2 PO (15:37)
[2017-04-01] MEDS ORDERED: HYDR-3516 PO (15:37)
[2017-04-01] MEDS ORDERED: REST15CA PO (15:37)
[2017-04-01 16:00] VITALS: BP 159/78; PULSE 72; RESP 16; TEMP 97; O2SAT 97
[2017-04-01 20:00] VITALS: BP 134/71; PULSE 87; RESP 16; TEMP 98.1; O2SAT 97
[2017-04-01] MEDS: TEMAZEPAM 15 MG CAP PO PRN (22:08)
[2017-04-02] VITALS: BP 130/71; PULSE 77; RESP 15; TEMP 97.4; O2SAT 93
[2017-04-02 04:00] VITALS: BP 172/90; PULSE 81; RESP 15; TEMP 96.7; O2SAT 97
[2017-04-02] MEDS: LEVOTHYROXINE SODIUM 75 MCG TAB PO SCH (05:01)
[2017-04-02] MEDS: CALCIUM CARBONATE 500 MG CHEWABLE TAB CHEW SCH (08:15)
[2017-04-02] MEDS: FAMOTIDINE 20 MG TAB PO SCH (08:16)
[2017-04-02] MEDS: METOCLOPRAMIDE HCL 10 MG TAB PO PRN ×2 (08:16→12:13)
[2017-04-02] MEDS: amLODIPine BESYLATE 5 MG TAB PO SCH (08:16)
[2017-04-02] MEDS: DOCUSATE SODIUM 50 MG/SENNA 8.6 MG TAB PO SCH (08:16)
[2017-04-02] MEDS: LACTOBACILLUS ACIDOPHILUS TAB PO SCH (08:16)
[2017-04-02] MEDS: ASPIRIN EC 81 MG TABEC PO SCH (08:16)
[2017-04-02] MEDS: SERTRALINE HCL 50 MG TAB PO SCH (08:16)
[2017-04-02] MEDS: LISINOPRIL 20 MG TAB PO SCH (08:16)
[2017-04-02] MEDS: ENOXAPARIN SODIUM 40 MG/0.4 ML SYRINGE SQ SCH (08:16)
[2017-04-02] MEDS: LIDOCAINE HCL 5% OINT 37 GM TUBE OTHER SCH (08:17)
[2017-04-02] MEDS: SODIUM CHLORIDE 0.9% FLUSH 10 ML FLUSH IV FLUSH SCH (08:17)
[2017-04-02 08:35] VITALS: BP 178/88; PULSE 91; RESP 18; TEMP 97.5; O2SAT 98
[2017-04-02 12:00] VITALS: BP 155/80; PULSE 89; RESP 18; TEMP 97.5; O2SAT 97
--- NOTE | 2017-04-02 12:27 | HHI.PR ---
Subjective Remarks Follow-up Mechanical fall/pelvic fracture 04/01/17-patient seen and examined, still complains of right sided pain. Denies any chest pain or shortness of breath. Vitals stable. 04/02/17-patient seen and examined, stable and no acute event overnight. Awaiting for discharge disposition. Objective Vitals Vital Signs Date Time Temp Pulse Resp B/P (MAP) Pulse Ox O2 Delivery O2 Flow Rate FiO2 04/02/17 08:35 97.5 91 18 178/88 (118) 98 04/02/17 04:00 96.7 81 15 172/90 (117) 97 04/02/17 00:00 97.4 77 15 130/71 (90) 93 04/01/17 20:00 98.1 87 16 134/71 (92) 97 04/01/17 18:32 18 04/01/17 16:00 97.0 72 16 159/78 (105) 97 I/O 04/01/17 04/01/17 04/01/17 04/02/17 04/02/17 04/02/17 07:00 15:00 23:00 07:00 15:00 23:00 Intake Total 200 ml 880 ml Balance 200 ml 880 ml Intake Oral 200 ml 880 ml # Voids 1 4 2 # Bowel Movements 1 Result Diagram: 03/31/17 0604 03/31/17 0604 Imaging Last Impressions Shoulder X-Ray 03/30/17 0000 Signed Impressions: Service Date/Time: Thursday, March 30, 2017 00:26 - CONCLUSION: No acute disease. Jose Francisco Oakes MD Lower Extremity CT 03/30/17 0000 Signed Impressions: Service Date/Time: Thursday, March 30, 2017 01:36 - CONCLUSION: Left inferior pubic ramus fracture. Jose Francisco Oakes MD Hip and Pelvis X-Ray 03/30/17 0000 Signed Impressions: Service Date/Time: Thursday, March 30, 2017 00:30 - CONCLUSION: No acute disease. Jose Francisco Oakes MD Elbow X-Ray 03/30/17 0000 Signed Impressions: Service Date/Time: Thursday, March 30, 2017 00:30 - CONCLUSION: No acute disease. Jose Francisco Oakes MD Objective Remarks GENERAL: NAD SKIN: Warm and dry. HEAD: Normocephalic. EYES: No scleral icterus. No injection or drainage. NECK: Supple, trachea midline. No JVD or lymphadenopathy. CARDIOVASCULAR: Regular rate and rhythm without murmurs, gallops, or rubs. RESPIRATORY: Breath sounds equal bilaterally. No accessory muscle use. GASTROINTESTINAL: Abdomen soft, non-tender, nondistended. MUSCULOSKELETAL: No cyanosis, or edema. BACK: Nontender without obvious deformity. No CVA tenderness. Procedures none A/P Problem List: (1) Fall ICD Code: W19.XXXA - Unspecified fall, initial encounter Status: Resolved (2) Pelvic fracture ICD Code: S32.9XXA - Fracture of unspecified parts of lumbosacral spine and pelvis, initial encounter for closed fracture (3) Intractable pain ICD Code: R52 - Pain, unspecified Assessment and Plan 82 years old female previously independent with all ADLs S/p mechanical fall, Left Pelvic Fx: CT LE w/ left inferior pubic ramus fracture, seen by Orthopedic- non surgical PT/eval daily. prn pain meds PT daily- 50% weightbearing LLE Pain secondary to above- prn pain - patient appears comfortable- Hypertension- continue on home meds and adjust. Hypothyroidism- on Synthroid DVT Prophylaxis: Lovenox Problem Qualifiers (1) Fall: Qualified Codes: W19.XXXA - Unspecified fall, initial encounter Ruy Valdez MD Apr 02, 2017 12:27
[2017-04-02] MEDS: ACETAMINOPHEN/HYDROcodone 325 MG/5 MG TAB PO PRN (15:24)
== END 2017-04-02 17:46 | DRG 536 ==
LOC: NEPC 23:29 → NEDA 03-30 02:39 → OBSVTOIN 03-30 03:40 → N06B 03-30 04:57
PROVIDERS: ADMIT Hospitalist; ATTEND Hospitalist
DX: S32.592A Other specified fracture of left pubis, initial encounter for closed fracture (principal); W01.0XXA Fall on same level from slipping, tripping and stumbling without subsequent striking against object, initial encounter; Y93.89 Activity, other specified; I10 Essential (primary) hypertension; F32.9 Major depressive disorder, single episode, unspecified; F41.9 Anxiety disorder, unspecified; I25.10 Atherosclerotic heart disease of native coronary artery without angina pectoris; E03.9 Hypothyroidism, unspecified; Z23 Encounter for immunization
CPT/HCPCS: 73030; 73080; 73503; 73700; 80048; 80053; 85025; 85610; 90471; 90686; 93005; 99285; G0008; J1650; J2405; Q2038

== ENCOUNTER 2017-12-26 14:27 | Observation (INO) ==
--- NOTE | 2017-12-26 15:53 | XR ---
EXAM DATE: 12/26/2017 3:47 PM EST AGE/SEX: 82 years / Female INDICATIONS: Fall today. Left hip pain. CLINICAL DATA: This is the patient's initial encounter. Patient reports that signs and symptoms have been present for 1 day and indicates a pain score of 7/10. MEDICAL/SURGICAL HISTORY: None. None. COMPARISON: [facility] – [place], CT HIP LEFT W/O CONTRAST, 03/30/2017. . FINDINGS: No acute fracture is seen of the bony pelvis. There is an old, healed left inferior ramus fracture. No fractures or subluxations seen of either hip. 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 CONCLUSION: 1. No acute fracture of the pelvis. 2. Old left inferior pubic ramus fracture. 3. Mild chronic arthropathy of both hips. Electronically signed by: Ramo Armas MD 12/26/2017 3:52 PM EST
--- NOTE | 2017-12-26 17:34 | XR ---
EXAM DATE: 12/26/2017 5:11 PM EST AGE/SEX: 82 years / Female INDICATIONS: Fall today. Left leg pain. CLINICAL DATA: This is the patient's subsequent encounter. Patient reports that signs and symptoms h ave been present for 1 day and indicates a pain score of 7/10. MEDICAL/SURGICAL HISTORY: None. None. COMPARISON: [facility], HIP LEFT W AP PELVIS 2V, 12/26/2017. . FINDINGS: Bony structures are intact and in normal alignment. Osseous density is normal. Soft tissues are unre markable. No radiopaque foreign bodies seen. CONCLUSION: Intact left femur. Electronically signed by: Ramo Armas MD 12/26/2017 5:32 PM EST
--- NOTE | 2017-12-26 17:59 | CT ---
EXAM DATE: 12/26/2017 5:35 PM EST AGE/SEX: 82 years / Female INDICATIONS: Trauma; fall last night, left hip pain, difficulty ambulating. CLINICAL DATA: This is the patient's initial encounter. Patient reports that signs and symptoms have been present for 1 day and indicates a pain score of 9/10. MEDICAL/SURGICAL HISTORY: Hypertension. Cholecystectomy. Appendectomy. Pacemaker. RADIATION DOSE: 21.02 CTDI (mGy) [place] [facility] [place]/30[place]. . TECHNIQUE: Multiple contiguous axial images were obtained through the pelvis without contrast. Imag es were obtained using multiple row detector helical technique. . Using automated exposure control an d adjustment of the mA and/or kV according to patient size, radiation dose was kept as low as reasona esdras achievable to obtain optimal diagnostic quality images. DICOM format image data is available surjit ctronically for review and comparison. FINDINGS: No acute fracture or subluxation demonstrated of the pelvis or either hip. Old, healed left inferior pubic ramus fracture with modestly exuberant callus formation. CT appearance of the soft tissues within normal limits. No hematoma or significant joint effusion dem onstrated. 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 CONCLUSION: 1. No acute fracture or other acute abnormality demonstrated. 2. Old, healed left inferior pubic ramus fracture. 3. 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 Electronically signed by: Ramo Armas MD 12/26/2017 5:58 PM EST
[2017-12-26 18:26] LABS: Baso % (Auto) 0.5 % (0.0-2.0); Eos # (Auto) 0.1 th/mm3 (0.0-0.4); Hematocrit 36.5 % (35.0-46.0); Lymph # (Auto) 1.4 th/mm3 (1.0-4.8); Lymph % (Auto) 26.8 % (9.0-44.0); Mean Corpuscular HGB Conc 35.7 % (32.0-36.0); Mean Corpuscular Hemoglobin 33.2 pg (27.0-34.0); Mean Corpuscular Volume 93.2 fL (80.0-100.0); Mean Platelet Volume 8.9 fL (7.0-11.0); Mono # (Auto) 0.4 th/mm3 (0.0-0.9); Mono % (Auto) 7.8 % (0.0-8.0); Neut # (Auto) 3.3 th/mm3 (1.8-7.7); Neut % (Auto) 63.9 % (16.0-70.0); Platelet Count 192 th/mm3 (150-450); Red Blood Count 3.92 mil/mm3 (4.00-5.30); Red Cell Distribution Width 12.2 % (11.6-17.2); White Blood Count 5.2 th/mm3 (4.0-11.0)
[2017-12-26 18:30] LABS: Bacteria,Urine Many /hpf; Bilirubin,Urine Negative (Negative); Clarity,Urine Hazy (Clear); Color,Urine Yellow (Yellw/Straw); Glucose,Urine (UA) Negative (Negative); Leukocyte Esterase,Urine Moderate (Negative); Mucus,Urine Few /lpf (Occasional); Nitrite,Urine Positive (Negative); Squamous Epithelial Cell,Urine <1 /hpf (0-5)
[2017-12-26 18:43] LABS: Anion Gap 11 meq/L (5-15); Blood Urea Nitrogen 10 mg/dL (7-18); Calcium 8.8 mg/dL (8.5-10.1); Carbon Dioxide 23.9 meq/L (21.0-32.0); Chloride 103 meq/L (98-107); Glomerular Filtration Rate Greater Than 89 mL/min (>89); Glucose,Random 93 mg/dL (74-106); Potassium 3.4 meq/L (3.5-5.1); Sodium 138 meq/L (136-145)
--- NOTE | 2017-12-26 20:05 | ED ---
HPI General Chief Complaint: Fall Stated Complaint: fall Time Seen by Provider: 12/26/17 16:03 Source: patient and family Mode of arrival: wheelchair Limitations: language barrier (belizean speaker only) History of Present Illness HPI Narrative: 82-year-old female that presents to the ED for evaluation of left hip pain after a fall she sustained yesterday. Patient has significant history of pelvic fracture that she had at the beginning of this year. Per patient she has had chronic pain from this and takes Lortab chronically. Per daughter patient had a mechanical fall yesterday. No head injury. No loss of consciousness per patient and daughter. Patient has now been able to put any weight on the left hip. She does use a walker to get about and even with a walker she is not able to put any weight which is what prompted her evaluation today. Patient denies any urinary symptoms. No blood thinner use. No numbness , tingling, weakness. No obvious deformity to the hip. Pain per patient is 10 out of 10 whenever she puts any weight on it. Patient denies any back pain or neck pain. Has not seen anybody for this. Pain has not improved which is per prompted evaluation. She continues to take her Lortab with minimal improvement of symptoms. Related Data Home Medications Medication Instructions Recorded Confirmed Unable to Obtain Home Meds 12/26/17 12/26/17 Allergies Allergy/AdvReac Type Severity Reaction Status Date / Time No Known Allergies Allergy Verified 12/26/17 16:06 Review of Systems ROS: all other systems reviewed are negative [facility] Medical History Medical History Chronic pain (Acute) Hypertension (Acute) Pacemaker (Acute) Syncope (Acute) Surgical History Surgical History History of cholecystectomy (Acute) Hx of appendectomy (Acute) Social History Social History Substance History: No History of Abuse Second Hand Smoke Exposure: No Smoking Status: Former smoker Tobacco Type: Cigarettes How Often Do You Have a Drink Containing Alcohol: Monthly or less Recent Travel in [facility] within the Last 8 Weeks: No Recent Out of Country Travel within the Last 8 Weeks: No Immunization History Tetanus Immunization: Unsure Exam Narrative Exam Narrative: GENERAL: Well-appearing SKIN: Focused skin assessment warm/dry. HEAD: Atraumatic. Normocephalic. EYES: Pupils equal and round. No scleral icterus. No injection or drainage. ENT: No nasal bleeding or discharge. Mucous membranes pink and moist. NECK: Trachea midline. No JVD. CARDIOVASCULAR: Regular rate and rhythm. No murmur appreciated. RESPIRATORY: No accessory muscle use. Clear to auscultation. Breath sounds equal bilaterally. GASTROINTESTINAL: Abdomen soft, non-tender, nondistended. Hepatic and splenic margins not palpable. MUSCULOSKELETAL: No obvious deformities. No clubbing. No cyanosis. No edema. Pain with any range of motion of the left hip but more specifically with extension as well as with weightbearing. Patient does have a producible pain with touch on the left hip area but more in the pelvic wing. No lumbar, thoracic, cervical spine tenderness to palpation. Some depressible pain on the anterior aspect of the knee with some swelling. No obvious deformity noted however. No open sores. NEUROLOGICAL: Awake and alert. No obvious cranial nerve deficits. Motor grossly within normal limits. Normal speech. PSYCHIATRIC: Appropriate mood and affect; insight and judgment normal. Course Initial Documented Vital Signs Temperature 98.8 F 12/26/17 14:31 Pulse Rate 71 12/26/17 14:31 Respiratory Rate 17 12/26/17 14:31 Blood Pressure 173/87 H 12/26/17 14:31 Pulse Oximetry 98 12/26/17 14:31 Last Documented Vital Signs Temperature 98.8 F 12/26/17 14:31 Pulse Rate 82 12/26/17 16:03 Respiratory Rate 20 12/26/17 19:11 Blood Pressure 167/107 H 12/26/17 16:03 Pulse Oximetry 98 12/26/17 16:03 Medical Decision Making [facility] Narrative Medical decision making narrative: 82-year-old female that presents to the ED for evaluation of left hip pain after fall. Patient was properly examined and was found to have signs and symptoms consistent with appears to be left hip injury. Imaging was ordered. Imaging was negative for acute disease. Patient still unable to put any weight on it. Labs were done as well as urine. Labs show no sign of acute disease but urine did show what appears to be UTI. Case discussed with my attending Dr. Garcia who recommends admission as patient can still not bear any weight on the left hip which is unusual for her. Fortunately patient lives with her elderly daughter who will likely require assistance to help her mother. At this time her condition is for admission for further evaluation and treatment. Case discussed with the residents agreed admission to their service. Medical Screen Exam Complete: Yes Emergency Medical Condition: Yes Differential Diagnosis Differential Diagnosis: Fracture versus sprain versus strain versus contusion Medical Records Medical records reviewed: Yes I reviewed the patient's medical records. Lab Data Lab results reviewed: Yes I reviewed the patient's lab results. Result diagrams: 12/26/17 17:39 12/26/17 17:39 Lab Results 12/26/17 12/26/17 12/26/17 Range/Units 17:39 17:39 17:39 WBC 5.2 (4.0-11.0) th/mm3 RBC 3.92 L (4.00-5.30) mil/mm3 Hgb 13.0 (11.6-15.3) gm/dL Hct 36.5 (35.0-46.0) % MCV 93.2 (80.0-100.0) fL MCH 33.2 (27.0-34.0) pg MCHC 35.7 (32.0-36.0) % RDW 12.2 (11.6-17.2) % Plt Count 192 (150-450) th/mm3 MPV 8.9 (7.0-11.0) fL Neut % (Auto) 63.9 (16.0-70.0) % Lymph % (Auto) 26.8 (9.0-44.0) % Cotton % (Auto) 7.8 (0.0-8.0) % Eos % (Auto) 1.0 (0.0-4.0) % Baso % (Auto) 0.5 (0.0-2.0) % Neut # (Auto) 3.3 (1.8-7.7) th/mm3 Lymph # (Auto) 1.4 (1.0-4.8) th/mm3 Cotton # (Auto) 0.4 (0.0-0.9) th/mm3 Eos # (Auto) 0.1 (0.0-0.4) th/mm3 Baso # (Auto) 0.0 (0.0-0.2) th/mm3 WBC Differential . Differential Comment Auto diff final Sodium 138 (136-145) meq/L Potassium 3.4 L (3.5-5.1) meq/L Chloride 103 (98-107) meq/L Carbon Dioxide 23.9 (21.0-32.0) meq/L Anion Gap 11 (5-15) meq/L BUN 10 (7-18) mg/dL Creatinine 0.63 (0.50-1.00) mg/dL Estimated GFR Greater than 89 (>89) mL/min Random Glucose 93 (74-106) mg/dL Calcium 8.8 (8.5-10.1) mg/dL Urine Color Yellow (Yellw/Straw) Urine Clarity Hazy H (Clear) Urine pH 7.0 (5.0-8.5) Ur Specific [place] 1.010 (1.002-1.035) Urine Protein Negative (Neg-Trace) mg/dL Urine Glucose (UA) Negative (Negative) mg/dL Urine Ketones Trace H (Negative) mg/dL Urine Occult Blood Moderate H (Negative) Urine Nitrate Positive H (Negative) Urine Bilirubin Negative (Negative) Urine Urobilinogen Less than 2 (Less than 2) mg/dL Ur Leukocyte Esterase Moderate H (Negative) Urine RBC 3 (0-3) /hpf Urine WBC 24 H (0-5) /hpf Ur Squamous Epith Cells <1 (0-5) /hpf Urine Bacteria Many H (None) /hpf Urine Mucus Few H (Occasional) /lpf Micro UA Comment Culture indicated Ur Microscopic Review Not Reportable Urine Culture Comments Culture indicated Imaging Data Attestation: I personally reviewed and interpreted this imaging study as follows : Radiologist's impression: Hip X-Ray 12/26/17 00:00 CONCLUSION: 1. No acute fracture of the pelvis. 2. Old left inferior pubic ramus fracture. 3. Mild chronic arthropathy of both hips. Pelvis CT 12/26/17 16:27 CONCLUSION: 1. No acute fracture or other acute abnormality demonstrated. 2. Old, healed left inferior pubic ramus fracture. 3. 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 Femur X-Ray 12/26/17 16:28 CONCLUSION: Intact left femur. Discharge Plan Discharge Disposition Patient Disposition: 30 Still Patient Discharge Details Diagnosis: Acute hip pain, Inability to ambulate due to hip, Acute UTI Physicians Team ED Provider: Hanna Garcia ED Midlevel Provider: Boubacar Kuhn Primary Care Provider: Mitch Borune Attending Provider: Amanda Dowell Discharge Interventions Interventions: Vital Signs Last Done: 12/26/17 16:03 Status ED Status: Admitted Observation Patient
--- NOTE | 2017-12-26 20:20 | P.HPFP ---
History of Present Illness Primary Care Physician: Mitch Bourne MD, R3 <Amanda Dowell 12/27/17 07:08> Mitch Bourne MD, R3 <Albino Cuellar 12/26/17 20:20> Chief Complaint: L hip pain <PoloAlbino Jorge 12/26/17 20:20> History of Present Illness: 82 yo Lao speaking only female with PMH of HTN, h/o sick sinus syndrome w/ pacemaker, hypothyroidism, gastroparesis, CAD and h/o pubic rami fracture presented to the ED with her daughter for L hip pain. Daughter lives with the patient, is the health care surrogate and provides most of the history. Patient has chronic L hip pain 2/2 to the pubic rami fracture earlier this year, but her pain has increased in intensity. She typically uses a walker at home but has been unable to bear weight on her L hip over the last several days. Daughter reports patient had an unwitnessed fall on the day prior to admission which worsened the pain. Patient called her daughter who was in the other room. Denied any LOC, head injury, chest pain or dizziness and the daughter states she never appeared disoriented or confused. Patient does report the sensation of incomplete emptying of her bladder over the last several days. Denies dysuria , fever/chills, increased urinary frequency. <Albino Cuellar 12/26/17 22:46> - Diagnosis (1) Inability to ambulate due to hip (2) Acute UTI (3) Hypokalemia (4) Hypertension (5) Hypothyroidism (6) Depression with anxiety (7) Gastroparesis (8) Insomnia (9) Nutrition, metabolism, and development symptoms <Amanda Dowell 12/27/17 07:08> (1) Inability to ambulate due to hip (2) Acute UTI (3) Hypokalemia (4) Hypertension (5) Hypothyroidism (6) Depression with anxiety (7) Gastroparesis (8) Insomnia (9) Nutrition, metabolism, and development symptoms <Albino Cuellar 12/26/17 22:19> Review of Systems Constitutional: Reports fatigue, Denies chills, Denies fever(s) <Albino Cuellar 12/26/17 22:46> Eyes: Denies blurry vision, Denies change in vision <Albino Cuellar 22:46> Ears, Nose, Mouth, and Throat: Denies post nasal drip, Denies sore throat < Albino Cuellar 12/26/17 22:46> Cardiovascular: Denies chest pain, Denies excessive sweating, Denies fainting, Denies lightheadedness <Albino Cuellar 12/26/17 22:46> Respiratory: Denies cough, Denies shortness of breath, Denies wheezing <Albino Cuellar 12/26/17 22:46> Gastrointestinal: Denies abdominal pain, Denies black, tarry stools, Denies nausea <Albino Cuellar 12/26/17 22:46> [facility] - History History Provided By: Family Member <Albino Cuellar 12/26/17 20:20> - Medical History Medical History: Medical History (Last Updated 12/26/17 @ 22:20 by Albino Cuellar MD, R2) Chronic pain Gastroparesis Hypertension Hypothyroid Pacemaker Sick sinus syndrome Syncope <Amanda Dowell 12/27/17 07:08> Medical History (Last Updated 12/26/17 @ 22:20 by Albino Cuellar MD, R2) Chronic pain Gastroparesis Hypertension Hypothyroid Pacemaker Sick sinus syndrome Syncope <Albino Cuellar 12/26/17 22:46> - Surgical History Surgical History: Surgical History (Last Updated 12/26/17 @ 20:19 by Albino Cuellar MD, R2) H/O thyroidectomy History of cholecystectomy Hx of appendectomy <Amanda Dowell 12/27/17 07:08> Surgical History (Last Updated 12/26/17 @ 20:19 by Albino Cuellar MD, R2) H/O thyroidectomy History of cholecystectomy Hx of appendectomy <Albino Cuellar 12/26/17 20:20> - Tobacco History Second Hand Smoke Exposure: No <Albino Cuellar 12/26/17 20:20> Tobacco Use In Past 30 Days: No <Albino Cuellar 12/26/17 20:20> Smoking Status: Former smoker <Albino Cuellar 12/26/17 20:20> Tobacco Type: Cigarettes <Albino Cuellar 12/26/17 20:20> - Alcohol History How Often Do You Have a Drink Containing Alcohol: Monthly or less <Albino Cuellar Ania - 12/26/17 20:20> - Substance Use History Substance History: No History of Abuse <Albino Cuellar Ania - 12/26/17 20:20> - Travel History Recent Travel in the [place] Within the Last 8 Weeks: No <Albino Cuellar Ania - 12/26 20:20> Recent Travel Out of the Country Within the Last 8 Weeks: No <Albino Cuellar Ania - 12/26/17 20:20> - Immunization History Tetanus Immunization: Unsure <Albino Cuellar Ania - 12/26/17 20:20> Medications and Allergies Allergies Allergy/AdvReac Type Severity Reaction Status Date / Time No Known Allergies Allergy Verified 12/26/17 16:06 <Amanda Dowell - 12/27/17 07:08> Active Medications: Active Medications Acetaminophen (Tylenol) 650 mg PO Q6HR PRN PRN Reason: PAIN SCALE 1 TO 2 Al Hydroxide/Mg Hydroxide (Milk Of Magnesia Liq) 30 ml PO Q12H PRN PRN Reason: Mild Constipation Alprazolam (Xanax) 0.25 mg PO BID PRN PRN Reason: ANXIETY Last Admin: 12/27/17 02:47 Dose: 0.25 mg Amlodipine Besylate (Norvasc) 5 mg PO DAILY [facility] Bisacodyl (Dulcolax Supp) 10 mg RECTAL DAILY PRN PRN Reason: SEVERE CONSITIPATION Enoxaparin Sodium (Lovenox Inj) 40 mg SQ Q24H [facility] Last Admin: 12/26/17 21:24 Dose: 40 mg Escitalopram Oxalate (Lexapro) 10 mg PO DAILY [facility] Lactulose (Lactulose Liq) 30 ml PO DAILY PRN PRN Reason: SEVERE CONSITIPATION Levothyroxine Sodium (Synthroid) 75 mcg PO DAILY@0600 [facility] Lisinopril (Prinivil) 40 mg PO DAILY [facility] Metoclopramide HCl (Reglan) 5 mg PO TID [facility] Morphine Sulfate (Morphine Inj) 2 mg IV.PUSH Q3H PRN PRN Reason: BREAKTHROUGH PAIN Naloxone HCl (Narcan Inj) 0.4 mg IV.PUSH UNSCH PRN PRN Reason: SEE LABEL COMMENTS Ondansetron HCl (Zofran Inj) 4 mg IV.PUSH Q6H PRN PRN Reason: NAUSEA OR VOMITING Oxycodone/Acetaminophen (Percocet 10/325 Mg) 1 tab PO Q6H PRN PRN Reason: PAIN SCALE 6 TO 10 Oxycodone/Acetaminophen (Percocet 5/325 Mg) 1 tab PO Q6H PRN PRN Reason: PAIN SCALE 3 TO 5 Senna/Docusate Sodium (Gi-Colace) 1 tab PO BID [facility] Last Admin: 12/26/17 21:24 Dose: 1 tab Sennosides (Senokot) 17.2 mg PO Q12H PRN PRN Reason: Moderate Constipation Temazepam (Restoril) 15 mg PO HS PRN PRN Reason: INSOMNIA Last Admin: 12/27/17 00:31 Dose: 15 mg Trimethoprim/Sulfamethoxazole (Bactrim Ds) 1 tab PO Q12HR [facility] Last Admin: 12/26/17 21:24 Dose: 1 tab <Amanda Dowell R - 12/27/17 07:08> Exam Vital signs: Vital Signs 12/26/17 14:31 12/26/17 16:03 12/26/17 19:11 Temperature 98.8 F Pulse Rate 71 82 Respiratory Rate 17 17 20 Blood Pressure 173/87 H 167/107 H Pulse Oximetry 98 98 12/26/17 20:19 12/26/17 21:25 12/27/17 00:00 Temperature 98.2 F 98.0 F Pulse Rate 88 88 78 Respiratory Rate 20 20 17 Blood Pressure 145/72 H 136/72 184/86 H Pulse Oximetry 96 12/27/17 03:58 Temperature 98.1 F Pulse Rate 74 Respiratory Rate 16 Blood Pressure 160/81 H Pulse Oximetry 98 Intake & Output 12/26/17 12/27/17 12/27/17 18:59 06:59 18:59 Output Total 300 / 300 Balance -300 / -300 Weight 51.256 kg 51.256 kg Output: Urine 300 / 300 Other: Weight On Admission 51.256 kg <Amanda Dowell R - 12/27/17 07:08> Vital Signs 12/26/17 14:31 12/26/17 16:03 12/26/17 19:11 Temperature 98.8 F Pulse Rate 71 82 Respiratory Rate 17 17 20 Blood Pressure 173/87 H 167/107 H Pulse Oximetry 98 98 Intake & Output 12/26/17 12/26/17 12/27/17 06:59 18:59 06:59 Weight 51.256 kg <PoloAlbino B - 12/26/17 20:20> Narrative: General: Awake, alert elderly female resting comfortably in bed in NAD. Is Lao speaking and answers questions appropriately with rn ambulatory HEENT: Moist mucosa. Supple neck. No LAD. HAKEEM b/l, EOMI CV: Regular rate and rhythm. S1, S2, No m/r/g appreciated. Lungs: CTA with good aeration. No wheezes, crackles, rhonchi or stridor. No accessory muscle usage Abdomen: Soft, NT/ND. No masses or organomegaly appreciated. Normoactive bowel sounds. No rebound tenderness. Musculoskeletal: LE strength 4/5 and equal bilaterally. Sensation in the BLE intact. Distal pulses palpated and equal bilaterally Skin: No rashes, ecchymosis or other lesions overlying the L femur/hip Neuro: Grossly intact. At baseline. Oriented x3 <Albino Cuellar B - 12/26/17 22:46> Results - Labs Result diagrams: 12/26/17 17:39 12/26/17 17:39 <Amanda Dowell R - 12/27/17 07:08> Abnormal lab results 12/26/17 12/26/17 12/26/17 Range/Units 17:39 17:39 17:39 RBC 3.92 L (4.00-5.30) mil/mm3 Potassium 3.4 L (3.5-5.1) meq/L Urine Clarity Hazy H (Clear) Urine Ketones Trace H (Negative) mg/dL Urine Occult Blood Moderate H (Negative) Urine Nitrate Positive H (Negative) Ur Leukocyte Esterase Moderate H (Negative) Urine WBC 24 H (0-5) /hpf Urine Bacteria Many H (None) /hpf Urine Mucus Few H (Occasional) /lpf Short CBC 12/26/17 Range/Units 17:39 WBC 5.2 (4.0-11.0) th/mm3 Hgb 13.0 (11.6-15.3) gm/dL Hct 36.5 (35.0-46.0) % Plt Count 192 (150-450) th/mm3 [facility] 12/26/17 17:39 Sodium 138 Potassium 3.4 L Chloride 103 Carbon Dioxide 23.9 BUN 10 Creatinine 0.63 Calcium 8.8 Urine 12/26/17 Range/Units 17:39 Urine Color Yellow (Yellw/Straw) Urine Clarity Hazy H (Clear) Urine pH 7.0 (5.0-8.5) Ur Specific Boyce 1.010 (1.002-1.035) Urine Protein Negative (Neg-Trace) mg/dL Urine Glucose (UA) Negative (Negative) mg/dL <Amanda Dowell - 12/27/17 07:08> Abnormal lab results 12/26/17 12/26/17 12/26/17 Range/Units 17:39 17:39 17:39 RBC 3.92 L (4.00-5.30) mil/mm3 Potassium 3.4 L (3.5-5.1) meq/L Urine Clarity Hazy H (Clear) Urine Ketones Trace H (Negative) mg/dL Urine Occult Blood Moderate H (Negative) Urine Nitrate Positive H (Negative) Ur Leukocyte Esterase Moderate H (Negative) Urine WBC 24 H (0-5) /hpf Urine Bacteria Many H (None) /hpf Urine Mucus Few H (Occasional) /lpf Short CBC 12/26/17 Range/Units 17:39 WBC 5.2 (4.0-11.0) th/mm3 Hgb 13.0 (11.6-15.3) gm/dL Hct 36.5 (35.0-46.0) % Plt Count 192 (150-450) th/mm3 BMP 12/26/17 17:39 Sodium 138 Potassium 3.4 L Chloride 103 Carbon Dioxide 23.9 BUN 10 Creatinine 0.63 Calcium 8.8 Urine 12/26/17 Range/Units 17:39 Urine Color Yellow (Yellw/Straw) Urine Clarity Hazy H (Clear) Urine pH 7.0 (5.0-8.5) Ur Specific Boyce 1.010 (1.002-1.035) Urine Protein Negative (Neg-Trace) mg/dL Urine Glucose (UA) Negative (Negative) mg/dL <Albino Cuellar - 12/26/17 20:20> - Imaging Impressions Hip X-Ray 12/26/17 00:00 CONCLUSION: 1. No acute fracture of the pelvis. 2. Old left inferior pubic ramus fracture. 3. Mild chronic arthropathy of both hips. Pelvis CT 12/26/17 16:27 CONCLUSION: 1. No acute fracture or other acute abnormality demonstrated. 2. Old, healed left inferior pubic ramus fracture. 3. 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 Femur X-Ray 12/26/17 16:28 CONCLUSION: Intact left femur. <Amanda Dowell R - 12/27/17 07:08> Impressions Hip X-Ray 12/26/17 00:00 CONCLUSION: 1. No acute fracture of the pelvis. 2. Old left inferior pubic ramus fracture. 3. Mild chronic arthropathy of both hips. Pelvis CT 12/26/17 16:27 CONCLUSION: 1. No acute fracture or other acute abnormality demonstrated. 2. Old, healed left inferior pubic ramus fracture. 3. 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 Femur X-Ray 12/26/17 16:28 CONCLUSION: Intact left femur. <Albino Cuellar B - 12/26/17 20:20> Caprini VTE Risk Assessment Caprini VTE Risk Assessment: Moderate/High Risk (score >= 2) <Albino Cuellar B - 12/26/17 22:46> Caprini Risk Assessment Model: Point Value = 1 Point Value = 2 Point Value = 3 Point Value = 5 Age 41-60 Minor surgery BMI > 25 kg/m2 Swollen legs Varicose veins or History of unexplained or recurrent spontaneous Oral contraceptives or hormone replacement Sepsis (< 1 month) Serious lung disease, including pneumonia (< 1 month) Abnormal pulmonary function Acute myocardial infarction Congestive heart failure (< 1 month) History of inflammatory bowel disease Medical patient at bed rest Age 61-74 Arthroscopic surgery Major open surgery (> 45 min) Laparoscopic surgery (> 45 min) Malignancy Confined to bed (> 72 hours) Immobilizing plaster cast Central venous access Age >= 75 History of VTE Family history of VTE Factor V Leiden Prothrombin [id number] Lupus anticoagulant Anticardiolipin antibodies Elevated serum homocysteine Heparin-induced thrombocytopenia Other congenital or acquired thrombophilia Stroke (< 1 month) Elective arthroplasty Hip, pelvis, or leg fracture Acute spinal cord injury (< 1 month) <Amanda Dowell R - 12/27/17 07:08> Point Value = 1 Point Value = 2 Point Value = 3 Point Value = 5 Age 41-60 Minor surgery BMI > 25 kg/m2 Swollen legs Varicose veins or History of unexplained or recurrent spontaneous Oral contraceptives or hormone replacement Sepsis (< 1 month) Serious lung disease, including pneumonia (< 1 month) Abnormal pulmonary function Acute myocardial infarction Congestive heart failure (< 1 month) History of inflammatory bowel disease Medical patient at bed rest Age 61-74 Arthroscopic surgery Major open surgery (> 45 min) Laparoscopic surgery (> 45 min) Malignancy Confined to bed (> 72 hours) Immobilizing plaster cast Central venous access Age >= 75 History of VTE Family history of VTE Factor V Leiden Prothrombin [id number] Lupus anticoagulant Anticardiolipin antibodies Elevated serum homocysteine Heparin-induced thrombocytopenia Other congenital or acquired thrombophilia Stroke (< 1 month) Elective arthroplasty Hip, pelvis, or leg fracture Acute spinal cord injury (< 1 month) <Albino Cuellar B - 12/26/17 20:20> Prophylaxis Regimen: Total Risk Factor Score Risk Level Prophylaxis Regimen 0-1 Low Early ambulation 2 Moderate Order ONE of the following: *Sequential Compression Device (SCD) *Heparin 5000 units SQ BID 3-4 Higher Order ONE of the following medications: *Heparin 5000 units SQ TID *Enoxaparin/Lovenox 40 mg SQ daily (WT < 150 kg, CrCl > 30 mL/min) *Enoxaparin/Lovenox 30 mg SQ daily (WT < 150 kg, CrCl > 10-29 mL/min) *Enoxaparin/Lovenox 30 mg SQ BID (WT < 150 kg, CrCl > 30 mL/min) AND/OR *Sequential Compression Device (SCD) 5 or more Highest Order ONE of the following medications: *Heparin 5000 units SQ TID (Preferred with Epidurals) *Enoxaparin/Lovenox 40 mg SQ daily (WT < 150 kg, CrCl > 30 mL/min) *Enoxaparin/Lovenox 30 mg SQ daily (WT < 150 kg, CrCl > 10-29 mL/min) *Enoxaparin/Lovenox 30 mg SQ BID (WT < 150 kg, CrCl > 30 mL/min) AND *Sequential Compression Device (SCD) <Amanda Dowell R - 12/27/17 07:08> Total Risk Factor Score Risk Level Prophylaxis Regimen 0-1 Low Early ambulation 2 Moderate Order ONE of the following: *Sequential Compression Device (SCD) *Heparin 5000 units SQ BID 3-4 Higher Order ONE of the following medications: *Heparin 5000 units SQ TID *Enoxaparin/Lovenox 40 mg SQ daily (WT < 150 kg, CrCl > 30 mL/min) *Enoxaparin/Lovenox 30 mg SQ daily (WT < 150 kg, CrCl > 10-29 mL/min) *Enoxaparin/Lovenox 30 mg SQ BID (WT < 150 kg, CrCl > 30 mL/min) AND/OR *Sequential Compression Device (SCD) 5 or more Highest Order ONE of the following medications: *Heparin 5000 units SQ TID (Preferred with Epidurals) *Enoxaparin/Lovenox 40 mg SQ daily (WT < 150 kg, CrCl > 30 mL/min) *Enoxaparin/Lovenox 30 mg SQ daily (WT < 150 kg, CrCl > 10-29 mL/min) *Enoxaparin/Lovenox 30 mg SQ BID (WT < 150 kg, CrCl > 30 mL/min) AND *Sequential Compression Device (SCD) <Albino Cuellar B - 12/26/17 20:20> Assessment and Plan - Assessment (1) Inability to ambulate due to hip Code(s): R26.2 - Difficulty in walking, not elsewhere classified Status: Acute (2) Acute UTI Code(s): N39.0 - Urinary tract infection, site not specified Status: Acute (3) Hypokalemia Code(s): E87.6 - Hypokalemia Status: Acute (4) Hypertension Code(s): I10 - Essential (primary) hypertension Status: Acute (5) Hypothyroidism Code(s): E03.9 - Hypothyroidism, unspecified Status: Acute (6) Depression with anxiety Code(s): F41.8 - Other specified anxiety disorders Status: Acute (7) Gastroparesis Code(s): K31.84 - Gastroparesis Status: Acute (8) Insomnia Code(s): G47.00 - Insomnia, unspecified Status: Acute (9) Nutrition, metabolism, and development symptoms Code(s): R63.8 - Other symptoms and signs concerning food and fluid intake Status: Acute <Amanda Dowell - 12/27/17 07:08> (1) Inability to ambulate due to hip Code(s): R26.2 - Difficulty in walking, not elsewhere classified Status: Acute Plan: Patient presented to the ED with acute on chronic left hip pain Patient previously used a walker to ambulate but is unable to bear weight on the left leg Has been treated with [place] at home and this is not been alleviating her pain X-ray of the hip, x-ray of left femur and pelvis CT showed no acute fractures Will consult physical therapy and case management as patient may need home health versus inpatient rehab Percocet pain scale with morphine for breakthrough No ecchymosis/skin changes appreciated on the left leg/hip (2) Acute UTI Code(s): N39.0 - Urinary tract infection, site not specified Status: Acute Plan: Urinalysis on admission significant for positive nitrates, moderate leukocyte esterase, 24 WBC, many bacteria Culture pending Afebrile, no leukocytosis on admission Acute simple cystitis Will treat with p.o. Bactrim double strength twice daily (3) Hypokalemia Code(s): E87.6 - Hypokalemia Status: Acute Plan: Patient noted to have a potassium of 3.4 on admission Will replete with 20 mEq of p.o. potassium Repeat BMP in the morning (4) Hypertension Code(s): I10 - Essential (primary) hypertension Status: Acute Plan: Known history of hypertension Continuing home amlodipine, lisinopril (5) Hypothyroidism Code(s): E03.9 - Hypothyroidism, unspecified Status: Acute Plan: Known history of hypothyroidism Continuing home levothyroxine (6) Depression with anxiety Code(s): F41.8 - Other specified anxiety disorders Status: Acute Plan: Known history of depression and anxiety Continuing home escitalopram Typically takes alprazolam 0.25 mg once or twice daily Continue alprazolam 0.25 mg p.o. twice daily as needed for anxiety (7) Gastroparesis Code(s): K31.84 - Gastroparesis Status: Acute Plan: Known history of gastroparesis not secondary to diabetes Continue home metoclopramide 5 mg p.o. 3 times daily (8) Insomnia Code(s): G47.00 - Insomnia, unspecified Status: Acute Plan: Known history of insomnia for which he takes temazepam 15 mg at bedtime Will continue on admission (9) Nutrition, metabolism, and development symptoms Code(s): R63.8 - Other symptoms and signs concerning food and fluid intake Status: Acute Plan: No IV fluids on admission Regular diet Lovenox 40 mg SQ daily for DVT prophylaxis Zofran as needed for nausea <Albino Cuellar - 12/26/17 22:19> - Assessment and Plan 82 yo Lao speaking only female with PMH of HTN, h/o sick sinus syndrome w/ pacemaker, hypothyroidism, gastroparesis, CAD and h/o pubic rami fracture presented to the ED with her daughter for L hip pain. Imaging including hip x- ray, x-ray of the femur, CT pelvis were negative for acute processes. Patient was admitted observation due to inability to ambulate and was incidentally found to have a UTI. Will treat with p.o. Bactrim and have physical therapy evaluate. Disposition: Likely DC in 1-2 days. Will likely need either home health PT or possibly inpatient PT <Albino Cuellar - 12/26/17 22:46> - Attending Attestation Patient reviewed. Agree with admission and assessment and plan as above <Amanda Dowell - 12/27/17 07:08>
[2017-12-26] MEDS ORDERED: Morphine Inj 4 MG/ML Vial IV.PUSH PRN (20:46)
[2017-12-26] MEDS ORDERED: Bisacodyl 10 MG Supp RECTAL PRN (20:46)
[2017-12-26] MEDS ORDERED: Naloxone Inj 0.4 MG/ML Vial IV.PUSH PRN (20:46)
[2017-12-26] MEDS ORDERED: Acetaminophen 325 MG Tablet PO PRN (20:46)
[2017-12-26] MEDS: Senna/Docusate Sodium 8.6/50 MG Tablet PO SCH (21:24)
[2017-12-26] MEDS: Enoxaparin Inj 40 MG/0.4 ML Syringe SQ SCH (21:24)
[2017-12-27] MEDS: Temazepam 15 MG Capsule PO PRN ×2 (00:31→20:11)
[2017-12-27] MEDS: ALPRAZolam 0.25 MG Tablet PO PRN (02:47)
[2017-12-27 07:13] LABS: Anion Gap 11 meq/L (5-15); Blood Urea Nitrogen 8 mg/dL (7-18); Calcium 8.7 mg/dL (8.5-10.1); Carbon Dioxide 23.5 meq/L (21.0-32.0); Chloride 105 meq/L (98-107); Glomerular Filtration Rate Greater Than 89 mL/min (>89); Glucose,Random 97 mg/dL (74-106); Potassium 3.5 meq/L (3.5-5.1); Sodium 139 meq/L (136-145)
[2017-12-27] MEDS: Levothyroxine 75 MCG Tablet PO SCH (07:25)
[2017-12-27] MEDS ORDERED: Metoclopramide 10 MG Tablet PO SCH (09:00)
--- NOTE | 2017-12-27 09:32 | P.PNFP ---
Subjective Interval history: Patient seen and evaluated this morning by medical team with the assistance of [facility] interpretive services as patient is strictly Qatari-speaking. Medical team briefly reviewed patient's history. She states that currently her pain in her left hip is significantly lowered when she is nonweightbearing, however she is still unable to walk/bear weight. She states that she is able to maneuver to a bedside commode with assistance at this time. She goes on to state that when she does bear weight the pain is sharp in her left hip radiating down her leg. She does endorse episodes of urinary incontinence over the last 24 hours, however this is likely related to her acute urinary tract infection. This morning, nursing staff reported patient did have an episode of vomiting. Upon further discussion with patient, she does have a history of gastroparesis and requires Reglan therapy 4 times a day. She did not receive her Reglan last night which likely would lead to the nausea and vomiting this morning. The vomiting was nonbilious and nonbloody per patient's report. Otherwise she has no acute complaints at this time and all questions were answered.. Medical team contacted patient's daughter to confirm her history. She states that her mother did fall Thursday night when leaving the bathroom, but did not lose consciousness. She states throughout Thursday she complained of excruciating pain and was told by the on-call medical team to bring the patient to the hospital for further evaluation. We discussed goals of care which she states that she would like to have her mother placed in a rehabilitation center/ prison at this time. However, per discussion with case management, patient does not meet inpatient criteria for proper placement. We discussed that the patient will likely need to be discharged home with home health. We then discussed further evaluation with her PCP for prison placement. Her daughter states that she is worried that the patient will not be able to care for self at home while she works from 8 AM to 6 PM daily. We discussed that the case management plans to reach out to her to discuss insurance matters and will be able to further recommend at home medical equipment to assist her mother until proper placement can be found. Otherwise her daughter has no acute complaints regarding the patient and all questions were answered. Case management has contacted patient's daughter as well, and patient does not qualify for Medicare at this time. She is covered under [employer] and does have a personal manager of case management for her case per her daughter. Case management informed the daughter that she will need to follow-up with this manager of case management for appropriate placement as an outpatient. Patient has been supplied orders for home health PT/OT, Home Health Aide to assist with ADLs, as well as orders for a wheelchair and bedside commode. Results - Labs Result diagrams: 12/26/17 17:39 12/27/17 06:26 Abnormal lab results 12/26/17 12/26/17 12/26/17 Range/Units 17:39 17:39 17:39 RBC 3.92 L (4.00-5.30) mil/mm3 Potassium 3.4 L (3.5-5.1) meq/L Urine Clarity Hazy H (Clear) Urine Ketones Trace H (Negative) mg/dL Urine Occult Blood Moderate H (Negative) Urine Nitrate Positive H (Negative) Ur Leukocyte Esterase Moderate H (Negative) Urine WBC 24 H (0-5) /hpf Urine Bacteria Many H (None) /hpf Urine Mucus Few H (Occasional) /lpf Short CBC 12/26/17 Range/Units 17:39 WBC 5.2 (4.0-11.0) th/mm3 Hgb 13.0 (11.6-15.3) gm/dL Hct 36.5 (35.0-46.0) % Plt Count 192 (150-450) th/mm3 BMP 12/26/17 12/27/17 17:39 06:26 Sodium 138 139 Potassium 3.4 L 3.5 Chloride 103 105 Carbon Dioxide 23.9 23.5 BUN 10 8 Creatinine 0.63 0.61 Calcium 8.8 8.7 Urine 12/26/17 Range/Units 17:39 Urine Color Yellow (Yellw/Straw) Urine Clarity Hazy H (Clear) Urine pH 7.0 (5.0-8.5) Ur Specific [place] 1.010 (1.002-1.035) Urine Protein Negative (Neg-Trace) mg/dL Urine Glucose (UA) Negative (Negative) mg/dL - Imaging Impressions Hip X-Ray 12/26/17 00:00 CONCLUSION: 1. No acute fracture of the pelvis. 2. Old left inferior pubic ramus fracture. 3. Mild chronic arthropathy of both hips. Pelvis CT 12/26/17 16:27 CONCLUSION: 1. No acute fracture or other acute abnormality demonstrated. 2. Old, healed left inferior pubic ramus fracture. 3. 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 Femur X-Ray 12/26/17 16:28 CONCLUSION: Intact left femur. Physical Exam Vital signs: Vital Signs 12/26/17 14:31 12/26/17 16:03 12/26/17 19:11 Temperature 98.8 F Pulse Rate 71 82 Respiratory Rate 17 17 20 Blood Pressure 173/87 H 167/107 H Pulse Oximetry 98 98 12/26/17 20:19 12/26/17 21:25 12/27/17 00:00 Temperature 98.2 F 98.0 F Pulse Rate 88 88 78 Respiratory Rate 20 20 17 Blood Pressure 145/72 H 136/72 184/86 H Pulse Oximetry 96 12/27/17 03:58 12/27/17 08:00 Temperature 98.1 F 98.1 F Pulse Rate 74 87 Respiratory Rate 16 16 Blood Pressure 160/81 H 157/88 H Pulse Oximetry 98 95 Intake & Output 12/26/17 12/27/17 12/27/17 18:59 06:59 18:59 Output Total 300 / 300 Balance -300 / -300 Weight 51.256 kg 51.256 kg Output: Urine 300 / 300 Other: Weight On Admission 51.256 kg Narrative: GENERAL: Elderly female lying in bed in no acute distress. SKIN: Warm and dry. No rash. No visible bruising or acute deformity appreciated. HEENT: Atraumatic, normocephalic with extraocular motions intact. No rhinorrhea. No visible lymphadenopathy or jugulovenous distension appreciated. Patient with raised, rounded palpable nodule on the midline forehead that is nontender to palpation. CARDIOVASCULAR: Regular rate and rhythm without obvious murmurs, gallops, or rubs. 2+ pulses in all four extremities. RESPIRATORY: Clear to auscultation bilaterally with no crackles, wheezes, or rhonchi. No increased work of breathing. GASTROINTESTINAL: Abdomen soft, non-tender, nondistended with positive bowel sounds. No masses appreciated. MUSCULOSKELETAL: No cyanosis or edema. No calf tenderness. NEURO/PSYCH: Afocal. Awake, alert, and oriented x3. Normal speech and judgement. Affected hip: Left hip No gross deformities, warmth, erythema, or muscle atrophy. Mild tenderness to palpation over the greater trochanter. Normal sensation. Patient with limitation of active range of motion of the left lower extremity as she is only able to lift her leg approximately 20 degrees off the bed. Passive range of motion improves to approximately 50 degrees. Flexion actively and passively limited due to pain. Internal and external rotation elicits pain in the left lateral hip. 4/5 strength in all muscle groups without pain against resistance. No obvious joint instability. No obvious leg length discrepancy. Patient refuses to walk secondary to pain. Unaffected hip-right hip No gross deformities, warmth, or muscle atrophy. Full ROM. 5/5 strength. No tenderness. Assessment and Plan - Assessment (1) Frail elderly Code(s): R54 - Age-related physical debility Status: Acute Plan: PT consulted for evaluation (2) Inability to ambulate due to hip Code(s): R26.2 - Difficulty in walking, not elsewhere classified Status: Acute Plan: Patient admitted with acute on chronic left hip pain and is refusing to bear weight due to pain. Patient managed as an outpatient by a pain specialist with daily [place]. Patient able to ambulate previously with wheeled walker. Patient has previous inferior pubic ramus fracture from earlier this year. Left hip x-ray 12/26/17: No acute fracture of the pelvis, old left inferior pubic ramus fracture. Mild chronic arthropathy of both hips. Left femur x-ray 12/26/17: No acute abnormality, intact left femur. Pelvis CT 12/26/17: No acute fracture or other acute abnormality demonstrated. Old, healed left inferior pubic ramus fracture. 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 Physical therapy consulted for evaluation Case management consulted, discussed with patient's daughter that patient does not meet inpatient criteria and will have to follow up with [facility] Case management for outpatient placement -Home Health face to face completed for home PT/OT and home health aide -Orders placed for bedside commode and wheelchair -Daughter educated to follow up with PCP and Pain Specialist for continued outpatient care Medications: Percocet as needed for pain Cautious with steroids and NSAIDs as patient has cardiac history as well as gastroparesis (3) Acute UTI Code(s): N39.0 - Urinary tract infection, site not specified Status: Acute Plan: Patient reports no dysuria, but does endorse episodes of incontinence over the last 24 hours likely related UTI. UA: Hazy, trace ketones, moderate occult blood, positive nitrate, moderate leukocyte esterase, 24 white blood cells, many bacteria, few mucus Urine culture: Pending CBC: WBC 5.2 with 63% neutrophils Medications: Bactrim DS 1 tab twice daily for 3 days (4) Vomiting Code(s): R11.10 - Vomiting, unspecified Status: Acute Plan: Patient with one episode of nonbilious, nonbloody vomiting on 12/27/17 likely related to her gastroparesis as patient did not receive her nighttime dose prior to bed. Medications: Continue Reglan for gastroparesis as below Zofran as needed for nausea/vomiting (5) Hypokalemia Code(s): E87.6 - Hypokalemia Status: Acute Plan: Patient initially presenting with asymptomatic hypokalemia [facility] 12/26/17: Potassium 3.4 Repeat [facility] 12/27/17: Potassium 3.5 Medications: Potassium chloride 20 mEq once on 12/27/17 (6) Hypertension Code(s): I10 - Essential (primary) hypertension Status: Acute Plan: Patient with history of hypertension. Elevated during hospitalization, but will defer to outpatient management as patient is likely in pain and missed her medications over the last 24 hours due to hospitalization. Medications: Continue home amlodipine and lisinopril (7) Hypothyroidism Code(s): E03.9 - Hypothyroidism, unspecified Status: Acute Plan: Patient with history of hypothyroidism currently without symptoms Medications: Continue home levothyroxine (8) Depression with anxiety Code(s): F41.8 - Other specified anxiety disorders Status: Acute Plan: Patient with history of depression and anxiety Medications: Continue home citalopram and as needed alprazolam (9) Gastroparesis Code(s): K31.84 - Gastroparesis Status: Acute Plan: Patient with known history of gastroparesis Medications: Continue metoclopramide 5 mg 4 times daily (10) Insomnia Code(s): G47.00 - Insomnia, unspecified Status: Acute Plan: Patient with history of insomnia currently controlled on temazepam Medications: Continue home temazepam 15 mg nightly (11) Nutrition, metabolism, and development symptoms Code(s): R63.8 - Other symptoms and signs concerning food and fluid intake Status: Acute Plan: Fluids: No IV fluids on admission as patient is tolerating oral fluids and does not appear dehydrated Diet: Regular diet DVT prophylaxis: Lovenox 40 mg SQ daily Prophylaxis: Zofran as needed for nausea, Percocet as needed for pain, Restoril as needed for insomnia, constipation protocol Physical therapy consulted for evaluation Case management to assist with outpatient planning - Assessment and Plan 82 yo Qatari speaking only female with PMH of HTN, h/o sick sinus syndrome w/ pacemaker, hypothyroidism, gastroparesis, CAD and h/o pubic rami fracture presented to the ED with her daughter for L hip pain. Imaging including hip x- ray, x-ray of the femur, CT pelvis were negative for acute processes. Patient was admitted observation due to inability to ambulate and was incidentally found to have a UTI. UTI was treated with 3 days of Bactrim DS. Patient to follow up with PCP and Pain Specialist for continued management. Patient's daughter educated to follow up with patient's outpatient manager of case management to assist with placement, home PT/OT, home health aide, wheelchair and bedside commode orders. Discussed Condition With: Dr. [place] (4) Vomiting Qualifiers: Vomiting type: cyclical vomiting Vomiting Intractability: non-intractable Nausea presence: with nausea Qualified Code(s): G43.A0 - Cyclical vomiting, not intractable
[2017-12-27] MEDS: Escitalopram 10 MG Tablet PO SCH (10:04)
[2017-12-27] MEDS: Lisinopril 20 MG Tablet PO SCH (10:04)
[2017-12-27] MEDS: Senna/Docusate Sodium 8.6/50 MG Tablet PO SCH ×2 (10:04→20:07)
[2017-12-27] MEDS: amLODIPine 5 MG Tablet PO SCH (10:05)
--- NOTE | 2017-12-27 11:28 | P.DCO ---
- Diagnosis (1) Frail elderly Status: Acute (2) Acute hip pain Status: Acute (3) Inability to ambulate due to hip Status: Acute - Physical Therapy Order: Evaluate and treat, Improve ambulation, Strength and gait training - Occupational Therapy Order: Evaluate and treat, Improve ADL, Gross motor coordination, Fine motor coordination - Home Health Aide Order: To assist in: Bathing and personal care, supervisor telephone clerks and meal prep - Case Management Consult Yes - Certification I have seen patient Kyleigh Thomas on 12/27/17. My clinical findings support the need for the requested home health care services because: Limited mobility due to disease progression, Deconditioned with increased weakness, Limited ability to care for self, High risk of falls I certify that my clinical findings support that this patient is homebound because: Unsteady gait/balance, Unsafe to leave home unassisted, Non-ambulatory: confined to bed or chair (2) Acute hip pain Qualifiers: Laterality: left Qualified Code(s): M25.552 - Pain in left hip
[2017-12-27] MEDS: oxyCODONE/Acetaminophen 10/325 Tablet PO PRN (13:20)
[2017-12-27] MEDS: Metoclopramide 10 MG Tablet PO SCH ×3 (13:20→20:07)
[2017-12-27] MEDS: Lactobacillus Acidophilus/L. Spores Tablet PO SCH ×2 (15:25→20:07)
[2017-12-27] MEDS: Enoxaparin Inj 40 MG/0.4 ML Syringe SQ SCH (20:07)
[2017-12-28] MEDS: oxyCODONE/Acetaminophen 10/325 Tablet PO PRN (01:33)
[2017-12-28] MEDS: Levothyroxine 75 MCG Tablet PO SCH (05:28)
[2017-12-28] MEDS: Escitalopram 10 MG Tablet PO SCH (08:07)
[2017-12-28] MEDS: Metoclopramide 10 MG Tablet PO SCH ×4 (08:07→22:54)
[2017-12-28] MEDS: Lisinopril 20 MG Tablet PO SCH (08:07)
[2017-12-28] MEDS: amLODIPine 5 MG Tablet PO SCH (08:07)
[2017-12-28] MEDS: Lactobacillus Acidophilus/L. Spores Tablet PO SCH ×2 (08:07→22:49)
[2017-12-28] MEDS: Senna/Docusate Sodium 8.6/50 MG Tablet PO SCH ×2 (08:07→22:49)
--- NOTE | 2017-12-28 08:42 | P.PNFP ---
Results - Labs Result diagrams: 12/26/17 17:39 12/27/17 06:26 Abnormal lab results 12/26/17 Range/Units 17:39 Urine Clarity Hazy H (Clear) Urine Ketones Trace H (Negative) mg/dL Urine Occult Blood Moderate H (Negative) Urine Nitrate Positive H (Negative) Ur Leukocyte Esterase Moderate H (Negative) Urine WBC 24 H (0-5) /hpf Urine Bacteria Many H (None) /hpf Urine Mucus Few H (Occasional) /lpf Urine 12/26/17 Range/Units 17:39 Urine Color Yellow (Yellw/Straw) Urine Clarity Hazy H (Clear) Urine pH 7.0 (5.0-8.5) Ur Specific [place] 1.010 (1.002-1.035) Urine Protein Negative (Neg-Trace) mg/dL Urine Glucose (UA) Negative (Negative) mg/dL Physical Exam Vital signs: Vital Signs 12/27/17 11:34 12/27/17 15:53 12/27/17 19:38 Temperature 98.3 F 98.7 F 98.7 F Pulse Rate 86 93 H 86 Respiratory Rate 12 16 18 Blood Pressure 146/75 H 159/86 H 148/67 H Pulse Oximetry 98 93 L 99 12/28/17 00:00 12/28/17 04:00 12/28/17 08:02 Temperature 98.5 F 98.4 F 97.8 F Pulse Rate 82 74 110 H Respiratory Rate 18 17 18 Blood Pressure 165/83 H 174/92 H 170/89 H Pulse Oximetry 99 97 97 Intake & Output 12/27/17 12/28/17 12/28/17 18:59 06:59 18:59 Other: Date of Last Bowel Movement 12/27/17 12/27/17 Assessment and Plan - Assessment (1) Inability to ambulate due to hip Code(s): R26.2 - Difficulty in walking, not elsewhere classified Status: Acute Plan: Patient admitted with acute on chronic left hip pain and is refusing to bear weight due to pain. Patient managed as an outpatient by a pain specialist with daily [place]. Patient able to ambulate previously with wheeled walker. Patient has previous inferior pubic ramus fracture from earlier this year. Left hip x-ray 12/26/17: No acute fracture of the pelvis, old left inferior pubic ramus fracture. Mild chronic arthropathy of both hips. Left femur x-ray 12/26/17: No acute abnormality, intact left femur. Pelvis CT 12/26/17: No acute fracture or other acute abnormality demonstrated. Old, healed left inferior pubic ramus fracture. 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 Physical therapy consulted for evaluation Case management consulted, discussed with patient's daughter that patient does not meet inpatient criteria and will have to follow up with her [facility] Case management for outpatient placement -Home Health face to face completed for home PT/OT and home health aide -Orders placed for bedside commode and wheelchair -Daughter educated to follow up with PCP and Pain Specialist for continued outpatient care Medications: Percocet as needed for pain Cautious with steroids and NSAIDs as patient has cardiac history as well as gastroparesis (2) Frail elderly Code(s): R54 - Age-related physical debility Status: Acute Plan: PT consulted for evaluation (3) Acute UTI Code(s): N39.0 - Urinary tract infection, site not specified Status: Acute Plan: Patient reports no dysuria, but does endorse episodes of incontinence over the last 24 hours likely related UTI. UA: Hazy, trace ketones, moderate occult blood, positive nitrate, moderate leukocyte esterase, 24 white blood cells, many bacteria, few mucus Urine culture: E. Coli, resistant only to ciprofloxacin CBC: WBC 5.2 with 63% neutrophils Medications: Bactrim DS 1 tab twice daily for 3 days (12/26-) (4) Vomiting Code(s): R11.10 - Vomiting, unspecified Status: Acute Plan: Patient with one episode of nonbilious, nonbloody vomiting on 12/27/17 likely related to her gastroparesis as patient did not receive her nighttime dose prior to bed. Medications: Continue Reglan for gastroparesis as below Zofran as needed for nausea/vomiting (5) Hypokalemia Code(s): E87.6 - Hypokalemia Status: Resolved Plan: Patient initially presenting with asymptomatic hypokalemia BMP 12/26/17: Potassium 3.4 Repeat BMP 12/27/17: Potassium 3.5 Medications: Potassium chloride 20 mEq once on 12/27/17 (6) Hypertension Code(s): I10 - Essential (primary) hypertension Status: Acute Plan: Patient with history of hypertension. Elevated during hospitalization, but will defer to outpatient management as patient is likely in pain and missed her medications over the last 24 hours due to hospitalization. Medications: Continue home amlodipine and lisinopril (7) Hypothyroidism Code(s): E03.9 - Hypothyroidism, unspecified Status: Acute Plan: Patient with history of hypothyroidism currently without symptoms Medications: Continue home levothyroxine (8) Depression with anxiety Code(s): F41.8 - Other specified anxiety disorders Status: Acute Plan: Patient with history of depression and anxiety Medications: Continue home citalopram and as needed alprazolam (9) Gastroparesis Code(s): K31.84 - Gastroparesis Status: Acute Plan: Patient with known history of gastroparesis Medications: Continue metoclopramide 5 mg 4 times daily (10) Insomnia Code(s): G47.00 - Insomnia, unspecified Status: Acute Plan: Patient with history of insomnia currently controlled on temazepam Medications: Continue home temazepam 15 mg nightly (11) Nutrition, metabolism, and development symptoms Code(s): R63.8 - Other symptoms and signs concerning food and fluid intake Status: Acute Plan: Fluids: No IV fluids on admission as patient is tolerating oral fluids and does not appear dehydrated Diet: Regular diet DVT prophylaxis: Lovenox 40 mg SQ daily Prophylaxis: Zofran as needed for nausea, Percocet as needed for pain, Restoril as needed for insomnia, constipation protocol Physical therapy consulted for evaluation Case management to assist with outpatient planning - Assessment and Plan 82 yo [place] speaking only female with PMH of HTN, h/o sick sinus syndrome w/ pacemaker, hypothyroidism, gastroparesis, CAD and h/o pubic rami fracture presented to the ED with her daughter for L hip pain. Imaging including hip x- ray, x-ray of the femur, CT pelvis were negative for acute processes. Patient was admitted observation due to inability to ambulate and was incidentally found to have a UTI. UTI was treated with 3 days of Bactrim DS. Patient initially cleared for discharge, however PT recommends placement for rehabilitation. CM has been consulted to assist, however patient does not meet inpatient criteria making placement unlikely per discussion with CM. Daughter thoroughly educated on situation with all questions answered. Daughter refuses discharge at this time as she is not available to be home with her mother during the day due to her work. (4) Vomiting Qualifiers: Vomiting type: cyclical vomiting Vomiting Intractability: non-intractable Nausea presence: with nausea Qualified Code(s): G43.A0 - Cyclical vomiting, not intractable
--- NOTE | 2017-12-28 11:47 | P.PNFP ---
Subjective Interval history: Patient seen and examined this morning by medical team with assistance of [employer] interpretive services. No acute events overnight per staff. Yesterday after discussion with case management patient was cleared for discharge as no placement could be arranged and patient did not meet inpatient criteria. However, per the physical therapy evaluation patient was unable and daughter was not comfortable taking patient home at this time. Patient states that she continues to have left-sided hip pain ranging from her low back to her knee. She states that the pain medication she receives does help with the pain but goes away over time. She states that she is unable to I will order to ambulate or maneuver to a bedside commode at this time. She also continues to have nausea this morning. Per chart review patient received her nighttime dose of Reglan over 12 hours ago which likely increased her nausea this morning. Patient also has been on Bactrim which can be a trigger for nausea as well. She denies any vomiting at this time. We thoroughly discussed her goals of care and patient states that her only goal at this time is to be able to walk in order to go home. We discussed rehabilitation placement as she will be required to have increased physical effort of which she states that she would comply with. Otherwise she has no acute complaints at this time and all questions were answered. Medical team also discussed with case management patient's case. Per discussion , [facility] with possible outpatient placement versus in-home assistance. Case management also to provide daughter with community resources to assist with at home care. Finally case management to reach out to [facility] for possible evaluation and acceptance for continued rehab. <Castillo Calderon H - 12/28/17 11:47> Results - Labs Result diagrams: 12/26/17 17:39 12/27/17 06:26 <Judi Zapata - 12/31/17 08:30> Abnormal lab results 12/26/17 Range/Units 17:39 Urine Clarity Hazy H (Clear) Urine Ketones Trace H (Negative) mg/dL Urine Occult Blood Moderate H (Negative) Urine Nitrate Positive H (Negative) Ur Leukocyte Esterase Moderate H (Negative) Urine WBC 24 H (0-5) /hpf Urine Bacteria Many H (None) /hpf Urine Mucus Few H (Occasional) /lpf Urine 12/26/17 Range/Units 17:39 Urine Color Yellow (Yellw/Straw) Urine Clarity Hazy H (Clear) Urine pH 7.0 (5.0-8.5) Ur Specific [place] 1.010 (1.002-1.035) Urine Protein Negative (Neg-Trace) mg/dL Urine Glucose (UA) Negative (Negative) mg/dL <Castillo Calderon H - 12/28/17 11:47> Physical Exam Vital signs: Vital Signs 12/30/17 16:23 12/31/17 04:00 Temperature 98.2 F 98.0 F Pulse Rate 70 74 Respiratory Rate 20 16 Blood Pressure 124/71 188/86 H Pulse Oximetry 99 99 Intake & Output 12/30/17 12/31/17 12/31/17 18:59 06:59 18:59 Other: Date of Last Bowel Movement 12/29/17 <Judi Zapata M - 12/31/17 08:30> Vital Signs 12/27/17 11:34 12/27/17 15:53 12/27/17 19:38 Temperature 98.3 F 98.7 F 98.7 F Pulse Rate 86 93 H 86 Respiratory Rate 12 16 18 Blood Pressure 146/75 H 159/86 H 148/67 H Pulse Oximetry 98 93 L 99 12/28/17 00:00 12/28/17 04:00 12/28/17 08:02 Temperature 98.5 F 98.4 F 97.8 F Pulse Rate 82 74 110 H Respiratory Rate 18 17 18 Blood Pressure 165/83 H 174/92 H 170/89 H Pulse Oximetry 99 97 97 Intake & Output 12/27/17 12/28/17 12/28/17 18:59 06:59 18:59 Other: Date of Last Bowel Movement 12/27/17 12/27/17 <Castillo Calderon H - 12/28/17 11:47> Narrative: GENERAL: Elderly female lying in bed in no acute distress. SKIN: Warm and dry. No rash. No visible bruising or acute deformity appreciated. HEENT: Atraumatic, normocephalic with extraocular motions intact. No rhinorrhea. No visible lymphadenopathy or jugulovenous distension appreciated. Patient with raised, rounded palpable nodule on the midline forehead that is nontender to palpation. CARDIOVASCULAR: Regular rate and rhythm without obvious murmurs, gallops, or rubs. 2+ pulses in all four extremities. RESPIRATORY: Clear to auscultation bilaterally with no crackles, wheezes, or rhonchi. No increased work of breathing. GASTROINTESTINAL: Abdomen soft, non-tender, nondistended with positive bowel sounds. No masses appreciated. MUSCULOSKELETAL: No cyanosis or edema. No calf tenderness. Left hip continues to be tender to palpation with no visual deformity. Sensation intact throughout the left lower extremity. Strength 4/5 with all pain against resistance. Patient able to lift leg off the bed consistent with yesterday's exam. NEURO/PSYCH: Patient with resting tremor of both upper and lower extremities consistent from yesterday's exam. A focal otherwise. Awake, alert, and oriented x3. Normal speech and judgement. <Castillo Calderon - 12/28/17 11:47> Assessment and Plan - Assessment (1) Inability to ambulate due to hip Code(s): R26.2 - Difficulty in walking, not elsewhere classified Status: Acute (2) Frail elderly Code(s): R54 - Age-related physical debility Status: Acute (3) Acute UTI Code(s): N39.0 - Urinary tract infection, site not specified Status: Resolved (4) Vomiting Code(s): R11.10 - Vomiting, unspecified Status: Resolved (5) Hypertension Code(s): I10 - Essential (primary) hypertension Status: Acute (6) Hypothyroidism Code(s): E03.9 - Hypothyroidism, unspecified Status: Acute (7) Depression with anxiety Code(s): F41.8 - Other specified anxiety disorders Status: Acute (8) Gastroparesis Code(s): K31.84 - Gastroparesis Status: Acute (9) Insomnia Code(s): G47.00 - Insomnia, unspecified Status: Acute (10) Tremor Code(s): R25.1 - Tremor, unspecified Status: Acute (11) Nutrition, metabolism, and development symptoms Code(s): R63.8 - Other symptoms and signs concerning food and fluid intake Status: Acute (12) Hypokalemia Code(s): E87.6 - Hypokalemia Status: Resolved <Judi Zapata - 12/31/17 08:30> (1) Inability to ambulate due to hip Code(s): R26.2 - Difficulty in walking, not elsewhere classified Status: Acute Plan: Patient admitted with acute on chronic left hip pain and is refusing to bear weight due to pain. Patient managed as an outpatient by a pain specialist with daily [place]. Patient able to ambulate previously with wheeled walker. Patient has previous inferior pubic ramus fracture from earlier this year. Left hip x-ray 12/26/17: No acute fracture of the pelvis, old left inferior pubic ramus fracture. Mild chronic arthropathy of both hips. Left femur x-ray 12/26/17: No acute abnormality, intact left femur. Pelvis CT 12/26/17: No acute fracture or other acute abnormality demonstrated. Old, healed left inferior pubic ramus fracture. 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 -Repeat left hip and lumbar spine x-rays ordered for repeat evaluation as patient continues with pain Physical therapy consulted for daily therapy Case management consulted -Home Health face to face completed for home PT/OT and home health aide -Orders placed for bedside commode and wheelchair -Daughter educated to follow up with PCP and Pain Specialist for continued outpatient care Medications: Percocet as needed for pain Cautious with steroids and NSAIDs as patient has cardiac history as well as gastroparesis (2) Frail elderly Code(s): R54 - Age-related physical debility Status: Acute Plan: PT consulted for daily therapy OT consulted for evaluation and treatment (3) Acute UTI Code(s): N39.0 - Urinary tract infection, site not specified Status: Acute Plan: Patient reports no dysuria, but does endorse episodes of incontinence over the last 24 hours likely related UTI. Patient received 2 days of Bactrim therapy causing nausea, transition to ceftriaxone before her last dose on 12/28/17. UA: Hazy, trace ketones, moderate occult blood, positive nitrate, moderate leukocyte esterase, 24 white blood cells, many bacteria, few mucus Urine culture: E. Coli, resistant only to ciprofloxacin CBC: WBC 5.2 with 63% neutrophils Medications: Bactrim DS 1 tab twice daily for 3 days (12/26-12/28) Patient to finish antibiotic course with ceftriaxone 1 g IV 12/28/17 at 2100 for a total of 3 days of therapy (4) Vomiting Code(s): R11.10 - Vomiting, unspecified Status: Acute Plan: Patient with one episode of nonbilious, nonbloody vomiting on 12/27/17 likely related to her gastroparesis as patient did not receive her nighttime dose prior to bed. Medications: Continue Reglan for gastroparesis as below, reordered Reglan to be every 6 hours with administration 30 minutes before meals and bedtime Zofran as needed for nausea/vomiting (5) Hypertension Code(s): I10 - Essential (primary) hypertension Status: Acute Plan: Patient with history of hypertension. Elevated during hospitalization, but will defer to outpatient management as patient is likely in pain. Medications: Continue home amlodipine and lisinopril -Clonidine as needed for blood pressure greater than 180/110 (6) Hypothyroidism Code(s): E03.9 - Hypothyroidism, unspecified Status: Acute Plan: Patient with history of hypothyroidism currently without symptoms Medications: Continue home levothyroxine (7) Depression with anxiety Code(s): F41.8 - Other specified anxiety disorders Status: Acute Plan: Patient with history of depression and anxiety Medications: Continue home citalopram and as needed alprazolam (8) Gastroparesis Code(s): K31.84 - Gastroparesis Status: Acute Plan: Patient with known history of gastroparesis Medications: Continue metoclopramide 5 mg ordered every 6 hours 30 minutes before meals at bedtime (9) Insomnia Code(s): G47.00 - Insomnia, unspecified Status: Acute Plan: Patient with history of insomnia currently controlled on temazepam Medications: Continue home temazepam 15 mg nightly (10) Tremor Code(s): R25.1 - Tremor, unspecified Status: Acute Plan: Patient with tremor in upper and lower extremities on exam. Per chart review suggestion of tardive dyskinesia due to Reglan versus parkinsonian features. Patient currently not on Parkinson therapy. Continue to monitor as initiation of Parkinson's treatment could interfere with patient's hospital course and other medications. However if tremor begins to inhibit ambulation plan to initiate treatment to assist with mobility. Continue to monitor (11) Hypokalemia Code(s): E87.6 - Hypokalemia Status: Resolved Plan: Patient initially presenting with asymptomatic hypokalemia [facility] 12/26/17: Potassium 3.4 Repeat [facility] 12/27/17: Potassium 3.5 Medications: Potassium chloride 20 mEq once on 12/27/17 (12) Nutrition, metabolism, and development symptoms Code(s): R63.8 - Other symptoms and signs concerning food and fluid intake Status: Acute Plan: Fluids: No IV fluids on admission as patient is tolerating oral fluids and does not appear dehydrated Diet: Regular diet DVT prophylaxis: Lovenox 40 mg SQ daily Prophylaxis: Zofran as needed for nausea, Percocet as needed for pain, Restoril as needed for insomnia, constipation protocol, clonidine as needed for blood pressure greater than 180/110 Physical therapy consulted for evaluation Case management to assist with outpatient planning <Castillo Calderon H - 12/28/17 11:24> - Assessment and Plan 82 yo [place] speaking only female with PMH of HTN, h/o sick sinus syndrome w/ pacemaker, hypothyroidism, gastroparesis, CAD and h/o pubic rami fracture presented to the ED with her daughter for L hip pain. Imaging including hip x- ray, x-ray of the femur, CT pelvis were negative for acute processes. Patient was admitted observation due to inability to ambulate and was incidentally found to have a UTI. UTI was treated with 3 days of Bactrim DS. Patient initially cleared for discharge, however PT recommends placement for rehabilitation. CM has been consulted to assist, however patient does not meet inpatient criteria making placement unlikely per discussion with CM. Daughter thoroughly educated on situation with all questions answered. Daughter refuses discharge at this time as she is not available to be home with her mother during the day due to her work. <Castillo Calderon H - 12/28/17 11:47> - Attending Attestation The exam, history, and the medical decision-making described in the above note were completed with the assistance of the resident physician. I reviewed and agree with the findings presented. I attest that I had a [id number] encounter with the patient on the same day, and personally performed and documented my assessment and findings in the medical record. She is unfortunately frail and arthritic and s/p multiple falls. She would benefit from rehab, will work on pain control and PT <Judi Zapata M - 12/31/17 08:30> <Castillo Calderon H - Last Filed: 12/28/17 11:24> (4) Vomiting Qualifiers: Vomiting type: cyclical vomiting Vomiting Intractability: non-intractable Nausea presence: with nausea Qualified Code(s): G43.A0 - Cyclical vomiting, not intractable <Judi Zapata M - Last Filed: 12/31/17 08:30> (4) Vomiting Qualifiers: Vomiting type: cyclical vomiting Vomiting Intractability: non-intractable Nausea presence: with nausea Qualified Code(s): G43.A0 - Cyclical vomiting, not intractable <Castillo Calderon H - Last Filed: 12/28/17 11:24> (4) Vomiting Qualifiers: Vomiting type: cyclical vomiting Vomiting Intractability: non-intractable Nausea presence: with nausea Qualified Code(s): G43.A0 - Cyclical vomiting, not intractable <Judi Zapata M - Last Filed: 12/31/17 08:30> (4) Vomiting Qualifiers: Vomiting type: cyclical vomiting Vomiting Intractability: non-intractable Nausea presence: with nausea Qualified Code(s): G43.A0 - Cyclical vomiting, not intractable
--- NOTE | 2017-12-28 14:24 | XR ---
EXAM DATE: 12/28/2017 1:53 PM EST AGE/SEX: 82 years / Female INDICATIONS: Pain. CLINICAL DATA: This is the patient's initial encounter. Patient reports that signs and symptoms have been present for 2 days and indicates a pain score of Nonresponsive. MEDICAL/SURGICAL HISTORY: . not known . not known COMPARISON: [facility] [place], FEMUR LEFT 2V, 12/26/2017. . FINDINGS: Generative changes lumbar spine. Anatomic alignment about both hips. Degenerative changes about both SI joints. Old fracture of the pubic symphysis on the left. CONCLUSION: Osteopenia, degenerative changes, negative for acute fracture Electronically signed by: Leandro Vogel MD 12/28/2017 2:23 PM EST
--- NOTE | 2017-12-28 14:30 | XR ---
EXAM DATE: 12/28/2017 1:56 PM EST AGE/SEX: 82 years / Female INDICATIONS: pain. CLINICAL DATA: This is the patient's initial encounter. Patient reports that signs and symptoms have been present for 2 days and indicates a pain score of Nonresponsive. MEDICAL/SURGICAL HISTORY: . not known, pt doesn't speak Chinese . not known COMPARISON: [facility] [place], CT LUMBAR SPINE W/O CONTRAST, 09/10/2017. . FINDINGS: Moderate scoliosis convexity centered to the right. Degenerative changes from L3 to S1. Loss of verte bral body height at L1 stable when compared to 09/10/2017 Degenerative changes about both SI joints. Vacuum changes at L3-4-4 5 and 5 1 Moderate degenerative changes of facets. CONCLUSION: Scoliosis with degenerative disc disease,. Loss of vertebral body height at L2 stable from 09/10/2017 MRI could be used to confirm acute compression fracture if desired. Electronically signed by: Leandro Vogel MD 12/28/2017 2:29 PM EST
[2017-12-28] MEDS: ALPRAZolam 0.25 MG Tablet PO PRN (16:22)
[2017-12-28] MEDS: Enoxaparin Inj 40 MG/0.4 ML Syringe SQ SCH (22:49)
[2017-12-28] MEDS: Temazepam 15 MG Capsule PO PRN (22:54)
[2017-12-29] MEDS: Levothyroxine 75 MCG Tablet PO SCH (06:43)
[2017-12-29] MEDS: Metoclopramide 10 MG Tablet PO SCH ×2 (06:43→11:46)
[2017-12-29] MEDS: Senna/Docusate Sodium 8.6/50 MG Tablet PO SCH ×2 (09:42→20:04)
[2017-12-29] MEDS: Lactobacillus Acidophilus/L. Spores Tablet PO SCH ×2 (09:42→20:03)
[2017-12-29] MEDS: Lisinopril 20 MG Tablet PO SCH (09:42)
[2017-12-29] MEDS: Escitalopram 10 MG Tablet PO SCH (09:42)
[2017-12-29] MEDS: amLODIPine 5 MG Tablet PO SCH (09:42)
--- NOTE | 2017-12-29 12:01 | P.PNFP ---
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 Patient states her left hip pain continues to improve as she is required only 2 doses of pain medication over the last 24 hours. However, she is still unable lower extremity. Per nursing report, patient was able to pivot from bed to bedside commode. Patient continues to endorse nausea without vomiting morning and is currently asking for Tums to help with the nausea. Per chart review, patient currently not on outpatient therapy for reflux, but agreeable to starting medication today. We again discussed that placement for rehabilitation is initiated due to her insurance status. We discussed with the nursing staff who will update physical therapy patient will likely require rehabilitation in house. Encourage nursing staff to work with patient and encourage visitors to work with patient on rehabilitation exercises provided by physical therapy. Otherwise she has no complaints and all questions were answered. Patient also thanked clinical providers stating that she is "happy" at this time. <Castillo Calderon - 12/29/17 12:00> Results - Labs Result diagrams: 12/26/17 17:39 12/27/17 06:26 <Judi Zapata - 12/31/17 08:31> - Imaging Impressions Hip X-Ray 12/28/17 00:00 CONCLUSION: Osteopenia, degenerative changes, negative for acute fracture Lumbar Spine X-Ray 12/28/17 00:00 CONCLUSION: Scoliosis with degenerative disc disease,. Loss of vertebral body height at L2 stable from 09/10/2017 MRI could be used to confirm acute compression fracture if desired. <Castillo Calderon - 12/29/17 12:00> Physical Exam Vital signs: Vital Signs 12/30/17 16:23 12/31/17 04:00 Temperature 98.2 F 98.0 F Pulse Rate 70 74 Respiratory Rate 20 16 Blood Pressure 124/71 188/86 H Pulse Oximetry 99 99 Intake & Output 12/30/17 12/31/17 12/31/17 18:59 06:59 18:59 Other: Date of Last Bowel Movement 12/29/17 <Judi Zapata - 12/31/17 08:31> Vital Signs 12/28/17 12:15 12/28/17 15:51 12/28/17 20:00 Temperature 98.3 F 98.3 F Pulse Rate 88 94 H Respiratory Rate 18 18 16 Blood Pressure 134/69 157/75 H Pulse Oximetry 96 96 12/29/17 01:54 12/29/17 08:29 12/29/17 11:38 Temperature 98.3 F 98.1 F Pulse Rate 83 84 Respiratory Rate 16 18 Blood Pressure 146/68 H 162/74 H Pulse Oximetry 96 97 Intake & Output 12/28/17 12/29/17 12/29/17 18:59 06:59 18:59 Intake Total 100 / 100 Balance 100 / 100 Intake: IV 100 / 100 Rocephin Inj 1,000 MG In NS Inj 100 / 100 100 ML @ 200 mls/hr IV.SIG ONCE ONE Rx#:[id number] Other: Date of Last Bowel Movement 12/27/17 <Castillo Calderon - 12/29/17 12:00> Narrative: GENERAL: Elderly female lying in bed in no acute distress sleeping upon entering the room. SKIN: Warm and dry. No rash. No visible bruising or acute deformity appreciated. HEENT: Atraumatic, normocephalic with extraocular motions intact. No rhinorrhea. No visible lymphadenopathy or jugulovenous distension appreciated. Patient with raised, rounded palpable nodule on the midline forehead that is nontender to palpation, stable. CARDIOVASCULAR: Regular rate and rhythm without obvious murmurs, gallops, or rubs. 2+ pulses in all four extremities. RESPIRATORY: Clear to auscultation bilaterally with no crackles, wheezes, or rhonchi. No increased work of breathing. GASTROINTESTINAL: Abdomen soft, non-tender, nondistended with positive bowel sounds. No masses appreciated. MUSCULOSKELETAL: No cyanosis or edema. No calf tenderness. Left hip continues to be tender to palpation with no visual deformity; focally tender at the left posterior iliac crest. Sensation intact throughout the left lower extremity. Strength 4/5 with all pain against resistance. Patient able to lift leg off the bed consistent with yesterday's exam. NEURO/PSYCH: Patient with resting tremor of both upper and lower extremities consistent from yesterday's exam. A focal otherwise. Awake, alert, and oriented x3. Normal speech and judgement. <Castillo Calderon H - 12/29/17 12:00> Assessment and Plan - Assessment (1) Inability to ambulate due to hip Code(s): R26.2 - Difficulty in walking, not elsewhere classified Status: Acute (2) Frail elderly Code(s): R54 - Age-related physical debility Status: Acute (3) Acute UTI Code(s): N39.0 - Urinary tract infection, site not specified Status: Resolved (4) Vomiting Code(s): R11.10 - Vomiting, unspecified Status: Resolved (5) Hypertension Code(s): I10 - Essential (primary) hypertension Status: Acute (6) Hypothyroidism Code(s): E03.9 - Hypothyroidism, unspecified Status: Acute (7) Depression with anxiety Code(s): F41.8 - Other specified anxiety disorders Status: Acute (8) Gastroparesis Code(s): K31.84 - Gastroparesis Status: Acute (9) Insomnia Code(s): G47.00 - Insomnia, unspecified Status: Acute (10) Tremor Code(s): R25.1 - Tremor, unspecified Status: Acute (11) Nutrition, metabolism, and development symptoms Code(s): R63.8 - Other symptoms and signs concerning food and fluid intake Status: Acute (12) Hypokalemia Code(s): E87.6 - Hypokalemia Status: Resolved <Judi Zapata - 12/31/17 08:31> (1) Inability to ambulate due to hip Code(s): R26.2 - Difficulty in walking, not elsewhere classified Status: Acute Plan: Patient admitted with acute on chronic left hip pain and is refusing to bear weight due to pain. Patient managed as an outpatient by a pain specialist with daily [place]. Patient able to ambulate previously with wheeled walker. Patient has previous inferior pubic ramus fracture from earlier this year. Left hip x-ray 12/26/17: No acute fracture of the pelvis, old left inferior pubic ramus fracture. Mild chronic arthropathy of both hips. Left femur x-ray 12/26/17: No acute abnormality, intact left femur. Pelvis CT 12/26/17: No acute fracture or other acute abnormality demonstrated. Old, healed left inferior pubic ramus fracture. 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 -Repeat left hip and lumbar spine x-rays ordered for repeat evaluation as patient continues with pain Lumbar spine with oblique on 12/28/17: Scoliosis with degenerative disc disease. Loss of vertebral body height at L2 stable from 09/10/17. Left hip x-ray 12/28/17: Osteopenia, degenerative changes, negative for acute fracture. Physical therapy consulted for daily therapy Case management consulted -Home Health face to face completed for home PT/OT and home health aide -Orders placed for bedside commode and wheelchair -Daughter educated to follow up with PCP and Pain Specialist for continued outpatient care Medications: Percocet as needed for pain Cautious with steroids and NSAIDs as patient has cardiac history as well as gastroparesis (2) Frail elderly Code(s): R54 - Age-related physical debility Status: Acute Plan: PT consulted for daily therapy OT consulted for evaluation and treatment (3) Acute UTI Code(s): N39.0 - Urinary tract infection, site not specified Status: Resolved Plan: Patient reports no dysuria, but does endorse episodes of incontinence over the last 24 hours likely related UTI. Patient received 2 days of Bactrim therapy causing nausea, transition to ceftriaxone before her last dose on 12/28/17. UA: Hazy, trace ketones, moderate occult blood, positive nitrate, moderate leukocyte esterase, 24 white blood cells, many bacteria, few mucus Urine culture: E. Coli, resistant only to ciprofloxacin CBC: WBC 5.2 with 63% neutrophils Medications: Bactrim DS 1 tab twice daily for 3 days (12/26-12/28) Patient finished antibiotic course with ceftriaxone 1 g IV 12/28/17 at 2100 for a total of 3 days of therapy (4) Vomiting Code(s): R11.10 - Vomiting, unspecified Status: Acute Plan: Patient with one episode of nonbilious, nonbloody vomiting on 12/27/17 likely related to her gastroparesis as patient did not receive her nighttime dose prior to bed. Medications: Transition Reglan tablets to Reglan liquid to assist with nausea/vomiting; Reglan 5 mg every 6 hours with administration 30 minutes before meals and bedtime Zofran as needed for nausea/vomiting Ranitidine 150 mg twice daily and as needed Tums to assist with possible reflux (5) Hypertension Code(s): I10 - Essential (primary) hypertension Status: Acute Plan: Patient with history of hypertension. Elevated during hospitalization, but will defer to outpatient management as patient is likely in pain. Medications: Continue home amlodipine and lisinopril -Clonidine as needed for blood pressure greater than 180/110 (6) Hypothyroidism Code(s): E03.9 - Hypothyroidism, unspecified Status: Acute Plan: Patient with history of hypothyroidism currently without symptoms Medications: Continue home levothyroxine (7) Depression with anxiety Code(s): F41.8 - Other specified anxiety disorders Status: Acute Plan: Patient with history of depression and anxiety Medications: Continue home citalopram and as needed alprazolam (8) Gastroparesis Code(s): K31.84 - Gastroparesis Status: Acute Plan: Patient with known history of gastroparesis Medications: Transition Reglan to liquid to assist with nausea/vomiting; Reglan 5 mg p.o. every 6 hours approximately 30 minutes before each meal and before bedtime (9) Insomnia Code(s): G47.00 - Insomnia, unspecified Status: Acute Plan: Patient with history of insomnia currently controlled on temazepam Medications: Continue home temazepam 15 mg nightly (10) Tremor Code(s): R25.1 - Tremor, unspecified Status: Acute Plan: Patient with tremor in upper and lower extremities on exam. Per chart review suggestion of tardive dyskinesia due to Reglan versus parkinsonian features. Patient currently not on Parkinson therapy. Continue to monitor as initiation of Parkinson's treatment could interfere with patient's hospital course and other medications. However if tremor begins to inhibit ambulation plan to initiate treatment to assist with mobility. Continue to monitor (11) Nutrition, metabolism, and development symptoms Code(s): R63.8 - Other symptoms and signs concerning food and fluid intake Status: Acute Plan: Fluids: No IV fluids on admission as patient is tolerating oral fluids and does not appear dehydrated Diet: Regular diet DVT prophylaxis: Lovenox 40 mg SQ daily Prophylaxis: Zofran as needed for nausea, Percocet as needed for pain, Restoril as needed for insomnia, constipation protocol, clonidine as needed for blood pressure greater than 180/110 Physical therapy consulted for evaluation Case management to assist with outpatient planning (12) Hypokalemia Code(s): E87.6 - Hypokalemia Status: Resolved Plan: Patient initially presenting with asymptomatic hypokalemia [facility] 12/26/17: Potassium 3.4 Repeat [facility] 12/27/17: Potassium 3.5 Medications: Potassium chloride 20 mEq once on 12/27/17 <Castillo Calderon - 12/29/17 11:43> - Attending Attestation The exam, history, and the medical decision-making described in the above note were completed with the assistance of the resident physician. I reviewed and agree with the findings presented. I attest that I had a [id number] encounter with the patient on the same day, and personally performed and documented my assessment and findings in the medical record. thankfully, her pain is slowly improving. working on a good place to get rehab <JodiJudi M - 12/31/17 08:31> <Castillo Calderon H - Last Filed: 12/29/17 11:43> (4) Vomiting Qualifiers: Vomiting type: cyclical vomiting Vomiting Intractability: non-intractable Nausea presence: with nausea Qualified Code(s): G43.A0 - Cyclical vomiting, not intractable <Jodi,Judi M - Last Filed: 12/31/17 08:31> (4) Vomiting Qualifiers: Vomiting type: cyclical vomiting Vomiting Intractability: non-intractable Nausea presence: with nausea Qualified Code(s): G43.A0 - Cyclical vomiting, not intractable <Castillo Calderon - Last Filed: 12/29/17 11:43> (4) Vomiting Qualifiers: Vomiting type: cyclical vomiting Vomiting Intractability: non-intractable Nausea presence: with nausea Qualified Code(s): G43.A0 - Cyclical vomiting, not intractable <Judi Zapata - Last Filed: 12/31/17 08:31> (4) Vomiting Qualifiers: Vomiting type: cyclical vomiting Vomiting Intractability: non-intractable Nausea presence: with nausea Qualified Code(s): G43.A0 - Cyclical vomiting, not intractable
[2017-12-29] MEDS: Famotidine 20 MG Tablet PO SCH ×2 (13:01→20:03)
[2017-12-29] MEDS: Metoclopramide Liq 10 MG/10 ML UDC PO SCH ×2 (13:16→17:32)
[2017-12-29] MEDS: Temazepam 15 MG Capsule PO PRN (20:03)
[2017-12-29] MEDS: Enoxaparin Inj 40 MG/0.4 ML Syringe SQ SCH (20:03)
[2017-12-30] MEDS: Metoclopramide Liq 10 MG/10 ML UDC PO SCH ×4 (03:41→17:32)
[2017-12-30] MEDS: ALPRAZolam 0.25 MG Tablet PO PRN (04:44)
[2017-12-30] MEDS: Levothyroxine 75 MCG Tablet PO SCH (05:49)
[2017-12-30 08:24] VITALS: O2SAT 99
[2017-12-30] MEDS ORDERED: amLODIPine 5 MG Tablet PO PRN (10:16)
[2017-12-30] MEDS: Famotidine 20 MG Tablet PO SCH ×2 (11:18→22:11)
[2017-12-30] MEDS: Lactobacillus Acidophilus/L. Spores Tablet PO SCH ×2 (11:18→22:11)
[2017-12-30] MEDS: Lisinopril 20 MG Tablet PO SCH (11:18)
[2017-12-30] MEDS: amLODIPine 5 MG Tablet PO SCH (11:18)
[2017-12-30] MEDS: Escitalopram 10 MG Tablet PO SCH (11:18)
[2017-12-30] MEDS: Senna/Docusate Sodium 8.6/50 MG Tablet PO SCH (11:18)
--- NOTE | 2017-12-30 12:30 | P.PNFP ---
Subjective Interval history: Patient seen and examined this morning. No acute events overnight. Patient does endorse improvement of her nausea and vomiting with transition to liquid Reglan in addition of ranitidine. However, she does endorse she had a loose stool overnight that did contain solid material. She is required only 1 dose of pain medication over the last 24 hours and per nursing report was able to ambulate with walker assistance around the unit multiple times during physical therapy this morning. However, there is some concern of patient taking care of herself while home alone as the medical team is unsure of if she is able to independently transfer herself from bed to bedside commode versus walking with a walker. Otherwise she endorses no acute complaints and all questions were answered. <Castillo Calderon - 12/30/17 12:30> Results - Labs Result diagrams: 12/26/17 17:39 12/27/17 06:26 <Judi Zapata M - 12/31/17 08:36> Physical Exam Vital signs: Vital Signs 12/30/17 16:23 12/31/17 04:00 Temperature 98.2 F 98.0 F Pulse Rate 70 74 Respiratory Rate 20 16 Blood Pressure 124/71 188/86 H Pulse Oximetry 99 99 Intake & Output 12/30/17 12/31/17 12/31/17 18:59 06:59 18:59 Other: Date of Last Bowel Movement 12/29/17 <Judi Zapata M - 12/31/17 08:36> Vital Signs 12/29/17 16:25 12/29/17 19:50 12/29/17 23:34 Temperature 98.2 F 98.6 F 98.2 F Pulse Rate 81 88 79 Respiratory Rate 18 17 18 Blood Pressure 126/56 L 154/74 H 173/79 H Pulse Oximetry 96 96 97 12/30/17 04:00 12/30/17 08:22 Temperature 98.0 F 98.4 F Pulse Rate 78 62 Respiratory Rate 18 20 Blood Pressure 199/88 H 99/60 L Pulse Oximetry 97 99 Intake & Output 12/29/17 12/30/17 12/30/17 18:59 06:59 18:59 Other: Date of Last Bowel Movement 12/29/17 <Castillo Calderon H - 12/30/17 12:30> Narrative: GENERAL: Elderly female lying in bed in no acute distress. SKIN: Warm and dry. No rash. No visible bruising or acute deformity appreciated. HEENT: Atraumatic, normocephalic with extraocular motions intact. No rhinorrhea. No visible lymphadenopathy or jugulovenous distension appreciated. Patient with raised, rounded palpable nodule on the midline forehead that is nontender to palpation, stable. CARDIOVASCULAR: Regular rate and rhythm without obvious murmurs, gallops, or rubs. 2+ pulses in all four extremities. RESPIRATORY: Clear to auscultation bilaterally with no crackles, wheezes, or rhonchi. No increased work of breathing. GASTROINTESTINAL: Abdomen soft, non-tender, nondistended with positive bowel sounds. No masses appreciated. MUSCULOSKELETAL: No cyanosis or edema. No calf tenderness. Left hip with improved tenderness to palpation with no visual deformity. Sensation intact throughout the left lower extremity. Strength 4/5 with all pain against resistance. Patient able to lift leg off the bed consistent with yesterday's exam. NEURO/PSYCH: Patient with resting tremor of both upper and lower extremities stable from yesterday's exam. A focal otherwise. Awake, alert, and oriented x3. Normal speech and judgement. <Castillo Calderon - 12/30/17 12:30> Assessment and Plan - Assessment (1) Inability to ambulate due to hip Code(s): R26.2 - Difficulty in walking, not elsewhere classified Status: Acute (2) Frail elderly Code(s): R54 - Age-related physical debility Status: Acute (3) Acute UTI Code(s): N39.0 - Urinary tract infection, site not specified Status: Resolved (4) Vomiting Code(s): R11.10 - Vomiting, unspecified Status: Resolved (5) Hypertension Code(s): I10 - Essential (primary) hypertension Status: Acute (6) Hypothyroidism Code(s): E03.9 - Hypothyroidism, unspecified Status: Acute (7) Depression with anxiety Code(s): F41.8 - Other specified anxiety disorders Status: Acute (8) Gastroparesis Code(s): K31.84 - Gastroparesis Status: Acute (9) Insomnia Code(s): G47.00 - Insomnia, unspecified Status: Acute (10) Tremor Code(s): R25.1 - Tremor, unspecified Status: Acute (11) Nutrition, metabolism, and development symptoms Code(s): R63.8 - Other symptoms and signs concerning food and fluid intake Status: Acute (12) Hypokalemia Code(s): E87.6 - Hypokalemia Status: Resolved <Judi Zapata - 12/31/17 08:36> (1) Inability to ambulate due to hip Code(s): R26.2 - Difficulty in walking, not elsewhere classified Status: Acute Plan: Patient admitted with acute on chronic left hip pain and is refusing to bear weight due to pain. Patient managed as an outpatient by a pain specialist with daily [place]. Patient able to ambulate previously with wheeled walker. Patient has previous inferior pubic ramus fracture from earlier this year. Left hip x-ray 12/26/17: No acute fracture of the pelvis, old left inferior pubic ramus fracture. Mild chronic arthropathy of both hips. Left femur x-ray 12/26/17: No acute abnormality, intact left femur. Pelvis CT 12/26/17: No acute fracture or other acute abnormality demonstrated. Old, healed left inferior pubic ramus fracture. 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 -Repeat left hip and lumbar spine x-rays ordered for repeat evaluation as patient continues with pain Lumbar spine with oblique on 12/28/17: Scoliosis with degenerative disc disease. Loss of vertebral body height at L2 stable from 09/10/17. Left hip x-ray 12/28/17: Osteopenia, degenerative changes, negative for acute fracture. Physical therapy consulted for daily therapy Case management consulted -Home Health face to face completed for home PT/OT and home health aide -Orders placed for bedside commode and wheelchair -Daughter educated to follow up with PCP and Pain Specialist for continued outpatient care Medications: Percocet as needed for pain Cautious with steroids and NSAIDs as patient has cardiac history as well as gastroparesis (2) Frail elderly Code(s): R54 - Age-related physical debility Status: Acute Plan: PT consulted for daily therapy -OT consulted for daily therapy (3) Acute UTI Code(s): N39.0 - Urinary tract infection, site not specified Status: Resolved Plan: Patient reports no dysuria, but does endorse episodes of incontinence over the last 24 hours likely related UTI. Patient received 2 days of Bactrim therapy causing nausea, transition to ceftriaxone before her last dose on 12/28/17. UA: Hazy, trace ketones, moderate occult blood, positive nitrate, moderate leukocyte esterase, 24 white blood cells, many bacteria, few mucus Urine culture: E. Coli, resistant only to ciprofloxacin CBC: WBC 5.2 with 63% neutrophils Medications: Bactrim DS 1 tab twice daily for 3 days (12/26-12/28) Patient finished antibiotic course with ceftriaxone 1 g IV 12/28/17 at 2100 for a total of 3 days of therapy (4) Vomiting Code(s): R11.10 - Vomiting, unspecified Status: Resolved Plan: Patient with one episode of nonbilious, nonbloody vomiting on 12/27/17 likely related to her gastroparesis as patient did not receive her nighttime dose prior to bed. Symptoms have now resolved as patient was transitioned to liquid Reglan with liquid ranitidine. Medications: Transition Reglan tablets to Reglan liquid to assist with nausea/vomiting; Reglan 5 mg every 6 hours with administration 30 minutes before meals and bedtime Zofran as needed for nausea/vomiting Ranitidine 150 mg twice daily and as needed Tums to assist with possible reflux (5) Hypertension Code(s): I10 - Essential (primary) hypertension Status: Acute Plan: Patient with history of hypertension. Elevated during hospitalization, but will defer to outpatient management as patient is likely in pain. Medications: Continue home amlodipine and lisinopril -Discontinue clonidine as needed for elevated blood pressure as patient was sensitive to one-time dose overnight on 12/29/17 dropping nearly 100 points systolic Amlodipine 5 mg ordered as needed once daily in addition to her scheduled dose to assist with blood pressures greater than 180/110 (6) Hypothyroidism Code(s): E03.9 - Hypothyroidism, unspecified Status: Acute Plan: Patient with history of hypothyroidism currently without symptoms Medications: Continue home levothyroxine (7) Depression with anxiety Code(s): F41.8 - Other specified anxiety disorders Status: Acute Plan: Patient with history of depression and anxiety Medications: Continue home citalopram and as needed alprazolam (8) Gastroparesis Code(s): K31.84 - Gastroparesis Status: Acute Plan: Patient with known history of gastroparesis Medications: Transition Reglan to liquid to assist with nausea/vomiting; Reglan 5 mg p.o. every 6 hours approximately 30 minutes before each meal and before bedtime (9) Insomnia Code(s): G47.00 - Insomnia, unspecified Status: Acute Plan: Patient with history of insomnia currently controlled on temazepam Medications: Continue home temazepam 15 mg nightly (10) Tremor Code(s): R25.1 - Tremor, unspecified Status: Acute Plan: Patient with tremor in upper and lower extremities on exam. Per chart review suggestion of tardive dyskinesia due to Reglan versus parkinsonian features. Patient currently not on Parkinson therapy. Continue to monitor as initiation of Parkinson's treatment could interfere with patient's hospital course and other medications. However if tremor begins to inhibit ambulation plan to initiate treatment to assist with mobility. Continue to monitor (11) Nutrition, metabolism, and development symptoms Code(s): R63.8 - Other symptoms and signs concerning food and fluid intake Status: Acute Plan: Fluids: No IV fluids on admission as patient is tolerating oral fluids and does not appear dehydrated Diet: Regular diet DVT prophylaxis: Lovenox 40 mg SQ daily Prophylaxis: Zofran as needed for nausea, Percocet as needed for pain, Restoril as needed for insomnia, amlodipine as needed for blood pressure greater than 180/110, discontinued scheduled constipation protocol due to loose stools on 12/30/17 Physical therapy consulted for evaluation Case management to assist with outpatient planning (12) Hypokalemia Code(s): E87.6 - Hypokalemia Status: Resolved Plan: Patient initially presenting with asymptomatic hypokalemia [facility] 12/26/17: Potassium 3.[address] [facility] 12/27/17: Potassium 3.5 Medications: Potassium chloride 20 mEq once on 12/27/17 <Castillo Calderon H - 12/30/17 12:30> - Attending Attestation The exam, history, and the medical decision-making described in the above note were completed with the assistance of the resident physician. I reviewed and agree with the findings presented. I attest that I had a [id number] encounter with the patient on the same day, and personally performed and documented my assessment and findings in the medical record. her nausea is greatly improved <Judi Zapata M - 12/31/17 08:36> <Castillo Calderon H - Last Filed: 12/30/17 12:30> (4) Vomiting Qualifiers: Vomiting type: cyclical vomiting Vomiting Intractability: non-intractable Nausea presence: with nausea Qualified Code(s): G43.A0 - Cyclical vomiting, not intractable <Judi Zapata M - Last Filed: 12/31/17 08:36> (4) Vomiting Qualifiers: Vomiting type: cyclical vomiting Vomiting Intractability: non-intractable Nausea presence: with nausea Qualified Code(s): G43.A0 - Cyclical vomiting, not intractable <Castillo Calderon H - Last Filed: 12/30/17 12:30> (4) Vomiting Qualifiers: Vomiting type: cyclical vomiting Vomiting Intractability: non-intractable Nausea presence: with nausea Qualified Code(s): G43.A0 - Cyclical vomiting, not intractable <Judi Zapata M - Last Filed: 12/31/17 08:36> (4) Vomiting Qualifiers: Vomiting type: cyclical vomiting Vomiting Intractability: non-intractable Nausea presence: with nausea Qualified Code(s): G43.A0 - Cyclical vomiting, not intractable
[2017-12-30] MEDS: Enoxaparin Inj 40 MG/0.4 ML Syringe SQ SCH (22:11)
[2017-12-30] MEDS: Temazepam 15 MG Capsule PO PRN (22:18)
[2017-12-31] MEDS: Metoclopramide Liq 10 MG/10 ML UDC PO SCH ×2 (03:34→05:52)
[2017-12-31] MEDS ORDERED: Sodium Chloride 0.9% 2 ML Flush PRN IV.FLUSH (05:34)
[2017-12-31] MEDS: Levothyroxine 75 MCG Tablet PO SCH (05:52)
[2017-12-31 08:49] VITALS: PULSE 75; RESP 18; TEMP 97.9
[2017-12-31] MEDS ORDERED: Sodium Chloride 0.9% 2 ML Flush BID IV.FLUSH SCH (09:00)
[2017-12-31] MEDS: amLODIPine 5 MG Tablet PO SCH (09:39)
[2017-12-31] MEDS: Lactobacillus Acidophilus/L. Spores Tablet PO SCH (09:39)
[2017-12-31] MEDS: Escitalopram 10 MG Tablet PO SCH (09:40)
[2017-12-31] MEDS: Lisinopril 20 MG Tablet PO SCH (09:40)
[2017-12-31] MEDS: Famotidine 20 MG Tablet PO SCH (09:40)
[2017-12-31 10:18] VITALS: BP 172/74
--- NOTE | 2017-12-31 10:23 | P.PNFP ---
Subjective Interval history: Patient seen and examined this morning by medical team. Patient did have a pressure overnight and was given as needed dose of Vasotec. Patient responded appropriately and was asymptomatic. This morning we informed her that she has been accepted to [facility] for continued rehab. Patient was encouraged by this information and states that she is ready to go. She currently has no other complaints other than some mild nausea likely related to gastroparesis. She was able to tolerate her breakfast during her interview has had no new episodes of vomiting. Otherwise she had no complaints and all questions were answered. <Castillo Calderon H - 12/31/17 10:23> Results - Labs Result diagrams: 12/26/17 17:39 12/27/17 06:26 <Judi Zapata M - 12/31/17 10:48> Physical Exam Vital signs: Vital Signs 12/30/17 16:23 12/31/17 04:00 12/31/17 08:48 Temperature 98.2 F 98.0 F 97.9 F Pulse Rate 70 74 75 Respiratory Rate 20 16 18 Blood Pressure 124/71 188/86 H 198/88 H Pulse Oximetry 99 99 99 12/31/17 10:02 12/31/17 10:17 Temperature Pulse Rate Respiratory Rate Blood Pressure 191/86 H 172/74 H Pulse Oximetry Intake & Output 12/30/17 12/31/17 12/31/17 18:59 06:59 18:59 Other: Date of Last Bowel Movement 12/29/17 12/31/17 <Judi Zapata M - 12/31/17 10:48> Vital Signs 12/30/17 16:23 12/31/17 04:00 12/31/17 08:48 Temperature 98.2 F 98.0 F 97.9 F Pulse Rate 70 74 75 Respiratory Rate 20 16 18 Blood Pressure 124/71 188/86 H 198/88 H Pulse Oximetry 99 99 99 12/31/17 10:02 Temperature Pulse Rate Respiratory Rate Blood Pressure 191/86 H Pulse Oximetry Intake & Output 12/30/17 12/31/17 12/31/17 18:59 06:59 18:59 Other: Date of Last Bowel Movement 12/29/17 <Castillo Calderon H - 12/31/17 10:23> Narrative: GENERAL: Elderly female lying in bed in no acute distress eating breakfast. SKIN: Warm and dry. No rash. No visible bruising or acute deformity appreciated. HEENT: Atraumatic, normocephalic with extraocular motions intact. No rhinorrhea. No visible lymphadenopathy or jugulovenous distension appreciated. Patient with raised, rounded palpable nodule on the midline forehead that is nontender to palpation, stable. CARDIOVASCULAR: Regular rate and rhythm without obvious murmurs, gallops, or rubs. 2+ pulses in all four extremities. RESPIRATORY: Clear to auscultation bilaterally with no crackles, wheezes, or rhonchi. No increased work of breathing. GASTROINTESTINAL: Abdomen soft, non-tender, nondistended with positive bowel sounds. No masses appreciated. MUSCULOSKELETAL: No cyanosis or edema. No calf tenderness. Left hip with improved tenderness to palpation with no visual deformity. Sensation intact throughout the left lower extremity. Strength 4/5 with all pain against resistance. Patient able to lift leg off the bed consistent with previous exams. NEURO/PSYCH: Patient with resting tremor of both upper and lower extremities stable from yesterday's exam. A focal otherwise. Awake, alert, and oriented x3. Normal speech and judgement. <Castillo Calderon - 12/31/17 10:23> Assessment and Plan - Assessment (1) Inability to ambulate due to hip Code(s): R26.2 - Difficulty in walking, not elsewhere classified Status: Acute (2) Frail elderly Code(s): R54 - Age-related physical debility Status: Acute (3) Hypertension Code(s): I10 - Essential (primary) hypertension Status: Acute (4) Vomiting Code(s): R11.10 - Vomiting, unspecified Status: Resolved (5) Acute UTI Code(s): N39.0 - Urinary tract infection, site not specified Status: Resolved (6) Hypothyroidism Code(s): E03.9 - Hypothyroidism, unspecified Status: Acute (7) Depression with anxiety Code(s): F41.8 - Other specified anxiety disorders Status: Acute (8) Gastroparesis Code(s): K31.84 - Gastroparesis Status: Acute (9) Insomnia Code(s): G47.00 - Insomnia, unspecified Status: Acute (10) Tremor Code(s): R25.1 - Tremor, unspecified Status: Acute (11) Nutrition, metabolism, and development symptoms Code(s): R63.8 - Other symptoms and signs concerning food and fluid intake Status: Acute (12) Hypokalemia Code(s): E87.6 - Hypokalemia Status: Resolved <Judi Zapata - 12/31/17 10:48> (1) Inability to ambulate due to hip Code(s): R26.2 - Difficulty in walking, not elsewhere classified Status: Acute Plan: Patient admitted with acute on chronic left hip pain and is refusing to bear weight due to pain. Patient managed as an outpatient by a pain specialist with daily [place]. Patient able to ambulate previously with wheeled walker. Patient has previous inferior pubic ramus fracture from earlier this year. Left hip x-ray 12/26/17: No acute fracture of the pelvis, old left inferior pubic ramus fracture. Mild chronic arthropathy of both hips. Left femur x-ray 12/26/17: No acute abnormality, intact left femur. Pelvis CT 12/26/17: No acute fracture or other acute abnormality demonstrated. Old, healed left inferior pubic ramus fracture. 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 -Repeat left hip and lumbar spine x-rays ordered for repeat evaluation as patient continues with pain Lumbar spine with oblique on 12/28/17: Scoliosis with degenerative disc disease. Loss of vertebral body height at L2 stable from 09/10/17. Left hip x-ray 12/28/17: Osteopenia, degenerative changes, negative for acute fracture. Physical therapy consulted for daily therapy Case management consulted -Home Health face to face completed for home PT/OT and home health aide -Orders placed for bedside commode and wheelchair -Daughter educated to follow up with PCP and Pain Specialist for continued outpatient care Medications: Percocet as needed for pain Cautious with steroids and NSAIDs as patient has cardiac history as well as gastroparesis Patient has been accepted to [facility] rehabilitation for continued therapy with planned transportation later this morning (2) Frail elderly Code(s): R54 - Age-related physical debility Status: Acute Plan: PT consulted for daily therapy -OT consulted for daily therapy Plan to continue therapy at rehab (3) Hypertension Code(s): I10 - Essential (primary) hypertension Status: Acute Plan: Patient with history of hypertension. Patient's blood pressure has fluctuated during hospitalization ranging from 99/60-199/88. Patient received 1 dose of Vasotec for elevated blood pressures overnight, but was asymptomatic throughout the episode. Medications: Continue home amlodipine and lisinopril Amlodipine 5 mg ordered as needed once daily in addition to her scheduled dose to assist with blood pressures greater than 180/110 upon discharge (4) Vomiting Code(s): R11.10 - Vomiting, unspecified Status: Resolved Plan: Patient with one episode of nonbilious, nonbloody vomiting on 12/27/17 likely related to her gastroparesis as patient did not receive her nighttime dose prior to bed. Symptoms have now resolved as patient was transitioned to liquid Reglan with liquid ranitidine. Patient has had no new episodes of vomiting since transitioning from Bactrim medication and addition of ranitidine. Medications: Transition Reglan tablets to Reglan liquid to assist with nausea/vomiting; Reglan 5 mg every 6 hours with administration 30 minutes before meals and bedtime Zofran as needed for nausea/vomiting Ranitidine 150 mg twice daily and as needed Tums to assist with possible reflux (5) Acute UTI Code(s): N39.0 - Urinary tract infection, site not specified Status: Resolved Plan: Patient reports no dysuria, but does endorse episodes of incontinence over the last 24 hours likely related UTI. Patient received 2 days of Bactrim therapy causing nausea, transition to ceftriaxone before her last dose on 12/28/17. UA: Hazy, trace ketones, moderate occult blood, positive nitrate, moderate leukocyte esterase, 24 white blood cells, many bacteria, few mucus Urine culture: E. Coli, resistant only to ciprofloxacin CBC: WBC 5.2 with 63% neutrophils Medications: Bactrim DS 1 tab twice daily for 3 days (12/26-12/28) Patient finished antibiotic course with ceftriaxone 1 g IV 12/28/17 at 2100 for a total of 3 days of therapy (6) Hypothyroidism Code(s): E03.9 - Hypothyroidism, unspecified Status: Acute Plan: Patient with history of hypothyroidism currently without symptoms Medications: Continue home levothyroxine (7) Depression with anxiety Code(s): F41.8 - Other specified anxiety disorders Status: Acute Plan: Patient with history of depression and anxiety Medications: Continue home citalopram and as needed alprazolam (8) Gastroparesis Code(s): K31.84 - Gastroparesis Status: Acute Plan: Patient with known history of gastroparesis Medications: Transition Reglan to liquid to assist with nausea/vomiting; Reglan 5 mg p.o. every 6 hours approximately 30 minutes before each meal and before bedtime (9) Insomnia Code(s): G47.00 - Insomnia, unspecified Status: Acute Plan: Patient with history of insomnia currently controlled on temazepam Medications: Continue home temazepam 15 mg nightly (10) Tremor Code(s): R25.1 - Tremor, unspecified Status: Acute Plan: Patient with tremor in upper and lower extremities on exam. Per chart review suggestion of tardive dyskinesia due to Reglan versus parkinsonian features. Patient currently not on Parkinson therapy. Continue to monitor as initiation of Parkinson's treatment could interfere with patient's hospital course and other medications. However if tremor begins to inhibit ambulation plan to initiate treatment to assist with mobility. Continue to monitor Recommend follow-up with neurologist as an outpatient for further evaluation of symptoms (11) Nutrition, metabolism, and development symptoms Code(s): R63.8 - Other symptoms and signs concerning food and fluid intake Status: Acute Plan: Fluids: No IV fluids on admission as patient is tolerating oral fluids and does not appear dehydrated Diet: Regular diet DVT prophylaxis: Lovenox 40 mg SQ daily Prophylaxis: Zofran as needed for nausea, Percocet as needed for pain, Restoril as needed for insomnia, amlodipine as needed for blood pressure greater than 180/110, discontinued scheduled constipation protocol due to loose stools on 12/30/17 Physical therapy consulted for evaluation Case management to assist with outpatient planning (12) Hypokalemia Code(s): E87.6 - Hypokalemia Status: Resolved Plan: Patient initially presenting with asymptomatic hypokalemia [facility] 12/26/17: Potassium 3.4 Repeat [facility] 12/27/17: Potassium 3.5 Medications: Potassium chloride 20 mEq once on 12/27/17 <Castillo Calderon - 12/31/17 10:09> - Assessment and Plan Patient was admitted for inability to bear weight on her left hip after fall. All imaging was negative for acute fracture both on admission and on hospital day 2. Patient's pain was controlled with Percocet as needed. Patient was started on physical patient will therapies which she progressed well. She is cleared for discharge with recommendations to continue therapy at rehab. She has been accepted to [facility] and will be discharged to their service at this time. Patient also had an E. coli urinary tract infection that was initially treated with Bactrim, but then transition to ceftriaxone secondary to nausea. Patient's nausea likely due to antibiotic therapy versus chronic gastroparesis. She was also transitioned from tablet Reglan to liquid Reglan to assist with her nausea. Patient was started on ranitidine was also helped with her nausea/vomiting. Finally during her hospitalization the patient 's blood pressures ranged from 99/62 198/88. She was continued on her home medications, but did receive as needed blood pressure medication twice during hospitalization. Patient has remained asymptomatic throughout her hospitalization. She will be discharged with recommendations for an additional dose of amlodipine 5 mg as needed for blood pressure greater than 180/110. Further blood pressure management to be completed as an outpatient at this time. Otherwise all of her home medications were continued upon discharge and patient was recommended to follow-up with her PCP, neurology, and pain specialist in the coming weeks. Case management has discussed her discharge with her daughter who agrees to discharge to [facility] at this time. <Castillo Calderon - 12/31/17 10:23> - Attending Attestation The exam, history, and the medical decision-making described in the above note were completed with the assistance of the resident physician. I reviewed and agree with the findings presented. I attest that I had a [id number] encounter with the patient on the same day, and personally performed and documented my assessment and findings in the medical record. she is ready to go to rehab today! her blood pressures are up but she has not had her meds yet. <Judi Zapata M - 12/31/17 10:48> <Castillo Calderon - Last Filed: 12/31/17 10:09> (4) Vomiting Qualifiers: Vomiting type: cyclical vomiting Vomiting Intractability: non-intractable Nausea presence: with nausea Qualified Code(s): G43.A0 - Cyclical vomiting, not intractable <Judi Zapata - Last Filed: 12/31/17 10:48> (4) Vomiting Qualifiers: Vomiting type: cyclical vomiting Vomiting Intractability: non-intractable Nausea presence: with nausea Qualified Code(s): G43.A0 - Cyclical vomiting, not intractable <Castillo Calderon H - Last Filed: 12/31/17 10:09> (4) Vomiting Qualifiers: Vomiting type: cyclical vomiting Vomiting Intractability: non-intractable Nausea presence: with nausea Qualified Code(s): G43.A0 - Cyclical vomiting, not intractable <Judi Zapata - Last Filed: 12/31/17 10:48> (4) Vomiting Qualifiers: Vomiting type: cyclical vomiting Vomiting Intractability: non-intractable Nausea presence: with nausea Qualified Code(s): G43.A0 - Cyclical vomiting, not intractable
--- NOTE | 2017-12-31 13:59 | P.DS ---
Date of admission: 12/26/17 19:52 Primary care physician: Mitch Bourne MD, R3 Anticipated date of discharge: 12/31/17 Brief History from admission: 82 yo [place] speaking only female with PMH of HTN, h/o sick sinus syndrome w/ pacemaker, hypothyroidism, gastroparesis, CAD and h/o pubic rami fracture presented to the ED with her daughter for L hip pain. Daughter lives with the patient, is the health care surrogate and provides most of the history. Patient has chronic L hip pain 2/2 to the pubic rami fracture earlier this year, but her pain has increased in intensity. She typically uses a walker at home but has been unable to bear weight on her L hip over the last several days. Daughter reports patient had an unwitnessed fall on the day prior to admission which worsened the pain. Patient called her daughter who was in the other room. Denied any LOC, head injury, chest pain or dizziness and the daughter states she never appeared disoriented or confused. Patient does report the sensation of incomplete emptying of her bladder over the last several days. Denies dysuria , fever/chills, increased urinary frequency. DS: Diagnosis - Discharge Diagnosis (1) Inability to ambulate due to hip Status: Acute (2) Frail elderly Status: Acute (3) Hypertension Status: Acute (4) Vomiting Status: Resolved (5) Acute UTI Status: Resolved (6) Hypothyroidism Status: Acute (7) Depression with anxiety Status: Acute (8) Gastroparesis Status: Acute (9) Insomnia Status: Acute (10) Tremor Status: Acute (11) Nutrition, metabolism, and development symptoms Status: Acute (12) Hypokalemia Status: Resolved DS: Medications - Discharge Medications Prescriptions: alprazolam 0.5 mg PO BID PRN #60 tab PRN Reason: Anxiety amlodipine 5 mg PO DAILY #30 tab aspirin 81 mg PO DAILY #30 tab benazepril 40 mg PO DAILY #30 tab escitalopram oxalate 10 mg PO DAILY #30 tab famotidine 20 mg PO BID #60 tab levothyroxine 75 mcg PO DAILY #30 tab metoclopramide HCl 5 mg PO Q6H #1 bottle metoclopramide HCl 5 mg PO TID #90 tab ondansetron [Zofran ODT] 4 mg PO Q6-8H PRN #60 tab PRN Reason: Nausea/Vomiting oxycodone-acetaminophen 1 tab PO Q4H PRN #18 tab PRN Reason: Pain sennosides-docusate sodium [Senna Plus] 1 tab PO BID #60 tab DS: Summary Hospital Course: Patient was admitted for inability to bear weight on her left hip after fall. All imaging was negative for acute fracture both on admission and on hospital day 2. Patient's pain was controlled with Percocet as needed. Patient was started on physical patient will therapies which she progressed well. She is cleared for discharge with recommendations to continue therapy at rehab. She has been accepted to [facility] and will be discharged to their service at this time. Patient also had an E. coli urinary tract infection that was initially treated with Bactrim, but then transition to ceftriaxone secondary to nausea. Patient's nausea likely due to antibiotic therapy versus chronic gastroparesis. She was also transitioned from tablet Reglan to liquid Reglan to assist with her nausea. Patient was started on ranitidine was also helped with her nausea/vomiting. Finally during her hospitalization the patient 's blood pressures ranged from 99/62 198/88. She was continued on her home medications, but did receive as needed blood pressure medication twice during hospitalization. Patient has remained asymptomatic throughout her hospitalization. She will be discharged with recommendations for an additional dose of amlodipine 5 mg as needed for blood pressure greater than 180/110. Further blood pressure management to be completed as an outpatient at this time. Otherwise all of her home medications were continued upon discharge and patient was recommended to follow-up with her PCP, neurology, and pain specialist in the coming weeks. Case management has discussed her discharge with her daughter who agrees to discharge to [facility] at this time. Daughter was also contacted by the medical team to provide update with all questions answered. - Time Spent with Patient Total time spent providing and/or coordinating discharge services: Less than 30 minutes - Quality: VTE Deep Vein Thrombosis/Pulmonary Embolism Present on Admission: No Exam Vital signs: Vital Signs 12/30/17 16:23 12/31/17 04:00 12/31/17 08:48 Temperature 98.2 F 98.0 F 97.9 F Pulse Rate 70 74 75 Respiratory Rate 20 16 18 Blood Pressure 124/71 188/86 H 198/88 H Pulse Oximetry 99 99 99 12/31/17 10:02 12/31/17 10:17 Temperature Pulse Rate Respiratory Rate Blood Pressure 191/86 H 172/74 H Pulse Oximetry Intake & Output 12/30/17 12/31/17 12/31/17 18:59 06:59 18:59 Other: Date of Last Bowel Movement 12/29/17 12/31/17 Results Procedures completed during hospitalization: N/A - Impressions ITS Impressions Pelvis CT 12/26/17 16:27 CONCLUSION: 1. No acute fracture or other acute abnormality demonstrated. 2. Old, healed left inferior pubic ramus fracture. 3. 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 Femur X-Ray 12/26/17 16:28 CONCLUSION: Intact left femur. Hip X-Ray 12/28/17 00:00 CONCLUSION: Osteopenia, degenerative changes, negative for acute fracture Lumbar Spine X-Ray 12/28/17 00:00 CONCLUSION: Scoliosis with degenerative disc disease,. Loss of vertebral body height at L2 stable from 09/10/2017 MRI could be used to confirm acute compression fracture if desired. Discharge Plan - Discharge Disposition Patient Disposition: 03 Discharge to SNF - Discharge Condition Condition: Stable - Discharge Order Discharge Orders: Discharge Order (Routine); Ordered 12/27/17 Ordered By: Castillo Calderon - Discharge Details Anticipated Discharge Date: 12/27/17 Discharge Comment: Patient to be discharged home after PT evaluation. - Physicians Team Primary Care Provider: Mitch Bourne Attending Provider: Judi Zapata Other Providers: [facility],Agency ; Rehab,[facility] ; [facility],[place]
== END 2017-12-31 11:08 ==
LOC: NEDA 14:27 → NEPC 14:27 → NEPHCDU 22:11
PROVIDERS: ADMIT Family Medicine; ATTEND Family Medicine
DX: M12.852 Other specific arthropathies, not elsewhere classified, left hip; K31.84 Gastroparesis; M51.36 Other intervertebral disc degeneration, lumbar region; G47.00 Insomnia, unspecified; M41.86 Other forms of scoliosis, lumbar region; E87.6 Hypokalemia; M12.851 Other specific arthropathies, not elsewhere classified, right hip; G20 Parkinson's disease; R26.2 Difficulty in walking, not elsewhere classified; M16.0 Bilateral primary osteoarthritis of hip; M85.80 Other specified disorders of bone density and structure, unspecified site; G43.A0 Cyclical vomiting, in migraine, not intractable; B96.20 Unspecified Escherichia coli [E. coli] as the cause of diseases classified elsewhere; I25.10 Atherosclerotic heart disease of native coronary artery without angina pectoris; N30.00 Acute cystitis without hematuria; I10 Essential (primary) hypertension; E89.0 Postprocedural hypothyroidism; Z87.891 Personal history of nicotine dependence; F41.8 Other specified anxiety disorders

== ENCOUNTER 2018-01-26 22:46 | Observation (INO) ==
[2018-01-26] MEDS ORDERED: Morphine Sulfate Inj 2 MG/ML Vial IV.PUSH ONE (23:25)
--- NOTE | 2018-01-26 23:35 | ED ---
HPI General Chief complaint: Extremity Injury, Upper Stated complaint: Fall Time Seen by Provider: 01/26/18 23:25 History of Present Illness HPI narrative: This is an 82-year-old American-speaking female who presents via EMS for evaluation after mechanical fall. She reports that prior to arrival she was standing up trying to put on pants when she fell backwards, landing on her outstretched right hand. Denies any head trauma or loss of consciousness. Denies any dizziness or lightheadedness. She is complaining of focal right wrist pain. Pain is worse with movement. Denies any numbness or tingling in the right hand. She denies any pain in the neck, back, chest, abdomen, hips, legs. Symptoms are moderate. She has no other complaints at this time. History of anxiety and hypertension, hypothyroidism, essential tremor. Related Data Previous Rx's Medication Instructions Recorded alprazolam 0.5 mg PO BID PRN #60 tab 12/26/17 amlodipine 5 mg PO DAILY #30 tab 12/26/17 aspirin 81 mg PO DAILY #30 tab 12/26/17 benazepril 40 mg PO DAILY #30 tab 12/26/17 escitalopram oxalate 10 mg PO DAILY #30 tab 12/26/17 levothyroxine 75 mcg PO DAILY #30 tab 12/26/17 metoclopramide HCl 5 mg PO TID #90 tab 12/26/17 alprazolam [Xanax] 0.25 mg PO BID PRN tab 12/27/17 amlodipine [Norvasc] 5 mg PO DAILY tab 12/27/17 escitalopram oxalate 10 mg PO DAILY tab 12/27/17 levothyroxine [Synthroid] 75 mcg PO DAILY@0600 tab 12/27/17 lisinopril 40 mg PO DAILY tab 12/27/17 oxycodone-acetaminophen 1 tab PO Q4H PRN #18 tab 12/27/17 sennosides-docusate sodium [Senna 1 tab PO BID #60 tab 12/27/17 Plus] temazepam 15 mg PO HS PRN cap 12/27/17 famotidine 20 mg PO BID #60 tab 12/31/17 metoclopramide HCl 5 mg PO Q6H #1 bottle 12/31/17 ondansetron [Zofran ODT] 4 mg PO Q6-8H PRN #60 tab 12/31/17 Allergies Allergy/AdvReac Type Severity Reaction Status Date / Time No Known Allergies Allergy Verified 12/26/17 16:06 Review of Systems ROS: all other systems reviewed are negative [facility] Social History Social History Substance History: No History of Abuse Second Hand Smoke Exposure: No Smoking Status: Never smoker Tobacco Type: Cigarettes How Often Do You Have a Drink Containing Alcohol: Never Recent Travel in [facility] within the Last 8 Weeks: No Recent Out of Country Travel within the Last 8 Weeks: No Immunization History Tetanus Immunization: >5 Years Exam Narrative Exam Narrative: GENERAL: Pleasant well-developed well-nourished female no acute distress SKIN: Warm and dry. HEAD: Atraumatic. Normocephalic. EYES: Pupils equal and round. No scleral icterus. No injection or drainage. ENT: No nasal bleeding or discharge. Mucous membranes pink and moist. NECK: Trachea midline. No JVD. CARDIOVASCULAR: Regular rate and rhythm. No murmur appreciated. RESPIRATORY: No accessory muscle use. Clear to auscultation. Breath sounds equal bilaterally. GASTROINTESTINAL: Abdomen soft, non-tender, nondistended. Hepatic and splenic margins not palpable. MUSCULOSKELETAL: There is some soft tissue swelling noted to the right wrist. There is generalized tenderness to palpation of the right wrist. Limited range of motion secondary to pain. 2+ radial pulse. Capillary refill less than 2 seconds all digits right hand. Patient maintains full range of motion of the left upper extremity in the lower extremities with no pain. There is no tenderness to palpation along cervical thoracic lumbar midline spine. NEUROLOGICAL: Awake and alert. No obvious cranial nerve deficits. Motor grossly within normal limits. Normal speech. Course Initial Documented Vital Signs Pulse Rate 82 01/26/18 23:19 Respiratory Rate 16 01/26/18 23:19 Blood Pressure 152/72 H 01/26/18 23:19 Pulse Oximetry 97 01/26/18 23:19 Last Documented Vital Signs Pulse Rate 82 01/26/18 23:19 Respiratory Rate 16 01/26/18 23:19 Blood Pressure 152/72 H 01/26/18 23:19 Pulse Oximetry 97 01/26/18 23:19 Medical Decision Making [facility] Narrative Medical decision making narrative: X-ray imaging of the right wrist reveals a comminuted distal radius fracture with a 1 cm dorsally displaced fracture fragment. There is also a nondisplaced ulnar styloid fracture. Discussed with the on-call orthopedist Dr. Rina mark after midnight, he will consult. A sugar tong splint has been ordered. Medical Screen Exam Complete: Yes Emergency Medical Condition: Yes Differential Diagnosis Differential Diagnosis: Right wrist fracture, sprain, dislocation Imaging Data Radiologist's impression: Wrist X-Ray 01/26/18 23:25 CONCLUSION: 1. Distal radius fracture with dorsal displacement of a 1 cm fragment adjacent to the distal radioulnar joint. 2. Nondisplaced ulnar styloid fracture. Discharge Plan Discharge Disposition Patient Disposition: ED Admit(ED Internal Use Only) Discharge Condition Condition: Stable Discharge Order Discharge Orders: ED Use Only Admit Order (Routine); Ordered 01/27/18 Ordered By: Jalil Gan Discharge Details Diagnosis: Fracture of right wrist Physicians Team ED Provider: Fabrice Martinez ED Midlevel Provider: Jalil Gan Rxs /Orders / Referrals /Forms Prescriptions: No Action alprazolam 0.25 mg Tablet 0.5 mg PO BID PRN (Reason: Anxiety) Qty: 60 RF: 0 amlodipine 5 mg Tablet 5 mg PO DAILY Qty: 30 RF: 0 aspirin 81 mg Tablet,Chewable 81 mg PO DAILY Qty: 30 RF: 0 benazepril 40 mg Tablet 40 mg PO DAILY Qty: 30 RF: 0 escitalopram oxalate 10 mg Tablet 10 mg PO DAILY Qty: 30 RF: 0 levothyroxine 75 mcg Tablet 75 mcg PO DAILY Qty: 30 RF: 0 metoclopramide HCl 5 mg Tablet 5 mg PO TID Qty: 90 RF: 0 lisinopril 20 mg Tablet 40 mg PO DAILY RF: 0 sennosides-docusate sodium [Senna Plus] 8.6-50 mg Tablet 1 tab PO BID Qty: 60 RF: 0 amlodipine [Norvasc] 5 mg Tablet 5 mg PO DAILY RF: 0 levothyroxine [Synthroid] 75 mcg Tablet 75 mcg PO DAILY@0600 RF: 0 oxycodone-acetaminophen 5-325 mg Tablet 1 tab PO Q4H PRN (Reason: Pain) Qty: 18 RF: 0 alprazolam [Xanax] 0.25 mg Tablet 0.25 mg PO BID PRN (Reason: Anxiety) RF: 0 temazepam 15 mg Capsule 15 mg PO HS PRN (Reason: Insomnia) RF: 0 escitalopram oxalate 10 mg Tablet 10 mg PO DAILY RF: 0 metoclopramide HCl 5 mg/5 mL Solution 5 mg PO Q6H Qty: 1 RF: 1 famotidine 20 mg Tablet 20 mg PO BID Qty: 60 RF: 1 ondansetron [Zofran ODT] 4 mg Tablet,Disintegrating 4 mg PO Q6-8H PRN (Reason: Nausea/Vomiting ) Qty: 60 RF: 1 Status ED Status: With Doctor
--- NOTE | 2018-01-27 00:05 | XR ---
EXAM DATE: 01/26/2018 11:57 PM EST AGE/SEX: 82 years / Female INDICATIONS: Fall. Right wrist pain. CLINICAL DATA: This is the patient's initial encounter. Patient reports that signs and symptoms have been present for 1 day and indicates a pain score of 7/10. MEDICAL/SURGICAL HISTORY: None. None. COMPARISON: No prior exams available for comparison. FINDINGS: 3 views of the right hand. There is a fracture of the distal radius that is mildly comminuted. There is a dorsal displaced 1 cm fragment. Fragment is adjacent to the distal radioulnar joint. Alignment i s otherwise neutral on the lateral view. Possible involvement of the far medial aspect of the radioca rpal joint articular cortex. Nondisplaced ulnar styloid fracture. CONCLUSION: 1. Distal radius fracture with dorsal displacement of a 1 cm fragment adjacent to the distal radioul olvin joint. 2. Nondisplaced ulnar styloid fracture. Electronically signed by: Jony Long MD 01/27/2018 12:04 AM EST
--- NOTE | 2018-01-27 00:42 | P.HPFP ---
History of Present Illness Primary Care Physician: Mitch Bourne MD, R3 <Judi Zapata - 01/27/18 14:11> Chief Complaint: Mechanical fall <Isra Solorio 01/27/18 04:22> History of Present Illness: Patient is a 82-year-old female with past medical history of hypertension, hypothyroidism, and anxiety who was brought in by EMS after suffering mechanical fall at home. Daughter was at bedside and contributed to history. Daughter reports that patient was discharged from rehab center today. As she was setting the tub for her mother to shower, the patient in a attempt to remove her pants fell and tried to brace her fall with her right hand. Daughter reports that she was not able to get her mother up off the floor and thus called EMS. Patient only complaint is right forearm pain. She rates pain is a 8/10 and is nonradiating. She denies any chest pain , shortness of breath, fever, chills, back pain, headache, dizziness, palpitations, abdominal pain, nausea, vomiting, dysuria, seizure activity, extremity weakness, numbness or tingling of extremities. She denies hitting her head, or loss of consciousness. Denies any pain elsewhere in her body besides right forearm. She feels well otherwise. Of note: Daughter reports that patient was in rehab center for 30 days after suffering a fall. Due to insurance limitation patient was unable to stay longer in the rehab center and was discharged today. Patient requires assistance to ambulate with a walker. <Isra Solorio 01/27/18 04:22> - Diagnosis (1) Radial head fracture, closed (2) Hypothyroidism (3) Hypertension (4) Nutrition, metabolism, and development symptoms <Judi Zapata 01/27/18 14:11> (1) Radial head fracture, closed (2) Hypothyroidism (3) Hypertension (4) Nutrition, metabolism, and development symptoms <Isra Solorio 01/27/18 03:56> Review of Systems All other systems reviewed negative except as stated in HPI <Isra Solorio 01/27/18 04:22> PMFSH - History History Provided By: Bundle Cutter / EMT <Isra Solorio 01/27/18 00:42> - Medical History Medical History: Medical History (Last Reviewed 12/31/17 @ 13:36 by Ansley Heller) Chronic pain Gastroparesis Hypertension Hypothyroid Pacemaker Sick sinus syndrome Syncope <AtwaterJudi Viviana - 01/27/18 14:11> Medical History (Last Reviewed 12/31/17 @ 13:36 by Ansley Heller) Chronic pain Gastroparesis Hypertension Hypothyroid Pacemaker Sick sinus syndrome Syncope <Isra Solorio - 01/27/18 00:42> - Surgical History Surgical History: Surgical History (Last Reviewed 12/31/17 @ 13:36 by Ansley Heller) H/O thyroidectomy History of cholecystectomy Hx of appendectomy <Judi Zapata - 01/27/18 14:11> Surgical History (Last Reviewed 12/31/17 @ 13:36 by Ansley Heller) H/O thyroidectomy History of cholecystectomy Hx of appendectomy <Isra Solorio - 01/27/18 00:42> - Family History Family History: Family History (Last Updated 01/27/18 @ 04:03 by Isra Solorio MD, R2) Father Lung disease <Judi Zapata - 01/27/18 14:11> Family History (Last Updated 01/27/18 @ 04:03 by Isra Solorio MD, R2) Father Lung disease <Isra Solorio - 01/27/18 04:22> - Tobacco History Second Hand Smoke Exposure: No <Isra Solorio - 01/27/18 00:42> Tobacco Use In Past 30 Days: No <Isra Solorio - 01/27/18 00:42> Smoking Status: Never smoker <Isra Solorio - 01/27/18 00:42> Tobacco Type: Cigarettes <Isra Solorio - 01/27/18 00:42> - Alcohol History How Often Do You Have a Drink Containing Alcohol: Never <Isra Solorio - 02/02 00:42> - Substance Use History Substance History: No History of Abuse <Isra Solorio - 01/27/18 00:42> - Travel History Recent Travel in the [facility] Within the Last 8 Weeks: No <Isra Solorio - 00:42> Recent Travel Out of the Country Within the Last 8 Weeks: No <Isra Solorio D - 01/27/18 00:42> - Immunization History Tetanus Immunization: >5 Years <Isra Solorio - 01/27/18 00:42> Medications and Allergies Allergies Allergy/AdvReac Type Severity Reaction Status Date / Time No Known Allergies Allergy Verified 12/26/17 16:06 <Judi Zapata - 01/27/18 14:11> Active Medications: Active Medications Acetaminophen (Tylenol) 650 mg PO Q4H PRN PRN Reason: Temp > 100.4 Al Hydroxide/Mg Hydroxide (Milk Of Magnesia Liq) 30 ml PO Q12H PRN PRN Reason: Mild Constipation Alprazolam (Xanax) 0.25 mg PO BID PRN PRN Reason: Anxiety Amlodipine Besylate (Norvasc) 5 mg PO DAILY [facility] Last Admin: 01/27/18 09:15 Dose: 5 mg Bisacodyl (Dulcolax Supp) 10 mg RECTAL DAILY PRN PRN Reason: SEVERE CONSITIPATION Carbidopa/Levodopa (Sinemet 25/100 Mg) 1 tab PO TID [facility] Clonidine HCl (Catapres) 0.1 mg PO Q6H PRN PRN Reason: SEE LABEL COMMENTS Erythromycin Ethylsuccinate (Ees 200 Mg/5 Ml Liq) 40 mg PO TIDAC [facility] Lactulose (Lactulose Liq) 30 ml PO DAILY PRN PRN Reason: SEVERE CONSITIPATION Levothyroxine Sodium (Synthroid) 75 mcg PO DAILY@0600 [facility] Last Admin: 01/27/18 05:34 Dose: 75 mcg Morphine Sulfate (Morphine Inj) 2 mg IV.PUSH Q3H PRN PRN Reason: PAIN 6-10;IF UNABLE TO TAKE PO Last Admin: 01/27/18 02:25 Dose: 2 mg Morphine Sulfate (Morphine Inj) 3 mg IV.PUSH Q3H PRN PRN Reason: BREAKTHROUGH PAIN Morphine Sulfate (Morphine Inj) 1 mg IV.PUSH Q3H PRN PRN Reason: PAIN 3-5; IF UABLE TO TAKE PO Naloxone HCl (Narcan Inj) 0.4 mg IV.PUSH UNSCH PRN PRN Reason: SEE LABEL COMMENTS Ondansetron HCl (Zofran Inj) 4 mg IV.PUSH Q6H PRN PRN Reason: NAUSEA OR VOMITING Senna/Docusate Sodium (Gi-Colace) 1 tab PO BID [facility] Last Admin: 01/27/18 09:15 Dose: 1 tab Sennosides (Senokot) 17.2 mg PO Q12H PRN PRN Reason: Moderate Constipation Sodium Chloride (Ns Flush) 2 ml IV.FLUSH BID [facility] Last Admin: 01/27/18 09:15 Dose: Not Given Sodium Chloride (Ns Flush) 2 ml IV.FLUSH PRN PRN PRN Reason: FLUSH AFTER USING IV ACCESS <Judi Zapata M - 01/27/18 14:11> Exam Vital signs: Vital Signs 01/26/18 23:19 01/27/18 02:08 01/27/18 02:52 Temperature 98.8 F Pulse Rate 82 70 79 Respiratory Rate 16 18 17 Blood Pressure 152/72 H 166/81 H 175/83 H Pulse Oximetry 97 97 98 01/27/18 07:29 Temperature 98.2 F Pulse Rate 78 Respiratory Rate 16 Blood Pressure 196/82 H Pulse Oximetry 97 Intake & Output 01/26/18 01/27/18 01/27/18 18:59 06:59 18:59 Weight 51.256 kg Other: Date of Last Bowel Movement 01/25/18 <Judi Zapata M - 01/27/18 14:11> Vital Signs 01/26/18 23:19 Pulse Rate 82 Respiratory Rate 16 Blood Pressure 152/72 H Pulse Oximetry 97 Intake & Output 01/26/18 01/26/18 01/27/18 06:59 18:59 06:59 Weight 51.256 kg <Isra Solorio D - 01/27/18 00:42> - Constitutional no acute distress <Isra Solorio D - 01/27/18 04:22> - Routine HEENT Exam Head: Present: normocephalic <Isra Solorio D - 01/27/18 04:22> Eye: Present: EOMI, PERRL <Isra Solorio D - 01/27/18 04:22> ENT: Present: mucous membranes moist <Isra Solorio D - 01/27/18 04:22> - Routine Neck Exam Present: supple, full ROM. Absent: JVD, lymphadenopathy <Isra Solorio D 04:22> - Routine Chest/Breast/Axilla Exam Chest wall: Absent: tenderness <Isra Solorio 01/27/18 04:22> - Routine Respiratory Exam Present: CTA bilaterally. Absent: accessory muscle use <Isra Solorio 02/02 04:22> - Routine Cardiovascular Exam Present: RRR, S1, S2. Absent: murmur, gallop, rubs <Isra Solorio 04:22> - Routine Abdominal Exam Present: soft, normoactive bowel sounds. Absent: tenderness, distended, rebound , guarding <Isra Solorio 01/27/18 04:22> - Routine Extremities Exam Present: full ROM, pulses intact, normal capillary refill. Absent: cyanosis, clubbing, edema, calf tenderness <Isra Solorio 01/27/18 04:22> Comments: Tenderness to palpation along distal right radius, right hand is neuro vascularly intact, patient is able to make a onboarding specialist with right hand, normal sensation, +2 right radial pulse <Isra Solorio 01/27/18 04:22> - Routine Skin Exam Present: intact <Isra Solorio 01/27/18 04:22> - Routine Neurological Exam Present: alert, oriented X3, CN II-XII intact, moving all extremities, normal tone, vision grossly intact, hearing grossly intact, normal speech <Isra Solorio 01/27/18 04:22> Patient had a baseline resting tremor of upper extremities <Isra Solorio 01/27/18 04:22> Results - Labs Result diagrams: 01/27/18 00:35 01/27/18 00:35 <Judi Zapata M - 01/27/18 14:11> Abnormal lab results 01/27/18 01/27/18 Range/Units 00:35 00:35 RBC 3.62 L (4.00-5.30) mil/mm3 Hct 34.9 L (35.0-46.0) % Neut % (Auto) 74.1 H (16.0-70.0) % [place] % (Auto) 8.2 H (0.0-8.0) % Random Glucose 107 H (74-106) mg/dL Calcium 8.4 L (8.5-10.1) mg/dL Short CBC 01/27/18 Range/Units 00:35 WBC 8.1 (4.0-11.0) th/mm3 Hgb 11.7 (11.6-15.3) gm/dL Hct 34.9 L (35.0-46.0) % Plt Count 236 (150-450) th/mm3 [facility] 01/27/18 00:35 Sodium 138 Potassium 3.5 Chloride 105 Carbon Dioxide 25.0 BUN 17 Creatinine 0.62 Calcium 8.4 L <Judi Zapata - 01/27/18 14:11> - Imaging Impressions Wrist X-Ray 01/26/18 23:25 CONCLUSION: 1. Distal radius fracture with dorsal displacement of a 1 cm fragment adjacent to the distal radioulnar joint. 2. Nondisplaced ulnar styloid fracture. <Judi Zapata - 01/27/18 14:11> Impressions Wrist X-Ray 01/26/18 23:25 CONCLUSION: 1. Distal radius fracture with dorsal displacement of a 1 cm fragment adjacent to the distal radioulnar joint. 2. Nondisplaced ulnar styloid fracture. <Isra Solorio - 01/27/18 00:42> Caprini VTE Risk Assessment Caprini VTE Risk Assessment: Moderate/High Risk (score >= 2) <Isra Solorio - 01/27/18 04:22> Caprini Risk Assessment Model: Point Value = 1 Point Value = 2 Point Value = 3 Point Value = 5 Age 41-60 Minor surgery BMI > 25 kg/m2 Swollen legs Varicose veins or History of unexplained or recurrent spontaneous Oral contraceptives or hormone replacement Sepsis (< 1 month) Serious lung disease, including pneumonia (< 1 month) Abnormal pulmonary function Acute myocardial infarction Congestive heart failure (< 1 month) History of inflammatory bowel disease Medical patient at bed rest Age 61-74 Arthroscopic surgery Major open surgery (> 45 min) Laparoscopic surgery (> 45 min) Malignancy Confined to bed (> 72 hours) Immobilizing plaster cast Central venous access Age >= 75 History of VTE Family history of VTE Factor V Leiden Prothrombin [id number] Lupus anticoagulant Anticardiolipin antibodies Elevated serum homocysteine Heparin-induced thrombocytopenia Other congenital or acquired thrombophilia Stroke (< 1 month) Elective arthroplasty Hip, pelvis, or leg fracture Acute spinal cord injury (< 1 month) <Judi Zapata M - 01/27/18 14:11> Point Value = 1 Point Value = 2 Point Value = 3 Point Value = 5 Age 41-60 Minor surgery BMI > 25 kg/m2 Swollen legs Varicose veins or History of unexplained or recurrent spontaneous Oral contraceptives or hormone replacement Sepsis (< 1 month) Serious lung disease, including pneumonia (< 1 month) Abnormal pulmonary function Acute myocardial infarction Congestive heart failure (< 1 month) History of inflammatory bowel disease Medical patient at bed rest Age 61-74 Arthroscopic surgery Major open surgery (> 45 min) Laparoscopic surgery (> 45 min) Malignancy Confined to bed (> 72 hours) Immobilizing plaster cast Central venous access Age >= 75 History of VTE Family history of VTE Factor V Leiden Prothrombin [id number] Lupus anticoagulant Anticardiolipin antibodies Elevated serum homocysteine Heparin-induced thrombocytopenia Other congenital or acquired thrombophilia Stroke (< 1 month) Elective arthroplasty Hip, pelvis, or leg fracture Acute spinal cord injury (< 1 month) <Isra Solorio D - 01/27/18 00:42> Prophylaxis Regimen: Total Risk Factor Score Risk Level Prophylaxis Regimen 0-1 Low Early ambulation 2 Moderate Order ONE of the following: *Sequential Compression Device (SCD) *Heparin 5000 units SQ BID 3-4 Higher Order ONE of the following medications: *Heparin 5000 units SQ TID *Enoxaparin/Lovenox 40 mg SQ daily (WT < 150 kg, CrCl > 30 mL/min) *Enoxaparin/Lovenox 30 mg SQ daily (WT < 150 kg, CrCl > 10-29 mL/min) *Enoxaparin/Lovenox 30 mg SQ BID (WT < 150 kg, CrCl > 30 mL/min) AND/OR *Sequential Compression Device (SCD) 5 or more Highest Order ONE of the following medications: *Heparin 5000 units SQ TID (Preferred with Epidurals) *Enoxaparin/Lovenox 40 mg SQ daily (WT < 150 kg, CrCl > 30 mL/min) *Enoxaparin/Lovenox 30 mg SQ daily (WT < 150 kg, CrCl > 10-29 mL/min) *Enoxaparin/Lovenox 30 mg SQ BID (WT < 150 kg, CrCl > 30 mL/min) AND *Sequential Compression Device (SCD) <Judi Zapata M - 01/27/18 14:11> Total Risk Factor Score Risk Level Prophylaxis Regimen 0-1 Low Early ambulation 2 Moderate Order ONE of the following: *Sequential Compression Device (SCD) *Heparin 5000 units SQ BID 3-4 Higher Order ONE of the following medications: *Heparin 5000 units SQ TID *Enoxaparin/Lovenox 40 mg SQ daily (WT < 150 kg, CrCl > 30 mL/min) *Enoxaparin/Lovenox 30 mg SQ daily (WT < 150 kg, CrCl > 10-29 mL/min) *Enoxaparin/Lovenox 30 mg SQ BID (WT < 150 kg, CrCl > 30 mL/min) AND/OR *Sequential Compression Device (SCD) 5 or more Highest Order ONE of the following medications: *Heparin 5000 units SQ TID (Preferred with Epidurals) *Enoxaparin/Lovenox 40 mg SQ daily (WT < 150 kg, CrCl > 30 mL/min) *Enoxaparin/Lovenox 30 mg SQ daily (WT < 150 kg, CrCl > 10-29 mL/min) *Enoxaparin/Lovenox 30 mg SQ BID (WT < 150 kg, CrCl > 30 mL/min) AND *Sequential Compression Device (SCD) <Isra Solorio D - 01/27/18 00:42> Assessment and Plan - Assessment (1) Radial head fracture, closed Code(s): S52.123A - Displaced fracture of head of unspecified radius, initial encounter for closed fracture Status: Acute (2) Hypothyroidism Code(s): E03.9 - Hypothyroidism, unspecified Status: Acute (3) Hypertension Code(s): I10 - Essential (primary) hypertension Status: Acute (4) Nutrition, metabolism, and development symptoms Code(s): R63.8 - Other symptoms and signs concerning food and fluid intake Status: Acute <Judi Zapata M - 01/27/18 14:11> (1) Radial head fracture, closed Code(s): S52.123A - Displaced fracture of head of unspecified radius, initial encounter for closed fracture Status: Acute Plan: Patient is a 82-year-old female with past medical history of hypertension, hypothyroidism, and anxiety who was brought in by EMS after suffering mechanical fall at home. She braced her fall on her outstretched right hand. X-ray right wrist: Distal radius fracture with dorsal displacement of a 1 cm fragment adjacent to the distal radioulnar joint. Nondisplaced ulnar styloid fracture. Patient found to have slightly elevated blood pressures on admission 150s/70s, all other vital signs within normal limits Continue to monitor vital signs Pain management: morphine per pain scale Orthopedic surgery was consulted, appreciate recommendations Patient to be placed n.p.o. after midnight pending evaluation by Dr. Flynn for surgery in the morning (2) Hypothyroidism Code(s): E03.9 - Hypothyroidism, unspecified Status: Acute Plan: Continue with home medication (3) Hypertension Code(s): I10 - Essential (primary) hypertension Status: Acute Plan: Patient with blood pressures 150s/70s on admission Resume home medication amlodipine 5 mg daily Clonidine as needed per hypertensive protocol. (4) Nutrition, metabolism, and development symptoms Code(s): R63.8 - Other symptoms and signs concerning food and fluid intake Status: Acute Plan: Fluids: 100 mL/HR Electrolytes: Replete as needed Diet: N.p.o. pending orthopedic procedure DVT prophylaxis SCDs <Isra Solorio D - 01/27/18 03:56> - Assessment and Plan Fluids: IV fluids at maintenance rate Electrolytes: Monitor, replete as needed Diet n.p.o. at midnight pending orthopedic procedure DVT prophylaxis SCDs <Isra Solorio D - 01/27/18 04:22> - Attending Attestation The exam, history, and the medical decision-making described in the above note were completed with the assistance of the resident physician. I reviewed and agree with the findings presented. I attest that I had a [id number] encounter with the patient on the same day, and personally performed and documented my assessment and findings in the medical record. Her reglan has been stopped. She has a flat affect, bilateral hand tremor suggestive of Parkinsons and problems with her legs and balance. Discussed with pt and daughter that she could have trial of erythromycin and will start a low dose med for Parkinson's. Hopefully she responds and can move better and improve her balance. Can also consider her benzos though her Xanax is very low dose. Her daughter understands the potential benefit and that there can be risks with this medicine. <Judi Zapata - 01/27/18 14:11>
[2018-01-27 00:48] LABS: Baso % (Auto) 0.5 % (0.0-2.0); Eos # (Auto) 0.1 th/mm3 (0.0-0.4); Eos % (Auto) 1.2 % (0.0-4.0); Hematocrit 34.9 % (35.0-46.0); Hemoglobin 11.7 gm/dL (11.6-15.3); Lymph # (Auto) 1.3 th/mm3 (1.0-4.8); Mean Corpuscular HGB Conc 33.6 % (32.0-36.0); Mean Corpuscular Hemoglobin 32.4 pg (27.0-34.0); Mean Corpuscular Volume 96.3 fL (80.0-100.0); Mono # (Auto) 0.7 th/mm3 (0.0-0.9); Mono % (Auto) 8.2 % (0.0-8.0); Neut % (Auto) 74.1 % (16.0-70.0); Platelet Count 236 th/mm3 (150-450); Red Blood Count 3.62 mil/mm3 (4.00-5.30); Red Cell Distribution Width 13.5 % (11.6-17.2); White Blood Count 8.1 th/mm3 (4.0-11.0)
[2018-01-27 00:58] LABS: Activated Partial Thrombo Time 27.8 sec (23.4-31.7); Prothrombin Time 10.4 sec (9.8-11.6)
[2018-01-27] MEDS ORDERED: Bisacodyl 10 MG Supp RECTAL PRN (01:07)
[2018-01-27] MEDS ORDERED: Acetaminophen 325 MG Tablet PO PRN (01:07)
[2018-01-27] MEDS ORDERED: Morphine Sulfate Inj 2 MG/ML Vial IV.PUSH PRN (01:11)
[2018-01-27] MEDS ORDERED: Morphine Inj 4 MG/ML Vial IV.PUSH PRN ×2 (01:11)
[2018-01-27] MEDS ORDERED: Naloxone Inj 0.4 MG/ML Vial IV.PUSH PRN (01:11)
[2018-01-27 01:24] LABS: Anion Gap 8 meq/L (5-15); Blood Urea Nitrogen 17 mg/dL (7-18); Calcium 8.4 mg/dL (8.5-10.1); Chloride 105 meq/L (98-107); Glomerular Filtration Rate Greater Than 89 mL/min (>89); Glucose,Random 107 mg/dL (74-106); Potassium 3.5 meq/L (3.5-5.1); Sodium 138 meq/L (136-145)
[2018-01-27] MEDS ORDERED: Sod Chloride 0.9% Inj 1,000 ML IV.CONT SCH (04:30)
[2018-01-27] MEDS: Levothyroxine 75 MCG Tablet PO SCH (05:34)
--- NOTE | 2018-01-27 07:30 | P.PNOP ---
Subjective Interval history: Fall and fall onto out stretched right wrist. Diagnosed with minimally displaced distal radius fracture. She is an appropriate splint. She has no other complaints of pain Physical Exam Vital signs: Vital Signs 01/26/18 23:19 01/27/18 02:08 01/27/18 02:52 Temperature 98.8 F Pulse Rate 82 70 79 Respiratory Rate 16 18 17 Blood Pressure 152/72 H 166/81 H 175/83 H Pulse Oximetry 97 97 98 Intake & Output 01/26/18 01/27/18 01/27/18 18:59 06:59 18:59 Weight 51.256 kg Narrative: Left upper extremity: Full range of motion and neurovascular intact Bilateral lower extremity: Full range of motion with no pain and neurovascularly intact Right upper extremity: No pain to palpation of shoulder or elbow. Splint intact. Intact sensation in all fingers and is able to fully extend fingers and flex. Good capillary refills Results - Labs CBC & Chem 7: 01/27/18 00:35 01/27/18 00:35 Laboratory Results - last 24 hr 01/27/18 01/27/18 01/27/18 00:35 00:35 00:35 WBC 8.1 RBC 3.62 L Hgb 11.7 Hct 34.9 L MCV 96.3 MCH 32.4 MCHC 33.6 RDW 13.5 Plt Count 236 MPV 7.0 Neut % (Auto) 74.1 H Lymph % (Auto) 16.0 [place] % (Auto) 8.2 H Eos % (Auto) 1.2 Baso % (Auto) 0.5 Neut # (Auto) 6.0 Lymph # (Auto) 1.3 [place] # (Auto) 0.7 Eos # (Auto) 0.1 Baso # (Auto) 0.0 WBC Differential . Differential Comment Auto diff final PT 10.4 INR 1.0 APTT 27.8 Sodium 138 Potassium 3.5 Chloride 105 Carbon Dioxide 25.0 Anion Gap 8 BUN 17 Creatinine 0.62 Estimated GFR Greater than 89 Random Glucose 107 H Calcium 8.4 L - Imaging Impressions Wrist X-Ray 01/26/18 23:25 CONCLUSION: 1. Distal radius fracture with dorsal displacement of a 1 cm fragment adjacent to the distal radioulnar joint. 2. Nondisplaced ulnar styloid fracture. Assessment and Plan - Assessment and Plan Minimally displaced right distal radius fracture Due to minimal displacement of the fracture is recommended that we continue to treat this conservatively with nonoperative treatment. She will continue to remain in splint and be nonweightbearing. She will use a sling when out of bed and avoid any lifting or pushing off with the wrist. We will have her return in 10-14 days to office in the outpatient setting for follow-up x-rays. If x- rays confirm continued alignment of fracture we will plan on going into a cast verses a removable wrist splint at that time. She may be discharged from an orthopedic standpoint.
[2018-01-27] MEDS: amLODIPine 5 MG Tablet PO SCH (09:15)
[2018-01-27] MEDS: Senna/Docusate Sodium 8.6/50 MG Tablet PO SCH ×2 (09:15→21:15)
--- NOTE | 2018-01-27 11:05 | P.CONOP ---
[facility] Orthopedics Consult Note - [facility] Consult date: 01/27/18 Requesting physician: Isra Solorio Consult reason: other (Right distal radius fracture) Chief complaint: Right Wrist Fracture Narrative: Patient is a 82-year-old female with past medical history of hypertension, hypothyroidism, and anxiety who was brought in by EMS after suffering mechanical fall at home. Daughter was at bedside and contributed to history. Daughter reports that patient was discharged from rehab center today. As she was setting the tub for her mother to shower, the patient in a attempt to remove her pants fell and tried to brace her fall with her right hand. Daughter reports that she was not able to get her mother up off the floor and thus called EMS. Patient only complaint is right forearm pain. She rates pain is a 8/10 and is nonradiating. She denies any chest pain, shortness of breath, fever, chills, back pain, headache, dizziness, palpitations, abdominal pain, nausea, vomiting, dysuria, seizure activity, extremity weakness, numbness or tingling of extremities. She denies hitting her head, or loss of consciousness. Denies any pain elsewhere in her body besides right forearm. She feels well otherwise. <Jarocho Reynaga - Last Filed: 01/27/18 10:51> Review of Systems Constitutional: Denies anorexia, Denies chills Eyes: Denies change in vision Ears, Nose, Mouth, and Throat: Denies abnormal hearing, Denies nosebleed, Denies pain with swallowing Cardiovascular: Denies chest pain, Denies fainting Respiratory: Denies chest congestion, Denies shortness of breath Gastrointestinal: Denies abdominal pain, Denies vomiting Musculoskeletal: Denies body aches, Denies joint pain (Other than her right wrist) Skin/Breast: Denies bleeding lesions, Denies yellowing of the skin Neurologic: Denies abnormal hearing, Denies abnormal movements Psychiatric: Denies behavioral changes Endocrine: Denies cold intolerance Hematologic/Lymphatic: Denies easy bleeding <Jarocho Reynaga - Last Filed: 01/27/18 10:51> PMFSH - History History Provided By: Security Control 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 / EMT - Medical History Medical History: Medical History (Last Reviewed 01/27/18 @ 10:56 by JERRY James) Chronic pain Gastroparesis Hypertension Hypothyroid Pacemaker Sick sinus syndrome Syncope - Surgical History Surgical History: Surgical History (Last Reviewed 01/27/18 @ 10:56 by JERRY James) H/O thyroidectomy History of cholecystectomy Hx of appendectomy - Family History Family History: Family History (Last Reviewed 01/27/18 @ 10:56 by JERRY James) Father Lung disease - Social History I have reviewed the patient's Social History: Yes - Tobacco History Second Hand Smoke Exposure: No Tobacco Use In Past 30 Days: No Smoking Status: Never smoker Tobacco Type: Cigarettes - Alcohol History How Often Do You Have a Drink Containing Alcohol: Never - Substance Use History Substance History: No History of Abuse - Travel History Recent Travel in the [place] Within the Last 8 Weeks: No Recent Travel Out of the Country Within the Last 8 Weeks: No - Immunization History Tetanus Immunization: >5 Years <Jarocho Reynaga - Last Filed: 01/27/18 10:51> - Medical History Medical History: Medical History (Last Reviewed 01/27/18 @ 10:56 by JERRY James) Chronic pain Gastroparesis Hypertension Hypothyroid Pacemaker Sick sinus syndrome Syncope - Surgical History Surgical History: Surgical History (Last Reviewed 01/27/18 @ 10:56 by JERRY James) H/O thyroidectomy History of cholecystectomy Hx of appendectomy - Family History Family History: Family History (Last Reviewed 01/27/18 @ 10:56 by JERRY James) Father Lung disease <Tylor Osuna - Last Filed: 01/29/18 10:51> Medications and Allergies Active Medications: Active Medications Acetaminophen (Tylenol) 650 mg PO Q4H PRN PRN Reason: Temp > 100.4 Al Hydroxide/Mg Hydroxide (Milk Of Hope Livaleria) 30 ml PO Q12H PRN PRN Reason: Mild Constipation Alprazolam (Xanax) 0.25 mg PO BID PRN PRN Reason: Anxiety Amlodipine Besylate (Norvasc) 5 mg PO DAILY [facility] Last Admin: 01/27/18 09:15 Dose: 5 mg Bisacodyl (Dulcolax Supp) 10 mg RECTAL DAILY PRN PRN Reason: SEVERE CONSITIPATION Clonidine HCl (Catapres) 0.1 mg PO Q6H PRN PRN Reason: SEE LABEL COMMENTS Sodium Chloride (Ns Inj) 1,000 mls @ 100 mls/hr IV.CONT .Q10H [facility] Last Infusion: 01/27/18 09:18 Dose: 0 mls/hr Lactulose (Lactulose Liq) 30 ml PO DAILY PRN PRN Reason: SEVERE CONSITIPATION Levothyroxine Sodium (Synthroid) 75 mcg PO DAILY@0600 [facility] Last Admin: 01/27/18 05:34 Dose: 75 mcg Morphine Sulfate (Morphine Inj) 2 mg IV.PUSH Q3H PRN PRN Reason: PAIN 6-10;IF UNABLE TO TAKE PO Last Admin: 01/27/18 02:25 Dose: 2 mg Morphine Sulfate (Morphine Inj) 3 mg IV.PUSH Q3H PRN PRN Reason: BREAKTHROUGH PAIN Morphine Sulfate (Morphine Inj) 1 mg IV.PUSH Q3H PRN PRN Reason: PAIN 3-5; IF UABLE TO TAKE PO Naloxone HCl (Narcan Inj) 0.4 mg IV.PUSH UNSCH PRN PRN Reason: SEE LABEL COMMENTS Ondansetron HCl (Zofran Inj) 4 mg IV.PUSH Q6H PRN PRN Reason: NAUSEA OR VOMITING Senna/Docusate Sodium (Gi-Colace) 1 tab PO BID [facility] Last Admin: 01/27/18 09:15 Dose: 1 tab Sennosides (Senokot) 17.2 mg PO Q12H PRN PRN Reason: Moderate Constipation Sodium Chloride (Ns Flush) 2 ml IV.FLUSH BID [facility] Last Admin: 01/27/18 09:15 Dose: Not Given Sodium Chloride (Ns Flush) 2 ml IV.FLUSH PRN PRN PRN Reason: FLUSH AFTER USING IV ACCESS <Jarocho Reynaga - Last Filed: 01/27/18 10:51> Active Medications: Active Medications Acetaminophen (Tylenol) 650 mg PO Q4H PRN PRN Reason: Temp > 100.4 Last Admin: 01/27/18 16:53 Dose: 650 mg Al Hydroxide/Mg Hydroxide (Milk Of Magnesia Liq) 30 ml PO Q12H PRN PRN Reason: Mild Constipation Alprazolam (Xanax) 0.25 mg PO BID PRN PRN Reason: Anxiety Amlodipine Besylate (Norvasc) 10 mg PO DAILY [facility] Last Admin: 01/29/18 10:21 Dose: 10 mg Bisacodyl (Dulcolax Supp) 10 mg RECTAL DAILY PRN PRN Reason: SEVERE CONSITIPATION Carbidopa/Levodopa (Sinemet 25/100 Mg) 1 tab PO TID [facility] Last Admin: 01/29/18 08:51 Dose: 1 tab Clonidine HCl (Catapres) 0.1 mg PO Q6H PRN PRN Reason: SEE LABEL COMMENTS Erythromycin Ethylsuccinate (Ees 200 Mg/5 Ml Liq) 40 mg PO TIDAC [facility] Last Admin: 01/29/18 08:51 Dose: 40 mg Lactulose (Lactulose Liq) 30 ml PO DAILY PRN PRN Reason: SEVERE CONSITIPATION Levothyroxine Sodium (Synthroid) 75 mcg PO DAILY@0600 [facility] Last Admin: 01/29/18 06:29 Dose: 75 mcg Naloxone HCl (Narcan Inj) 0.4 mg IV.PUSH UNSCH PRN PRN Reason: SEE LABEL COMMENTS Ondansetron HCl (Zofran Inj) 4 mg IV.PUSH Q6H PRN PRN Reason: NAUSEA OR VOMITING Ondansetron HCl (Zofran Odt) 4 mg PO Q6H PRN PRN Reason: NAUSEA Last Admin: 01/28/18 18:14 Dose: 4 mg Oxycodone/Acetaminophen (Percocet 5/325 Mg) 1 tab PO Q4H [facility] Last Admin: 01/29/18 10:20 Dose: 1 tab Pantoprazole Sodium (Protonix) 40 mg PO DAILY [facility] Last Admin: 01/29/18 08:50 Dose: 40 mg Senna/Docusate Sodium (Gi-Colace) 1 tab PO BID [facility] Last Admin: 01/29/18 08:51 Dose: 1 tab Sennosides (Senokot) 17.2 mg PO Q12H PRN PRN Reason: Moderate Constipation Sodium Chloride (Ns Flush) 2 ml IV.FLUSH BID [facility] Last Admin: 01/29/18 10:22 Dose: Not Given Sodium Chloride (Ns Flush) 2 ml IV.FLUSH PRN PRN PRN Reason: FLUSH AFTER USING IV ACCESS <Tylor Osuna - Last Filed: 01/29/18 10:51> Allergies Allergy/AdvReac Type Severity Reaction Status Date / Time No Known Allergies Allergy Verified 12/26/17 16:06 Exam Vital signs: Vital Signs 01/26/18 23:19 01/27/18 02:08 01/27/18 02:52 Temperature 98.8 F Pulse Rate 82 70 79 Respiratory Rate 16 18 17 Blood Pressure 152/72 H 166/81 H 175/83 H Pulse Oximetry 97 97 98 01/27/18 07:29 Temperature 98.2 F Pulse Rate 78 Respiratory Rate 16 Blood Pressure 196/82 H Pulse Oximetry 97 Intake & Output 01/26/18 01/27/18 01/27/18 18:59 06:59 18:59 Weight 51.256 kg Narrative: Patient speaks Thai and translating program is used to discuss physical findings - Constitutional no acute distress - Routine HEENT Exam Head: Present: normocephalic Eye: Present: EOMI ENT: Present: mucous membranes moist - Routine Neck Exam Present: supple. Absent: lymphadenopathy - Routine Chest/Breast/Axilla Exam Chest wall: Absent: tenderness Axillae: Absent: lymphadenopathy - Routine Respiratory Exam Absent: accessory muscle use, respiratory distress - Routine Cardiovascular Exam Present: RRR - Routine Abdominal Exam Present: soft. Absent: distended - Routine Extremities Exam Comments: Bilateral lower extremities: Full range of motion and neurovascularly intact. No pain with motion Left upper extremity: No pain with range of motion. Intact sensation distally for extension and flexion of all fingers Right upper extremity: No pain to palpation of shoulder. She has splint that is in good repair. She has intact sensation distally with full extension and flexion of all her fingers. She has good capillary refills and distal pulses. <Jarocho Reynaga - Last Filed: 01/27/18 10:51> Vital signs: Vital Signs 01/28/18 11:22 01/28/18 15:15 01/28/18 19:26 Temperature 99.1 F 99.1 F 99.5 F Pulse Rate 83 81 97 H Respiratory Rate 16 16 16 Blood Pressure 149/65 H 121/62 137/83 Pulse Oximetry 97 98 97 01/28/18 23:31 01/29/18 03:20 01/29/18 08:00 Temperature 98.3 F 98.5 F 97.9 F Pulse Rate 84 83 83 Respiratory Rate 20 12 16 Blood Pressure 141/74 H 158/73 H 135/89 Pulse Oximetry 97 97 98 Intake & Output 01/28/18 01/29/18 01/29/18 18:59 06:59 18:59 Intake Total 800 / 800 Balance 800 / 800 Intake: Oral 800 / 800 Other: # Voids 2 4 Date of Last Bowel Movement 01/27/18 <Tylor Osuna - Last Filed: 01/29/18 10:51> Results - Labs Result Diagrams: 01/27/18 00:35 01/27/18 00:35 Labs: Laboratory Results - last 24 hr 01/27/18 01/27/18 01/27/18 00:35 00:35 00:35 WBC 8.1 RBC 3.62 L Hgb 11.7 Hct 34.9 L MCV 96.3 MCH 32.4 MCHC 33.6 RDW 13.5 Plt Count 236 MPV 7.0 Neut % (Auto) 74.1 H Lymph % (Auto) 16.0 [place] % (Auto) 8.2 H Eos % (Auto) 1.2 Baso % (Auto) 0.5 Neut # (Auto) 6.0 Lymph # (Auto) 1.3 [place] # (Auto) 0.7 Eos # (Auto) 0.1 Baso # (Auto) 0.0 WBC Differential . Differential Comment Auto diff final PT 10.4 INR 1.0 APTT 27.8 Sodium 138 Potassium 3.5 Chloride 105 Carbon Dioxide 25.0 Anion Gap 8 BUN 17 Creatinine 0.62 Estimated GFR Greater than 89 Random Glucose 107 H Calcium 8.4 L - Diagnostic results Imaging: Impressions Wrist X-Ray 01/26/18 23:25 CONCLUSION: 1. Distal radius fracture with dorsal displacement of a 1 cm fragment adjacent to the distal radioulnar joint. 2. Nondisplaced ulnar styloid fracture. Wrist/Hand x-ray: image reviewed <Jarocho Reynaga - Last Filed: 01/27/18 10:51> - Labs Result Diagrams: 01/27/18 00:35 01/27/18 00:35 <Tylor Osuna - Last Filed: 01/29/18 10:51> Assessment and Plan - Problem List (1) Fracture of right wrist Code(s): S62.101A - Fracture of unspecified carpal bone, right wrist, initial encounter for closed fracture Status: Acute Qualifiers: Encounter type: initial encounter - Assessment and Plan Minimally displaced right distal radius fracture Due to minimal displacement of the fracture is recommended that we continue to treat this conservatively with nonoperative treatment. She will continue to remain in splint and be nonweightbearing. She will use a sling when out of bed and avoid any lifting or pushing off with the wrist. We will have her return in 10-14 days to office in the outpatient setting for follow-up x-rays. If x- rays confirm continued alignment of fracture we will plan on going into a cast verses a removable wrist splint at that time. She may be discharged from an orthopedic standpoint. Case management to continue to assess if patient is safe to be discharged home. Patient may use a platform walker to ambulate. Patient's x-rays, exam and plan is discussed and agreed with Dr. Osuna. He will continue to follow the patient as well and managing her right distal radius fracture. <Jarocho Reynaga - Last Filed: 01/27/18 10:51> - Problem List (1) Fracture of right wrist Code(s): S62.101A - Fracture of unspecified carpal bone, right wrist, initial encounter for closed fracture Status: Inactive Qualifiers: Encounter type: initial encounter - Assessment and Plan History, past medical history, social history, review of systems, physical exam , radiographs, assessment, and plan were also reviewed. Plan on nonoperative treatment of right distal radius fracture. A mid-level provider in my office ( nurse practitioner or physician visitor service assistant) may see this patient on follow-up visits and continue to implement the objectives of this plan including: Starting or adjusting medications, injections, cast application, orthotics, brace application, physical therapy, radiological studies (including x-ray, MRI , CT, ultrasound, bone scan), vascular studies, neurologic studies, specialist consultation, and proceeding with surgical management, as appropriate. <Tylor Osuna - Last Filed: 01/29/18 10:51>
[2018-01-27] MEDS: Erythromycin Ethylsuccinate Susp 200 MG/5 ML 100 ML Bottle PO SCH (16:53)
--- NOTE | 2018-01-27 21:59 | ECG ---
Date Performed: 01/27/2018 Time Performed: 02:02:13 PTAGE: 82 years EKG: Sinus rhythm LOW QRS VOLTAGE IN PRECORDIAL LEADS LEFT ANTERIOR FASCICULAR BLOCK POSSIBLE ANTERIOR MYOCARDIAL INFA RCTION POSSIBLE INFERIOR MYOCARDIAL INFARCTION ABNORMAL ECG PREVIOUS TRACING : 03/29/2017 23.40 Since the previous tracing, no significant change noted DOCTOR: Castillo Carrillo Interpretating Date/Time 01/27/2018 21:58:34
[2018-01-28] MEDS: Levothyroxine 75 MCG Tablet PO SCH (05:42)
--- NOTE | 2018-01-28 09:05 | P.PNFP ---
Subjective Interval history: Patient continues to reports pain in right arm, not well controlled on current medications. Discussed the addition of oral pain medication. Patient also c/o vomiting, despite trial of erythromycin, which she attributes to excess acid. We discussed the addition of a medication to reduce her stomach acid. We also discussed the addition of a medicine to treat her possible Parkinson's disease and an incentive spirometer. She denies any fever, chills, chest pain, SOB, leg pain or swelling. <Jarocho Soto A - 01/29/18 08:46> Results - Labs Result diagrams: 01/27/18 00:35 01/27/18 00:35 <JodiJudi M - 01/30/18 10:56> Physical Exam Vital signs: Vital Signs 01/29/18 11:24 01/29/18 16:00 01/29/18 20:00 Temperature 98.1 F 99.9 F H Pulse Rate 74 89 87 Respiratory Rate 16 16 16 Blood Pressure 133/72 152/79 H 134/76 Pulse Oximetry 98 98 97 01/29/18 23:55 01/30/18 04:01 01/30/18 07:59 Temperature 98.3 F 98.7 F 98.7 F Pulse Rate 76 78 76 Respiratory Rate 18 18 16 Blood Pressure 134/67 134/68 130/71 Pulse Oximetry 97 97 97 Intake & Output 01/29/18 01/30/18 01/30/18 18:59 06:59 18:59 Intake Total 480 / 480 Balance 480 / 480 Weight 52.3 kg Intake: Oral 480 / 480 Other: # Voids 3 <JodiMauJudi M - 01/30/18 10:56> Vital Signs 01/27/18 16:00 01/27/18 17:23 01/27/18 19:33 Temperature 99.6 F 99.0 F Pulse Rate 87 84 Respiratory Rate 18 18 20 Blood Pressure 169/72 H 167/77 H Pulse Oximetry 95 97 01/28/18 00:00 01/28/18 03:27 01/28/18 07:16 Temperature 98.2 F 98.3 F 99.3 F Pulse Rate 89 83 87 Respiratory Rate 12 12 16 Blood Pressure 169/88 H 187/89 H 181/84 H Pulse Oximetry 97 97 99 Intake & Output 01/27/18 01/28/18 01/28/18 18:59 06:59 18:59 Intake Total 720 / 720 Balance 720 / 720 Intake: Oral 720 / 720 Other: # Voids 3 Date of Last Bowel Movement 01/25/18 01/27/18 # Bowel Movements 2 <Jarocho Soto - 01/28/18 09:05> Narrative: GENERAL: Pleasant well-developed well-nourished female no acute distress SKIN: Warm and dry. HEAD: Atraumatic. Normocephalic. EYES: Pupils equal and round. No scleral icterus. No injection or drainage. ENT: No nasal bleeding or discharge. Mucous membranes pink and moist. NECK: Trachea midline. No JVD. CARDIOVASCULAR: Regular rate and rhythm. No murmur appreciated. RESPIRATORY: No accessory muscle use. Clear to auscultation. Breath sounds equal bilaterally. GASTROINTESTINAL: Abdomen soft, non-tender, nondistended. Hepatic and splenic margins not palpable. MUSCULOSKELETAL: Right arm in c/d/i splint. Capillary refill less than 2 seconds all digits of right hand. Motor and sensation in tact. No LE edema or calf tenderness BL. NEUROLOGICAL: Awake and alert. No obvious cranial nerve deficits. Motor grossly within normal limits. Normal speech. + tremor with cogwheel rigidity. <Jarocho Soto - 01/29/18 08:46> Assessment and Plan - Assessment (1) Radial head fracture, closed Code(s): S52.123A - Displaced fracture of head of unspecified radius, initial encounter for closed fracture Status: Acute (2) Frail elderly Code(s): R54 - Age-related physical debility Status: Acute (3) Vomiting Code(s): R11.10 - Vomiting, unspecified Status: Resolved (4) Tremor Code(s): R25.1 - Tremor, unspecified Status: Acute (5) Hypertension Code(s): I10 - Essential (primary) hypertension Status: Acute (6) Hypothyroidism Code(s): E03.9 - Hypothyroidism, unspecified Status: Acute (7) Nutrition, metabolism, and development symptoms Code(s): R63.8 - Other symptoms and signs concerning food and fluid intake Status: Acute <Judi Zapata - 01/30/18 10:56> (1) Radial head fracture, closed Code(s): S52.123A - Displaced fracture of head of unspecified radius, initial encounter for closed fracture Status: Acute Plan: Continue to monitor vital signs Pain management: Percocet 5-325mg po q4h ryan Orthopedic surgery was consulted, appreciate recommendations below: Minimally displaced right distal radius fracture Due to minimal displacement of the fracture is recommended that we continue to treat this conservatively with nonoperative treatment. She will continue to remain in splint and be nonweightbearing. She will use a sling when out of bed and avoid any lifting or pushing off with the wrist. We will have her return in 10-14 days to office in the outpatient setting for follow-up x-rays. If x- rays confirm continued alignment of fracture we will plan on going into a cast verses a removable wrist splint at that time. She may be discharged from an orthopedic standpoint. Case management to continue to assess if patient is safe to be discharged home. Patient may use a platform walker to ambulate. (2) Frail elderly Code(s): R54 - Age-related physical debility Status: Acute Plan: -PT recommended home with home health or Pt at rehab. However, patient's insurance will no longer pay for her to stay at a SNF. Thus, will pursue discharging home with home health and adult day care. (3) Vomiting Code(s): R11.10 - Vomiting, unspecified Status: Resolved Plan: -trial of erythromycin for gastroparesis started yesterday. Patient reports same symptoms, no help. She believes vomiting 2/2 excess acid. -Trial of PPI starting today (4) Tremor Code(s): R25.1 - Tremor, unspecified Status: Acute Plan: -Trial of Sinemet starting today (5) Hypertension Code(s): I10 - Essential (primary) hypertension Status: Acute Plan: Patient with elevated blood pressures Resume home medication amlodipine 5 mg daily, will increase to 10mg po daily today Clonidine as needed per hypertensive protocol. (6) Hypothyroidism Code(s): E03.9 - Hypothyroidism, unspecified Status: Acute Plan: Continue with home medication (7) Nutrition, metabolism, and development symptoms Code(s): R63.8 - Other symptoms and signs concerning food and fluid intake Status: Acute Plan: Fluids: 100 mL/HR Electrolytes: Replete as needed Diet: N.p.o. pending orthopedic procedure DVT prophylaxis SCDs <Jarocho Soto - 01/29/18 08:41> - Assessment and Plan Patient is a 82-year-old female with past medical history of hypertension, hypothyroidism, and anxiety who was brought in by EMS after suffering mechanical fall at home. She braced her fall on her outstretched right hand. X-ray right wrist: Distal radius fracture with dorsal displacement of a 1 cm fragment adjacent to the distal radioulnar joint. Nondisplaced ulnar styloid fracture. Due to minimal displacement of the fracture orthopedic surgery recommended that we continue to treat this conservatively with nonoperative treatment. She will continue to remain in splint and be nonweightbearing. She will use a sling or platform walker when out of bed and avoid any lifting or pushing off with the wrist. She will return in 10-14 days to office in the outpatient setting for follow-up x-rays. Fluids: IV fluids at maintenance rate Electrolytes: Monitor, replete as needed Diet: cardiac diet DVT prophylaxis: SCDs <Jarocho Soto - 01/29/18 08:46> Discussed Condition With: Dr. Zapata <Jarocho Soto - 01/29/18 08:46> Discharge Planning: pending safe discharge plan <BrittanyJarochoDarius - 01/29/18 08:46> - Attending Attestation The exam, history, and the medical decision-making described in the above note were completed with the assistance of the resident physician. I reviewed and agree with the findings presented. I attest that I had a [id number] encounter with the patient on the same day, and personally performed and documented my assessment and findings in the medical record. She may benefit from Parkinson's meds as she has a tremor characteristic of this plus her flat affect and bradykinesia and balance issues. It can only be increased slowly because of potential side effects. <Judi Zapata - 01/30/18 10:56> <Jarocho Soto - Last Filed: 01/29/18 08:41> (3) Vomiting Qualifiers: Vomiting type: cyclical vomiting Vomiting Intractability: non-intractable Nausea presence: with nausea Qualified Code(s): G43.A0 - Cyclical vomiting, not intractable <Judi Zapata M - Last Filed: 01/30/18 10:56> (3) Vomiting Qualifiers: Vomiting type: cyclical vomiting Vomiting Intractability: non-intractable Nausea presence: with nausea Qualified Code(s): G43.A0 - Cyclical vomiting, not intractable <Jarocho Soto - Last Filed: 01/29/18 08:41> (3) Vomiting Qualifiers: Vomiting type: cyclical vomiting Vomiting Intractability: non-intractable Nausea presence: with nausea Qualified Code(s): G43.A0 - Cyclical vomiting, not intractable <Judi Zapata M - Last Filed: 01/30/18 10:56> (3) Vomiting Qualifiers: Vomiting type: cyclical vomiting Vomiting Intractability: non-intractable Nausea presence: with nausea Qualified Code(s): G43.A0 - Cyclical vomiting, not intractable
[2018-01-28] MEDS ORDERED: amLODIPine 5 MG Tablet PO ONE (10:00)
[2018-01-28] MEDS: Senna/Docusate Sodium 8.6/50 MG Tablet PO SCH ×2 (10:09→20:16)
[2018-01-28] MEDS: amLODIPine 5 MG Tablet PO SCH (10:09)
[2018-01-28] MEDS: Erythromycin Ethylsuccinate Susp 200 MG/5 ML 100 ML Bottle PO SCH ×3 (10:09→18:13)
--- NOTE | 2018-01-28 10:15 | P.DCO ---
- Diagnosis (1) Vomiting Status: Resolved (2) Frail elderly Status: Acute (3) Tremor Status: Acute (4) Radial head fracture, closed Status: Acute - Physical Therapy Order: Evaluate and treat, Improve ambulation, Strength and gait training - Occupational Therapy Order: Evaluate and treat, Improve ADL, Gross motor coordination, Fine motor coordination - Home Health Nursing Order: Medical education, Signs/symptoms of disease process, Medication education-adverse effect, Nursing assessment with vital signs - Home Health Aide Order: To assist in: Bathing and personal care, jailer chief and meal prep - Fish Machine Feeder Order: To evaluate: Living conditions/environment, Support services Order: To provide: Long range planning, Community services - Case Management Consult Case Management Consult-Home Health: Yes - Certification I have seen patient Kyleigh Thomas on 01/28/18. My clinical findings support the need for the requested home health care services because: Limited mobility due to disease progression, Deconditioned with increased weakness, Limited ability to care for self, Need for psychosocial assistance, High risk of falls I certify that my clinical findings support that this patient is homebound because: Impaired cognitive ability/safety, Unsteady gait/balance, Unsafe to leave home unassisted, Need for psychosocial assistance (1) Vomiting Qualifiers: Vomiting type: cyclical vomiting Vomiting Intractability: non-intractable Nausea presence: with nausea Qualified Code(s): G43.A0 - Cyclical vomiting, not intractable
[2018-01-29] MEDS: Levothyroxine 75 MCG Tablet PO SCH (06:29)
--- NOTE | 2018-01-29 08:46 | P.PNFP ---
Subjective Interval history: Patient reports that pain in right arm is well controlled with current medications. Patient also c/o vomiting, despite trial of erythromycin and PPI. Patient does not feel that her tremor is any better, but we discussed with the patient that she seemed to be doing better based on PT's assessment. She denies any fever, chills, chest pain, SOB, leg pain or swelling. Discussed with CM. <Jarocho Soto - 01/30/18 09:51> Results - Labs Result diagrams: 01/27/18 00:35 01/27/18 00:35 <JodiMauJudi M - 01/30/18 11:01> Physical Exam Vital signs: Vital Signs 01/29/18 11:24 01/29/18 16:00 01/29/18 20:00 Temperature 98.1 F 99.9 F H Pulse Rate 74 89 87 Respiratory Rate 16 16 16 Blood Pressure 133/72 152/79 H 134/76 Pulse Oximetry 98 98 97 01/29/18 23:55 01/30/18 04:01 01/30/18 07:59 Temperature 98.3 F 98.7 F 98.7 F Pulse Rate 76 78 76 Respiratory Rate 18 18 16 Blood Pressure 134/67 134/68 130/71 Pulse Oximetry 97 97 97 Intake & Output 01/29/18 01/30/18 01/30/18 18:59 06:59 18:59 Intake Total 480 / 480 Balance 480 / 480 Weight 52.3 kg Intake: Oral 480 / 480 Other: # Voids 3 <JodiMauJudi M - 01/30/18 11:01> Vital Signs 01/28/18 11:22 01/28/18 15:15 01/28/18 19:26 Temperature 99.1 F 99.1 F 99.5 F Pulse Rate 83 81 97 H Respiratory Rate 16 16 16 Blood Pressure 149/65 H 121/62 137/83 Pulse Oximetry 97 98 97 01/28/18 23:31 01/29/18 03:20 01/29/18 08:00 Temperature 98.3 F 98.5 F 97.9 F Pulse Rate 84 83 83 Respiratory Rate 20 12 16 Blood Pressure 141/74 H 158/73 H 135/89 Pulse Oximetry 97 97 98 Intake & Output 01/28/18 01/29/18 01/29/18 18:59 06:59 18:59 Intake Total 800 / 800 Balance 800 / 800 Intake: Oral 800 / 800 Other: # Voids 2 4 Date of Last Bowel Movement 01/27/18 <Jarocho Soto - 01/29/18 08:46> Narrative: GENERAL: Pleasant well-developed well-nourished female no acute distress SKIN: Warm and dry. HEAD: Atraumatic. Normocephalic. EYES: Pupils equal and round. No scleral icterus. No injection or drainage. ENT: No nasal bleeding or discharge. Mucous membranes pink and moist. NECK: Trachea midline. No JVD. CARDIOVASCULAR: Regular rate and rhythm. No murmur appreciated. RESPIRATORY: No accessory muscle use. Clear to auscultation. Breath sounds equal bilaterally. GASTROINTESTINAL: Abdomen soft, non-tender, nondistended. Hepatic and splenic margins not palpable. MUSCULOSKELETAL: Right arm in c/d/i splint. Capillary refill less than 2 seconds all digits of right hand. Motor and sensation in tact. No LE edema or calf tenderness BL. NEUROLOGICAL: Awake and alert. No obvious cranial nerve deficits. Motor grossly within normal limits. Normal speech. + tremor with cogwheel rigidity. <Jarocho Soto A - 01/30/18 09:51> Assessment and Plan - Assessment (1) Radial head fracture, closed Code(s): S52.123A - Displaced fracture of head of unspecified radius, initial encounter for closed fracture Status: Acute (2) Frail elderly Code(s): R54 - Age-related physical debility Status: Acute (3) Vomiting Code(s): R11.10 - Vomiting, unspecified Status: Resolved (4) Tremor Code(s): R25.1 - Tremor, unspecified Status: Acute (5) Hypertension Code(s): I10 - Essential (primary) hypertension Status: Acute (6) Hypothyroidism Code(s): E03.9 - Hypothyroidism, unspecified Status: Acute (7) Nutrition, metabolism, and development symptoms Code(s): R63.8 - Other symptoms and signs concerning food and fluid intake Status: Acute <Judi Zapata - 01/30/18 11:01> (1) Radial head fracture, closed Code(s): S52.123A - Displaced fracture of head of unspecified radius, initial encounter for closed fracture Status: Acute Plan: Continue to monitor vital signs Pain management: Percocet 5-325mg po q4h ryan Orthopedic surgery was consulted, appreciate recommendations below: Minimally displaced right distal radius fracture Due to minimal displacement of the fracture is recommended that we continue to treat this conservatively with nonoperative treatment. She will continue to remain in splint and be nonweightbearing. She will use a sling when out of bed and avoid any lifting or pushing off with the wrist. We will have her return in 10-14 days to office in the outpatient setting for follow-up x-rays. If x- rays confirm continued alignment of fracture we will plan on going into a cast verses a removable wrist splint at that time. She may be discharged from an orthopedic standpoint. Case management to continue to assess if patient is safe to be discharged home. Patient may use a platform walker to ambulate. (2) Frail elderly Code(s): R54 - Age-related physical debility Status: Acute Plan: -PT recommended home with home health or PT at rehab. However, patient's insurance may no longer pay for her to stay at a SNF. However, we feel this would be the safest discharge plan, so CM is pursuing SNF placement. If unable, will pursue discharging home with home health and adult day care. (3) Vomiting Code(s): R11.10 - Vomiting, unspecified Status: Resolved Plan: -trial of erythromycin for gastroparesis. Patient reports same symptoms, no help. She believes vomiting 2/2 excess acid. -Continue trial of PPI (4) Tremor Code(s): R25.1 - Tremor, unspecified Status: Acute Plan: -Continue trial of Sinemet (5) Hypertension Code(s): I10 - Essential (primary) hypertension Status: Acute Plan: Patient no longer with elevated blood pressures since Increased home medication of amlodipine to 10mg po daily Clonidine as needed per hypertensive protocol. (6) Hypothyroidism Code(s): E03.9 - Hypothyroidism, unspecified Status: Acute Plan: Continue with home medication (7) Nutrition, metabolism, and development symptoms Code(s): R63.8 - Other symptoms and signs concerning food and fluid intake Status: Acute Plan: Fluids: Stop IVF as patient is tolerating PO Electrolytes: Replete as needed Diet: Cardiac diet DVT prophylaxis SCDs <Jarocho Soto - 01/30/18 09:44> - Assessment and Plan Patient is a 82-year-old female with past medical history of hypertension, hypothyroidism, and anxiety who was brought in by EMS after suffering mechanical fall at home. She braced her fall on her outstretched right hand. X-ray right wrist: Distal radius fracture with dorsal displacement of a 1 cm fragment adjacent to the distal radioulnar joint. Nondisplaced ulnar styloid fracture. Due to minimal displacement of the fracture orthopedic surgery recommended that we continue to treat this conservatively with nonoperative treatment. She will continue to remain in splint and be nonweightbearing. She will use a sling or platform walker when out of bed and avoid any lifting or pushing off with the wrist. She will return in 10-14 days to office in the outpatient setting for follow-up x-rays. Finding safe placement after hospital is holding up discharge. <Jarocho Soto - 01/30/18 09:51> Discussed Condition With: Dr. Zapata <Jarocho Soto - 01/30/18 09:51> Discharge Planning: pending safe discharge plan <Jarocho Soto - 01/30/18 09:51> - Attending Attestation The exam, history, and the medical decision-making described in the above note were completed with the assistance of the resident physician. I reviewed and agree with the findings presented. I attest that I had a [id number] encounter with the patient on the same day, and personally performed and documented my assessment and findings in the medical record. she is known to me from prior hospitalizations. she has actual vomiting and would have a vomit bag near her for most of the morning. Today she ate 100% of her breakfast except the bagel. She was drinking her milk easily when I saw her. She is on narcotics which could be contributing to the nausea <Judi Zapata - 01/30/18 11:01> <Jarocho Soto - Last Filed: 01/30/18 09:44> (3) Vomiting Qualifiers: Vomiting type: cyclical vomiting Vomiting Intractability: non-intractable Nausea presence: with nausea Qualified Code(s): G43.A0 - Cyclical vomiting, not intractable <Judi Zapata M - Last Filed: 01/30/18 11:01> (3) Vomiting Qualifiers: Vomiting type: cyclical vomiting Vomiting Intractability: non-intractable Nausea presence: with nausea Qualified Code(s): G43.A0 - Cyclical vomiting, not intractable <Jarocho Soto - Last Filed: 01/30/18 09:44> (3) Vomiting Qualifiers: Vomiting type: cyclical vomiting Vomiting Intractability: non-intractable Nausea presence: with nausea Qualified Code(s): G43.A0 - Cyclical vomiting, not intractable <Judi Zapata M - Last Filed: 01/30/18 11:01> (3) Vomiting Qualifiers: Vomiting type: cyclical vomiting Vomiting Intractability: non-intractable Nausea presence: with nausea Qualified Code(s): G43.A0 - Cyclical vomiting, not intractable
[2018-01-29] MEDS: Senna/Docusate Sodium 8.6/50 MG Tablet PO SCH ×2 (08:51→22:06)
[2018-01-29] MEDS: Erythromycin Ethylsuccinate Susp 200 MG/5 ML 100 ML Bottle PO SCH ×3 (08:51→17:02)
[2018-01-29] MEDS: amLODIPine 10 MG Tablet PO SCH (10:21)
[2018-01-30] MEDS: Levothyroxine 75 MCG Tablet PO SCH (07:10)
--- NOTE | 2018-01-30 08:44 | P.PNFP ---
Results - Labs Result diagrams: 01/27/18 00:35 01/27/18 00:35 Physical Exam Vital signs: Vital Signs 01/29/18 11:24 01/29/18 16:00 01/29/18 20:00 Temperature 98.1 F 99.9 F H Pulse Rate 74 89 87 Respiratory Rate 16 16 16 Blood Pressure 133/72 152/79 H 134/76 Pulse Oximetry 98 98 97 01/29/18 23:55 01/30/18 04:01 01/30/18 07:59 Temperature 98.3 F 98.7 F 98.7 F Pulse Rate 76 78 76 Respiratory Rate 18 18 16 Blood Pressure 134/67 134/68 130/71 Pulse Oximetry 97 97 97 Intake & Output 01/29/18 01/30/18 01/30/18 18:59 06:59 18:59 Intake Total 480 / 480 Balance 480 / 480 Weight 52.3 kg Intake: Oral 480 / 480 Other: # Voids 3 Assessment and Plan - Assessment (1) Radial head fracture, closed Code(s): S52.123A - Displaced fracture of head of unspecified radius, initial encounter for closed fracture Status: Acute Plan: Continue to monitor vital signs Pain management: Percocet 5-325mg po q4h ryan Orthopedic surgery was consulted, appreciate recommendations below: Minimally displaced right distal radius fracture Due to minimal displacement of the fracture is recommended that we continue to treat this conservatively with nonoperative treatment. She will continue to remain in splint and be nonweightbearing. She will use a sling when out of bed and avoid any lifting or pushing off with the wrist. We will have her return in 10-14 days to office in the outpatient setting for follow-up x-rays. If x- rays confirm continued alignment of fracture we will plan on going into a cast verses a removable wrist splint at that time. She may be discharged from an orthopedic standpoint. Case management to continue to assess if patient is safe to be discharged home. Patient may use a platform walker to ambulate. (2) Frail elderly Code(s): R54 - Age-related physical debility Status: Acute Plan: -PT recommended home with home health or Pt at rehab. However, patient's insurance will no longer pay for her to stay at a SNF. Thus, will pursue discharging home with home health and adult day care. (3) Vomiting Code(s): R11.10 - Vomiting, unspecified Status: Resolved Plan: -trial of erythromycin for gastroparesis started yesterday. Patient reports same symptoms, no help. She believes vomiting 2/2 excess acid. -Trial of PPI starting today (4) Tremor Code(s): R25.1 - Tremor, unspecified Status: Acute Plan: -Trial of Sinemet starting today (5) Hypertension Code(s): I10 - Essential (primary) hypertension Status: Acute Plan: Patient with elevated blood pressures Resume home medication amlodipine 5 mg daily, will increase to 10mg po daily today Clonidine as needed per hypertensive protocol. (6) Hypothyroidism Code(s): E03.9 - Hypothyroidism, unspecified Status: Acute Plan: Continue with home medication (7) Nutrition, metabolism, and development symptoms Code(s): R63.8 - Other symptoms and signs concerning food and fluid intake Status: Acute Plan: Fluids: 100 mL/HR Electrolytes: Replete as needed Diet: N.p.o. pending orthopedic procedure DVT prophylaxis SCDs - Assessment and Plan Patient is a 82-year-old female with past medical history of hypertension, hypothyroidism, and anxiety who was brought in by EMS after suffering mechanical fall at home. She braced her fall on her outstretched right hand. X-ray right wrist: Distal radius fracture with dorsal displacement of a 1 cm fragment adjacent to the distal radioulnar joint. Nondisplaced ulnar styloid fracture. Due to minimal displacement of the fracture orthopedic surgery recommended that we continue to treat this conservatively with nonoperative treatment. She will continue to remain in splint and be nonweightbearing. She will use a sling or platform walker when out of bed and avoid any lifting or pushing off with the wrist. She will return in 10-14 days to office in the outpatient setting for follow-up x-rays. Fluids: IV fluids at maintenance rate Electrolytes: Monitor, replete as needed Diet: cardiac diet DVT prophylaxis: SCDs Discharge Planning: pending safe discharge plan (3) Vomiting Qualifiers: Vomiting type: cyclical vomiting Vomiting Intractability: non-intractable Nausea presence: with nausea Qualified Code(s): G43.A0 - Cyclical vomiting, not intractable
[2018-01-30] MEDS: Senna/Docusate Sodium 8.6/50 MG Tablet PO SCH ×2 (09:54→21:27)
[2018-01-30] MEDS: Erythromycin Ethylsuccinate Susp 200 MG/5 ML 100 ML Bottle PO SCH ×3 (09:54→17:58)
[2018-01-30] MEDS: amLODIPine 10 MG Tablet PO SCH (09:55)
--- NOTE | 2018-01-30 10:05 | P.PNFP ---
Subjective Interval history: Patient reports that pain in right arm is well controlled with current medications. Patient reports that her vomiting is improved/decreased, on trial of erythromycin and PPI. Patient does not feel that her tremor is any better, but she feels her mobility is better/improving. She denies any fever, chills, chest pain, SOB, leg pain or swelling. Discussed with CM. <Jarocho Soto - 01/30/18 10:04> Results - Labs Result diagrams: 01/27/18 00:35 01/27/18 00:35 <Mau Zapataromana Michelle - 01/30/18 11:13> Physical Exam Vital signs: Vital Signs 01/29/18 11:24 01/29/18 16:00 01/29/18 20:00 Temperature 98.1 F 99.9 F H Pulse Rate 74 89 87 Respiratory Rate 16 16 16 Blood Pressure 133/72 152/79 H 134/76 Pulse Oximetry 98 98 97 01/29/18 23:55 01/30/18 04:01 01/30/18 07:59 Temperature 98.3 F 98.7 F 98.7 F Pulse Rate 76 78 76 Respiratory Rate 18 18 16 Blood Pressure 134/67 134/68 130/71 Pulse Oximetry 97 97 97 Intake & Output 01/29/18 01/30/18 01/30/18 18:59 06:59 18:59 Intake Total 480 / 480 Balance 480 / 480 Weight 52.3 kg Intake: Oral 480 / 480 Other: # Voids 3 <Mau Zapataon M - 01/30/18 11:13> Vital Signs 01/29/18 11:24 01/29/18 16:00 01/29/18 20:00 Temperature 98.1 F 99.9 F H Pulse Rate 74 89 87 Respiratory Rate 16 16 16 Blood Pressure 133/72 152/79 H 134/76 Pulse Oximetry 98 98 97 01/29/18 23:55 01/30/18 04:01 01/30/18 07:59 Temperature 98.3 F 98.7 F 98.7 F Pulse Rate 76 78 76 Respiratory Rate 18 18 16 Blood Pressure 134/67 134/68 130/71 Pulse Oximetry 97 97 97 Intake & Output 01/29/18 01/30/18 01/30/18 18:59 06:59 18:59 Intake Total 480 / 480 Balance 480 / 480 Weight 52.3 kg Intake: Oral 480 / 480 Other: # Voids 3 <Jarocho Soto - 01/30/18 10:04> Narrative: GENERAL: Pleasant well-developed well-nourished female no acute distress SKIN: Warm and dry. HEAD: Atraumatic. Normocephalic. EYES: Pupils equal and round. No scleral icterus. No injection or drainage. ENT: No nasal bleeding or discharge. Mucous membranes pink and moist. NECK: Trachea midline. No JVD. CARDIOVASCULAR: Regular rate and rhythm. No murmur appreciated. RESPIRATORY: No accessory muscle use. Clear to auscultation. Breath sounds equal bilaterally. GASTROINTESTINAL: Abdomen soft, non-tender, nondistended. Hepatic and splenic margins not palpable. MUSCULOSKELETAL: Right arm in c/d/i splint. Capillary refill less than 2 seconds all digits of right hand. Motor and sensation in tact. No LE edema or calf tenderness BL. NEUROLOGICAL: Awake and alert. No obvious cranial nerve deficits. Motor grossly within normal limits. Normal speech. + tremor with cogwheel rigidity. <Jarocho Soto - 01/30/18 10:04> Assessment and Plan - Assessment (1) Radial head fracture, closed Code(s): S52.123A - Displaced fracture of head of unspecified radius, initial encounter for closed fracture Status: Acute (2) Frail elderly Code(s): R54 - Age-related physical debility Status: Acute (3) Vomiting Code(s): R11.10 - Vomiting, unspecified Status: Resolved (4) Tremor Code(s): R25.1 - Tremor, unspecified Status: Acute (5) Hypertension Code(s): I10 - Essential (primary) hypertension Status: Acute (6) Hypothyroidism Code(s): E03.9 - Hypothyroidism, unspecified Status: Acute (7) Nutrition, metabolism, and development symptoms Code(s): R63.8 - Other symptoms and signs concerning food and fluid intake Status: Acute <Judi Zapata - 01/30/18 11:13> (1) Radial head fracture, closed Code(s): S52.123A - Displaced fracture of head of unspecified radius, initial encounter for closed fracture Status: Acute Plan: Continue to monitor vital signs Pain management: Percocet 5-325mg po q4h formerly [facility] Orthopedic surgery was consulted, appreciate recommendations below: Minimally displaced right distal radius fracture Due to minimal displacement of the fracture is recommended that we continue to treat this conservatively with nonoperative treatment. She will continue to remain in splint and be nonweightbearing. She will use a sling when out of bed and avoid any lifting or pushing off with the wrist. We will have her return in 10-14 days to office in the outpatient setting for follow-up x-rays. If x- rays confirm continued alignment of fracture we will plan on going into a cast verses a removable wrist splint at that time. She may be discharged from an orthopedic standpoint. Case management to continue to assess if patient is safe to be discharged home. Patient may use a platform walker to ambulate. (2) Frail elderly Code(s): R54 - Age-related physical debility Status: Acute Plan: -PT recommended home with home health or PT at rehab. However, patient's insurance may no longer pay for her to stay at a SNF. However, we feel this would be the safest discharge plan, so CM is pursuing SNF placement. If unable, will pursue discharging home with home health and adult day care. (3) Vomiting Code(s): R11.10 - Vomiting, unspecified Status: Resolved Plan: -Continue trial of erythromycin for gastroparesis. Patient reports improved/ decreased symptoms, -Continue trial of PPI (4) Tremor Code(s): R25.1 - Tremor, unspecified Status: Acute Plan: -Continue trial of Sinemet (5) Hypertension Code(s): I10 - Essential (primary) hypertension Status: Acute Plan: Patient no longer with elevated blood pressures since Increased home medication of amlodipine to 10mg po daily Clonidine as needed per hypertensive protocol. (6) Hypothyroidism Code(s): E03.9 - Hypothyroidism, unspecified Status: Acute Plan: Continue with home medication (7) Nutrition, metabolism, and development symptoms Code(s): R63.8 - Other symptoms and signs concerning food and fluid intake Status: Acute Plan: Fluids: patient is tolerating PO Electrolytes: Replete as needed Diet: Cardiac diet DVT prophylaxis SCDs <Jarocho Soto - 01/30/18 10:00> - Assessment and Plan Patient is a 82-year-old female with past medical history of hypertension, hypothyroidism, and anxiety who was brought in by EMS after suffering mechanical fall at home. She braced her fall on her outstretched right hand. X-ray right wrist: Distal radius fracture with dorsal displacement of a 1 cm fragment adjacent to the distal radioulnar joint. Nondisplaced ulnar styloid fracture. Due to minimal displacement of the fracture orthopedic surgery recommended that we continue to treat this conservatively with nonoperative treatment. She will continue to remain in splint and be nonweightbearing. She will use a sling or platform walker when out of bed and avoid any lifting or pushing off with the wrist. She will return in 10-14 days to office in the outpatient setting for follow-up x-rays. Finding safe placement after hospital is holding up discharge. <Jarocho Soto - 01/30/18 10:04> Discharge Planning: d/w CM <Jarocho Soto - 01/30/18 10:04> - Attending Attestation The exam, history, and the medical decision-making described in the above note were completed with the assistance of the resident physician. I reviewed and agree with the findings presented. I attest that I had a [id number] encounter with the patient on the same day, and personally performed and documented my assessment and findings in the medical record. So happy she is able to move more. Hopefully, she will not fall in future. <Judi Zapata - 01/30/18 11:13> <Jarocho Soto - Last Filed: 01/30/18 10:00> (3) Vomiting Qualifiers: Vomiting type: cyclical vomiting Vomiting Intractability: non-intractable Nausea presence: with nausea Qualified Code(s): G43.A0 - Cyclical vomiting, not intractable <Judi Zapata - Last Filed: 01/30/18 11:13> (3) Vomiting Qualifiers: Vomiting type: cyclical vomiting Vomiting Intractability: non-intractable Nausea presence: with nausea Qualified Code(s): G43.A0 - Cyclical vomiting, not intractable <Jarocho Soto A - Last Filed: 01/30/18 10:00> (3) Vomiting Qualifiers: Vomiting type: cyclical vomiting Vomiting Intractability: non-intractable Nausea presence: with nausea Qualified Code(s): G43.A0 - Cyclical vomiting, not intractable <Judi Zapata M - Last Filed: 01/30/18 11:13> (3) Vomiting Qualifiers: Vomiting type: cyclical vomiting Vomiting Intractability: non-intractable Nausea presence: with nausea Qualified Code(s): G43.A0 - Cyclical vomiting, not intractable
[2018-01-30] MEDS: ALPRAZolam 0.25 MG Tablet PO PRN (18:47)
[2018-01-31] MEDS: Levothyroxine 75 MCG Tablet PO SCH (05:08)
[2018-01-31] MEDS: Senna/Docusate Sodium 8.6/50 MG Tablet PO SCH ×2 (08:16→20:19)
[2018-01-31] MEDS: amLODIPine 10 MG Tablet PO SCH (08:17)
[2018-01-31] MEDS: Erythromycin Ethylsuccinate Susp 200 MG/5 ML 100 ML Bottle PO SCH ×3 (08:18→17:04)
--- NOTE | 2018-01-31 10:49 | P.PNFP ---
Subjective Interval history: Patient reports that pain in right arm is well controlled with current medications. Patient reports that her nausea is constant, despite trial of erythromycin and PPI. Patient does not feel that her tremor is any better, and she is worried about falling when transferring to the bathroom. She denies any fever, chills, chest pain, SOB, leg pain or swelling. <Jarocho Soto A - 01/31/18 10:54> Results - Labs Result diagrams: 01/27/18 00:35 01/27/18 00:35 <Judi Zapata - 01/31/18 16:22> - Imaging Impressions Ribs X-Ray 01/31/18 00:00 CONCLUSION: No evidence for displaced rib fractures. <Judi Zapata - 01/31/18 16:22> Physical Exam Vital signs: Vital Signs 01/30/18 20:00 01/31/18 00:00 01/31/18 04:55 Temperature 98.0 F 98.1 F Pulse Rate 88 87 87 Respiratory Rate 16 16 16 Blood Pressure 146/76 H 145/78 H 145/78 H Pulse Oximetry 93 L 95 95 01/31/18 07:05 01/31/18 11:52 Temperature 98.3 F 98.4 F Pulse Rate 82 86 Respiratory Rate 18 18 Blood Pressure 156/68 H 136/62 Pulse Oximetry 95 96 Intake & Output 18 18 18 18:59 06:59 18:59 Other: # Voids 3 1 <Judi Zapata - 01/31/18 16:22> Vital Signs 01/30/18 12:00 01/30/18 16:00 01/30/18 20:00 Temperature 98.7 F 99.3 F 98.0 F Pulse Rate 91 H 102 H 88 Respiratory Rate 18 16 16 Blood Pressure 139/73 174/75 H 146/76 H Pulse Oximetry 97 95 93 L 01/31/18 00:00 01/31/18 04:55 01/31/18 07:05 Temperature 98.1 F 98.3 F Pulse Rate 87 87 82 Respiratory Rate 16 16 18 Blood Pressure 145/78 H 145/78 H 156/68 H Pulse Oximetry 95 95 95 Intake & Output 18 01/31/18 01/31/18 18:59 06:59 18:59 Other: # Voids 3 1 <Jarocho Soto - 01/31/18 10:49> Narrative: GENERAL: Pleasant well-developed well-nourished female no acute distress SKIN: Warm and dry. HEAD: Atraumatic. Normocephalic. EYES: Pupils equal and round. No scleral icterus. No injection or drainage. ENT: No nasal bleeding or discharge. Mucous membranes pink and moist. NECK: Trachea midline. No JVD. CARDIOVASCULAR: Regular rate and rhythm. RESPIRATORY: No accessory muscle use. Clear to auscultation. Breath sounds equal bilaterally. GASTROINTESTINAL: Abdomen soft, non-tender, nondistended. Hepatic and splenic margins not palpable. MUSCULOSKELETAL: Right arm in c/d/i splint. Capillary refill less than 2 seconds all digits of right hand. Motor and sensation in tact. No LE edema or calf tenderness BL. NEUROLOGICAL: Awake and alert. No obvious cranial nerve deficits. Motor grossly within normal limits. Normal speech. + tremor with cogwheel rigidity. <Jarocho Soto - 01/31/18 10:54> Assessment and Plan - Assessment (1) Radial head fracture, closed Code(s): S52.123A - Displaced fracture of head of unspecified radius, initial encounter for closed fracture Status: Acute (2) Frail elderly Code(s): R54 - Age-related physical debility Status: Acute (3) Vomiting Code(s): R11.10 - Vomiting, unspecified Status: Resolved (4) Tremor Code(s): R25.1 - Tremor, unspecified Status: Acute (5) Hypertension Code(s): I10 - Essential (primary) hypertension Status: Acute (6) Hypothyroidism Code(s): E03.9 - Hypothyroidism, unspecified Status: Acute (7) Nutrition, metabolism, and development symptoms Code(s): R63.8 - Other symptoms and signs concerning food and fluid intake Status: Acute <Judi Zapata - 01/31/18 16:22> (1) Radial head fracture, closed Code(s): S52.123A - Displaced fracture of head of unspecified radius, initial encounter for closed fracture Status: Acute Plan: Continue to monitor vital signs Pain management: Percocet 5-325mg po q4h ryan Orthopedic surgery was consulted, appreciate recommendations below: Minimally displaced right distal radius fracture Due to minimal displacement of the fracture is recommended that we continue to treat this conservatively with nonoperative treatment. She will continue to remain in splint and be nonweightbearing. She will use a sling when out of bed and avoid any lifting or pushing off with the wrist. We will have her return in 10-14 days to office in the outpatient setting for follow-up x-rays. If x- rays confirm continued alignment of fracture we will plan on going into a cast verses a removable wrist splint at that time. She may be discharged from an orthopedic standpoint. Case management to continue to assess if patient is safe to be discharged home. Patient may use a platform walker to ambulate. (2) Frail elderly Code(s): R54 - Age-related physical debility Status: Acute Plan: -PT recommended home with home health or PT at rehab. However, patient's insurance may no longer pay for her to stay at a SNF. However, we feel this would be the safest discharge plan, so CM is pursuing SNF placement. If unable, will pursue discharging home with home health and adult day care. (3) Vomiting Code(s): R11.10 - Vomiting, unspecified Status: Resolved Plan: -Continue trial of erythromycin for gastroparesis -Continue trial of PPI, increase dose today from Protonix 40mg po qd to 40 mg po bid (4) Tremor Code(s): R25.1 - Tremor, unspecified Status: Acute Plan: -Continue trial of Sinemet (5) Hypertension Code(s): I10 - Essential (primary) hypertension Status: Acute Plan: Patient no longer with elevated blood pressures since Increased home medication of amlodipine from 5 mg po qd to 10mg po daily Clonidine as needed per hypertensive protocol. (6) Hypothyroidism Code(s): E03.9 - Hypothyroidism, unspecified Status: Acute Plan: Continue with home medication (7) Nutrition, metabolism, and development symptoms Code(s): R63.8 - Other symptoms and signs concerning food and fluid intake Status: Acute Plan: Fluids: patient is tolerating PO Electrolytes: Replete as needed Diet: Cardiac diet DVT prophylaxis SCDs <Brittany,Jarocho Lucas - 01/31/18 10:53> - Assessment and Plan Patient is a 82-year-old female with past medical history of hypertension, hypothyroidism, and anxiety who was brought in by EMS after suffering mechanical fall at home. She braced her fall on her outstretched right hand. X-ray right wrist: Distal radius fracture with dorsal displacement of a 1 cm fragment adjacent to the distal radioulnar joint. Nondisplaced ulnar styloid fracture. Due to minimal displacement of the fracture orthopedic surgery recommended that we continue to treat this conservatively with nonoperative treatment. She will continue to remain in splint and be nonweightbearing. She will use a sling or platform walker when out of bed and avoid any lifting or pushing off with the wrist. She will return in 10-14 days to office in the outpatient setting for follow-up x-rays. Finding safe placement after hospital is holding up discharge. <Jarocho Soto - 01/31/18 10:49> Discussed Condition With: Dr. Zapata <Jarocho Soto - 01/31/18 10:49> - Attending Attestation The exam, history, and the medical decision-making described in the above note were completed with the assistance of the resident physician. I reviewed and agree with the findings presented. I attest that I had a [id number] encounter with the patient on the same day, and personally performed and documented my assessment and findings in the medical record. she is moving better but needs to get up more. she is improved with her Parkinsons meds <Judi Zapata - 01/31/18 16:22> <Jarocho Soto - Last Filed: 01/31/18 10:53> (3) Vomiting Qualifiers: Vomiting type: cyclical vomiting Vomiting Intractability: non-intractable Nausea presence: with nausea Qualified Code(s): G43.A0 - Cyclical vomiting, not intractable <Judi Zapata - Last Filed: 01/31/18 16:22> (3) Vomiting Qualifiers: Vomiting type: cyclical vomiting Vomiting Intractability: non-intractable Nausea presence: with nausea Qualified Code(s): G43.A0 - Cyclical vomiting, not intractable <Jarocho Soto A - Last Filed: 01/31/18 10:53> (3) Vomiting Qualifiers: Vomiting type: cyclical vomiting Vomiting Intractability: non-intractable Nausea presence: with nausea Qualified Code(s): G43.A0 - Cyclical vomiting, not intractable <Judi Zapata M - Last Filed: 01/31/18 16:22> (3) Vomiting Qualifiers: Vomiting type: cyclical vomiting Vomiting Intractability: non-intractable Nausea presence: with nausea Qualified Code(s): G43.A0 - Cyclical vomiting, not intractable
[2018-01-31] MEDS: ALPRAZolam 0.25 MG Tablet PO PRN ×2 (12:38→20:22)
--- NOTE | 2018-01-31 14:57 | XR ---
EXAM DATE: 01/31/2018 2:52 PM EST AGE/SEX: 82 years / Female INDICATIONS: Right rib pain. Fall days ago. CLINICAL DATA: This is the patient's initial encounter. Patient reports that signs and symptoms have been present for 3 days and indicates a pain score of 6/10. MEDICAL/SURGICAL HISTORY: None. None. COMPARISON: No prior exams available for comparison. FINDINGS: No definite displaced rib fractures or pneumothorax is identified. Lumbar scoliosis is se en convexity towards the right. Cardiomegaly seen. CONCLUSION: No evidence for displaced rib fractures. Electronically signed by: Lori Rowe MD Board Certified Radiologist 01/31/2018 2:55 PM EST
[2018-02-01] MEDS: Levothyroxine 75 MCG Tablet PO SCH (05:33)
[2018-02-01] MEDS: Erythromycin Ethylsuccinate Susp 200 MG/5 ML 100 ML Bottle PO SCH ×3 (09:08→17:10)
[2018-02-01] MEDS: amLODIPine 10 MG Tablet PO SCH (09:09)
[2018-02-01] MEDS: Senna/Docusate Sodium 8.6/50 MG Tablet PO SCH ×2 (09:09→20:11)
--- NOTE | 2018-02-01 11:42 | P.PNFP ---
Subjective Interval history: Patient is a 82-year-old female with past medical history of hypertension, hypothyroidism, gastroparesis, and anxiety who was brought in by EMS after suffering mechanical fall at home causing a right distal radius fracture, now being seen for follow up. Today she feels tired, pain is in good control, no appetite (her usual) but improved from when she came in. <BourneMitch S - 02/01/18 11:42> Results - Labs Result diagrams: 01/27/18 00:35 01/27/18 00:35 <Jarocho Green - 02/01/18 17:21> - Imaging Impressions Ribs X-Ray 01/31/18 00:00 CONCLUSION: No evidence for displaced rib fractures. <Mitch Bourne S - 02/01/18 11:42> Physical Exam Vital signs: Vital Signs 01/31/18 20:00 02/01/18 00:00 02/01/18 04:00 Temperature 98.4 F 98.2 F 98.0 F Pulse Rate 84 74 82 Respiratory Rate 19 18 18 Blood Pressure 142/73 H 140/66 148/70 H Pulse Oximetry 94 L 98 99 02/01/18 07:30 02/01/18 12:00 18 15:11 Temperature 98.0 F 98.3 F 98.4 F Pulse Rate 68 81 77 Respiratory Rate 16 18 16 Blood Pressure 132/61 141/74 H 123/65 Pulse Oximetry 99 98 98 Intake & Output 01/31/18 02/01/1818 18:59 06:59 18:59 Intake Total 480 / 480 Balance 480 / 480 Intake: Oral 480 / 480 Other: # Voids 2 <Jarocho Green L - 02/01/18 17:21> Vital Signs 01/31/18 11:52 01/31/18 17:01 01/31/18 20:00 Temperature 98.4 F 98.4 F Pulse Rate 86 79 84 Respiratory Rate 18 20 19 Blood Pressure 136/62 125/58 L 142/73 H Pulse Oximetry 96 95 94 L 02/01/18 00:00 02/01/18 04:00 02/01/18 07:30 Temperature 98.2 F 98.0 F 98.0 F Pulse Rate 74 82 68 Respiratory Rate 18 18 16 Blood Pressure 140/66 148/70 H 132/61 Pulse Oximetry 98 99 99 Intake & Output 01/31/18 02/01/1818 18:59 06:59 18:59 Intake Total 480 / 480 Balance 480 / 480 Intake: Oral 480 / 480 Other: # Voids 2 <Mitch Bourne - 02/01/18 11:42> - Constitutional no acute distress, average body habitus <Mitch Bourne - 02/01/18 11:42> - Routine HEENT Exam Head: Present: normocephalic, atraumatic <Mitch Bourne - 02/01/18 11:42> Eye: Present: EOMI <Mitch Bourne - 02/01/18 11:42> ENT: Present: mucous membranes moist <Mitch Bourne - 02/01/18 11:42> - Routine Respiratory Exam Present: CTA bilaterally. Absent: accessory muscle use, wheezes, crackles < Mitch Bourne - 02/01/18 11:42> - Routine Cardiovascular Exam Present: RRR, S1, S2. Absent: murmur <Mitch Bourne - 02/01/18 11:42> - Routine Extremities Exam Absent: cyanosis, edema <Mitch Bourne - 02/01/18 11:42> - Routine Neurological Exam Present: alert, oriented X3, moving all extremities, normal speech, tremors ( resting, pill-rolling). Absent: normal tone (slight increased tone) <Mitch Bourne - 02/01/18 11:42> - Detailed Neurological Exam: Coma Scale Eye Opening: Spontaneous <Mitch Bourne - 02/01/18 11:42> Verbal Response: Oriented <Mitch Bourne - 02/01/18 11:42> Motor Response: Obey commands <Mitch Bourne - 02/01/18 11:42> Kendra Coma Scale Total: 15 <Mitch Bourne - 02/01/18 11:46> - Routine Psychiatric Exam Present: normal affect (at her baseline; seems a little down compared to office visits but not much) <Mitch Bourne - 02/01/18 11:42> Assessment and Plan - Assessment (1) Radial head fracture, closed Code(s): S52.123A - Displaced fracture of head of unspecified radius, initial encounter for closed fracture Status: Acute (2) Frail elderly Code(s): R54 - Age-related physical debility Status: Acute (3) Tremor Code(s): R25.1 - Tremor, unspecified Status: Acute (4) Hypertension Code(s): I10 - Essential (primary) hypertension Status: Acute (5) Hypothyroidism Code(s): E03.9 - Hypothyroidism, unspecified Status: Acute (6) Nutrition, metabolism, and development symptoms Code(s): R63.8 - Other symptoms and signs concerning food and fluid intake Status: Acute <Jarocho Green - 02/01/18 17:21> (1) Radial head fracture, closed Code(s): S52.123A - Displaced fracture of head of unspecified radius, initial encounter for closed fracture Status: Acute Plan: Minimally displaced Pain management: Percocet 5-325mg po q6h ryan Orthopedic surgery was consulted, appreciate recommendations below: Minimally displaced right distal radius fracture Due to minimal displacement of the fracture is recommended that we continue to treat this conservatively with nonoperative treatment. She will continue to remain in splint and be nonweightbearing. She will use a sling when out of bed and avoid any lifting or pushing off with the wrist. We will have her return in 10-14 days to office (Dr. Osuna) in the outpatient setting for follow-up x- rays. If x-rays confirm continued alignment of fracture we will plan on going into a cast verses a removable wrist splint at that time. She may be discharged from an orthopedic standpoint. Case management to continue to assess if patient is safe to be discharged home. Patient may use a platform walker to ambulate. (2) Frail elderly Code(s): R54 - Age-related physical debility Status: Acute Plan: -PT recommended home with home health or PT at rehab. [facility]ed at [facility] , awaiting insurance approval. (3) Tremor Code(s): R25.1 - Tremor, unspecified Status: Acute Plan: -Continue trial of Sinemet (4) Hypertension Code(s): I10 - Essential (primary) hypertension Status: Acute Plan: Patient no longer with elevated blood pressures Increased home medication of amlodipine from 5 mg po qd to 10mg po daily Clonidine as needed per hypertensive protocol. (5) Hypothyroidism Code(s): E03.9 - Hypothyroidism, unspecified Status: Acute Plan: Continue with home medication (6) Nutrition, metabolism, and development symptoms Code(s): R63.8 - Other symptoms and signs concerning food and fluid intake Status: Acute Plan: Fluids: patient is tolerating PO Electrolytes: Replete as needed Diet: Cardiac diet DVT prophylaxis SCDs <Mitch Bourne S - 02/01/18 11:44> - Assessment and Plan Discharge Planning: Stable for DC to SNF today <Mitch Bourne S - 02/01/18 11:46> - Attending Attestation The exam, history, and the medical decision-making described in the above note were completed with the assistance of the resident physician. I reviewed and agree with the findings presented. I attest that I had a [id number] encounter with the patient on the same day, and personally performed and documented my assessment and findings in the medical record. I evaluated patient independently this afternoon. She is here with radial fracture. Discussed checking vitamin D, however, because she is being discharged , follow this up as an outpatient. May also benefit from osteoporosis treatment as an outpatient. She has multiple falls and fractures. Disposition plan is to discharge to [facility] today. Given her extrapyramidal symptoms, recommend avoiding metoclopramide, which she was taking in the past for gastroparesis. Has good follow up arranged. <Jarocho Green - 02/01/18 17:21> <Mitch Bourne S - Last Filed: 02/01/18 11:44> (1) Radial head fracture, closed Qualifiers: Encounter type: initial encounter (4) Hypertension Qualifiers: Hypertension type: essential hypertension Qualified Code(s): I10 - Essential (primary) hypertension <Jarocho Green - Last Filed: 02/01/18 17:21> (1) Radial head fracture, closed Qualifiers: Encounter type: initial encounter (4) Hypertension Qualifiers: Hypertension type: essential hypertension Qualified Code(s): I10 - Essential (primary) hypertension <Mitch Bourne S - Last Filed: 02/01/18 11:44> (1) Radial head fracture, closed Qualifiers: Encounter type: initial encounter (4) Hypertension Qualifiers: Hypertension type: essential hypertension Qualified Code(s): I10 - Essential (primary) hypertension <Jarocho Green L - Last Filed: 02/01/18 17:21> (1) Radial head fracture, closed Qualifiers: Encounter type: initial encounter (4) Hypertension Qualifiers: Hypertension type: essential hypertension Qualified Code(s): I10 - Essential (primary) hypertension
[2018-02-01] MEDS: ALPRAZolam 0.25 MG Tablet PO PRN (13:11)
[2018-02-02] MEDS: Levothyroxine 75 MCG Tablet PO SCH (06:23)
[2018-02-02 08:12] VITALS: RESP 16; TEMP 98.1
[2018-02-02] MEDS: amLODIPine 10 MG Tablet PO SCH (08:42)
[2018-02-02] MEDS: Senna/Docusate Sodium 8.6/50 MG Tablet PO SCH (08:42)
[2018-02-02] MEDS: Erythromycin Ethylsuccinate Susp 200 MG/5 ML 100 ML Bottle PO SCH ×3 (08:42→18:31)
--- NOTE | 2018-02-02 09:37 | P.PNFP ---
Subjective Interval history: Patient is a 82-year-old female with past medical history of hypertension, hypothyroidism, gastroparesis, and anxiety who was brought in by EMS after suffering mechanical fall at home causing a right distal radius fracture, now being seen for follow up. Today she feels the same as normal for her. Has some bilateral abdominal pain near the inferior ribs, not worsening but not improved. Hasn't been moving much. No difficulties going to the bathroom. No chest pain or shortness of breath. Arm pain is well controlled. <Mitch Bourne S - 02/02/18 09:36> Results - Labs Result diagrams: 01/27/18 00:35 01/27/18 00:35 <Jarocho Green L - 02/02/18 12:06> Abnormal lab results 02/02/18 Range/Units 06:34 Vitamin D 25-Hydroxy 26.3 L (30-100) ng/mL <Jarocho Green - 02/02/18 12:06> Abnormal lab results 02/02/18 Range/Units 06:34 Vitamin D 25-Hydroxy 26.3 L (30-100) ng/mL <Mitch Bourne S - 02/02/18 09:36> - Imaging Wrist X-Ray 01/26/18 23:25 CONCLUSION: 1. Distal radius fracture with dorsal displacement of a 1 cm fragment adjacent to the distal radioulnar joint. 2. Nondisplaced ulnar styloid fracture. Ribs X-Ray 01/31/18 00:00 CONCLUSION: No evidence for displaced rib fractures. <Mitch Bourne S - 02/02/18 09:36> Physical Exam Vital signs: Vital Signs 02/01/18 15:11 02/01/18 20:00 02/02/18 00:00 Temperature 98.4 F 98.5 F 98.0 F Pulse Rate 77 79 80 Respiratory Rate 16 18 18 Blood Pressure 123/65 124/63 133/63 Pulse Oximetry 98 98 98 02/02/18 04:00 02/02/18 07:15 Temperature 98.0 F 98.1 F Pulse Rate 75 81 Respiratory Rate 17 16 Blood Pressure 134/63 127/63 Pulse Oximetry 99 100 Intake & Output 02/01/18 02/02/18 02/02/18 18:59 06:59 18:59 Weight 52.3 kg Other: Date of Last Bowel Movement 02/01/18 Weight On Admission 52.3 kg <Jarocho Green - 02/02/18 12:06> Vital Signs 02/01/18 12:00 02/01/18 15:11 02/01/18 20:00 Temperature 98.3 F 98.4 F 98.5 F Pulse Rate 81 77 79 Respiratory Rate 18 16 18 Blood Pressure 141/74 H 123/65 124/63 Pulse Oximetry 98 98 98 02/02/18 00:00 02/02/18 04:00 02/02/18 07:15 Temperature 98.0 F 98.0 F 98.1 F Pulse Rate 80 75 81 Respiratory Rate 18 17 16 Blood Pressure 133/63 134/63 127/63 Pulse Oximetry 98 99 100 Intake & Output 02/01/18 02/02/18 02/02/18 18:59 06:59 18:59 Weight 52.3 kg Other: Date of Last Bowel Movement 02/01/18 Weight On Admission 52.3 kg <Mitch Bourne - 02/02/18 09:36> - Constitutional no acute distress, average body habitus <TaylaChanningy S - 02/02/18 09:36> - Routine HEENT Exam Head: Present: normocephalic, atraumatic <Mitch Bourne - 02/02/18 09:36> ENT: Present: mucous membranes moist <TaylaMitch S - 02/02/18 09:36> - Routine Respiratory Exam Absent: accessory muscle use <TaylaChanningkandice Starks - 02/02/18 09:36> - Routine Cardiovascular Exam Present: RRR, S1, S2. Absent: murmur <Mitch Bourne - 02/02/18 09:36> - Routine Abdominal Exam Present: soft, tenderness (to lower ribs bilaterally, not truly abdominal tenderness). Absent: distended, guarding, organomegaly, mass <Mitch Bourne - 02/02/18 09:36> - Routine Extremities Exam Absent: cyanosis, edema <Mitch Bourne - 02/02/18 09:36> - Routine Neurological Exam Present: alert, oriented X3, moving all extremities, normal speech, tremors ( resting, pill-rolling) <Mitch Bourne - 02/02/18 09:36> Assessment and Plan - Assessment (1) Radial head fracture, closed Code(s): S52.123A - Displaced fracture of head of unspecified radius, initial encounter for closed fracture Status: Acute (2) Frail elderly Code(s): R54 - Age-related physical debility Status: Acute (3) Tremor Code(s): R25.1 - Tremor, unspecified Status: Acute (4) Hypertension Code(s): I10 - Essential (primary) hypertension Status: Acute (5) Hypothyroidism Code(s): E03.9 - Hypothyroidism, unspecified Status: Acute (6) Costochondral pain Code(s): R07.1 - Chest pain on breathing Status: Acute (7) Nutrition, metabolism, and development symptoms Code(s): R63.8 - Other symptoms and signs concerning food and fluid intake Status: Acute <Jarocho Green - 02/02/18 12:06> (1) Radial head fracture, closed Code(s): S52.123A - Displaced fracture of head of unspecified radius, initial encounter for closed fracture Status: Acute Plan: Minimally displaced Pain management: Percocet 5-325mg po q6h ryan Vitamin D level 26.3; no clear evidence of benefit supplementation if level > 20 , will defer for now Orthopedic surgery was consulted, appreciate recommendations below: Minimally displaced right distal radius fracture Due to minimal displacement of the fracture is recommended that we continue to treat this conservatively with nonoperative treatment. She will continue to remain in splint and be nonweightbearing. She will use a sling when out of bed and avoid any lifting or pushing off with the wrist. We will have her return in 10-14 days to office (Dr. Osuna) in the outpatient setting for follow-up x- rays. If x-rays confirm continued alignment of fracture we will plan on going into a cast verses a removable wrist splint at that time. She may be discharged from an orthopedic standpoint. Case management to continue to assess if patient is safe to be discharged home. Patient may use a platform walker to ambulate. (2) Frail elderly Code(s): R54 - Age-related physical debility Status: Acute Plan: -PT recommended home with home health or PT at rehab. Accepted at [facility] , awaiting insurance approval. (3) Tremor Code(s): R25.1 - Tremor, unspecified Status: Acute Plan: -Continue trial of Sinemet (4) Hypertension Code(s): I10 - Essential (primary) hypertension Status: Acute Plan: Patient no longer with elevated blood pressures Increased home medication of amlodipine from 5 mg po qd to 10mg po daily Clonidine as needed per hypertensive protocol. (5) Hypothyroidism Code(s): E03.9 - Hypothyroidism, unspecified Status: Acute Plan: Continue with home medication (6) Costochondral pain Code(s): R07.1 - Chest pain on breathing Status: Acute Plan: Mild, will give ibuprofen 600 mg Q8H x4 doses (7) Nutrition, metabolism, and development symptoms Code(s): R63.8 - Other symptoms and signs concerning food and fluid intake Status: Acute Plan: Fluids: patient is tolerating PO Electrolytes: Replete as needed Diet: Cardiac diet DVT prophylaxis SCDs <Mitch Bourne S - 02/02/18 09:20> - Assessment and Plan Discharge Planning: Stable for DC to SNF today, awaiting placement <Mitch Bourne S - 02/02/18 09:36> - Attending Attestation The exam, history, and the medical decision-making described in the above note were completed with the assistance of the resident physician. I reviewed and agree with the findings presented. I attest that I had a [id number] encounter with the patient on the same day, and personally performed and documented my assessment and findings in the medical record. Evaluated the patient this morning. She reports pain in her lower rib area, possibly upper left and upper right quadrants. Has normal bowel sounds and benign abdominal exam. Besides that, she is not reporting pain this morning. Discharge planning to continue. <Jarocho Green - 02/02/18 12:06> <Mitch Bourne S - Last Filed: 02/02/18 09:20> (1) Radial head fracture, closed Qualifiers: Encounter type: initial encounter (4) Hypertension Qualifiers: Hypertension type: essential hypertension Qualified Code(s): I10 - Essential (primary) hypertension <Jarocho Green - Last Filed: 02/02/18 12:06> (1) Radial head fracture, closed Qualifiers: Encounter type: initial encounter (4) Hypertension Qualifiers: Hypertension type: essential hypertension Qualified Code(s): I10 - Essential (primary) hypertension <BourneMitch S - Last Filed: 02/02/18 09:20> (1) Radial head fracture, closed Qualifiers: Encounter type: initial encounter (4) Hypertension Qualifiers: Hypertension type: essential hypertension Qualified Code(s): I10 - Essential (primary) hypertension <PeterJarocho L - Last Filed: 02/02/18 12:06> (1) Radial head fracture, closed Qualifiers: Encounter type: initial encounter (4) Hypertension Qualifiers: Hypertension type: essential hypertension Qualified Code(s): I10 - Essential (primary) hypertension
[2018-02-02] MEDS: Ibuprofen 600 MG Tablet PO SCH ×3 (11:00→18:05)
[2018-02-02] MEDS: ALPRAZolam 0.25 MG Tablet PO PRN (15:33)
[2018-02-02 15:39] VITALS: BP 139/66; PULSE 88; O2SAT 99
--- NOTE | 2018-02-04 11:07 | P.DS ---
Date of admission: 01/27/18 00:32 Primary care physician: Mitch Bourne MD, R3 Brief History from admission: Patient is a 82-year-old female with past medical history of hypertension, hypothyroidism, and anxiety who was brought in by EMS after suffering mechanical fall at home. Daughter was at bedside and contributed to history. Daughter reports that patient was discharged from rehab center today. As she was setting the tub for her mother to shower, the patient in a attempt to remove her pants fell and tried to brace her fall with her right hand. Daughter reports that she was not able to get her mother up off the floor and thus called EMS. Patient only complaint is right forearm pain. She rates pain is a 8/10 and is nonradiating. She denies any chest pain, shortness of breath, fever, chills, back pain, headache, dizziness, palpitations, abdominal pain, nausea, vomiting, dysuria, seizure activity, extremity weakness, numbness or tingling of extremities. She denies hitting her head, or loss of consciousness. Denies any pain elsewhere in her body besides right forearm. She feels well otherwise. Of note: Daughter reports that patient was in rehab center for 30 days after suffering a fall. Due to insurance limitation patient was unable to stay longer in the rehab center and was discharged today. Patient requires assistance to ambulate with a walker. Patient update on day of discharge: Patient is a 82-year-old female with past medical history of hypertension, hypothyroidism, gastroparesis, and anxiety who was brought in by EMS after suffering mechanical fall at home causing a right distal radius fracture, now being seen for follow up. Today she feels the same as normal for her. Has some bilateral abdominal pain near the inferior ribs, not worsening but not improved. Hasn't been moving much. No difficulties going to the bathroom. No chest pain or shortness of breath. Arm pain is well controlled. <Mitch Bourne - 02/02/18 09:36> DS: Diagnosis - Discharge Diagnosis (1) Radial head fracture, closed Status: Acute Diagnosis: Principal (2) Frail elderly Status: Chronic Diagnosis: Secondary (3) Tremor Status: Chronic Diagnosis: Secondary (4) Hypertension Status: Chronic Diagnosis: Secondary (5) Hypothyroidism Status: Chronic Diagnosis: Secondary DS: Medications - Discharge Medications Prescriptions: amlodipine [Norvasc] 10 mg PO DAILY #30 tab carbidopa-levodopa 1 tab PO TID #90 tab erythromycin ethylsuccinate [E.E.S. 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 Orthopedics was consulted who recommended splint placement and f/u in office in 10-14 days. She was also started on treatment with Sinemet due to possible Parkinson's on exam, and she will be referred to a neurologist as an outpatient. She continued to be stable and ultimately placement at a SNF was arranged. She will f/u with her PCP (myself) after discharge from rehab. She will likely need long-term nursing care which will be discussed with her daughter. - Time Spent with Patient Total time spent providing and/or coordinating discharge services: Less than 30 minutes - Quality: VTE Deep Vein Thrombosis/Pulmonary Embolism Present on Admission: No Exam Vital signs: Vital Signs 02/01/18 12:00 02/01/18 15:11 02/01/18 20:00 Temperature 98.3 F 98.4 F 98.5 F Pulse Rate 81 77 79 Respiratory Rate 18 16 18 Blood Pressure 141/74 H 123/65 124/63 Pulse Oximetry 98 98 98 02/02/18 00:00 02/02/18 04:00 02/02/18 07:15 Temperature 98.0 F 98.0 F 98.1 F Pulse Rate 80 75 81 Respiratory Rate 18 17 16 Blood Pressure 133/63 134/63 127/63 Pulse Oximetry 98 99 100 Intake & Output 02/01/18 02/02/18 02/02/18 18:59 06:59 18:59 Weight 52.3 kg Other: Date of Last Bowel Movement 02/01/18 Weight On Admission 52.3 kg Narrative: - Constitutional no acute distress, average body habitus <Mitch Bourne - 02/02/18 09:36> - Routine HEENT Exam Head: Present: normocephalic, atraumatic <Mitch Bourne - 02/02/18 09:36> ENT: Present: mucous membranes moist <Mitch Bourne - 02/02/18 09:36> - Routine Respiratory Exam Absent: accessory muscle use <Mitch Bourne - 02/02/18 09:36> - Routine Cardiovascular Exam Present: RRR, S1, S2. Absent: murmur <Mitch Bourne S - 02/02/18 09:36> - Routine Abdominal Exam Present: soft, tenderness (to lower ribs bilaterally, not truly abdominal tenderness). Absent: distended, guarding, organomegaly, mass <Mitch Bourne S - 02/02/18 09:36> - Routine Extremities Exam Absent: cyanosis, edema <Mitch Bourne S - 02/02/18 09:36> - Routine Neurological Exam Present: alert, oriented X3, moving all extremities, normal speech, tremors ( resting, pill-rolling) <Mitch Bourne - 02/02/18 09:36> Results Procedures completed during hospitalization: None - Impressions ITS Impressions Wrist X-Ray 01/26/18 23:25 CONCLUSION: 1. Distal radius fracture with dorsal displacement of a 1 cm fragment adjacent to the distal radioulnar joint. 2. Nondisplaced ulnar styloid fracture. Ribs X-Ray 01/31/18 00:00 CONCLUSION: No evidence for displaced rib fractures. Discharge Plan - Discharge Disposition Patient Disposition: Discharge to SNF - Discharge Condition Condition: Stable - Discharge Order Discharge Orders: Discharge Order (Routine); Ordered 02/02/18 Ordered By: Isra Valdez ED Use Only Admit Order (Routine); Ordered 01/27/18 Ordered By: Jalil Gan - Discharge Details Anticipated Discharge Date: 02/02/18 - Physicians Team Primary Care Provider: Mitch Kumar Attending Provider: Jarocho Green Other Providers: Andrea Flynn MD ; Tylor Rushing MD ; [facility] ; [facility] ; [facility]
== END 2018-02-02 18:44 ==
LOC: NEPE 22:46 → NEDA 22:46 → NEPGCP 01-27 02:20
PROVIDERS: ADMIT Family Medicine; ATTEND Family Medicine